=== PATIENT | female | born 1960 | race Caucasian/White ===

== ENCOUNTER 2016-09-10 07:55 | Inpatient (IN) | payer MEDICAID ==
[2016-09-10] MEDS ORDERED: ASPIRIN EC 325 MG TAB PO ONE (08:03)
[2016-09-10] MEDS ORDERED: NS 1,000 ML IV ONE (08:03)
[2016-09-10] MEDS ORDERED: FAMOTIDINE 20 MG TAB PO ONE (08:03)
[2016-09-10] MEDS ORDERED: DIAZEPAM 5 MG TAB PO ONE (08:03)
[2016-09-10] MEDS ORDERED: diphenhydrAMINE 25 MG CAP PO ONE (08:03)
--- NOTE | 2016-09-10 08:29 | CPEKG ---
Heart Rate: 86 RR Interval: 698 P-R Interval: 144 QRSD Interval: 106 QT Interval: 368 QTC Interval: 440 P Paris: 50 QRS Paris: 49 T Wave Paris: 83 EKG Severity - NORMAL ECG - EKG Impression: SINUS RHYTHM Electronically Signed By: Dexter Cortes 10-Sep-2016 18:20:03
[2016-09-10 09:43] LABS: % IMMATURE GRANULYOCYTES 0.3 % (0.0-1.1); ABSOLUTE IMMATURE GRANULOCYTES 0.02 10^3/uL (0.00-0.10); ADD DIFF? NO; ADD MORPH? YES; ADD SCAN? NO; ATYPICAL LYMPHOCYTE FLAG 10 (0-99); FRAGMENT RBC FLAG 60 (0-99); HEMATOCRIT 31.4 % (38.0-47.0); HEMOGLOBIN 9.6 g/dL (12.6-16.3); LEFT SHIFT FLG 0 (0-99); LIPEMIA HEMOLYSIS FLAG 80 (0-99); MEAN CELL HEMOGLOBIN 22.5 pg (27.9-34.1); MEAN CELL HEMOGLOBIN CONCENTR. 30.6 g/dL (32.4-36.7); MEAN CELL VOLUME 73.7 fL (81.5-99.8); PLATELET CLUMPS FLAG 20 (0-99); PLATELET COUNT 252 10^3/uL (150-400); RED BLOOD CELL COUNT 4.26 10^6/uL (4.18-5.33)
[2016-09-10 09:48] LABS: ANION GAP 10 mEq/L (8-16); CALCIUM 9.2 mg/dL (8.5-10.4); CARBON DIOXIDE 25 mEq/l (22-31); CHLORIDE 103 mEq/L (97-110); CHOLESTEROL 121 mg/dL (140-220); CHOLESTEROL/HDL RATIO 2.57 RATIO (1.00-4.44); GLOMERULAR FILTRATION RATE 57; GLUCOSE 220 mg/dL (70-100); HIGH DENSITY LIPOPROTEIN 47 mg/dL (40-85); LDL/HDL RATIO 1.02 RATIO (1.00-3.22); LOW DENSITY LIPOPROTEIN 48 mg/dL (80-100); MAGNESIUM 1.9 mg/dL (1.6-2.3); NON-HIGH DENSITY LIPOPROTEIN 74 mg/dL (90-129); POTASSIUM 4.2 mEq/L (3.5-5.2); SODIUM 138 mEq/L (134-144); TRIGLYCERIDE 134 mg/dL (35-135); VERY LOW DENSITY LIPOPROTEINS 26 mg/dL (8-25)
[2016-09-10 09:57] LABS: INR 1.08 (0.83-1.16); PROTIME(PATIENT) 13.9 SEC (12.0-15.0)
[2016-09-10 10:28] LABS: MACROCYTES 1+; MICROCYTES 1+; POLYCHROMASIA 1+
[2016-09-10 10:29] LABS: GIANT PLATELETS PRESENT; HYPOCHROMIA 1+; LARGE PLATELETS PRESENT; PLATELET ESTIMATE ADEQUATE (ADEQ)
[2016-09-10] MEDS ORDERED: LIDOCAINE 1% 30 ML SDV ONE ×2 (13:21→13:23)
[2016-09-10] MEDS ORDERED: fentaNYL 100 MCG/2 ML INJ ONE (13:21)
[2016-09-10] MEDS ORDERED: MIDAZOLAM 2 MG/2 ML VIAL ONE (13:22)
[2016-09-10] MEDS ORDERED: IOPAMIDOL (ISOVUE-370) 150 ML BTL IV ONE (13:22)
[2016-09-10] MEDS ORDERED: CEFAZOLIN 1 GM/DEXTROSE/50 ML BAG IV ONE (14:17)
[2016-09-10] MEDS ORDERED: IOPAMIDOL (ISOVUE-300) 100 ML BTL IV ONE (14:48)
[2016-09-10] MEDS ORDERED: ATROPINE SULFATE 1 MG/10 ML SYR ONE (15:15)
--- NOTE | 2016-09-10 15:19 | PDDXCAT ---
Diagnostic Cath Note - . Date: 09/10/16 Lever Miller: Re Indication: other (New onset CHF, known CAD, recent decline in EF.) - Procedure Access: right groin Procedure: left heart catheterization, coronary angiography, left ventriculogram , right heart catheterization - Materials Left Heart Cath size: 6F Left Heart Cath materials: standard multipack (JL4, JR4, pigtail) Right Heart Cath size: 7F Right Heart Cath materials: PWP catheter - Findings-Left Heart Catheterization LM: The left main is a large caliber vessel. There is appropriate bifurcation into left anterior descending and circumflex distributions. Luminal irregularities are noted distally to 20%. LAD: The LAD has previously been stented in its mid segment. There is minimal in stent restenoses. A single principal diagonal branch is identified. The remainder of the vessel and its branches contain only luminal irregularities. LCX: The circumflex has a single principal obtuse marginal branch with a 2nd very small surgically insignificant obtuse marginal. There are luminal irregularities with no obstructive lesions. RCA: The right coronary artery is large and dominant. There is a large posterolateral in addition to the PDA. Luminal irregularities with no obstructive lesions are noted. EDP: 100/17/35 mmHg. LVEF: 30-35% with global hypokinesis and 3+ mitral regurgitation. Wall motion: No focal wall motion abnormalities. There is moderate global hypokinesis. - Findings-Right Heart Catheterization RA: 17 mmHg. RV: 53/13/21 mmHg. PA: 50/22/36 mmHg. PAOP: 23 mmHg. AO: 99/64/80 mmHg. CO: 4.34 liters/minute. CI: 1.8 liters/minute per meter squared. Complications: None. Closure method: manual pressure Assessment: 1. Single-vessel CAD with previous stenting of the mid LAD. In the interim, there has been no significant in stent restenoses. Additionally, there has been no development of additional obstructive lesions. 2. Moderate, likely ischemic, cardiomyopathy with an ejection fraction visually estimated at 30-35%. 3. 3+ mitral regurgitation. 4. Elevated filling pressures. 5. 3+ mitral regurgitation. Plan: We will plan to further assess the degree of mitral regurgitation via ECHO and possibly DAVID. We will continue aggressive medical management. Consideration for ICD implantation depending on further assessment of the ejection fraction. Intervention: None. Patient Problems: Problems Problem Status Onset Acute ischemic stroke Acute
[2016-09-10] MEDS ORDERED: ONDANSETRON 4 MG/2 ML VIAL IVP PRN (15:46)
[2016-09-10] MEDS ORDERED: ONDANSETRON DISINTEGRATING 4 MG TAB PO PRN (15:46)
[2016-09-10] MEDS ORDERED: ACETAMINOPHEN 325 MG TAB PO PRN (15:46)
[2016-09-10] MEDS: INSULIN LISPRO 100 UNIT/ML SC SCH (18:37)
[2016-09-10] MEDS: WARFARIN SODIUM 5 MG TAB PO SCH (18:37)
[2016-09-10] MEDS ORDERED: ENOXAPARIN SQ SCH (21:00)
[2016-09-10] MEDS: ENOXAPARIN 120 MG/0.8 ML SYR SC SCH (21:27)
[2016-09-10] MEDS: NORTRIPTYLINE HCL 10 MG CAP PO SCH (21:28)
[2016-09-10] MEDS: ROSUVASTATIN CALCIUM 20 MG TAB PO SCH (21:28)
[2016-09-10] MEDS: PREGABALIN 100 MG CAP PO SCH (21:28)
[2016-09-10] MEDS: METOPROLOL SUCCINATE XR 25 MG TAB PO SCH (21:28)
[2016-09-10] MEDS: clonazePAM 1 MG TAB PO SCH (21:28)
[2016-09-10] MEDS: INSULIN DETEMIR 50 UNIT SQ SCH (22:37)
[2016-09-11] MEDS: VENLAFAXINE XR 75 MG CAP PO SCH (08:03)
[2016-09-11] MEDS: METOPROLOL SUCCINATE XR 25 MG TAB PO SCH ×2 (08:03→20:44)
[2016-09-11] MEDS: PREGABALIN 100 MG CAP PO SCH ×2 (08:03→20:45)
[2016-09-11] MEDS: CLOPIDOGREL BISULFATE 75 MG TAB PO SCH (08:04)
[2016-09-11] MEDS: LISINOPRIL 5 MG TAB PO SCH (08:04)
[2016-09-11] MEDS: buPROPion XL 150 MG TAB PO SCH (08:04)
[2016-09-11] MEDS: ENOXAPARIN 120 MG/0.8 ML SYR SC SCH ×2 (08:04→20:44)
[2016-09-11] MEDS: clonazePAM 1 MG TAB PO SCH ×2 (08:04→20:49)
[2016-09-11] MEDS: INSULIN LISPRO 100 UNIT/ML SC SCH ×4 (08:04→18:09)
[2016-09-11] MEDS: FUROSEMIDE 40 MG TAB PO SCH (08:05)
[2016-09-11] MEDS: INSULIN DETEMIR 50 UNIT SQ SCH ×2 (08:06→20:57)
--- NOTE | 2016-09-11 08:33 | ECHO ---
[id number] + + [id number] : : [place] [id number] : : [phone] + + Adult Echocardiographic Report + -----+ :Name: CAROLEE ALLAN JStudy Date: 09/10/2016 04:07 PM : : Hospital Admission Number: [id number] Location : [facility]: :: 1960 Gender: Female Height: 67 in : :Age: 56 yrs Race: WH Weight: 273 lb : :Reason For Study: CHF : : BSA: 2.3 meters2 : + -----+ MMode/2D Measurements \T\ Calculations LVIDd: 4.8 cm EDV(Teich): 107.6 ml MV Diam: 4.4 cm LA dimension: 4.2 cm LVOT diam: 1.9 cmLVLd ap4: 8.5 cm SV(MOD-sp4): LVOT area: EDV(MOD-sp4): 50.0 ml 3.0 cm2 120.0 ml LVLs ap4: 8.0 cm ESV(MOD-sp4): 70.0 ml EF(MOD-sp4): 41.7 % Normal Measurement Values: + + :LVIDd (3.5-5.7cm) IVSd (0.6-1.1cm) LVPWd (0.6-1.1cm) Aortic Root (2.0-3.7cm)Left Atrium (1.5-4.0cm): :LV Vol(d) (76-115ml) LV Vol(s) (29-48ml) Ejec Fraction (50-65%)PV Donn (0.6- 1.2m/s) TV Donn (0.4-1.0m/s) : :MV E Donn (0.8-1.0m/s)MV A Donn (0.3-1.0m/s)LVOT Donn (0.7-1.2m/s) Asc Ao Donn ( 0.9-1.8m/s) : + + Doppler Measurements \T\ Calculations MV E max donn: MV V2 max: Ao mean PG: LV V1 mean P.2 cm/sec 139.8 cm/sec 2.4 mmHg 2.0 mmHg MV A max donn: MV max P.8 mmHg Ao V2 mean: LV V1 mean: 102.7 cm/sec MV V2 mean: 73.1 cm/sec 55.9 cm/sec MV E/A: 1.00 80.7 cm/sec Ao V2 VTI: 20.9 cmLV V1 VTI: 16.4 cm MV mean P.1 mmHg ENMA(I,D): 2.3 cm2 MV V2 VTI: 28.4 cm MV area (1 diam): 14.9 cm2 MVA(VTI): 1.7 cm2 MV Flow area(1diam): 14.9 cm2 MR max donn: MR(RF 1 diam): 5.0 % SV(MV 1 diam): TR max donn: 490.8 cm/sec 423.1 ml 309.5 cm/sec MR max PG: SI(MV 1 diam): TR max P.4 mmHg 183.4 ml/m2 38.3 mmHg SV(LVOT): 48.7 ml RAP systole: 10.0 mmHg RVSP(TR): 48.3 mmHg RF(MV,LVOT)(1diam): 0.88 Left Ventricle The left ventricle is normal in size. Cannot exclude LV apical thrombus. There is normal left ventricular wall thickness. There is Doppler evidence for diastolic dysfunction. EF estimate is 40%. Apical and mid/distal septal akinesis. Right Ventricle The right ventricle is normal in size and function. Atria The left atrium is moderately dilated. Right atrial size is normal. Contrast injected - negative (but no cough or valsalva post cath). Mitral Valve Calcified mitral apparatus. There is no evidence of mitral valve prolapse. There is no mitral valve stenosis. There is moderate to severe mitral regurgitation. Tricuspid Valve Normal tricuspid valve. There is mild tricuspid regurgitation. Right ventricular systolic pressure is 49mmHg. There is Doppler evidence for mild pulmonary hypertension. Aortic Valve The aortic valve is trileaflet. The aortic valve opens well. There is no aortic stenosis. There is no aortic insufficiency. Pulmonic Valve The pulmonic valve is normal in structure and function. There is no pulmonic valvular regurgitation. Great Vessels The aortic root is normal size. Pericardium/Pleural There is no pericardial effusion. Conclusion A complete two-dimensional transthoracic echocardiogram was performed (2D, M-mode, Doppler and color flow Doppler). Normal LV size. EF estimate is 40%. Cannot exclude LV apical thrombus. There is Doppler evidence for diastolic dysfunction. Apical and mid/distal septal akinesis. The left atrium is moderately dilated. Calcified mitral apparatus. There is moderate to severe mitral regurgitation. Mild TR. Right ventricular systolic pressure is 49mmHg. Contrast injected - negative (but no cough or valsalva post cath). Compared to a prior study from 01/12/14 the EF has declined and there are new wall motion abnormalities. The severity of MR is unchanged. Final Reading Physician: John Bejarano signed on 09/11/2016 08:31 AM Ordering Physician: Gray Grimaldo Performed By: Mary Ramirez, RIKYCS
[2016-09-11 11:02] LABS: HEMOGLOBIN 8.4 g/dL (12.6-16.3); MEAN CELL HEMOGLOBIN 22.7 pg (27.9-34.1); MEAN CELL VOLUME 75.7 fL (81.5-99.8); RED BLOOD CELL COUNT 3.7 10^6/uL (4.18-5.33)
[2016-09-11 11:07] LABS: RED CELL DISTRIBUTION WIDTH 20.6 % (11.5-15.2)
[2016-09-11 11:10] LABS: INR 1.19 (0.83-1.16); PROTIME(PATIENT) 15.1 SEC (12.0-15.0)
[2016-09-11 11:41] LABS: ANION GAP 8 mEq/L (8-16); CALCIUM 8.7 mg/dL (8.5-10.4); CARBON DIOXIDE 26 mEq/l (22-31); CHLORIDE 101 mEq/L (97-110); CREATININE 0.9 mg/dL (0.6-1.0); GLOMERULAR FILTRATION RATE > 60; GLUCOSE 357 mg/dL (70-100); SODIUM 135 mEq/L (134-144)
[2016-09-11] MEDS ORDERED: D50W 25 GM/50 ML SYR IVP PRN (13:37)
[2016-09-11] MEDS ORDERED: FUROSEMIDE 40 MG/4 ML VIAL IVP ONE ×2 (15:06→17:30)
--- NOTE | 2016-09-11 15:38 | PDCARPN ---
Cardiology Progress Note Chief Complaint: Patient reports continued shortness of breath with exertion. Assessment/Plan: Assessment: Mrs Mahoney is a 56-year-old female who was admitted to the hospital yesterday for elective right and left cardiac catheterization. 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 Cardiac catheterization (09/10/2016) no flow limiting disease, previous stent in LAD patent, moderate, likely ischemic cardiomyopathy ejection fraction estimated at 30-35%, 3+ mitral regurgitation, elevated pulmonary pressures PA measurement 50/ 22/36 PAOP 23 mm Hg. After procedure she had echocardiogram done, showing EF 40 %, apical and mid to distal septal akinesis, diastolic dysfunction, LA moderately dilated, calcified mitral apparatus, moderate to severe MR, mild TR, RVSP 49 mm Hg. Patient noted to be anemia on admission with hemoglobin of 9.6, hematocrit 31.4, today 8.4 and 28.0. She reports continuation of shortness of breath, denies of any chest pressure or pain, no significant edema. Right groin site, catheter insertion site, without redness, swelling, drainage, or ecchymosis. Noted patient remained in sinus rhythm with no malignant arrhythmias throughout the evening. Occasional PVC. Patient went up in walking heart rate races significantly in sinus rhythm, up to 110-120 BPM. Plan: 1. Ischemic cardiomyopathy: Have up titrated her metoprolol succinate recently outpatient setting, continues to have elevated heart rates. Have discussed this with her dial screw assembler, Dr. Toney, with concerns that her anemia may be driving this tachycardia and causing worsening of her shortness of breath and potential systolic heart failure. Recommendation for transfusion. Will increase metoprolol succinate up to 37.5 mg. Continue on current dose of lisinopril. Has been started on increased dose of Lasix at 60 mg p. o. q.day within the last week. 2. CAD: Recent coronary catheterization showing no flow limiting disease, continue on anti-platelet therapy, currently not on aspirin due to being on warfarin. Continue on beta-reuben as mentioned above. 3. Paroxysmal atrial fibrillation: Patient currently in sinus rhythm, continue on beta-reuben as mentioned above. Patient with chads Vasc score 6, being bridged with Lovenox while resuming warfarin therapy (per recommendation of Hematology), INR subtherapeutic. Repeat INR in a.m.. 4. microcytic anemia: H&H decreased today, no obvious signs of bleeding, potentially delusional from cardiac catheterization. Patient noted to have significant elevated heart rate despite beta-blockers with exertion, probably worsening her shortness of breath with decreased ejection fraction and mitral regurgitation, discussed with Hematology, Dr. Fernandez, who has recommended that patient be transfused 2 units to see if this will help with her shortness of breath, he has also recommended that once patient is discharge, she be sent home with Hemoccult x3 cart and follow up with him. Will give patient 40 of Lasix IV between units. Repeat H&H in BMP in a.m.. 5. Diabetes type 2: Patient has been resumed on home insulin, continues to be hyperglycemic, will add a sliding scale to home dosage, blood sugars a.c. and HS , D50 order to if necessary. 6. Valvular heart disease: +3 MR by catheterization, moderate to severe by echo, potentially if ejection fraction can improved with medical management, this may also improve MR, medication management as above. 7. LONNY: Using oxygen therapy at night as has home 8. Hyperlipidemia: Resumed on home dosage of statin therapy. 9. Code status: Patient is a full code. 10. DVT precaution: Patient is on Lovenox therapy. Will plan for patient to stay one more night and D/C in AM 09/11/16 15:35 Subjective: Patient reports continuation of shortness of breath, denies of any chest pain, palpitations, orthopnea, PND, edema, near-syncope or syncopal events. Reviewed/Discussed With: other (Dr Grimaldo, Dr Toney) Objective: Vital Signs (8 Hrs) Temp Pulse Resp BP Pulse Ox 09/11/16 15:06 36.4 C 85 12 120/66 93 09/11/16 12:00 36.4 C 88 18 114/69 92 09/11/16 11:04 87 L 09/11/16 08:26 36.8 C 80 20 105/58 L 98 09/11/16 08:04 101/54 L 09/11/16 08:03 97 101/54 L 09/11/16 07:42 97 Intake/Output (24 Hrs) 09/10/16 09/11/16 09/12/16 05:59 05:59 05:59 Intake Total 2350 500 Output Total 200 Balance 2150 500 Intake: Oral (ml) 1750 500 IV Intake (ml) 600 Output: Urine (ml) 200 Bedpan 200 Other: Weight 123.8 kg Intake Quantity Yes Sufficient Number of Voids Bedpan 1 Result Diagrams: 09/11/16 10:50 09/11/16 10:50 - Physical Exam Constitutional: healthy appearing, no apparent distress, obese Ears, Nose, Mouth, Throat: moist mucous membranes Cardiovascular: regular rate and rhythm, systolic murmur (2 to 3/6 along left sternal border.), pulses symmetric bilat, No no rubs, No jugular vein distention , No carotid bruit Peripheral Pulses: 1+: dorsalis-pedis (R), dorsalis-pedis (L), 2+: carotid (R), carotid (L) Respiratory: other (Lungs are clear, but diminished in bases bilateral, no rhonchi, rales, or wheezing noted. No accessary muscle use, no intercostal muscle retraction noted.) Gastrointestinal: normoactive bowel sounds, no tenderness, no masses, tenderness Skin: warm, no edema, other (Groin site, catheter insertion site, with no redness swelling drainage ecchymosis or hematoma.) Neurologic: AAOx3 Psychiatric: cooperative, interactive, following commands, not anxious ICD10 Worksheet Patient Problems: Problems Problem Status Onset Acute ischemic stroke Acute
[2016-09-11] MEDS: WARFARIN SODIUM 5 MG TAB PO SCH (16:26)
[2016-09-11] MEDS: ROSUVASTATIN CALCIUM 20 MG TAB PO SCH (20:44)
[2016-09-11] MEDS: NORTRIPTYLINE HCL 10 MG CAP PO SCH (20:53)
[2016-09-12 05:31] LABS: HEMATOCRIT 34.3 % (38.0-47.0); HEMOGLOBIN 10.7 g/dL (12.6-16.3); MEAN CELL HEMOGLOBIN 23.5 pg (27.9-34.1); MEAN CELL HEMOGLOBIN CONCENTR. 31.2 g/dL (32.4-36.7); MEAN CELL VOLUME 75.2 fL (81.5-99.8); RED BLOOD CELL COUNT 4.56 10^6/uL (4.18-5.33); RED CELL DISTRIBUTION WIDTH 19.9 % (11.5-15.2)
[2016-09-12 05:42] LABS: ANION GAP 7 mEq/L (8-16); CARBON DIOXIDE 28 mEq/l (22-31); CHLORIDE 102 mEq/L (97-110); GLOMERULAR FILTRATION RATE 57; GLUCOSE 203 mg/dL (70-100); POTASSIUM 4.5 mEq/L (3.5-5.2); SODIUM 137 mEq/L (134-144)
[2016-09-12 05:48] LABS: INR 1.25 (0.83-1.16); PROTIME(PATIENT) 15.7 SEC (12.0-15.0)
[2016-09-12] MEDS: INSULIN LISPRO 100 UNIT/ML SC SCH ×4 (08:01→12:14)
[2016-09-12] MEDS: FUROSEMIDE 40 MG TAB PO SCH (08:02)
[2016-09-12] MEDS: PREGABALIN 100 MG CAP PO SCH (08:02)
[2016-09-12] MEDS: METOPROLOL SUCCINATE XR 25 MG TAB PO SCH (08:03)
[2016-09-12] MEDS: clonazePAM 1 MG TAB PO SCH (08:04)
[2016-09-12] MEDS: LISINOPRIL 5 MG TAB PO SCH (08:04)
[2016-09-12] MEDS: buPROPion XL 150 MG TAB PO SCH (08:05)
[2016-09-12] MEDS: ENOXAPARIN 120 MG/0.8 ML SYR SC SCH (08:05)
[2016-09-12] MEDS: VENLAFAXINE XR 75 MG CAP PO SCH (08:05)
[2016-09-12] MEDS: CLOPIDOGREL BISULFATE 75 MG TAB PO SCH (08:05)
[2016-09-12] MEDS: INSULIN DETEMIR 50 UNIT SQ SCH (08:06)
[2016-09-12 11:24] VITALS: BP 127/76; PULSE 84; RESP 19; TEMP 98.7; O2SAT 91
--- NOTE | 2016-09-12 15:54 | GDS ---
[f rep st] DISCHARGE SUMMARY SUPERVISING TEACHER VOCAL: Gray Grimaldo MD. DIAGNOSES ADMISSION: 1. Coronary artery disease. 2. Hyperlipidemia. 3. Type 2 diabetes. 4. Hypertension. 5. Paroxysmal atrial fibrillation. 6. History of cryptogenic right-sided CVA. 7. Obstructive sleep apnea. 8. Valvular heart disease. 9. Microcytic anemia. DISCHARGE DIAGNOSES: 1. Coronary artery disease. 2. Ischemic cardiomyopathy. 3. Paroxysmal atrial fibrillation. 4. Valvular heart disease: +3 mitral regurgitation on catheterization, and echocardiogram showing moderate to severe mitral regurgitation. 5. Obstructive sleep apnea. 6. Hyperlipidemia. 7. Microcytic anemia. 8. Status post loop recorder removal. PROCEDURES DONE DURING HOSPITALIZATION: 1. Electrocardiogram. 2. Echocardiogram. 3. Diagnostic right and left heart catheterization. 4. Loop recorder removal. 5. Transfusion, 2 units packed red blood cells. BRIEF HISTORY: Please see H and P. The patient is a 56-year-old female with significant history th at includes cryptogenic right-sided CVA; morbid obesity; coronary artery disease, with previous PCI of the LAD; hyperlipidemia; type 2 diabetes; hypertension; ; lupus anticoagulant positive; LONNY; and microcytic anemia. She has been noticing more significant shortness of breath, with no ch est pressure or pain. She was seen by Dr. Grimaldo, who evaluated her most recent echocardiogram, and felt it appropriate for the further evaluated for right and left heart catheterization, and with rec ent diagnosis of atrial fibrillation, loop recorder was removed. HOSPITAL COURSE: Patient admitted through CVC, prepped for procedure, taken to cardiovascular edna terization lab. There, loop recorder was successfully removed with no complications, then right and left heart catheterization was performed by Dr. Grimaldo. Findings were shown. No flow-limiting dise ase, previous stent to the mid LAD was patent, the patient's ejection fraction was estimated at 30% to 35%, with no focal wall motion, moderate global hypokinesis. LV gram did show 3+ mitral regurgit ation. Right-sided heart pressures measured RA of 17, RV 53/13, PA of 50/22, wedge of 23 mmHg. CO was estimated at 4.34 L/minute. CI was estimated at 1.8 L/minutes sq. No complications from proced ure. All sheaths were removed, and patient was transferred to the CVC. There, she underwent echoca rdiogram, which showed EF estimated at 40%, diastolic dysfunction, apical and mid distal septal quentin esis, atrial was moderately dilated, the calcified mitral apparatus, moderate to severe MR, mild TR, RVSP was estimated at 49 mm Hg, contrast injection was negative for any septal process septal flow. Patient ultimately transferred to the PCU for overnight observation, where she remained in sinus r hythm throughout her stay. It was noted that on admission she had was moderately anemic, with initi al H and H of 9.6 and 31.4. Postop day 1 was 8.4 and 28.0. This had been noticing that she has bee n having worsening anemia, with history of microcytic anemia, and seeing Hematology, Dr. Toney. It was also noted that when she was up and walking in the unit, she would be tachycardiac, despite inc reased beta blockage therapy, remaining in sinus tachycardia with rates up to 120 beats per minute. There was concern that her anemia was potentially worsening her heart failure symptoms. A phone ca ll was placed to Dr. Toney, her high tension tester, who recommended that the patient be transfused 2 unit s of packed red blood cells to see if this would improve symptoms, which was done without any signif icant adverse reactions. Today, the patient's hemoglobin and hematocrit have improved. They are cu rrently 10.7 and 34.3. She reports less fatigue, and mildly less shortness of breath with exertion. With the transfusion, her heart rate has been maintaining better, and her metoprolol succinate had been dilated up for better rate control. At the current time, she denies of any chest pain. She h as had mild improvement in her dyspnea on exertion. Denies of any palpitations, lightheadedness, or thopnea, near-syncope or syncopal events. She has been up walking in the unit without any difficult ies. Her vital signs remain stable. PHYSICAL EXAMINATION: GENERAL APPEARANCE: Done today, morbidly obese, female, who is rishi rt, oriented to person, place, time, and situation. Appears to be in no acute distress. CURRENT NUHA SIGNS: Blood pressure 127/76, saturating 91% on room air, temperature 37.1 degrees Celsius, res pirations 19 breaths per minute. HEENT: Head is normocephalic. Lips and tongue are pink and moist with no signs of cyanosis. Conjunctivae pink. NECK: Trachea is midline, +2 carotid pulses bilate ral, no auscultated bruits, no jugular vein distention. RESPIRATORY: Lungs clear to auscultation. No rhonchi, rales, or wheezes. No accessory muscle use. No intercostal muscle retraction noted. CARDIAC: Regular rate, regular rhythm. S1, S2. No S3, S4 noted. +2 tricuspid regurgitation noted on left sternal border. ABDOMEN: Round, soft, nontender. No palpable masses. SKIN: [place], warm, dry, no cyanosis, no clubbing, no peripheral edema. VASCULAR: +2 carotid pulses bilateral. +2 ra dial pulses bilateral. +2 dorsal pedal and posterior tibial pulses bilateral. Catheter insertion s ite, right groin site, with no redness, swelling, drainage, ecchymosis, or hematoma. No auscultated bruit over site. CHEST: Loop recorder removal site left anterior chest, just lateral to sternum, incision intact, kala removed today and Steri-Strips applied. No redness, swelling, drainage, or signs of infection. NEURO: Cranial nerves 2-12 grossly intact. LABORATORY STUDIES: Drawn today showed WBC of 7.25, hemoglobin of 10.7, hematocrit of 34.3, platele t count 206. INR was noted to be 1.25. Sodium 137, potassium 4.5, chloride 102, CO2 28, BUN 23, cr eatinine 1.0, glucose was 203, calcium 9.0. STUDIES: Diagnostic cardiac catheterization as mentioned above, loop recorder removal as mentioned above, echocardiogram as mentioned above. Initial electrocardiogram on admission showed sinus rhyth m, intraventricular conduction delay, normal axis, no significant ST or T-wave abnormalities. DISCHARGE DISPOSITION: Patient will be discharged home in fair condition. She is under activity re strictions of not lifting more than 10 pounds for the next week, and no strenuous activity for the n ext 2 weeks. She is under bathing precautions of not submerging either catheter insertion site, or loop recorder incision site in water, but she is allowed to shower. DISCHARGE MEDICATIONS: Please see discharge medication reconciliation sheet. Note that patient is being discharged home on a higher dose of metoprolol succinate at 37.5 mg p.o. b.i.d. She has also recently had her Lasix increased to 60 mg p.o. daily. She is being bridged with Lovenox therapy, du e to significant CHADS VASc score, per her high tension tester's recommendation of 120 mg subcu twice b.i.d . She has been resumed on her current dose of warfarin, will continue bridging with Lovenox until s he reaches a therapeutic limit. She is to have an INR drawn at her hematology office on Saturday of t his week. DISCHARGE INSTRUCTIONS: Post loop recorder removal instructions and post cardiac catheterization di juwan instructions went over with the patient. She verbalizes understanding. She is to monitor f or signs of infection, bleeding precautions, activity restrictions, medication compliancy. She has a followup appointment set up next Saturday for a wound check in our [place] office. She will have a n INR drawn at her hematology office Saturday. She has a followup appointment with Dr. Grimaldo on September 27 in the [place] office, and she is to, per Dr. Toney's request, call his office and make an appo intment to be seen soon. Also, with her ongoing anemia, she has been sent home with 3 [employer] car ds to evaluate for possible GI blood. At the time of discharge, patient and her sister verbalized u nderstanding all instructions, they have no questions. She has been asked also to monitor her weigh t daily, and she is to notify our office if she gains more than 2 pounds in a day or 5 pounds in a w [place]. The patient has been told that after discharge if she has any problems or concerns, she is to notify our office immediately, or return to the hospital. TOTAL TIME SPENT ON DISCHARGE: Greater than 30 minutes. /[id number]/MODL
== END 2016-09-12 14:06 | disposition home or self-care (01) | DRG 287 ==
LOC: FCATH 07:55 → F2W 15:13 → OBSVTOIN 09-11 16:00
PROVIDERS: ADMIT Internal Medicine Cardiovascular Disease; ATTEND Internal Medicine Cardiovascular Disease
DX: I34.0 Nonrheumatic mitral (valve) insufficiency (principal); D64.9 Anemia, unspecified; I25.10 Atherosclerotic heart disease of native coronary artery without angina pectoris; I48.0 Paroxysmal atrial fibrillation; E11.9 Type 2 diabetes mellitus without complications; I10 Essential (primary) hypertension; E66.01 Morbid (severe) obesity due to excess calories; Z68.41 Body mass index [BMI] 40.0-44.9, adult; G47.33 Obstructive sleep apnea (adult) (pediatric); E78.5 Hyperlipidemia, unspecified; Z87.891 Personal history of nicotine dependence; Z79.01 Long term (current) use of anticoagulants; Z86.73 Personal history of transient ischemic attack (TIA), and cerebral infarction without residual deficits; Z95.5 Presence of coronary angioplasty implant and graft
CPT/HCPCS: G0378; J0461; J0690; J1644; J1650; J1815; J2250; J3010; P9016; Q9967

== ENCOUNTER 2016-11-02 16:19 | Observation (INO) | payer MEDICAID ==
--- NOTE | 2016-11-02 16:59 | EDPHY ---
H & P Time Seen by Provider: 11/02/16 16:56 HPI/ROS: CHIEF COMPLAINT: Weak and woozy HISTORY OF PRESENT ILLNESS: Patient was started on Entresto just less than a week ago it started feeling poorly today. She was at her primary care physician 's office and felt like she was woozy and intermittently out of it. She felt like her heart rate was irregular and had nausea and vomiting at the physician office. This afternoon she feels weak and lightheaded and dizzy when she stands up with difficulty keeping her balance. Her blood pressure was noted to be low at her creel cleaner's office and she was sent here for further evaluation. Symptoms moderate to severe. Associated with a very slight headache but no shortness of breath or chest pain. REVIEW OF SYSTEMS: Eye: no change in vision ENT: no sore throat Cardiac: no chest pain or syncope Pulmonary: no cough or SOB Abdomen: Diarrhea for a few months, unchanged. No abdominal pain. Musculoskeletal: No neck pain Skin: no rash Neuro: slight headache Constitutional: no fever : no urinary symptoms A comprehensive 10 point review of systems is otherwise negative aside from elements mentioned in the history of present illness. PAST MEDICAL HISTORY: Lupus anticoagulant with history of stroke x2 and myocardial infarction. Diabetes. Anemia. Lupus. Social history: Nonsmoker, here with relative General Appearance: Alert and conversant, cooperative. Eyes: No scleral icterus. ENT, Mouth: Normal mucous membranes. Respiratory: Normal respiratory effort, breath sounds equal, lungs are clear to auscultation. Cardiovascular: Regular rate and rhythm. Gastrointestinal: Abdomen is soft and non tender. Neurological: Alert and oriented x3. Normally conversant. Face symmetric, normal movement and sensation in all extremities. Skin: Warm and dry, no rashes. Occasional bruising on arms. Musculoskeletal: No peripheral edema and no joint swelling. Psychiatric: Not agitated. Emergency Department course/MDM: Discussed with Albert who recommends admission and stopping her medication, blood pressure monitoring. Head CT performed for trauma as she fell getting yogurt out of the refrigerator 2 days ago and went backwards landing on her butt and head. 175: Subsequent blood pressure 82 systolic. 182: CT report reviewed for the head. Old strokes evolved since 2013 but no acute bleeding. 183: Discussed results with the patient, IV normal saline 1 L. 184: Discussed with uptake for admission, Cardiology will consult, Albert. Smoking Status: Former smoker Constitutional: Initial Vital Signs Temperature (C) 36.7 C 11/02/16 16:25 Heart Rate 78 11/02/16 16:25 Respiratory Rate 18 11/02/16 16:25 Blood Pressure 93/62 L 11/02/16 16:25 O2 Sat (%) 93 11/02/16 16:25 O2 Delivery Mode Room Air Allergies/Adverse Reactions: Sulfa (Sulfonamide Antibiotics) Allergy (Mild, Verified 11/02/16 16:38) Vomiting codeine Allergy (Mild, Uncoded 11/02/16 16:38) GI metformin Allergy (Mild, Uncoded 11/02/16 16:38) GI Home Medications: Medication Instructions Recorded Ascorbic Acid [Vitamin C 500 mg 500 mg PO DAILY 11/02/16 (*)] Clopidogrel Bisulfate [Plavix (*)] 75 mg PO DAILY 11/02/16 Ferrous Sulfate [Ferrous Sulf 325 325 mg PO DAILY 11/02/16 MG (*)] Furosemide [Lasix 40 MG (*)] 40 mg PO DAILY 11/02/16 Insulin Detemir [Levemir] 50 unit SQ BID 11/02/16 Insulin Lispro [Humalog] 0 unit SQ AD PRN 11/02/16 Lisinopril [Zestril 5 mg (*)] 5 mg PO DAILY 11/02/16 Metoprolol Tartrate [Lopressor 50 50 mg PO BID 11/02/16 mg (*)] Nortriptyline HCl [Pamelor 10 mg 10 mg PO Q2D@21 11/02/16 (*)] Pregabalin [LYRICA] 100 mg PO BID 11/02/16 Rosuvastatin Calcium [Crestor 20mg 20 mg PO HS 11/02/16 (*)] Sacubitril/Valsartan 24/26Mg 1 ea PO BID 11/02/16 [Entresto 24 mg/26 mg (RX)] Venlafaxine Xr [Effexor Xr 37.5MG 75 mg PO DAILY 11/02/16 (*)] Warfarin Sodium 10 mg PO 11/02/16 buPROPion XL [Wellbutrin Xl] 150 mg PO DAILY 11/02/16 clonazePAM [klonoPIN (*)] 1 mg PO BID PRN 11/02/16 metFORMIN HCL [Metformin HCl ER] 500 mg PO BID 11/02/16 Medical Decision Making - Diagnostics EKG Interpretation: 12-lead EKG interpreted by me; official reading is in trace master. My interpretation is sinus rhythm with late anterior RS transition consistent with old MT, rate 78 Imaging Results: Imaging Impressions Head CT 11/02/16 17:18 Impression: Sequela of prior moderate right and small left temporal-parietal infarcts, with no acute intracranial abnormality identified. If there is further clinical concern regarding the patient's symptoms, MR imaging is suggested, if not otherwise contraindicated. Findings were discussed with Taurus in the ED who conveyed the information to KIM BARBA MD at 18:08, on 11/02/2016. Differential Diagnosis: Differential considered including but not limited to medication side effects, subdural or epidural hematoma, hyperglycemia, sodium or other electrolyte abnormality, anemia. Consult/Admit Bed Type: [facility] - Data Points Laboratory Results: Laboratory Results 11/02/16 17:00 11/02/16 17:00 11/02/16 11/02/16 11/02/16 17:00 17:00 17:00 WBC 10.68 10^3/uL H 10^3/uL (3.80-9.50) RBC 5.67 10^6/uL H 10^6/uL (4.18-5.33) Hgb 14.6 g/dL g/dL (12.6-16.3) POC Hgb Hct 45.4 % % (38.0-47.0) POC Hct MCV 80.1 fL L fL (81.5-99.8) MCH 25.7 pg L pg (27.9-34.1) MCHC 32.2 g/dL L g/dL (32.4-36.7) RDW 20.8 % H % (11.5-15.2) Plt Count 249 10^3/uL 10^3/uL (150-400) MPV Not Reported Neut % (Auto) 80.7 % H % (39.3-74.2) Lymph % (Auto) 10.2 % L % (15.0-45.0) [place] % (Auto) 6.2 % % (4.5-13.0) Eos % (Auto) 1.9 % % (0.6-7.6) Baso % (Auto) 0.6 % % (0.3-1.7) Nucleat RBC Rel Count 0.0 % % (0.0-0.2) Absolute Neuts (auto) 8.63 10^3/uL H 10^3/uL (1.70-6.50) Absolute Lymphs (auto) 1.09 10^3/uL 10^3/uL (1.00-3.00) Absolute Monos (auto) 0.66 10^3/uL 10^3/uL (0.30-0.80) Absolute Eos (auto) 0.20 10^3/uL 10^3/uL (0.03-0.40) Absolute Basos (auto) 0.06 10^3/uL 10^3/uL (0.02-0.10) Absolute Nucleated RBC 0.00 10^3/uL 10^3/uL (0-0.01) Immature Gran % 0.4 % % (0.0-1.1) Immature Gran # 0.04 10^3/uL 10^3/uL (0.00-0.10) Platelet Estimate ADEQUATE (ADEQ) Hypochromasia 1+ H PT 32.2 SEC H SEC (12.0-15.0) INR 3.08 H (0.83-1.16) POC Sodium Sodium 131 mEq/L L mEq/L (134-144) POC Potassium Potassium 4.4 mEq/L mEq/L (3.5-5.2) POC Chloride Chloride 97 mEq/L mEq/L (97-110) Carbon Dioxide 20 mEq/l L mEq/l (22-31) Anion Gap 14 mEq/L mEq/L (8-16) POC BUN BUN 61 mg/dL H mg/dL (7-23) Creatinine 1.7 mg/dL H mg/dL (0.6-1.0) POC Creatinine Estimated GFR 31 Glucose 159 mg/dL H mg/dL (70-100) POC Glucose Calcium 9.0 mg/dL mg/dL (8.5-10.4) Troponin I 0.022 ng/mL ng/mL (0-0.034) 11/02/16 16:58 WBC RBC Hgb POC Hgb 16.0 gm/dL gm/dL (12.6-16.3) Hct POC Hct 47 % % (38-47) MCV MCH MCHC RDW Plt Count MPV Neut % (Auto) Lymph % (Auto) [place] % (Auto) Eos % (Auto) Baso % (Auto) Nucleat RBC Rel Count Absolute Neuts (auto) Absolute Lymphs (auto) Absolute Monos (auto) Absolute Eos (auto) Absolute Basos (auto) Absolute Nucleated RBC Immature Gran % Immature Gran # Platelet Estimate Hypochromasia PT INR POC Sodium 134 mEq/L mEq/L (134-144) Sodium POC Potassium 4.3 mEq/L mEq/L (3.3-5.0) Potassium POC Chloride 97 mEq/L mEq/L (97-110) Chloride Carbon Dioxide Anion Gap POC BUN 55 mg/dL H mg/dL (7-23) BUN Creatinine POC Creatinine 1.8 mg/dL H mg/dL (0.6-1.0) Estimated GFR Glucose POC Glucose 160 mg/dL H mg/dL (70-100) Calcium Troponin I Medications Given: Discontinued Medications Sodium Chloride (Ns) 1,000 mls @ 0 mls/hr IV ONCE ONE; Wide Open PRN Reason: Protocol Stop: 11/02/16 18:41 Last Admin: 11/02/16 18:46 Dose: 1,000 mls Ondansetron HCl (Zofran) 4 mg IVP EDNOW ONE Stop: 11/02/16 17:13 Last Admin: 11/02/16 18:28 Dose: Not Given Point of Care Test Results: 11/02/16 16:58 POC Sodium 134 POC Potassium 4.3 POC Chloride 97 POC BUN 55 H POC Creatinine 1.8 H POC Glucose 160 H Departure - Departure Disposition: [facility] Inpatient Acute Clinical Impression: Hypotension Qualifiers: Hypotension type: unspecified hypotension type Qualified Code(s): I95.9 - Hypotension, unspecified Medication side effect Qualifiers: Encounter type: initial encounter Qualified Code(s): T88.7XXA - Unspecified adverse effect of drug or medicament, initial encounter Condition: Good
[2016-11-02 17:17] LABS: % IMMATURE GRANULYOCYTES 0.4 % (0.0-1.1); ABSOLUTE IMMATURE GRANULOCYTES 0.04 10^3/uL (0.00-0.10); ADD DIFF? NO; ADD MORPH? YES; ADD SCAN? NO; ATYPICAL LYMPHOCYTE FLAG 0 (0-99); FRAGMENT RBC FLAG 40 (0-99); HEMATOCRIT 45.4 % (38.0-47.0); HEMOGLOBIN 14.6 g/dL (12.6-16.3); LEFT SHIFT FLG 0 (0-99); LIPEMIA HEMOLYSIS FLAG 80 (0-99); MEAN CELL HEMOGLOBIN 25.7 pg (27.9-34.1); MEAN CELL HEMOGLOBIN CONCENTR. 32.2 g/dL (32.4-36.7); MEAN CELL VOLUME 80.1 fL (81.5-99.8); PLATELET CLUMPS FLAG 30 (0-99); PLATELET COUNT 249 10^3/uL (150-400); RED BLOOD CELL COUNT 5.67 10^6/uL (4.18-5.33)
[2016-11-02] MEDS: ONDANSETRON 4 MG/2 ML VIAL IVP ONE ×2 (17:18→18:28)
[2016-11-02 17:19] LABS: RED CELL DISTRIBUTION WIDTH 20.8 % (11.5-15.2)
[2016-11-02 17:28] LABS: ANION GAP 14 mEq/L (8-16); CARBON DIOXIDE 20 mEq/l (22-31); CHLORIDE 97 mEq/L (97-110); CREATININE 1.7 mg/dL (0.6-1.0); GLOMERULAR FILTRATION RATE 31; GLUCOSE 159 mg/dL (70-100); POTASSIUM 4.4 mEq/L (3.5-5.2); SODIUM 131 mEq/L (134-144)
--- NOTE | 2016-11-02 17:34 | CPEKG ---
Heart Rate: 78 RR Interval: 769 P-R Interval: 152 QRSD Interval: 104 QT Interval: 416 QTC Interval: 474 P [place]: 51 QRS [place]: 64 T Wave [place]: 102 EKG Severity - ABNORMAL ECG - EKG Impression: SINUS RHYTHM EKG Impression: ANTERIOR INFARCT, AGE INDETERMINATE Electronically Signed By: Bay Bettencourt 02-Nov-2016 20:24:19
[2016-11-02 17:39] LABS: TROPONIN I 0.022 ng/mL (0-0.034)
[2016-11-02 17:40] LABS: INR 3.08 (0.83-1.16); PROTIME(PATIENT) 32.2 SEC (12.0-15.0)
[2016-11-02 17:54] LABS: HYPOCHROMIA 1+; PLATELET ESTIMATE ADEQUATE (ADEQ)
[2016-11-02] MEDS ORDERED: NS 1,000 ML IV ONE (18:40)
[2016-11-02] MEDS ORDERED: ONDANSETRON DISINTEGRATING 4 MG TAB PO PRN (19:54)
[2016-11-02] MEDS ORDERED: ACETAMINOPHEN 325 MG TAB PO PRN (19:54)
[2016-11-02] MEDS ORDERED: ONDANSETRON 4 MG/2 ML VIAL IVP PRN (19:54)
[2016-11-02] MEDS ORDERED: NS 1,000 ML IV SCH (20:00)
--- NOTE | 2016-11-02 20:30 | PDGENHP ---
History and Physical - Chief Complaint Acute weakness - History of Present Illness PCP: Dr. Mejia Primary metal welder: Dr. Grimaldo Primary assistant womens volleyball coach: Dr. Toney HPI: 56-year-old female presenting with acute weakness characterized as generalized with associated woozy sensation as well as palpitations, with onset of symptoms several days prior and duration persistent thereafter. Patient reports that her weakness and lightheaded sensation is exacerbated by standing and has resulted in at least 1 fall at home. They are somewhat alleviated by sitting down. There moderate to severe in severity. What really concerned the patient on the day of presentation was some transient dysarthria, noted by someone whom she was speaking with on the phone, similar in character to some dysarthria she experienced when she had a CVA in the past. She reports that approximately 1 week ago she began the medication Entresto, reduced her Lasix to 40 mg once a day, increased her metoprolol succinate to 50 mg twice a day reduced her lisinopril. She otherwise denies any infectious symptoms and she reports that her urine output has remained strong. Her oral intake of solids has been somewhat poor secondary to not feeling well but her oral intake of liquids has remained normal. History Information - Allergies/Home Medication List Allergies/Adverse Reactions: Sulfa (Sulfonamide Antibiotics) Allergy (Mild, Verified 11/02/16 16:38) Vomiting codeine Allergy (Mild, Uncoded 11/02/16 16:38) GI metformin Allergy (Mild, Uncoded 11/02/16 16:38) GI Home Medications: Ascorbic Acid [Vitamin C 500 mg (*)] 500 mg PO DAILY 11/02/16 [Last Taken ] Clopidogrel Bisulfate [Plavix (*)] 75 mg PO DAILY 11/02/16 [Last Taken 11/02/16] Ferrous Sulfate [Ferrous Sulf 325 MG (*)] 325 mg PO DAILY 11/02/16 [Last Taken 11/01/16] Furosemide [Lasix 40 MG (*)] 40 mg PO DAILY 11/02/16 [Last Taken 11/02/16] Insulin Detemir [Levemir] 50 unit SQ BID 11/02/16 [Last Taken 11/02/16 50 units] Insulin Lispro [Humalog] 0 unit SQ AD PRN 11/02/16 [Last Taken Unknown] Lisinopril [Zestril 5 mg (*)] 5 mg PO DAILY 11/02/16 [Last Taken 11/02/16] Metoprolol Tartrate [Lopressor 50 mg (*)] 50 mg PO BID 11/02/16 [Last Taken 02/10 1 Tab] Nortriptyline HCl [Pamelor 10 mg (*)] 10 mg PO Q2D@21 11/02/16 [Last Taken 11/01] Pregabalin [LYRICA] 100 mg PO BID 11/02/16 [Last Taken 11/02/16 1 tab] Rosuvastatin Calcium [Crestor 20mg (*)] 20 mg PO HS 11/02/16 [Last Taken ] Sacubitril/Valsartan 24/26Mg [Entresto 24 mg/26 mg (RX)] 1 ea PO BID 11/02/16 [ Last Taken 11/02/16] Venlafaxine Xr [Effexor Xr 37.5MG (*)] 75 mg PO DAILY 11/02/16 [Last Taken 11/02] Warfarin Sodium 10 mg PO 11/02/16 [Last Taken Unknown] buPROPion XL [Wellbutrin Xl] 150 mg PO DAILY 11/02/16 [Last Taken 11/02/16] clonazePAM [klonoPIN (*)] 1 mg PO BID PRN 11/02/16 [Last Taken Unknown] metFORMIN HCL [Metformin HCl ER] 500 mg PO BID 11/02/16 [Last Taken 11/02/16 1 tab] I have personally reviewed and updated: family history, medical history, social history, surgical history - Past Medical History coronary artery disease (With ischemic cardiomyopathy, ejection fraction 30-35% and previous myocardial infarction), CHF (Systolic), diabetes type 2 Additional medical history: Lupus with antiphospholipid antibody syndrome and CVA x2 - Surgical History Reports: no pertinent surgical hx - Family History Additional family history: Mother with diabetes mellitus and asthma. Father with myocardial infarction at age 50 - Social History Smoking Status: Former smoker Alcohol Use: None Drug Use: None Additional social history: Independent in her ADLs, works at [employer] Review of Systems ROS: 10pt was reviewed & negative except for what was stated in HPI & below Constitutional: Reports: weakness Neurological: Reports: other (Dysarthria, dizziness) Physical Exam Temp Pulse Resp BP Pulse Ox 36.8 C 79 18 116/66 94 11/02/16 19:47 11/02/16 19:47 11/02/16 19:47 11/02/16 19:47 11/02/16 19:47 Constitutional: no apparent distress, not in pain, chronically ill appearing, obese, No uncomfortable Eyes: PERRL, anicteric sclera, EOMI Ears, Nose, Mouth, Throat: moist mucous membranes, hearing normal, ears appear normal, no oral mucosal ulcers Cardiovascular: systolic murmur (1/6 at the apex), No irregularly irregular, No tachycardia, No edema Respiratory: no respiratory distress, no rales or rhonchi, clear to auscultation Gastrointestinal: normoactive bowel sounds, soft, non-tender abdomen, no palpable masses, other (Obese), No distension Genitourinary: no bladder fullness, no bladder tenderness Neurologic: AAOx3, sensation intact bilaterally, No weakness (Motor strength 5/ 5 bilateral lower extremities) Psychiatric: interacting appropriately, not anxious, not encephalopathic, thought process linear Lab Data & Imaging Review 11/02/16 17:00 11/02/16 17:00 WBC 10.68 10^3/uL (3.80-9.50) H 11/02/16 17:00 RBC 5.67 10^6/uL (4.18-5.33) H 11/02/16 17:00 Hgb 14.6 g/dL (12.6-16.3) 11/02/16 17:00 POC Hgb 16.0 gm/dL (12.6-16.3) 11/02/16 16:58 Hct 45.4 % (38.0-47.0) 11/02/16 17:00 POC Hct 47 % (38-47) 11/02/16 16:58 MCV 80.1 fL (81.5-99.8) L 11/02/16 17:00 MCH 25.7 pg (27.9-34.1) L 11/02/16 17:00 MCHC 32.2 g/dL (32.4-36.7) L 11/02/16 17:00 RDW 20.8 % (11.5-15.2) H 11/02/16 17:00 Plt Count 249 10^3/uL (150-400) 11/02/16 17:00 MPV Not Reported 11/02/16 17:00 Neut % (Auto) 80.7 % (39.3-74.2) H 11/02/16 17:00 Lymph % (Auto) 10.2 % (15.0-45.0) L 11/02/16 17:00 [place] % (Auto) 6.2 % (4.5-13.0) 11/02/16 17:00 Eos % (Auto) 1.9 % (0.6-7.6) 11/02/16 17:00 Baso % (Auto) 0.6 % (0.3-1.7) 11/02/16 17:00 Nucleat RBC Rel Count 0.0 % (0.0-0.2) 11/02/16 17:00 Absolute Neuts (auto) 8.63 10^3/uL (1.70-6.50) H 11/02/16 17:00 Absolute Lymphs (auto) 1.09 10^3/uL (1.00-3.00) 11/02/16 17:00 Absolute Monos (auto) 0.66 10^3/uL (0.30-0.80) 11/02/16 17:00 Absolute Eos (auto) 0.20 10^3/uL (0.03-0.40) 11/02/16 17:00 Absolute Basos (auto) 0.06 10^3/uL (0.02-0.10) 11/02/16 17:00 Absolute Nucleated RBC 0.00 10^3/uL (0-0.01) 11/02/16 17:00 Immature Gran % 0.4 % (0.0-1.1) 11/02/16 17:00 Immature Gran # 0.04 10^3/uL (0.00-0.10) 11/02/16 17:00 Platelet Estimate ADEQUATE (ADEQ) 11/02/16 17:00 Hypochromasia 1+ H 11/02/16 17:00 PT 32.2 SEC (12.0-15.0) H 11/02/16 17:00 INR 3.08 (0.83-1.16) H 11/02/16 17:00 POC Sodium 134 mEq/L (134-144) 11/02/16 16:58 Sodium 131 mEq/L (134-144) L 11/02/16 17:00 POC Potassium 4.3 mEq/L (3.3-5.0) 11/02/16 16:58 Potassium 4.4 mEq/L (3.5-5.2) 11/02/16 17:00 POC Chloride 97 mEq/L (97-110) 11/02/16 16:58 Chloride 97 mEq/L (97-110) 11/02/16 17:00 Carbon Dioxide 20 mEq/l (22-31) L 11/02/16 17:00 Anion Gap 14 mEq/L (8-16) 11/02/16 17:00 POC BUN 55 mg/dL (7-23) H 11/02/16 16:58 BUN 61 mg/dL (7-23) H 11/02/16 17:00 Creatinine 1.7 mg/dL (0.6-1.0) H 11/02/16 17:00 POC Creatinine 1.8 mg/dL (0.6-1.0) H 11/02/16 16:58 Estimated GFR 31 11/02/16 17:00 Glucose 159 mg/dL (70-100) H 11/02/16 17:00 POC Glucose 160 mg/dL (70-100) H 11/02/16 16:58 Calcium 9.0 mg/dL (8.5-10.4) 11/02/16 17:00 Troponin I 0.022 ng/mL (0-0.034) 11/02/16 17:00 Visualized and Interpreted EKG results: Yes EKG Interpretation: Positive for: other (Q-wave in anterior leads, normal sinus rhythm) Assessment & Plan Assessment: 56-year-old female presents with acute weakness in the setting of hypotension, acute kidney injury, hyponatremia Plan: 1. Hypotension. Acute, new problem this provider, further workup indicated. Most likely secondary to recent introduction of Entresto as well as up titration of metoprolol succinate -send serum lactic acid level and trend -discussed with Dr. Bay Bettencourt, he has reported to me that he has spoken with Dr. Price and the plan is to simply hold medications, give normal saline overnight if needed -run normal saline at 100 cc/hour -monitor blood pressure closely 2. Acute kidney injury. Secondary to renal hypoperfusion in the setting of hypotension, give normal saline and reassess, hold ALIYA-inhibitor and Entresto 3. Hyponatremia. Acute, secondary to hypovolemia, give normal saline and reassess 4. Chronic systolic congestive heart failure. No evidence of acute exacerbation , patient has a known ischemic cardiomyopathy and EF of 30-35% on review of outside records from 09/12/2016 discharge summary by Aly Ruano seen -hold patient's home medications while her volume status required rates 5. Antiphospholipid syndrome. INR supratherapeutic, hold Coumadin today, repeat INR in a.m. Diet. Cardiac Prophylaxis. High risk patient, currently systemically anticoagulated Code. Full, MPOA is Shira Odom and Steph Perez Disposition. Anticipated discharge 11/03/2016, pending stabilization of above.
[2016-11-02 20:47] LABS: COLOR YELLOW; LEUKOCYTE ESTERASE,URINE NEGATIVE (NEGATIVE); NITRITE,URINE NEGATIVE (NEGATIVE)
[2016-11-02 20:49] LABS: BACTERIA 1+ /hpf (NONE SEEN); MUCUS TRACE /lpf (NONE-1+)
[2016-11-02] MEDS ORDERED: clonazePAM 1 MG TAB PO PRN (22:37)
[2016-11-02] MEDS ORDERED: D50W 25 GM/50 ML SYR IVP PRN (22:39)
[2016-11-03 05:49] LABS: % IMMATURE GRANULYOCYTES 0.2 % (0.0-1.1); ABSOLUTE IMMATURE GRANULOCYTES 0.01 10^3/uL (0.00-0.10); ADD DIFF? NO; ADD MORPH? YES; ADD SCAN? NO; ATYPICAL LYMPHOCYTE FLAG 20 (0-99); FRAGMENT RBC FLAG 40 (0-99); HEMATOCRIT 37.7 % (38.0-47.0); HEMOGLOBIN 12.4 g/dL (12.6-16.3); LEFT SHIFT FLG 0 (0-99); LIPEMIA HEMOLYSIS FLAG 80 (0-99); MEAN CELL HEMOGLOBIN 26.4 pg (27.9-34.1); MEAN CELL HEMOGLOBIN CONCENTR. 32.9 g/dL (32.4-36.7); MEAN CELL VOLUME 80.2 fL (81.5-99.8); PLATELET CLUMPS FLAG 10 (0-99); PLATELET COUNT 184 10^3/uL (150-400)
[2016-11-03 05:52] LABS: RED CELL DISTRIBUTION WIDTH 20.3 % (11.5-15.2)
[2016-11-03 06:08] LABS: INR 3.15 (0.83-1.16); PROTIME(PATIENT) 32.8 SEC (12.0-15.0)
[2016-11-03 06:18] LABS: ANION GAP 11 mEq/L (8-16); CALCIUM 8.3 mg/dL (8.5-10.4); CARBON DIOXIDE 20 mEq/l (22-31); CHLORIDE 99 mEq/L (97-110); CREATININE 1.3 mg/dL (0.6-1.0); GLOMERULAR FILTRATION RATE 42; GLUCOSE 422 mg/dL (70-100); MAGNESIUM 2.3 mg/dL (1.6-2.3); POTASSIUM 3.9 mEq/L (3.5-5.2); SODIUM 130 mEq/L (134-144)
[2016-11-03 06:35] LABS: ELLIPTOCYTES 1+; HYPOCHROMIA 1+; MICROCYTES 1+; PLATELET ESTIMATE ADEQUATE (ADEQ)
[2016-11-03] MEDS ORDERED: D10W 250 ML PRN HYPOGLYCEMIA IV (08:30)
[2016-11-03] MEDS ORDERED: ASCORBIC ACID 500 MG TAB PO SCH (09:00)
[2016-11-03] MEDS ORDERED: INSULIN GLARGINE 100 UNITS/ML SYRINGE SC SCH (09:00)
[2016-11-03] MEDS ORDERED: NON-FORMULARY NEW DRUG (Insulin Detemir [Levemir] 50 UNIT) SQ SCH (09:00)
[2016-11-03] MEDS ORDERED: FERROUS SULFATE 325 MG TAB PO SCH (09:00)
[2016-11-03] MEDS ORDERED: VENLAFAXINE XR 75 MG CAP PO SCH (09:00)
[2016-11-03] MEDS ORDERED: buPROPion XL 150 MG TAB PO SCH (09:00)
[2016-11-03] MEDS ORDERED: CLOPIDOGREL BISULFATE 75 MG TAB PO SCH (09:00)
[2016-11-03] MEDS ORDERED: PREGABALIN 100 MG CAP PO SCH (09:00)
[2016-11-03] MEDS: INSULIN REGULAR HUMAN 100 UNIT/ML SC SCH ×2 (09:12→12:39)
[2016-11-03 12:31] VITALS: BP 125/66; PULSE 86; RESP 13; TEMP 97.6; O2SAT 95
--- NOTE | 2016-11-03 13:24 | PDDCSUM ---
Discharge Summary Discharge Summary: Dates of service 11/02-11/03/16 Discharge dx: # hypotension--with underlying hypertension # didi # hyponatremia # poorly controlled dm # chronic systolic heart failure # CAD # aplab syndrome # microcytic anemia # h/o CVA # vhd--mod to severe MR # paroxysmal a fib # phuong Consultations: cardiology Procedures performed: none Hospital course by problem # hypotension: in the setting of prior underlying htn that she has been on treatment for that was recently changed--started on entresto and since that time has had also poor po intake and diarrhea and subsequent low bp. Cardiology consulted by ER and spoke with patient over the phone, given that her bp improved with IVF, plan is to dc entresto, likely will restart lisinopril but will hold off for now given didi. Will f/u with cardiology as an op in coming days. BP normal at dc # didi: presumed pre renal in setting of low bp but also recent gi illness with diarrhea and poor po intake, improved but not yet back to baseline. Taking po well, will f/u in coming days as above. Holding lisinopril and lasix until f/u # hyponatremia: pseudohyponatremia related to elevated glucose as well as hypovolemia, corrected na at dc had improved # dm: poorly controlled in house on our sliding scale, but patient at home takes much higher doses which she will resume at dc # cad: without chest pain, continued on home meds, f/u with cards as above # chronic systolic heart failure: ef of 40, no e/o decompensation, holding entresto/lisinopril/lasix as above but will f/u in coming week with cardiology # p afib: continue warfarin, chadsvasc of 6, rate controlled on metoprolol Dc home care plan reviewed with cardiology, she will need to f/u with cardiology in the next week Discontinued entresto, will resume lisinopril and lasix likely in coming week per cardiology > 45 minutes spent in dc more than half in face to face counseling of patient regarding her current dx and f/u plans
[2016-11-03] MEDS ORDERED: WARFARIN SODIUM 5 MG TAB PO SCH (16:00)
[2016-11-03] MEDS ORDERED: NORTRIPTYLINE HCL 10 MG CAP PO SCH (21:00)
[2016-11-03] MEDS ORDERED: ROSUVASTATIN CALCIUM 20 MG TAB PO SCH (21:00)
[2016-11-05] MEDS ORDERED: WARFARIN SODIUM 5 MG TAB PO SCH (16:00)
== END 2016-11-03 15:32 | disposition home or self-care (01) ==
LOC: F2W 19:55
PROVIDERS: ADMIT Internal Medicine; ATTEND Internal Medicine
DX: I95.9 Hypotension, unspecified (principal); N17.9 Acute kidney failure, unspecified; E87.1 Hypo-osmolality and hyponatremia; E11.9 Type 2 diabetes mellitus without complications; E86.1 Hypovolemia; I11.0 Hypertensive heart disease with heart failure; I50.22 Chronic systolic (congestive) heart failure; I25.10 Atherosclerotic heart disease of native coronary artery without angina pectoris; I25.5 Ischemic cardiomyopathy; E78.5 Hyperlipidemia, unspecified; D64.9 Anemia, unspecified; D68.62 Lupus anticoagulant syndrome; M32.9 Systemic lupus erythematosus, unspecified; I38 Endocarditis, valve unspecified; I48.0 Paroxysmal atrial fibrillation; G47.33 Obstructive sleep apnea (adult) (pediatric); I25.2 Old myocardial infarction; Z87.891 Personal history of nicotine dependence; Z86.73 Personal history of transient ischemic attack (TIA), and cerebral infarction without residual deficits; Z82.49 Family history of ischemic heart disease and other diseases of the circulatory system; Z79.01 Long term (current) use of anticoagulants; Z79.4 Long term (current) use of insulin; Z88.2 Allergy status to sulfonamides; I34.0 Nonrheumatic mitral (valve) insufficiency
CPT/HCPCS: 70450; 93005; 96360; 97161; 99285; G0378; 82947-QW; J1815

== ENCOUNTER 2017-01-02 16:04 | Inpatient (IN) | payer MEDICAID ==
[2017-01-02] MEDS ORDERED: NS 1,000 ML IV ONE ×2 (16:39→17:35)
--- NOTE | 2017-01-02 16:48 | EDPHY ---
H & P Time Seen by Provider: 01/02/17 16:38 HPI/ROS: CHIEF COMPLAINT: Pain, diarrhea HISTORY OF PRESENT ILLNESS: This patient is a 56 year old female with history of Lupus and atrial fibrillation who presents with generalized pain and diarrhea following a recent admission for GI bleed. She was formerly anticoagulated (Coumadin) for history of atrial fibrillation and multiple strokes. Saturday, she went for a colonoscopy at the request of her engineering technical analyst and had multiple biopsies and one polyp removal. Saturday, she developed an upper GI bleed and was admitted to the ICU at [facility]. She had a second endoscopy which revealed bleeding from a biopsy site. This was repaired and she was discharged yesterday with a prescription for Protonix. Since discharge, she feels lightheaded, dizzy, and weak, unable to hold up her head. She has intense pains through her head and neck, in her ankles, and in her rear end. She has had diarrhea, greenish rather than the black associated with her bleed last weekend. She has not eaten since last Saturday because food tastes bad to her and she doesn't feel like she can swallow due to pain. She has been trying to stay hydrated. Today, she visited Dr. Toney, her engineering technical analyst, who noted she was pale and hypotensive and recommended she present for evaluation. No anticoagulation currently. REVIEW OF SYSTEMS: Constitutional: No fever, no chills Eyes: No visual changes ENT: No sore throat Respiratory: No cough, no shortness of breath Cardiac: No chest pain Gastrointestinal: No nausea, no vomiting, no abdominal pain Genitourinary: no dysuria Musculoskeletal: No leg pain or swelling Skin: No rash Neurological: No headache Psychiatric: No hallucinations Past Medical/Surgical History: Atrial fibrillation, GI Bleed, CVA x 2, UT (stent), CHF, pneumonia, Lupus, Diabetes Mellitus Type II, Thyroid surgery, Anemia Social History: Sister at bedside. Vp [employer] Dr. Grimaldo. 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 Lives in [place]. . Smoking Status: Former smoker Physical Exam: General Appearance: Alert, pleasant Eyes: Pupils equal and round, no conjunctival pallor ENT, Mouth: Mucous membranes moist Neck: Normal inspection Respiratory: Lungs are clear to auscultation Cardiovascular: Irregularly irregular rate and rhythm, not tachycardic Gastrointestinal: Abdomen is soft and non-tender Neurological: Alert, oriented x3, cranial nerves II through XII intact, motor 5 /5, sensory intact to light touch, gait not assessed Skin: Warm and dry, no rash Extremities: Normal inspection, no tenderness Psychiatric: Mood and affect normal Constitutional: Initial Vital Signs Temperature (C) 36.4 C 01/02/17 16:09 Heart Rate 76 01/02/17 16:09 Respiratory Rate 18 01/02/17 16:09 Blood Pressure 84/57 L 01/02/17 16:09 O2 Sat (%) 96 01/02/17 16:09 O2 Delivery Mode Room Air O2 (L/minute) 2 Allergies/Adverse Reactions: Sulfa (Sulfonamide Antibiotics) Allergy (Mild, Verified 01/02/17 16:08) Vomiting codeine Allergy (Mild, Uncoded 11/02/16 16:38) GI metformin Allergy (Mild, Uncoded 11/02/16 16:38) GI Home Medications: Medication Instructions Recorded Ascorbic Acid [Vitamin C 500 mg 500 mg PO DAILY 11/02/16 (*)] Clopidogrel Bisulfate [Plavix (*)] 75 mg PO DAILY 11/02/16 Ferrous Sulfate [Ferrous Sulf 325 325 mg PO DAILY 11/02/16 MG (*)] Insulin Detemir [Levemir] 50 unit SQ BID 11/02/16 Insulin Lispro [Humalog] 0 unit SQ AD PRN 11/02/16 Metoprolol Tartrate [Lopressor 50 50 mg PO BID 11/02/16 mg (*)] Rosuvastatin Calcium [Crestor 20mg 20 mg PO HS 11/02/16 (*)] Venlafaxine Xr [Effexor Xr 37.5MG 75 mg PO DAILY 11/02/16 (*)] buPROPion XL [Wellbutrin 150mg XL] 150 mg PO DAILY 11/02/16 clonazePAM [klonoPIN (*)] 1 mg PO BID PRN 11/02/16 metFORMIN HCL [Metformin HCl ER] 500 mg PO HS 11/02/16 Acetaminophen [Tylenol 325mg (*)] 650 mg PO Q4HRS PRN #0 tab 11/03/16 Furosemide [Lasix 20 MG (*)] 20 mg PO DAILY 01/02/17 Pantoprazole Sodium [Protonix 40mg 40 mg PO BID 01/02/17 (*)] Pregabalin [Lyrica 75mg (*)] 150 mg PO BID 01/02/17 Sacubitril/Valsartan 24/26Mg 1 ea PO BID 01/02/17 [Entresto 24 mg/26 mg (RX)] Warfarin Sodium [Coumadin] 5 - 10 mg PO AD 01/02/17 Medical Decision Making - Diagnostics EKG Interpretation: EKG interpreted by me reveals atrial fibrillation, ventricular rate 141, poor R- wave progression. ED Course/Re-evaluation: On my initial evaluation, this patient was in atrial fibrillation with a controlled rate. By the time she had an EKG, she was in atrial fibrillation with RVR. She did not feel any different when she went into a rapid heart rate. However, she was hypertensive with a systolic blood pressure between 80- 90. She denies dizziness or weakness while sitting up. IV normal saline 1 L given. After this her blood pressure improved. She remained asymptomatic. 17:[address] Elizalde for atrial fibrillation with RVR and hypotension. The patient is tolerating the hypotension and rapid ventricular rate well, without dizziness. We considered cardioversion, but given her prior history of stroke and pulmonary embolism and the fact that she is not anticoagulated, this is a very risky procedure at this point. Dr. Elizalde suggests Digoxin 0.25mg IV and Diltiazem 30mg orally now. Given recent GI bleed, we will have GI consult for timing of anticoagulation. If she is able to be anticoagulated, the plan is for DAVID cardioversion tomorrow. Start diltiazem 30 mg three times daily. Old medical records reviewed on [facility]. EGD on 12/31/16: Erosive gastropathy and duodenal ulcerations without active bleeding. Consulted Dr. You, GI, site of GI bleeding was biopsy site, ok for anticoagulation. Dr. Ezekiel Olmedo was consulted for admission. Patient continues to be asymptomatic. Heart rate 136, systolic blood pressure 80-90. Diltiazem and digoxin have been given. Awaiting for the medications to take effect. This patient utilized 35 minutes of critical care time exclusive of unbundled procedures. Differential Diagnosis: Differential diagnosis includes though it is not limited to pneumonia, pneumothorax, pulmonary embolism, aortic dissection, pericarditis, acute coronary syndrome. - Data Points Laboratory Results: Laboratory Results 01/03/17 03:51 01/03/17 03:51 Medications Given: Ascorbic Acid (Vitamin C) 500 mg PO DAILY DOROTHEA Stop: 07/02/17 08:59 Last Admin: 01/04/17 08:32 Dose: 500 mg Bupropion HCl (Wellbutrin Xl) 150 mg PO DAILY DOROTHEA Stop: 07/02/17 08:59 Last Admin: 01/04/17 08:33 Dose: 150 mg Clonazepam (Klonopin) 1 mg PO BID PRN PRN Reason: Anxiety Stop: 07/01/17 20:13 Last Admin: 01/03/17 21:38 Dose: 1 mg Clopidogrel Bisulfate (Plavix) 75 mg PO DAILY DOROTHEA Stop: 07/02/17 08:59 Last Admin: 01/04/17 08:32 Dose: 75 mg Ferrous Sulfate (Ferrous Sulfate) 325 mg PO DAILY DOROTHEA Stop: 07/02/17 08:59 Last Admin: 01/04/17 08:32 Dose: 325 mg Sodium Chloride (Ns) 1,000 mls @ 75 mls/hr IV CONT DOROTHEA Stop: 07/02/17 12:59 Last Admin: 01/03/17 13:15 Dose: 1,000 mls Insulin Human Lispro (Humalog Lispro) 0 unit SC TIDMEAL DOROTHEA PRN Reason: Protocol Stop: 07/02/17 07:59 Last Admin: 01/04/17 12:08 Dose: 6 units Metoprolol Tartrate (Lopressor) 50 mg PO BID DOROTHEA Stop: 07/01/17 20:59 Last Admin: 01/04/17 08:33 Dose: 50 mg Pantoprazole Sodium (Protonix) 40 mg PO BID DOROTHEA Stop: 07/01/17 20:59 Last Admin: 01/04/17 08:32 Dose: 40 mg Pregabalin (Lyrica) 150 mg PO BID DOROTHEA Stop: 07/01/17 20:59 Last Admin: 01/04/17 08:32 Dose: 150 mg Rosuvastatin Calcium (Crestor) 20 mg PO HS [facility] Stop: 07/01/17 20:59 Last Admin: 01/03/17 21:29 Dose: 20 mg Sacubitril/Valsartan (Entresto 24 Mg/26 Mg) 1 ea PO BID DOROTHEA Stop: 07/01/17 20:59 Last Admin: 01/03/17 09:45 Dose: Not Given Vancomycin HCl (Vancocin Oral Liquid) 125 mg PO QID DOROTHEA PRN Reason: Protocol Stop: 02/02/17 15:59 Last Admin: 01/04/17 12:08 Dose: 125 mg Venlafaxine HCl (Effexor Xr) 75 mg PO DAILY [facility] Stop: 07/02/17 08:59 Last Admin: 01/04/17 08:32 Dose: 75 mg Discontinued Medications Digoxin (Lanoxin Injections) 250 mcg IVP EDNOW ONE Stop: 01/02/17 17:56 Last Admin: 01/02/17 18:15 Dose: 250 mcg Diltiazem HCl (Cardizem 25 Mg/5 Ml Vial) 10 mg IVP EDNOW ONE Stop: 01/02/17 16:58 Last Admin: 01/02/17 17:40 Dose: Not Given Diltiazem HCl (Cardizem Immediate Release) 30 mg PO EDNOW ONE Stop: 01/02/17 17:42 Last Admin: 01/02/17 17:54 Dose: 30 mg Diltiazem HCl (Cardizem Immediate Release) 30 mg PO QID [facility] Stop: 07/01/17 20:59 Last Admin: 01/02/17 20:08 Dose: Not Given Enoxaparin Sodium (Lovenox) 120 mg SC EDNOW ONE Stop: 01/02/17 18:31 Last Admin: 01/02/17 19:53 Dose: 120 mg Sodium Chloride (Ns) 1,000 mls @ 0 mls/hr IV EDNOW ONE; Wide Open PRN Reason: Protocol Stop: 01/02/17 16:40 Last Admin: 01/02/17 16:45 Dose: 1,000 mls Sodium Chloride (Ns) 1,000 mls @ 3,000 mls/hr IV ONCE ONE Stop: 01/02/17 17:54 Last Admin: 01/02/17 17:38 Dose: 1,000 mls Sodium Chloride (Ns) 500 mls @ 999 mls/hr IV ONCE ONE Stop: 01/02/17 18:55 Last Admin: 01/02/17 19:53 Dose: 500 mls Insulin Glargine (Lantus Syringe) 50 units SC BID [facility] Stop: 07/01/17 20:59 Last Admin: 01/04/17 12:07 Dose: Not Given Insulin Glargine (Lantus Syringe) 30 units SC ONCE ONE Stop: 01/04/17 11:57 Last Admin: 01/04/17 12:14 Dose: 30 units Loperamide HCl (Imodium) 2 mg PO QID PRN PRN Reason: Diarrhea/Loose Stools Stop: 07/01/17 20:19 Last Admin: 01/04/17 08:33 Dose: 2 mg Warfarin Sodium (Coumadin) 5 mg PO ONCE@1600 ONE Stop: 01/03/17 16:01 Last Admin: 01/03/17 16:13 Dose: 5 mg Departure - Departure Disposition: [facility] [place] Inpatient Acute Clinical Impression: Atrial fibrillation with RVR Condition: Fair Report Scribed for: Marylou Joseph Report Scribed by: Mary Dumas Date of Report: 01/02/17 Time of Report: 16:48 Physician Review and Approval Statement: 01/02/17 16:48 Portions of this note were transcribed by a medical physiologist. I personally performed a history, physical exam, medical decision making, and confirmed accuracy of information the transcribed note.
[2017-01-02 16:56] LABS: % IMMATURE GRANULYOCYTES 0.5 % (0.0-1.1); ABSOLUTE IMMATURE GRANULOCYTES 0.06 10^3/uL (0.00-0.10); ADD DIFF? NO; ADD MORPH? NO; ADD SCAN? NO; ATYPICAL LYMPHOCYTE FLAG 10 (0-99); FRAGMENT RBC FLAG 20 (0-99); HEMATOCRIT 31.4 % (38.0-47.0); HEMOGLOBIN 10.4 g/dL (12.6-16.3); LEFT SHIFT FLG 10 (0-99); LIPEMIA HEMOLYSIS FLAG 80 (0-99); MEAN CELL HEMOGLOBIN 28.5 pg (27.9-34.1); MEAN CELL HEMOGLOBIN CONCENTR. 33.1 g/dL (32.4-36.7); MEAN PLATELET VOLUME 11.8 fL (8.7-11.7); PLATELET CLUMPS FLAG 0 (0-99); PLATELET COUNT 170 10^3/uL (150-400); RED BLOOD CELL COUNT 3.65 10^6/uL (4.18-5.33); RED CELL DISTRIBUTION WIDTH 17.2 % (11.5-15.2)
[2017-01-02] MEDS ORDERED: DILTIAZEM 25 MG/5 ML VIAL IVP ONE (16:57)
--- NOTE | 2017-01-02 17:09 | CPEKG ---
Heart Rate: 141 RR Interval: 426 QRSD Interval: 94 QT Interval: 316 QTC Interval: 484 QRS [place]: 46 EKG Severity - ABNORMAL ECG - EKG Impression: ATRIAL FIBRILLATION EKG Impression: CONSIDER ANTEROSEPTAL INFARCT EKG Impression: BORDERLINE T ABNORMALITIES, DIFFUSE LEADS Electronically Signed By: Marylou Joseph 02-Jan-2017 20:52:45
[2017-01-02 17:27] LABS: ALANINE AMINOTRANSFERASE 22 IU/L (9-52); ALBUMIN 3.5 g/dL (3.5-5.0); ALKALINE PHOSPHATASE 67 IU/L (38-126); ANION GAP 14 mEq/L (8-16); ASPARTATE AMINOTRANSFERASE 16 IU/L (14-46); BILIRUBIN,TOTAL 0.4 mg/dL (0.1-1.4); BILIRUBIN-CONJUGATED 0.3 mg/dL (0.0-0.5); BILIRUBIN-UNCONJUGATED 0.1 mg/dL (0.0-1.1); CALCIUM 9.3 mg/dL (8.5-10.4); CARBON DIOXIDE 23 mEq/l (22-31); CHLORIDE 105 mEq/L (97-110); CREATININE 1.7 mg/dL (0.6-1.0); GLOMERULAR FILTRATION RATE 31; GLUCOSE 80 mg/dL (70-100); POTASSIUM 3.6 mEq/L (3.5-5.2); SODIUM 142 mEq/L (134-144); TOTAL PROTEIN 6.1 g/dL (6.3-8.2)
[2017-01-02 17:36] LABS: INR 1.91 (0.83-1.16)
[2017-01-02] MEDS ORDERED: DILTIAZEM 30 MG TAB PO ONE (17:41)
[2017-01-02] MEDS ORDERED: DIGOXIN 500 MCG/2 ML AMP IVP ONE (17:55)
[2017-01-02] MEDS ORDERED: ACETAMINOPHEN 325 MG TAB PO PRN (18:25)
[2017-01-02] MEDS ORDERED: NS 500 ML IV ONE (18:25)
[2017-01-02] MEDS ORDERED: ONDANSETRON 4 MG/2 ML VIAL IVP PRN (18:25)
[2017-01-02] MEDS ORDERED: PROMETHAZINE HCL 25 MG/ML INJ IVP PRN (18:25)
[2017-01-02] MEDS ORDERED: ENOXAPARIN 120 MG/0.8 ML SYR SC ONE (18:30)
--- NOTE | 2017-01-02 18:46 | GHP ---
[f rep st] HISTORY AND PHYSICAL DATE OF ADMISSION: 01/02/2017 ADDENDUM TO THE END OF HISTORY AND PHYSICAL: I discussed anticoagulation options with the patient. Given that her INR is slightly subtherapeutic at 1.9, we will proceed with a bridged dose of Loveno x at a dose of 120 mg subcu x1. We will repeat INR in the morning and re-dose low molecular-weight heparin as indicated or continue her usual dose of warfarin. /[id number]/MODL
--- NOTE | 2017-01-02 18:57 | GHP ---
[f rep st] HISTORY AND PHYSICAL DATE OF ADMISSION: 01/02/2017 CHIEF COMPLAINT: Feeling weak and pain all over. HISTORY OF PRESENT ILLNESS: This is a 56-year-old female with a history of lupus anticoagulant antibody with CVA, CAD, and multiple clots, who was recently discharged from [facility] yesterday after she developed some GI bleeding after undergoing a colonoscopy and endoscopy last Saturday. Today, she was brought into the emergency department after she was noted that she was so weak she could not even hold up her head. She has not had anything to eat since Saturday. She hurts really all over in her back and her legs and her hips. She denies any shortness of breath. She does report some palpitations. She denies any melena, hematochezia, or hematemesis. Once again , she has no appetite. In preparation for her procedure last Saturday, she had been off Coumadin for a week. She was discharged off anticoagulation as well. On Saturday, she did have 6 biopsies from her colonoscopy and 1 polyp which was removed. PAST MEDICAL HISTORY: 1. Lupus anticoagulant antibody. 2. Coronary artery disease with ischemic cardiomyopathy with ejection fraction of 30% to 35%. 3. Diabetes mellitus. 4. CVA x2. 5. Hospitalization for pneumonia and congestive heart failure. PAST SURGICAL HISTORY: 1. Partial thyroidectomy due to goiter. 2. Uterine ablation. HOME MEDICATIONS: Reviewed. Refer to [employer] for details. ALLERGIES: Sulfa, metformin, and codeine. SOCIAL HISTORY: The patient has a history of tobacco use but tells me that she has quit. She denies any alcohol or illicit drug use. She is independent with her ADLs and lives independently. She works at [employer]. FAMILY HISTORY: Reviewed and noncontributory. REVIEW OF SYSTEMS: Comprehensive 10-point review of systems was done and is negative, except for as mentioned in the HPI. PHYSICAL EXAM: VITAL SIGNS: Blood pressure 84/57, pulse 76, respiratory rate 18, O2 saturation 96% on room air, temperature afebrile. GENERAL: Ill- appearing. HEAD: Normocephalic, atraumatic. EYES: PERRLA. Sclerae anicteric. MOUTH: Dry oral mucosa. NECK: Supple. No lymphadenopathy. CARDIOVASCULAR: Tachycardic. S1, S2. There is no JVD. There is trace lower extremity edema. PULMONARY: Lungs are clear. No wheezes, rales, or rhonchi. Normal respiratory effort. ABDOMEN: Soft, nontender, nondistended. No guarding or rebound tenderness. Normoactive bowel sounds. EXTREMITIES: No clubbing or cyanosis. NEURO: Cranial nerves 2-12 grossly intact. No focal motor or sensory deficits. SKIN: Clear with some ecchymosis and bruising over her lower legs and arms. DIAGNOSTICS: WBC 11.6, hemoglobin 10.4, hematocrit 31.4, platelets 170. INR 1.91. Sodium 142, potassium 3.6, chloride 105, CO2 of 23, BUN 14, creatinine 1.7, glucose 80. Creatinine in October of 2016 was between 1.3 and 1.7. EKG, which I visualized and personally interpreted, shows atrial fibrillation with rapid ventricular response. Rate 141 beats per minute, with apparent Q- waves in V1 through V3. ASSESSMENT: This is a 56-year-old female recently discharged from [facility] after undergoing EGD and colonoscopy last Saturday, where she had biopsies, a polypectomy, and subsequently bled, who presents with: 1. Weakness most likely multifactorial due to below. 2. Rapid atrial fibrillation. 3. Anorexia. 4. History of lupus anticoagulant antibody with nearly therapeutic INR. 5. Acute kidney injury. 6. History of coronary artery disease and myocardial infarction with persistent Q-waves on EKG that were present in October of 2016. 7. Insulin dependent DM PLAN: 1. Admit to telemetry. 2. I discussed the case with Dr. López from [facility], who thought it was reasonable to resume anticoagulation and feels that she is rather low risk for bleeding. Her H and H will be monitored carefully. 3. Dr. Rome Elizalde with [facility] has been consulted by the ER. I do feel that her tachyarrhythmia could be a result of dehydration since she has not been eating or drinking much. Will provide another fluid bolus as well as check a TSH and magnesium level. 4. Monitor H and H. 5. Avoid nephrotoxins, obtain UA, and repeat metabolic panel in the morning. 6. Cycle troponins. 7. Monitor blood sugars and continue home dose of insulin At this point, the patient will be placed on observation pending further evaluation and treatment. ADDENDUM: I discussed anticoagulation options with the patient. Given that her INR is slightly subtherapeutic at 1.9, we will proceed with a bridged dose of Lovenox at a dose of 120 mg subcu x1. We will repeat INR in the morning and re-dose low molecular-weight heparin as indicated or continue her usual dose of warfarin. /[id number]/MODL and [id number]/MODL MTDD
[2017-01-02 19:08] LABS: MAGNESIUM 1.6 mg/dL (1.6-2.3)
[2017-01-02] MEDS ORDERED: D50W 25 GM/50 ML SYR IVP PRN (20:16)
--- NOTE | 2017-01-02 20:20 | HOSPPROG ---
Hospitalist Progress Note Assessment/Plan: Pt is having severe diarrhea plan -stool pathogen panel -trial Imodium of now Objective: Vital Signs Temp Pulse Resp BP Pulse Ox 36.6 C 132 H 18 86/49 L 92 01/02/17 18:47 01/02/17 18:47 01/02/17 18:47 01/02/17 18:47 01/02/17 18:47 01/01/17 01/02/17 01/03/17 05:59 05:59 05:59 Intake Total 1800 Balance 1800 PT 22.0 SEC (12.0-15.0) H 01/02/17 16:47 INR 1.91 (0.83-1.16) H 01/02/17 16:47 ICD10 Worksheet Patient Problems: Problems Problem Status Onset Acute ischemic stroke Acute Hypotension Acute Medication side effect Acute Atrial fibrillation with RVR Acute
[2017-01-02] MEDS ORDERED: PREGABALIN 100 MG CAP PO SCH (21:00)
[2017-01-02] MEDS ORDERED: DILTIAZEM 30 MG TAB PO SCH (21:00)
[2017-01-02] MEDS: INSULIN GLARGINE 100 UNITS/ML SYRINGE SC SCH (22:17)
[2017-01-02] MEDS: LOPERAMIDE HCL 2 MG CAP PO PRN (22:17)
[2017-01-02] MEDS: ROSUVASTATIN CALCIUM 20 MG TAB PO SCH (22:18)
[2017-01-02] MEDS: PANTOPRAZOLE SODIUM 40 MG TAB PO SCH (22:18)
[2017-01-02] MEDS: PREGABALIN 150 MG CAP PO SCH (22:18)
[2017-01-02] MEDS: METOPROLOL TARTRATE 50 MG TAB PO SCH (22:18)
[2017-01-02] MEDS: SACUBITRIL/VALSARTAN 24/26MG 1 EA TAB PO SCH (22:19)
[2017-01-03 01:01] LABS: TROPONIN I 0.045 ng/mL (0-0.034)
[2017-01-03 05:09] LABS: % IMMATURE GRANULYOCYTES 0.3 % (0.0-1.1); ABSOLUTE IMMATURE GRANULOCYTES 0.03 10^3/uL (0.00-0.10); ADD DIFF? NO; ADD MORPH? NO; ADD SCAN? NO; ATYPICAL LYMPHOCYTE FLAG 0 (0-99); FRAGMENT RBC FLAG 20 (0-99); HEMATOCRIT 25.4 % (38.0-47.0); HEMOGLOBIN 8.4 g/dL (12.6-16.3); LEFT SHIFT FLG 10 (0-99); LIPEMIA HEMOLYSIS FLAG 80 (0-99); MEAN CELL HEMOGLOBIN 29.3 pg (27.9-34.1); MEAN CELL HEMOGLOBIN CONCENTR. 33.1 g/dL (32.4-36.7); MEAN CELL VOLUME 88.5 fL (81.5-99.8); MEAN PLATELET VOLUME 13.1 fL (8.7-11.7); PLATELET CLUMPS FLAG 0 (0-99); PLATELET COUNT 123 10^3/uL (150-400); RED BLOOD CELL COUNT 2.87 10^6/uL (4.18-5.33); RED CELL DISTRIBUTION WIDTH 17.6 % (11.5-15.2)
[2017-01-03 05:19] LABS: INR 2.37 (0.83-1.16); PROTIME(PATIENT) 26.1 SEC (12.0-15.0)
[2017-01-03 05:24] LABS: ANION GAP 10 mEq/L (8-16); CALCIUM 8.2 mg/dL (8.5-10.4); CARBON DIOXIDE 22 mEq/l (22-31); CHLORIDE 108 mEq/L (97-110); CREATININE 1.4 mg/dL (0.6-1.0); GLOMERULAR FILTRATION RATE 39; GLUCOSE 89 mg/dL (70-100); POTASSIUM 3.6 mEq/L (3.5-5.2); SODIUM 140 mEq/L (134-144)
[2017-01-03 05:35] LABS: TROPONIN I 0.048 ng/mL (0-0.034)
--- NOTE | 2017-01-03 08:44 | SOAPPROG ---
[facility]I Progress Note Assessment/Plan: Assessment: 1. Paroxysmal atrial fibrillation with hx. of CVA 2. Coronary artery disease s/p cath revealing occluded LAD s/p PCI with 70% intramural hematoma. 3. Hyperlipidemia 4. Hypertension 5. Moderate to severe MR. Last Echo August. 6. Cardiomyopathy with ischemic and valvular component EF on Liz Echo 40% 7. Recent GI bleed with anemia 8. Diarrhea 9. Low level flat elevation in troponin in the setting of renal insuf. (creat. 1.7) 10. Renal Insuf, 11. DM on Glucophage 01/03/17 08:38 Impression: Spontaneously converted to sinus overnight. Still with diarrhea. No evidence of CHF. In fact, likely volume down based on exam and hemodynamics. 1. Anticoagulation for risk reduction. For further GI bleeding, may need to consider closure of left atrial appendage. 2. Continue rate control with metoprolol. 3. No indication for rhythm management at this point. With reduced LV on option would be amiodarone and with thyroid issues and considering her age, would like to avoid. 4. Secondary prevention in light of CAD. On plavix, statin and beta-reuben. 5. Hypotension likely secondary to volume. . Subjective: No chest pain, SOB, palpitations, Syncope. Diarrhea. Objective: Medications Generic Name Dose Route Start Last Admin Trade Name Freq PRN Reason Stop Dose Admin Clopidogrel Bisulfate 75 mg 01/03/17 09:00 Plavix PO 07/02/17 08:59 DAILY [facility] Insulin Glargine 50 units 01/02/17 21:00 01/02/17 22:17 Lantus Syringe SC 07/01/17 20:59 25 units BID [facility] Insulin Human Lispro 0 unit 01/03/17 08:00 Humalog Lispro SC 07/02/17 07:59 TIDMEAL [facility] Protocol Metformin HCl 500 mg 01/02/17 21:00 Glucophage Xr PO 07/01/17 20:59 HS [facility] Metoprolol Tartrate 50 mg 01/02/17 21:00 01/02/17 22:18 Lopressor PO 07/01/17 20:59 50 mg BID [facility] Rosuvastatin Calcium 20 mg 01/02/17 21:00 01/02/17 22:18 Crestor PO 07/01/17 20:59 20 mg HS [facility] Sacubitril/Valsartan 1 ea 01/02/17 21:00 01/02/17 22:19 Entresto 24 Mg/26 Mg PO 07/01/17 20:59 1 ea BID [facility] Warfarin Sodium 1 each 01/02/17 18:30 Warfarin Pharmacy To Dose MISC 07/01/17 18:29 AD [facility] Protocol Vital Signs Temp Pulse Resp BP Pulse Ox 36.7 C 78 16 88/52 L 94 01/03/17 07:40 01/03/17 07:40 01/03/17 07:40 01/03/17 07:40 01/03/17 07:40 Microbiology 01/02/17 20:21 Gastrointestinal Tract Panel (PCR) - Final Stool Clostridium Difficile Detected Laboratory Results 01/03/17 03:51 01/03/17 03:51 01/02/17 01/03/17 01/04/17 05:59 05:59 05:59 Intake Total 2200 Balance 2200 PT 26.1 SEC (12.0-15.0) H 01/03/17 03:51 INR 2.37 (0.83-1.16) H 01/03/17 03:51 Laboratory Tests 01/02/17 01/03/17 01/03/17 16:42 00:15 03:51 Creatinine 1.7 H 1.4 H Troponin I 0.045 H 0.048 H ECG afib with RVR prior anterior AL. No new ST-T changes. ICD10 Worksheet Patient Problems: Problems Problem Status Onset C. difficile diarrhea Acute ~01/02/17 Acute ischemic stroke Acute Hypotension Acute Medication side effect Acute Atrial fibrillation with RVR Acute Past Medical History - Personal History Current Tetanus/Diphtheria Vaccine: Unsure - Medical/Surgical History Hx Asthma: No Hx Chronic Respiratory Disease: No Hx Cardiac Disease: Yes Hx Diabetes: Yes Hx Renal Disease: No Hx Alcoholism: No Hx Cirrhosis: No Hx HIV/AIDS: No Hx Splenectomy or Spleen Trauma: No Other PMH: Previous stroke in November 23 1996, DM2, thyroid surgery at age 16, CVA 2013, AL 2014 with 1 stent. anemia, SLE - Social History Smoking Status: Former smoker Review of Systems - Review of Systems Constitutional: malaise, weakness. denies: chills, fever EENTM: no symptoms reported Respiratory: denies: orthopnea, shortness of breath, hurts to breath Cardiac: lightheadedness, palpitations. denies: chest pain, edema, irregular heart rate, syncope Gastrointestinal/Abdominal: abdominal distention, diarrhea Genitourinary: no symptoms Musculoskelatal: no symptoms Skin: no symptoms Neurological: no symptoms Hematologic/Lymphatic: no symptoms reported Immunologic/allergic: no symptoms reported
[2017-01-03] MEDS: INSULIN LISPRO 100 UNIT/ML SC SCH ×3 (09:04→19:05)
[2017-01-03] MEDS: SACUBITRIL/VALSARTAN 24/26MG 1 EA TAB PO SCH (09:45)
[2017-01-03] MEDS: METOPROLOL TARTRATE 50 MG TAB PO SCH ×2 (09:46→21:29)
[2017-01-03] MEDS: VENLAFAXINE XR 75 MG CAP PO SCH (09:49)
[2017-01-03] MEDS: PANTOPRAZOLE SODIUM 40 MG TAB PO SCH ×2 (09:49→21:29)
[2017-01-03] MEDS: PREGABALIN 150 MG CAP PO SCH ×2 (09:49→21:28)
[2017-01-03] MEDS: buPROPion XL 150 MG TAB PO SCH (09:49)
[2017-01-03] MEDS: CLOPIDOGREL BISULFATE 75 MG TAB PO SCH (09:49)
[2017-01-03] MEDS: ASCORBIC ACID 500 MG TAB PO SCH (09:49)
[2017-01-03] MEDS: INSULIN GLARGINE 100 UNITS/ML SYRINGE SC SCH ×2 (09:49→21:41)
[2017-01-03] MEDS: FERROUS SULFATE 325 MG TAB PO SCH (09:49)
--- NOTE | 2017-01-03 10:45 | ECHO ---
[id number] + + [id number] : : [place] [address] : : [phone] + + Adult Echocardiographic Report + -----+ :Name: CAROLEE ALLAN JStudy Date: 01/03/2017 09:25 AM : : Hospital Admission Number: [id number] Location : 207: :: 1960 Gender: Female Height: 67 in : :Age: 56 yrs Race: WH Weight: 278 lb : :Reason For Study: Eval LV Fx : : BSA: 2.3 meters2 : :History: New onset of A-Fib, now in Sinus rhythm : + -----+ MMode/2D Measurements \T\ Calculations IVSd: 0.66 cm LVIDd: 6.4 cm FS: 21.0 % MV Diam: 3.1 cm LVPWd: 0.94 cm LVIDs: 5.0 cm EDV(Teich): 206.3 ml ESV(Teich): 119.9 ml EF(Teich): 41.9 % Ao root diam: LVOT diam: 2.1 cmLVLd ap4: 8.5 cm SV(MOD-sp4): 3.0 cm LVOT area: EDV(MOD-sp4): 49.0 ml ACS: 1.9 cm 3.5 cm2 111.0 ml LVLs ap4: 7.8 cm ESV(MOD-sp4): 62.0 ml EF(MOD-sp4): 44.1 % Normal Measurement Values: + + :LVIDd (3.5-5.7cm) IVSd (0.6-1.1cm) LVPWd (0.6-1.1cm) Aortic Root (2.0-3.7cm)Left Atrium (1.5-4.0cm): :LV Vol(d) (76-115ml) LV Vol(s) (29-48ml) Ejec Fraction (50-65%)PV Donn (0.6- 1.2m/s) TV Donn (0.4-1.0m/s) : :MV E Donn (0.8-1.0m/s)MV A Donn (0.3-1.0m/s)LVOT Donn (0.7-1.2m/s) Asc Ao Donn ( 0.9-1.8m/s) : + + Doppler Measurements \T\ Calculations MV E max donn: MV V2 max: MR max donn: MR(RF 1 diam): 121.0 cm/sec 121.0 cm/sec 523.0 cm/sec 12.3 % MV A max donn: MV max P.9 mmHg MR max P.3 cm/sec MV V2 mean: 109.4 mmHg MV E/A: 2.4 74.5 cm/sec MV mean P.0 mmHg MV V2 VTI: 32.8 cm MV area (1 diam): 7.5 cm2 MV Flow area(1diam): 7.5 cm2 SV(MV 1 diam): PA V2 max: TR max donn: 247.6 ml 126.0 cm/sec 291.0 cm/sec SI(MV 1 diam): PA max P.4 mmHg TR max P.4 ml/m2 33.9 mmHg RAP systole: 5.0 mmHg RVSP(TR): 38.9 mmHg Left Ventricle The left ventricle is normal in size. There is normal left ventricular wall thickness. Left ventricular systolic function is moderately reduced. There is Doppler evidence for diastolic dysfunction. Ejection Fraction = 40-45%. There is known mid to distal apical hypokinesis. Right Ventricle The right ventricle is normal in size and function. Atria The left atrium is mildly dilated. The right atrium is mildly dilated. Mitral Valve There is no evidence of mitral valve prolapse. There is no mitral valve stenosis. There is moderate mitral regurgitation. Tricuspid Valve There is mild tricuspid regurgitation. Right ventricular systolic pressure is 40mmHg. There is Doppler evidence for mild pulmonary hypertension. Aortic Valve The aortic valve is trileaflet. There is no aortic stenosis. There is no aortic insufficiency. Pulmonic Valve The pulmonic valve is normal in structure and function. There is no pulmonic valvular regurgitation. Great Vessels The aortic root is normal size. Pericardium/Pleural There is no pericardial effusion. Conclusion A complete two-dimensional transthoracic echocardiogram was performed (2D, M-mode, Doppler and color flow Doppler). (1) Left ventricular systlic ejection fraction was 40% - mid cavity left ventriuclar systolic ejection fraction was 40-45%, but the apex was akinetic (2) No left ventricular hypertrophy (3) Diastolic dysfunction was present (4) Normal right ventricular size and function (5) Mild biatrial dilation (6) Moderate mitral regurgitation (7) Trileaflet aortic valve without sclerosis or insufficiency (8) Mild tricuspid regurgitation - RVSP was estimated to be 40 mm Hg (9) Poor visualization of the pulmonic valve (10) In comparison to prior echocardiogram from 09-10-16, no clear changes have been noted. Final Reading Physician: John Davis signed on 01/03/2017 10:44 AM Ordering Physician: Ezekiel Olmedo Performed By: Luigi Ramos, RIKYCS
--- NOTE | 2017-01-03 10:46 | HOSPPROG ---
Hospitalist Progress Note Assessment/Plan: DIAGNOSES: -HYPOTENSION, MULTIFACTORIAL WITH VOLUME LOSS AND MEDICINES -? C DIFF COLITIS VS COLONIZATION -A FIB WITH RAPID RATE -RECENT BLEEDING AFTER COLONOSCOPY -CHRONIC DIARRHEA AFTER 8 MONTHS I reviewed the patient's recent course in detail with Dr. Klever Trevizo, and he did care for her at the [facility] several days ago when she was in for her bleeding episode. The patient indeed has had chronic diarrhea for 8 months with a variety of other aches and pains and nausea as well. She did have EGD and colonoscopy done around 8 days ago by 1 of his partners, and this was really quite unrevealing although apparently the mucosa was somewhat friable and she bled to a very minor degree from the biopsy sites at the time of the endoscopy. She then was admitted to the [facility] with some GI bleeding. A repeat upper endoscopy at that time did not show concerning bleeding lesion. It is unclear to me at the moment what her blood counts were during her stay at the [facility] but Dr. López is going to trying get those numbers for me today. At this time the patient comes in with weakness rapid AFib hypotension. The hypotension is by largely multifactorial with volume loss from diarrhea, possibly infection from C difficile colitis, medications including beta-reuben ALIYA-inhibitor and diuretic, and her anemia. I do not think she is having significant ongoing bleeding but a new need to get her recent blood counts and recheck her hemoglobin now as it did drop overnight. This is likely be largely due to the hydration affect. She does have a history of chronic anemia and she has had microcytosis in the past but is normocytic at this point. I do not see any recent iron studies but she has been getting iron replacement therapy. It is unclear whether her C diff represents actual infection or not given her normal recent endoscopy. I think clearly is not the cause of her chronic diarrhea but she could potentially have gotten C difficile infection during her recent hospitalization PLANS: -further IV hydration at this time -follow blood counts closely; she is not a arranged to indicate transfusion at this point but not far from at, will need to get outside records and Dr. 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: Rate controlled AFib Exam: alert oriented skin warm dry color ok resps not labored lungs clear BSs heart regular abd soft nondistended with some mild tenderness, no guarding or rebound, bowel sounds present limbs warm, no edema iv site ok Laboratory data: Stools were positive for C difficile Objective: Vital Signs Temp Pulse Resp BP Pulse Ox 36.7 C 78 16 88/52 L 94 01/03/17 07:40 01/03/17 07:40 01/03/17 07:40 01/03/17 07:40 01/03/17 07:40 Microbiology 01/02/17 20:21 Gastrointestinal Tract Panel (PCR) - Final Stool Clostridium Difficile Detected Laboratory Results 01/03/17 03:51 01/03/17 03:51 01/02/17 01/03/17 01/04/17 06:59 06:59 06:59 Intake Total 2200 Balance 2200 PT 26.1 SEC (12.0-15.0) H 01/03/17 03:51 INR 2.37 (0.83-1.16) H 01/03/17 03:51 ICD10 Worksheet Patient Problems: Problems Problem Status Onset Atrial fibrillation with RVR Acute C. difficile diarrhea Acute ~01/02/17 Acute ischemic stroke Acute Hypotension Acute Medication side effect Acute
[2017-01-03] MEDS: LOPERAMIDE HCL 2 MG CAP PO PRN ×2 (11:19→16:13)
[2017-01-03] MEDS ORDERED: NS 1,000 ML IV SCH (13:00)
[2017-01-03 15:32] LABS: COLOR YELLOW; LEUKOCYTE ESTERASE,URINE TRACE (NEGATIVE); NITRITE,URINE NEGATIVE (NEGATIVE)
[2017-01-03 15:39] LABS: BACTERIA 3+ /hpf (NONE SEEN); MUCUS TRACE /lpf (NONE-1+)
[2017-01-03] MEDS ORDERED: WARFARIN SODIUM 5 MG TAB PO ONE (16:00)
[2017-01-03] MEDS: VANCOMYCIN 125 MG/2.5 ML UDL PO SCH ×2 (16:13→21:30)
[2017-01-03] MEDS: ROSUVASTATIN CALCIUM 20 MG TAB PO SCH (21:29)
[2017-01-03] MEDS: clonazePAM 1 MG TAB PO PRN (21:38)
[2017-01-04] MEDS: VANCOMYCIN 125 MG/2.5 ML UDL PO SCH ×4 (05:42→20:48)
[2017-01-04 05:47] LABS: INR 1.78 (0.83-1.16); PROTIME(PATIENT) 20.8 SEC (12.0-15.0)
[2017-01-04] MEDS: INSULIN LISPRO 100 UNIT/ML SC SCH ×3 (07:33→17:38)
[2017-01-04] MEDS: PREGABALIN 150 MG CAP PO SCH ×2 (08:32→20:50)
[2017-01-04] MEDS: ASCORBIC ACID 500 MG TAB PO SCH (08:32)
[2017-01-04] MEDS: FERROUS SULFATE 325 MG TAB PO SCH (08:32)
[2017-01-04] MEDS: CLOPIDOGREL BISULFATE 75 MG TAB PO SCH (08:32)
[2017-01-04] MEDS: PANTOPRAZOLE SODIUM 40 MG TAB PO SCH ×2 (08:32→20:49)
[2017-01-04] MEDS: VENLAFAXINE XR 75 MG CAP PO SCH (08:32)
[2017-01-04] MEDS: LOPERAMIDE HCL 2 MG CAP PO PRN (08:33)
[2017-01-04] MEDS: METOPROLOL TARTRATE 50 MG TAB PO SCH ×2 (08:33→20:49)
[2017-01-04] MEDS: buPROPion XL 150 MG TAB PO SCH (08:33)
[2017-01-04] MEDS ORDERED: INSULIN GLARGINE 100 UNITS/ML SYRINGE SC ONE (11:56)
[2017-01-04] MEDS: INSULIN GLARGINE 100 UNITS/ML SYRINGE SC SCH ×2 (12:07→22:04)
[2017-01-04] MEDS ORDERED: ENOXAPARIN 120 MG/0.8 ML SYR SC ONE (15:33)
[2017-01-04] MEDS ORDERED: WARFARIN SODIUM 5 MG TAB PO ONE (16:00)
--- NOTE | 2017-01-04 16:04 | HOSPPROG ---
Hospitalist Progress Note Assessment/Plan: DIAGNOSES: -HYPOTENSION, MULTIFACTORIAL WITH VOLUME LOSS AND MEDICINES -? C DIFF COLITIS VS COLONIZATION (present on admission after recent hospitalization elsewhere several days ago) -at this time with worsening diarrhea and low bp's, renal failure, will treat for C diff; only other approach would be repeat colonoscopy which is not desired at present -A FIB WITH RAPID RATE -RECENT BLEEDING AFTER COLONOSCOPY -CHRONIC DIARRHEA AFTER 8 MONTHS -DIABETES MELLITUS: -on insulin, metformen currently held due to renal insuff and some lower sugars -CHRONIC ANEMIA, W HISTORY OF IRON DEFICIENCY AND LIKELY OTHER ETIOLOGY WELL I reviewed the patient's recent course in detail with Dr. Klever Trevizo, and he did care for her at the [facility] several days ago when she was in for her bleeding episode. The patient indeed has had chronic diarrhea for 8 months with a variety of other aches and pains and nausea as well. She did have EGD and colonoscopy done around 8 days ago by 1 of his partners, and this was really quite unrevealing although apparently the mucosa was somewhat friable and she bled to a very minor degree from the biopsy sites at the time of the endoscopy. She then was admitted to the [facility] with some GI bleeding. A repeat upper endoscopy at that time did not show concerning bleeding lesion. Her Hg was 8 throughout her stay there of several days so her current Hg is stable. not clear to me yet what her residential baseline is. At this time the patient comes in with weakness rapid AFib hypotension. The hypotension is by largely multifactorial with volume loss from diarrhea, possibly infection from C difficile colitis, medications including beta-reuben ALIYA-inhibitor and diuretic, and her anemia. I do not think she is having significant ongoing bleeding but a new need to get her recent blood counts and recheck her hemoglobin now as it did drop overnight. This is likely be largely due to the hydration affect. She does have a history of chronic anemia and she has had microcytosis in the past but is normocytic at this point. I do not see any recent iron studies but she has been getting iron replacement therapy. It is unclear whether her C diff represents actual infection or not given her normal recent endoscopy. I think clearly is not the cause of her chronic diarrhea but she could potentially have gotten C difficile infection during her recent hospitalization PLANS: -will stop IV fluids at this time -follow blood counts closely, not currently in need of transfusion -continue rate control but will hold on her ALIYA-inhibitor and diuretic at this time -continue C difficile with oral vancomycin at this time -continue to hold metformen for time being, follow renal fxn and sugars SUBJECTIVE: The patient still feels quite weak but she is able to eat a little bit of food No shortness of breath, chest pain or abdominal pain OBJECTIVE Vitals reviewed: Remains in AFib and flutter with better rate control 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, 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: Rate controlled AFib Exam: alert oriented skin warm dry color ok resps not labored lungs clear BSs heart regular abd soft nondistended with some mild tenderness, no guarding or rebound, bowel sounds present limbs warm, no edema iv site ok Laboratory data: Stools were positive for C difficile Objective: Vital Signs Temp Pulse Resp BP Pulse Ox 36.4 C 74 20 117/61 95 01/04/17 10:56 01/04/17 14:10 01/04/17 10:56 01/04/17 14:10 01/04/17 10:56 01/03/17 01/04/17 01/05/17 06:59 06:59 06:59 Intake Total 1341 100 Balance 1341 100 PT 20.8 SEC (12.0-15.0) H 01/04/17 03:06 INR 1.78 (0.83-1.16) H 01/04/17 03:06 ICD10 Worksheet Patient Problems: Problems Problem Status Onset Atrial fibrillation with RVR Acute C. difficile diarrhea Acute ~01/02/17 Acute ischemic stroke Acute Hypotension Acute Medication side effect Acute
[2017-01-04] MEDS: ROSUVASTATIN CALCIUM 20 MG TAB PO SCH (20:48)
[2017-01-04] MEDS: clonazePAM 1 MG TAB PO PRN (20:50)
[2017-01-04] MEDS ORDERED: INSULIN GLARGINE 100 UNITS/ML SYRINGE SC SCH (21:00)
[2017-01-05 04:57] LABS: INR 1.88 (0.83-1.16); PROTIME(PATIENT) 21.7 SEC (12.0-15.0)
[2017-01-05] MEDS: VANCOMYCIN 125 MG/2.5 ML UDL PO SCH ×4 (06:17→21:41)
[2017-01-05] MEDS: PANTOPRAZOLE SODIUM 40 MG TAB PO SCH ×2 (09:11→21:42)
[2017-01-05] MEDS: FERROUS SULFATE 325 MG TAB PO SCH (09:11)
[2017-01-05] MEDS: buPROPion XL 150 MG TAB PO SCH (09:12)
[2017-01-05] MEDS: CLOPIDOGREL BISULFATE 75 MG TAB PO SCH (09:12)
[2017-01-05] MEDS: PREGABALIN 150 MG CAP PO SCH ×2 (09:12→21:42)
[2017-01-05] MEDS: VENLAFAXINE XR 75 MG CAP PO SCH (09:12)
[2017-01-05] MEDS: ACETAMINOPHEN 325 MG TAB PO PRN ×3 (09:13→21:43)
[2017-01-05] MEDS: METOPROLOL TARTRATE 50 MG TAB PO SCH ×2 (09:13→21:41)
[2017-01-05] MEDS: ASCORBIC ACID 500 MG TAB PO SCH (09:13)
[2017-01-05] MEDS: INSULIN LISPRO 100 UNIT/ML SC SCH ×3 (09:36→18:15)
[2017-01-05] MEDS ORDERED: WARFARIN SODIUM 5 MG TAB PO ONE (16:00)
--- NOTE | 2017-01-05 16:48 | HOSPPROG ---
Hospitalist Progress Note Assessment/Plan: DIAGNOSES: -HYPOTENSION, MULTIFACTORIAL WITH VOLUME LOSS AND MEDICINES - She has ongoing symptoms of marked orthostasis and severe deconditioning difficulty with walking -? C DIFF COLITIS VS COLONIZATION (present on admission after recent hospitalization elsewhere several days ago) -at this time with worsening diarrhea and low bp's, renal failure, will treat for C diff; only other approach would be repeat colonoscopy which is not desired at present -A FIB WITH RAPID RATE, PAROXYSMAL - had further rapid AFib last night and this morning so demonstrating that her metoprolol will not control her rate; though she tolerated it reasonably well sleeping in bed it is hard to tell if that would exacerbate her current orthostatics symptoms and deconditioning -ACUTE RENAL FAILURE IMPROVED, WITH HEMODYNAMIC MECHANISM -RECENT BLEEDING AFTER COLONOSCOPY had has resolved -CHRONIC DIARRHEA FOR PAST 8 MONTHS, CAUSE UNKNOWN WITH OUTPATIENT BIOPSIES PENDING -DIABETES MELLITUS: -on insulin, metformen currently held due to renal insuff and some lower sugars -CHRONIC ANEMIA, W HISTORY OF IRON DEFICIENCY AND LIKELY OTHER ETIOLOGY WELL I have discussed her case today with Dr. Sukhjinder Hawkins. I would like to increase her rate control medication. His initial recommendation was to consider verapamil since she has diarrhea however she does have reduced ejection fraction and this may be a bad idea for that reason. I will consider adding some diltiazem but will need to watch her blood pressures closely and her orthostasis. In terms of her ongoing diarrhea and C diff I will increase her vancomycin dose to 250 mg at this point and follow closely. If she does not resolve with the vancomycin I think this is probably a conversation and not a real infection. If she has ongoing diarrhea I would consider possibly adding Questran but will review with Gastroenterology and see if her biopsies from last week are back yet. Her diabetes remains somewhat labile here. Will continue to hold metformin until we see the creatinine improved but will want to resume that, but following closely to avoid any further low sugars in light of the echocardiogram showing apical hypokinesis, I will review with Cardiology whether this could potentially represent a stress-induced cardiomyopathy syndrome which might explain why she is having so much difficulty with deconditioning and orthostatic symptoms. PLANS: -will stop IV fluids at this time -follow blood counts closely, not currently in need of transfusion -continue rate control but will hold on her ALIYA-inhibitor and diuretic at this time -continue C difficile with oral vancomycin at this time -continue to hold metformen for time being, follow renal fxn and sugars SUBJECTIVE: she continues to still feel fairly weak and lightheaded when she gets somehow on her feet but feels better sitting in a chair or lying in bed Is eating well Still having frequent watery stools without cramping or bleeding No fever symptoms OBJECTIVE Vitals reviewed: blood pressures are much better, otherwise stable without fever 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, 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: had been in sinus rhythm through the night of January 03 and the day of January 04, but later that night and through part of the morning of today she had some rapid AFib again, now back in sinus rhythm Exam: alert oriented skin warm dry color ok resps not labored lungs clear BSs heart regular abd soft nondistended with some mild tenderness, no guarding or rebound, bowel sounds present limbs warm, no edema iv site ok Laboratory data: Stools were positive for C difficile echocardiogram shows decreased ejection fraction of 40-45% with an akinetic apex Objective: Vital Signs Temp Pulse Resp BP Pulse Ox 36.6 C 68 20 120/67 97 01/05/17 16:08 01/05/17 16:08 01/05/17 16:08 01/05/17 16:08 01/05/17 16:08 01/04/17 01/05/17 01/06/17 06:59 06:59 06:59 Intake Total 1341 1415 Output Total 500 Balance 1341 915 PT 21.7 SEC (12.0-15.0) H 01/05/17 03:47 INR 1.88 (0.83-1.16) H 01/05/17 03:47 ICD10 Worksheet Patient Problems: Problems Problem Status Onset Atrial fibrillation with RVR Acute C. difficile diarrhea Acute ~01/02/17 Acute ischemic stroke Acute Hypotension Acute Medication side effect Acute
[2017-01-05] MEDS: INSULIN GLARGINE 100 UNITS/ML SYRINGE SC SCH (21:40)
[2017-01-05] MEDS: ROSUVASTATIN CALCIUM 20 MG TAB PO SCH (21:42)
[2017-01-05] MEDS: clonazePAM 1 MG TAB PO PRN (21:42)
[2017-01-06 04:24] LABS: % IMMATURE GRANULYOCYTES 0.4 % (0.0-1.1); ABSOLUTE IMMATURE GRANULOCYTES 0.02 10^3/uL (0.00-0.10); ADD DIFF? NO; ADD MORPH? NO; ADD SCAN? NO; ATYPICAL LYMPHOCYTE FLAG 20 (0-99); FRAGMENT RBC FLAG 20 (0-99); HEMATOCRIT 25.4 % (38.0-47.0); HEMOGLOBIN 8.2 g/dL (12.6-16.3); LEFT SHIFT FLG 20 (0-99); LIPEMIA HEMOLYSIS FLAG 80 (0-99); MEAN CELL HEMOGLOBIN 28.3 pg (27.9-34.1); MEAN CELL HEMOGLOBIN CONCENTR. 32.3 g/dL (32.4-36.7); MEAN CELL VOLUME 87.6 fL (81.5-99.8); MEAN PLATELET VOLUME 13.2 fL (8.7-11.7); PLATELET CLUMPS FLAG 0 (0-99); PLATELET COUNT 160 10^3/uL (150-400); RED CELL DISTRIBUTION WIDTH 16.9 % (11.5-15.2)
[2017-01-06 04:33] LABS: INR 2.38 (0.83-1.16); PROTIME(PATIENT) 26.2 SEC (12.0-15.0)
[2017-01-06 04:34] LABS: ANION GAP 10 mEq/L (8-16); CALCIUM 8.2 mg/dL (8.5-10.4); CARBON DIOXIDE 23 mEq/l (22-31); CHLORIDE 108 mEq/L (97-110); CREATININE 1.1 mg/dL (0.6-1.0); GLOMERULAR FILTRATION RATE 51; GLUCOSE 99 mg/dL (70-100); SODIUM 141 mEq/L (134-144)
[2017-01-06] MEDS: ACETAMINOPHEN 325 MG TAB PO PRN ×3 (06:16→17:06)
[2017-01-06] MEDS: VANCOMYCIN 125 MG/2.5 ML UDL PO SCH ×4 (06:16→20:36)
[2017-01-06] MEDS: buPROPion XL 150 MG TAB PO SCH (08:19)
[2017-01-06] MEDS: FERROUS SULFATE 325 MG TAB PO SCH (08:19)
[2017-01-06] MEDS: CLOPIDOGREL BISULFATE 75 MG TAB PO SCH (08:19)
[2017-01-06] MEDS: METOPROLOL TARTRATE 50 MG TAB PO SCH (08:19)
[2017-01-06] MEDS: PANTOPRAZOLE SODIUM 40 MG TAB PO SCH ×2 (08:19→20:36)
[2017-01-06] MEDS: VENLAFAXINE XR 75 MG CAP PO SCH (08:19)
[2017-01-06] MEDS: INSULIN LISPRO 100 UNIT/ML SC SCH ×3 (08:21→18:18)
[2017-01-06] MEDS: PREGABALIN 150 MG CAP PO SCH ×2 (08:21→20:36)
[2017-01-06] MEDS: ASCORBIC ACID 500 MG TAB PO SCH (08:21)
[2017-01-06] MEDS: clonazePAM 1 MG TAB PO PRN ×2 (11:27→20:43)
--- NOTE | 2017-01-06 15:02 | HOSPPROG ---
Hospitalist Progress Note Assessment/Plan: DIAGNOSES: -ACUTE HYPOTENSION WITH SEVERE ORTHOSTATIC SYMPTOMS, MULTIFACTORIAL WITH VOLUME LOSS AND MEDICINES -Her symptoms of marked orthostasis and severe deconditioning are improving but still some difficulty with walking -treatment here has included IV fluids, and her Entresto has been held as well as treating likely infection as below -?C DIFF COLITIS VS COLONIZATION (present on admission after recent hospitalization elsewhere several days ago) / CHRONIC DIARRHEA FOR PAST 8 MONTHS, CAUSE UNKNOWN -pt comes in with worsening abdominal cramping and diarrhea, acute fever and C diff positive, recent hospitalization ([facility]) -this in setting of 8 months of chronic diarrhea of unknown cause with no findings on w/u including colonscopy w negative biopsies (last week) -treating for presumptive C diff, though expect she will be left with her chronic diarrhea after treatment -some questran may be helpful for diarrhea control as outpt, but would have her start that AFTER she is done 10 days of po vanco -A FIB PAROXYSMAL, WITH RAPID RATE, ACUTE ON CHRONIC (HX OF TWO STROKES, HER CHRONIC INR GOAL RANGE 2.5-3.5) KNOWN EF OF 40% CHRONIC STABLE SYST CHF -two episodes of AFib here including ER episode, may have contributed to presenting sxs -will increase metopolol for rate control for now -will keep off entresto, and plan to DC on small dose of lisinopril without diuretic due to her diarrhea/orthostasis/renal issues -INR nearing her goal range -ACUTE RENAL FAILURE IMPROVED, WITH HEMODYNAMIC MECHANISM -resolved back to baseline at this time -RECENT UGI BLEEDING AFTER COLONOSCOPY/EGD (treated for bleed at [facility] / CHRONIC ANEMIA WITH IRON DEFICIENCY AND LIKELY OTHER CAUSES WELL -likely due to oozing from egd biopsy sites which was seen at the time and appeared due to some gastritis and fiability from that -reoslved and stable; ok for anticoag per GI Dr López -on po iron -DIABETES MELLITUS: -on insulin -metformen will resume now that renal fx stablized I have reviewed her case in detail with Dr López and Dr Sukhjinder Hawkins. 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 At this time she comes in hypotensive and orthostatic unable to sit at side of bed. Is now better and beginning to walk, but given her ongoing chronic diarrhea (up to 10 stools per day) I do not think she will be ablt to tolerate Entresto at present (recently started on that and with plans to gradually increase the dose. At this time she will need increase in rate control med for AFib which would make tolerating Entresto even harder. PLANS: -home 01/07 if doing better and tolerating meds as below -will stop IV fluids at this time -continue rate control, will increase metoprolol to 75 mg bid -keep off Entresto and recommend not using that at home; Dr Grimaldo could restart it in future if orthostasis/diarrhea/renal failure/anemia controlled; for now will start Low dose ACEI due to her low EF but she will need to follow sxs, BP, and renal fxn closlely -continue C difficile tx with oral vancomycin at this time, total 10 days -plan to start questran BID to see if it controls diarrhea once she has finished her po vanco -resume metformen now with renal fxn and sugars in good control -continue iron supplement -continue to follow INR closely, is nearing her goal range -outpatient follow up in near future needs to include Dr Grimaldo (card) Dr Fernandez (heme, has appt this week), GI, and primary care SUBJECTIVE: still fairly weak and orthostatic but is beginning to walk no fever sxs still w diarrhea but less frequent and with less cramping OBJECTIVE Vitals reviewed: blood pressures are much better, otherwise 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 without fever 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, 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: no recurrent a fib past 24 hours Exam: alert oriented skin warm dry color ok resps not labored lungs clear BSs heart regular abd soft nondistended with some mild tenderness, no guarding or rebound, bowel sounds present limbs warm, no edema iv site ok Laboratory data: creat better 1.1 wbc notably better sugars fairly variable Stools were positive for C difficile echocardiogram shows decreased ejection fraction of 40-45% with an akinetic apex Objective: Vital Signs Temp Pulse Resp BP Pulse Ox 36.6 C 69 19 115/65 94 01/06/17 11:57 01/06/17 11:57 01/06/17 11:57 01/06/17 11:57 01/06/17 11:57 Laboratory Results 01/06/17 03:14 01/06/17 03:14 08/05/1201/06/17 01/07/17 06:59 06:59 06:59 Intake Total 1415 400 Output Total 500 Balance 915 400 PT 26.2 SEC (12.0-15.0) H 01/06/17 03:14 INR 2.38 (0.83-1.16) H 01/06/17 03:14 - Time Spent With Patient Time Spent with Patient: greater than 35 minutes Time Spent with Patient: Greater than 35 minutes spent on this patients care, greater than 50% of time spent counseling, educating, and coordinating care regarding the above mentioned plan. ICD10 Worksheet Patient Problems: Problems Problem Status Onset Atrial fibrillation with RVR Acute C. difficile diarrhea Acute ~01/02/17 Acute ischemic stroke Acute Hypotension Acute Medication side effect Acute
[2017-01-06] MEDS ORDERED: WARFARIN SODIUM 5 MG TAB PO ONE (16:00)
[2017-01-06] MEDS: LISINOPRIL 5 MG TAB PO SCH (17:06)
[2017-01-06] MEDS: ROSUVASTATIN CALCIUM 20 MG TAB PO SCH (20:37)
[2017-01-06] MEDS: METOPROLOL TARTRATE 25 MG TAB PO SCH (20:37)
[2017-01-06] MEDS: metFORMIN SR 500 MG TAB PO SCH (20:44)
[2017-01-06] MEDS: INSULIN GLARGINE 100 UNITS/ML SYRINGE SC SCH (21:33)
[2017-01-07 04:41] LABS: INR 2.77 (0.83-1.16); PROTIME(PATIENT) 29.6 SEC (12.0-15.0)
[2017-01-07] MEDS: VANCOMYCIN 125 MG/2.5 ML UDL PO SCH ×4 (05:27→21:04)
[2017-01-07] MEDS: INSULIN LISPRO 100 UNIT/ML SC SCH ×3 (08:26→18:02)
[2017-01-07] MEDS: ASCORBIC ACID 500 MG TAB PO SCH (08:42)
[2017-01-07] MEDS: buPROPion XL 150 MG TAB PO SCH (08:42)
[2017-01-07] MEDS: PREGABALIN 150 MG CAP PO SCH ×2 (08:42→21:04)
[2017-01-07] MEDS: PANTOPRAZOLE SODIUM 40 MG TAB PO SCH ×2 (08:42→21:04)
[2017-01-07] MEDS: FERROUS SULFATE 325 MG TAB PO SCH (08:42)
[2017-01-07] MEDS: LISINOPRIL 5 MG TAB PO SCH (08:42)
[2017-01-07] MEDS: VENLAFAXINE XR 75 MG CAP PO SCH (08:42)
[2017-01-07] MEDS: CLOPIDOGREL BISULFATE 75 MG TAB PO SCH (08:42)
[2017-01-07] MEDS: METOPROLOL TARTRATE 25 MG TAB PO SCH (11:30)
[2017-01-07] MEDS ORDERED: METOPROLOL TARTRATE 25 MG TAB PO SCH (12:19)
--- NOTE | 2017-01-07 13:53 | HOSPPROG ---
Hospitalist Progress Note Assessment/Plan: * generalized weakness with orthostasis and hypotension after bleeding from recent colonoscopy * Multifactorial - medications, anemia, diarrhea, dehydration * Seems to be getting better * C diff colitis versus colonization on top of chronic diarrhea * Continue vancomycin - possibly contributing * Colonoscopy was negative * Would start probiotics outpatient * paroxysmal atrial fibrillation * No AFib the last 24 hours * Blood pressure may not be able tolerate higher dose of metoprolol * Will restarted 50 mg twice daily * Cardiology will see as well * Holding entresto, restarting lisinopril * history of antiphospholipid with two CVAs * INR therapeutic * recent GI bleed after colonoscopy an EGD * Continuing to watch hemoglobin * type 2 diabetes * Blood sugar is a little bit high but she is on much lower doses of insulin at home * Her a.m. blood sugar is on the low side so would not go up on her Lantus Subjective: Feeling better overall but still feeling unsteady and afraid to go home Objective: Vital Signs Temp Pulse Resp BP Pulse Ox 36.7 C 75 18 122/73 H 96 01/07/17 07:41 01/07/17 12:31 01/07/17 11:47 01/07/17 12:31 01/07/17 11:47 Laboratory Results 01/06/17 03:14 01/06/17 03:14 01/06/17 01/07/17 01/08/17 05:59 05:59 05:59 Intake Total 400 410 Balance 400 410 PT 29.6 SEC (12.0-15.0) H 01/07/17 03:33 INR 2.77 (0.83-1.16) H 01/07/17 03:33 Discussed with Cardiology Tele personally viewed interpreted normal sinus rhythm - Physical Exam Constitutional: no apparent distress, appears nourished, not in pain Eyes: anicteric sclera, EOMI Ears, Nose, Mouth, Throat: moist mucous membranes, hearing normal, ears appear normal Cardiovascular: regular rate and rhythym, no murmur, rub, or gallop Respiratory: no respiratory distress, no rales or rhonchi, clear to auscultation Gastrointestinal: normoactive bowel sounds, soft, non-tender abdomen, no palpable masses Skin: warm Neurologic: AAOx3 Psychiatric: interacting appropriately, not anxious, not encephalopathic, thought process linear ICD10 Worksheet Patient Problems: Problems Problem Status Onset Atrial fibrillation with RVR Acute C. difficile diarrhea Acute ~01/02/17 Acute ischemic stroke Acute Hypotension Acute Medication side effect Acute
--- NOTE | 2017-01-07 13:57 | PDCARPN ---
Cardiology Progress Note Assessment/Plan: Assessment/plan: 56-year-old female with a history of coronary disease status post TX and LAD stenting in 2015, ischemic cardiomyopathy ejection fraction 40- 45%, moderate to severe mitral regurgitation, pulmonary hypertension, paroxysmal atrial fibrillation, history of stroke, positive lupus anticoagulant antibody. Was admitted on January [address] Sifuentes office with hypotension and weakness. She sees him for chronic anemia. A few days prior to this she had had an admission to [facility] for post endoscopy/colonoscopy bleeding. In the [facility] Emergency Department she was found to be in atrial fibrillation with rapid ventricular response and hypotension to the 80s systolic as well as acute kidney injury with a creatinine of 1.7. She was significantly volume depleted. Troponin was 0.048. She did spontaneously convert to sinus rhythm. Warfarin was restarted. She remains significantly anemic. 1. Paroxysmal atrial fibrillation: Currently in sinus rhythm. I will switch her from metoprolol tartrate to metoprolol succinate, given the known benefit of metoprolol succinate in patients with cardiomyopathy. She is on warfarin both for her history of paroxysmal atrial fibrillation and CVA in the setting of lupus anticoagulant antibody. TSH normal. 2. Ischemic cardiomyopathy: She appears euvolemic. She was volume depleted upon admission due to poor p.o. intake and recent GI bleeding. She was previously taking 20 mg of lisinopril daily. We may want to restart this upon discharge given her propensity to volume retention. In the setting of her acute kidney injury and hypotension her Entresto has been stopped. Lisinopril has been restarted. She seems to be tolerating this. I explained that she can work with Dr. Grimaldo in the outpatient setting to consider rechallenge of Entresto. At this point I would not start spironolactone, but this could be considered as an outpatient. 3. Anemia: This is an acute on chronic issue related to underlying anemia for which she sees Dr. Toney as well as recent GI bleeding. Her hemoglobin is decreased from admission, likely due to volume resuscitation. Will consider transfusion, especially in light of her symptoms of fatigue, lightheadedness and her history of coronary disease. 4. Coronary artery disease: Her most recent catheterization in August of this year shows patency of her previously placed LAD stent. She is not having angina. Troponin minimally elevated. Continue medical management with Plavix and statin and beta-reuben. 5. Valvular heart disease: She does have moderate to moderately severe mitral regurgitation as well as pulmonary hypertension. Her LV is mildly dilated. She may require intervention on her mitral valve in the near future. At this point, I do not think her mitral regurgitation is significantly contributing to her clinical picture. 6. History of lupus anticoagulant antibody and stroke: She is on warfarin. Greater than 40 minutes were spent in chart review and direct patient care 01/07/17 14:06 01/07/17 14:13 Subjective: Gayla has some positional lightheadedness and also describes more vertigo type symptoms when she tilts her head back. She has not had chest pain. She does not feel significantly short of breath, but she tells me that the physical therapist commented that she appeared dyspneic when she was working with physical therapy today. She is very concerned about her cardiac medications and the fact that she has been taken off Entresto Reviewed/Discussed With: other (Dr. Holder) Time Spent With Patient: 25 minutes Objective: Vital Signs (8 Hrs) Temp Pulse Resp BP Pulse Ox 01/07/17 12:31 75 122/73 H 01/07/17 11:47 71 18 126/66 H 96 01/07/17 11:30 62 106/74 01/07/17 08:42 106/74 01/07/17 07:41 36.7 C 62 106/74 99 01/07/17 05:35 36.6 C 68 16 91/65 L 94 Intake/Output (24 Hrs) 01/06/17 01/07/17 01/08/17 05:59 05:59 05:59 Intake Total 400 410 Balance 400 410 Intake: Oral (ml) 400 400 IV Intake (ml) 10 Other: Intake Quantity Yes Sufficient Output Comment Toilet per patient pt states several bowel movements. Number of Voids Toilet 2 4 Number of Stools Toilet 5 2 No acute distress. Pale. Sitting up in chair JVP less than 10. Regular rate and rhythm with soft early systolic murmur at the apex. Lungs clear to auscultation bilaterally without wheezes rhonchi or rales Extremities are warm and well perfused without cyanosis clubbing or edema Alert and oriented x3 without gross focal neurologic deficits. Result Diagrams: 01/06/17 03:14 01/06/17 03:14 EKG: Reviewed EKG dated January 02: Atrial fibrillation with rapid ventricular response. Old anterior myocardial infarction. Telemetry: NSR Echocardiogram: Study dated January 03: LV is [id number] dilated. Ejection fraction 40 45%. Known anteroseptal and apical hypokinesis. Moderate mitral regurgitation. Mild tricuspid regurgitation with estimated pulmonary pressure 40 mm of mercury. ICD10 Worksheet Patient Problems: Problems Problem Status Onset Atrial fibrillation with RVR Acute C. difficile diarrhea Acute ~01/02/17 Acute ischemic stroke Acute Hypotension Acute Medication side effect Acute
[2017-01-07] MEDS ORDERED: WARFARIN SODIUM 5 MG TAB PO ONE (16:00)
[2017-01-07] MEDS: METOPROLOL SUCCINATE XR 50 MG TAB PO SCH (21:04)
[2017-01-07] MEDS: ROSUVASTATIN CALCIUM 20 MG TAB PO SCH (21:04)
[2017-01-07] MEDS: metFORMIN SR 500 MG TAB PO SCH (21:04)
[2017-01-07] MEDS: clonazePAM 1 MG TAB PO PRN (21:08)
[2017-01-08 03:41] VITALS: O2SAT 92
[2017-01-08 04:05] LABS: % IMMATURE GRANULYOCYTES 0.8 % (0.0-1.1); ABSOLUTE IMMATURE GRANULOCYTES 0.05 10^3/uL (0.00-0.10); ADD DIFF? NO; ADD MORPH? NO; ADD SCAN? NO; ATYPICAL LYMPHOCYTE FLAG 20 (0-99); FRAGMENT RBC FLAG 20 (0-99); HEMATOCRIT 28.5 % (38.0-47.0); HEMOGLOBIN 9.2 g/dL (12.6-16.3); LEFT SHIFT FLG 10 (0-99); LIPEMIA HEMOLYSIS FLAG 80 (0-99); MEAN CELL HEMOGLOBIN 27.9 pg (27.9-34.1); MEAN CELL HEMOGLOBIN CONCENTR. 32.3 g/dL (32.4-36.7); MEAN CELL VOLUME 86.4 fL (81.5-99.8); MEAN PLATELET VOLUME 12.4 fL (8.7-11.7); PLATELET CLUMPS FLAG 0 (0-99); PLATELET COUNT 172 10^3/uL (150-400); RED CELL DISTRIBUTION WIDTH 17.2 % (11.5-15.2)
[2017-01-08 04:15] LABS: INR 2.78 (0.83-1.16); PROTIME(PATIENT) 29.7 SEC (12.0-15.0)
[2017-01-08 04:19] LABS: ANION GAP 9 mEq/L (8-16); CALCIUM 8.4 mg/dL (8.5-10.4); CARBON DIOXIDE 26 mEq/l (22-31); CHLORIDE 105 mEq/L (97-110); GLOMERULAR FILTRATION RATE 57; GLUCOSE 173 mg/dL (70-100); POTASSIUM 4.1 mEq/L (3.5-5.2); SODIUM 140 mEq/L (134-144)
[2017-01-08] MEDS: VANCOMYCIN 125 MG/2.5 ML UDL PO SCH (06:11)
[2017-01-08 08:31] VITALS: BP 139/63; PULSE 67; RESP 14; TEMP 98.3
[2017-01-08] MEDS ORDERED: INSULIN GLARGINE 100 UNITS/ML SYRINGE SC SCH (09:00)
[2017-01-08] MEDS: VENLAFAXINE XR 75 MG CAP PO SCH (09:38)
[2017-01-08] MEDS: INSULIN LISPRO 100 UNIT/ML SC SCH (09:40)
[2017-01-08] MEDS: LISINOPRIL 5 MG TAB PO SCH (09:41)
[2017-01-08] MEDS: CLOPIDOGREL BISULFATE 75 MG TAB PO SCH (09:41)
[2017-01-08] MEDS: ASCORBIC ACID 500 MG TAB PO SCH (09:41)
[2017-01-08] MEDS: PANTOPRAZOLE SODIUM 40 MG TAB PO SCH (09:42)
[2017-01-08] MEDS: METOPROLOL SUCCINATE XR 50 MG TAB PO SCH (09:42)
[2017-01-08] MEDS: FERROUS SULFATE 325 MG TAB PO SCH (09:42)
[2017-01-08] MEDS: PREGABALIN 150 MG CAP PO SCH (09:42)
[2017-01-08] MEDS: buPROPion XL 150 MG TAB PO SCH (09:42)
--- NOTE | 2017-01-08 10:42 | PDIAF ---
- Diagnosis Diagnosis: hypotension Code Status: Full Code - Medication Management Discharge Medications: Medications to Continue on Transfer Ascorbic Acid [Vitamin C 500 mg (*)] 500 mg PO DAILY 11/02/16 [Last Taken ] Clopidogrel Bisulfate [Plavix (*)] 75 mg PO DAILY 11/02/16 [Last Taken 11/02/16] Ferrous Sulfate [Ferrous Sulf 325 MG (*)] 325 mg PO DAILY 11/02/16 [Last Taken 11/01/16] Insulin Detemir [Levemir] 50 unit SQ BID 11/02/16 [Last Taken 01/02/17] Insulin Lispro [Humalog] 0 unit SQ AD PRN 11/02/16 [Last Taken Unknown] Metoprolol Tartrate [Lopressor 50 mg (*)] 50 mg PO BID 11/02/16 [Last Taken 02/10] Rosuvastatin Calcium [Crestor 20mg (*)] 20 mg PO HS 11/02/16 [Last Taken ] Venlafaxine Xr [Effexor Xr 37.5MG (*)] 75 mg PO DAILY 11/02/16 [Last Taken 01/02] buPROPion XL [Wellbutrin 150mg XL] 150 mg PO DAILY 11/02/16 [Last Taken 01/02/17 ] clonazePAM [klonoPIN (*)] 1 mg PO BID PRN 11/02/16 [Last Taken 01/02/17] metFORMIN HCL [Metformin HCl ER] 500 mg PO HS 11/02/16 [Last Taken 1 Week Ago] Acetaminophen [Tylenol 325mg (*)] 650 mg PO Q4HRS PRN #0 tab 11/03/16 [Last Taken Unknown] Furosemide [Lasix 20 MG (*)] 20 mg PO DAILY 01/02/17 [Last Taken 01/02/17] Pantoprazole Sodium [Protonix 40mg (*)] 40 mg PO BID 01/02/17 [Last Taken ] Pregabalin [Lyrica 75mg (*)] 150 mg PO BID 01/02/17 [Last Taken 01/02/17] Warfarin Sodium [Coumadin] 5 - 10 mg PO AD 01/02/17 [Last Taken 01/02/17] Lact Cmb2/S.thermophl/Bif Cmb1 [Vsl#3 Cap (*)] 1 each PO DAILY #30 cap 01/08/17 [Last Taken Unknown] Lisinopril [Zestril 5 mg (*)] 5 mg PO DAILY #1 tab 01/08/17 [Last Taken Unknown] Vancomycin [Vancomycin (*)] 125 mg PO QID #32 cap 01/08/17 [Last Taken Unknown] Discharge Medications: Refer to the Discharge Home Medication list for PRN reason. - Orders Services needed: Home Care, Registered Nurse, Master Malt House Kiln Operator, Physical Therapy, Occupational Therapy Home Care Face to Face: I certify that this patient was under my care and that I had the required [id number] encounter meeting the encounter requirements on the discharge day. My findings support the fact that the patient is homebound as defined in CMS Chapter 7 Medicare Benefits Manual 30.1.1, The condition of the patient is such that there exists a normal inability to leave home and consequently, leaving home would require a considerable and taxing effort. - Follow Up Care Current Providers and Referrals: Karol Mejia DO [Primary Care Provider] - As per Instructions
--- NOTE | 2017-01-08 10:45 | PDIAF ---
- Diagnosis Diagnosis: hypotension Code Status: Full Code - Medication Management Discharge Medications: Medications to Continue on Transfer Ascorbic Acid [Vitamin C 500 mg (*)] 500 mg PO DAILY 11/02/16 [Last Taken ] Clopidogrel Bisulfate [Plavix (*)] 75 mg PO DAILY 11/02/16 [Last Taken 11/02/16] Ferrous Sulfate [Ferrous Sulf 325 MG (*)] 325 mg PO DAILY 11/02/16 [Last Taken 11/01/16] Insulin Detemir [Levemir] 50 unit SQ BID 11/02/16 [Last Taken 01/02/17] Insulin Lispro [Humalog] 0 unit SQ AD PRN 11/02/16 [Last Taken Unknown] Metoprolol Tartrate [Lopressor 50 mg (*)] 50 mg PO BID 11/02/16 [Last Taken 02/10] Rosuvastatin Calcium [Crestor 20mg (*)] 20 mg PO HS 11/02/16 [Last Taken ] Venlafaxine Xr [Effexor Xr 37.5MG (*)] 75 mg PO DAILY 11/02/16 [Last Taken 01/02] buPROPion XL [Wellbutrin 150mg XL] 150 mg PO DAILY 11/02/16 [Last Taken 01/02/17 ] clonazePAM [klonoPIN (*)] 1 mg PO BID PRN 11/02/16 [Last Taken 01/02/17] metFORMIN HCL [Metformin HCl ER] 500 mg PO HS 11/02/16 [Last Taken 1 Week Ago] Acetaminophen [Tylenol 325mg (*)] 650 mg PO Q4HRS PRN #0 tab 11/03/16 [Last Taken Unknown] Pantoprazole Sodium [Protonix 40mg (*)] 40 mg PO BID 01/02/17 [Last Taken ] Pregabalin [Lyrica 75mg (*)] 150 mg PO BID 01/02/17 [Last Taken 01/02/17] Warfarin Sodium [Coumadin] 5 - 10 mg PO AD 01/02/17 [Last Taken 01/02/17] Lact Cmb2/S.thermophl/Bif Cmb1 [Vsl#3 Cap (*)] 1 each PO DAILY #30 cap 01/08/17 [Last Taken Unknown] Lisinopril [Zestril 5 mg (*)] 5 mg PO DAILY #1 tab 01/08/17 [Last Taken Unknown] Vancomycin [Vancomycin (*)] 125 mg PO QID #32 cap 01/08/17 [Last Taken Unknown] Discharge Medications: Refer to the Discharge Home Medication list for PRN reason. - Orders Services needed: Home Care, Registered Nurse, Master Traffic Clerk, Physical Therapy, Occupational Therapy Home Care Face to Face: I certify that this patient was under my care and that I had the required [id number] encounter meeting the encounter requirements on the discharge day. My findings support the fact that the patient is homebound as defined in CMS Chapter 7 Medicare Benefits Manual 30.1.1, The condition of the patient is such that there exists a normal inability to leave home and consequently, leaving home would require a considerable and taxing effort. - Follow Up Care Current Providers and Referrals: Karol Mejia DO [Primary Care Provider] - As per Instructions Gray Grimaldo MD [Medical Doctor] -
--- NOTE | 2017-01-08 11:25 | PDCARPN ---
Cardiology Progress Note Assessment/Plan: Assessment/plan: 56-year-old female with a history of coronary disease status post DC and LAD stenting in 2015, ischemic cardiomyopathy ejection fraction 40- 45%, moderate to severe mitral regurgitation, pulmonary hypertension, paroxysmal atrial fibrillation, history of stroke, positive lupus anticoagulant antibody. Was admitted on January [address] Sifuentes office with hypotension and weakness. She sees him for chronic anemia. A few days prior to this she had had an admission to [facility] for post endoscopy/colonoscopy bleeding. In the [facility] Emergency Department she was found to be in atrial fibrillation with rapid ventricular response and hypotension to the 80s systolic as well as acute kidney injury with a creatinine of 1.7. She was significantly volume depleted. Troponin was 0.048. She did spontaneously convert to sinus rhythm. Warfarin was restarted. 1. Paroxysmal atrial fibrillation: Currently in sinus rhythm. Continue Toprol. She is on warfarin both for her history of paroxysmal atrial fibrillation and CVA in the setting of lupus anticoagulant antibody. TSH normal. 2. Ischemic cardiomyopathy: She appears euvolemic. She was volume depleted upon admission due to poor p.o. intake and recent GI bleeding. She was previously taking 20 mg of lasix daily. She will be discharged off lasix and see Dr. Grimaldo in one week. In the setting of her acute kidney injury and hypotension her Entresto has been stopped. Lisinopril has been restarted. She seems to be tolerating this. I explained that she can work with Dr. Grimaldo in the outpatient setting to consider rechallenge of Entresto. At this point I would not start spironolactone, but this could be considered as an outpatient. 3. Anemia: This is an acute on chronic issue related to underlying anemia for which she sees Dr. Toney as well as recent GI bleeding. Her hemoglobin is decreased from admission, likely due to volume resuscitation. clinically improved with appropriate Hgb increase s/p one unit of PRBCs on 01/07. 4. Coronary artery disease: Her most recent catheterization in August of this year shows patency of her previously placed LAD stent. She is not having angina. Troponin minimally elevated. Continue medical management with Plavix and statin and beta-reuben. 5. Valvular heart disease: She does have moderate to moderately severe mitral regurgitation as well as pulmonary hypertension. Her LV is mildly dilated. She may require intervention on her mitral valve in the near future. 6. History of lupus anticoagulant antibody and stroke: She is on warfarin. Stable for discharge and close outpatient follow up. Discussed with Dr. Holder 01/08/17 11:27 Subjective: Gayla feels much better after one unit of PRBCs. No SOB, CP. Not as lightheaded with position change Reviewed/Discussed With: family, hospitalist Objective: Vital Signs (8 Hrs) Temp Pulse Resp BP Pulse Ox 01/08/17 08:30 36.8 C 67 14 139/63 H 92 01/08/17 03:37 37.0 C 74 17 106/55 L 92 Intake/Output (24 Hrs) 01/07/17 01/08/17 01/09/17 05:59 05:59 05:59 Intake Total 410 2940 Output Total 2100 600 Balance 410 840 -600 Intake: Oral (ml) 400 2590 IV Intake (ml) 10 Packed Red Blood Cells ( 350 ml) Output: Urine (ml) 2100 600 Toilet 2100 600 Other: Intake Quantity Yes Sufficient Output Comment Toilet pt states several bowel movements. Number of Voids Toilet 4 Number of Stools Toilet 2 NAD JVp <10 RRR no appreciable murmur Lungs CTA no edema Result Diagrams: 01/08/17 03:36 01/08/17 03:36 ICD10 Worksheet Patient Problems: Problems Problem Status Onset C. difficile diarrhea Acute ~01/02/17 Acute ischemic stroke Acute Hypotension Acute Medication side effect Acute Atrial fibrillation with RVR Acute
--- NOTE | 2017-01-08 15:58 | GDS ---
[f rep st] DISCHARGE SUMMARY DISCHARGE DIAGNOSES: 1. Status post recent colonoscopy with gastrointestinal bleeding. 2. Clostridium difficile colitis. 3. Chronic diarrhea. 4. Dehydration. 5. Paroxysmal atrial fibrillation. 6. Ischemic cardiomyopathy. 7. Anemia secondary to acute blood loss. 8. Qgwqvnoc-qq-prgddbbpzp severe mitral regurgitation. 9. Pulmonary hypertension. 10. History of cerebrovascular accident with positive lupus anticoagulant. HISTORY: This is a 56-year-old female who had colonoscopy about a week ago at [facility] for ch ronic diarrhea. She then was re-admitted to [facility] with bleeding. 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 HOSPITAL COURSE: Patient was taken off her Lasix and hydrated because of her hypotension and weakne ss. Her antihypertensives were also held. Creatinine did normalize. Discussions were had with Car diology in regard to her medication. She had been recently started on Entresto, which is discontinu ed. She has been placed back on her small dose of ALIYA inhibitor. She was diagnosed with C difficil e colitis which may be contributing to her chronic diarrhea. She is being treated with vancomycin t o complete 2-week course. She also had anemia and was transfused 1 unit of packed red blood cells, which did improve a lot of her symptomatology. She will be discharged home with close followup with Cardiology as well as Hematology. We have disc ontinued her Entresto and her Lasix, and she will see Cardiology in 1 week. She will be discharged with 8 more days of vancomycin as well as a probiotic. She will follow up with Hematology tomorrow in regard to her INR as was somewhat subtherapeutic on admission. TIME SPENT: Greater than 30 minutes was spent on discharge. /[id number]/MODL
[2017-01-08] MEDS ORDERED: WARFARIN SODIUM 5 MG TAB PO ONE (16:00)
== END 2017-01-08 12:22 | disposition home health service (06) | DRG 315 ==
LOC: F2W 18:42 → OBSVTOIN 01-03 17:11
PROVIDERS: ADMIT Family Medicine; ATTEND Family Medicine
PROC: 30233N1 Transfusion of Nonautologous Red Blood Cells into Peripheral Vein, Percutaneous Approach (ICD-10-PCS; principal; 2017-01-07)
DX: I95.9 Hypotension, unspecified (principal); A04.7 Enterocolitis due to Clostridium difficile; D62 Acute posthemorrhagic anemia; I48.0 Paroxysmal atrial fibrillation; E86.0 Dehydration; D50.9 Iron deficiency anemia, unspecified; I25.5 Ischemic cardiomyopathy; T50.2X5A Adverse effect of carbonic-anhydrase inhibitors, benzothiadiazides and other diuretics, initial encounter; T50.1X5A Adverse effect of loop [high-ceiling] diuretics, initial encounter; E11.9 Type 2 diabetes mellitus without complications; I27.2 Other secondary pulmonary hypertension; I34.0 Nonrheumatic mitral (valve) insufficiency; M32.9 Systemic lupus erythematosus, unspecified; I25.2 Old myocardial infarction; Z86.73 Personal history of transient ischemic attack (TIA), and cerebral infarction without residual deficits; Z79.01 Long term (current) use of anticoagulants; Z79.4 Long term (current) use of insulin; Z87.891 Personal history of nicotine dependence
CPT/HCPCS: 82947-QW; 96374; 97116-GP; 97162-GP; 97165-GO; 97530-GP; 97535-GO; G0378; J1160; J1650; J1815; P9016

== ENCOUNTER → 2017-01-29 | Outpatient (CLI) | payer MEDICAID | LOC: FCPNEURO 21:00 | PROVIDERS: ATTEND Psychiatry & Neurology Sleep Medicine | DX: G47.33 Obstructive sleep apnea (adult) (pediatric) (principal); G47.61 Periodic limb movement disorder ==

== ENCOUNTER → 2017-04-01 | Outpatient (CLI) | payer MEDICAID | LOC: FCPNEURO 22:22 | PROVIDERS: ATTEND Psychiatry & Neurology Sleep Medicine | DX: G47.33 Obstructive sleep apnea (adult) (pediatric) (principal); G47.61 Periodic limb movement disorder ==

== ENCOUNTER → 2018-02-12 | Outpatient (CLI) | payer OTHER | LOC: FLAB 12:58 | PROVIDERS: ATTEND Nurse Practitioner Family | DX: J44.9 Chronic obstructive pulmonary disease, unspecified (principal) ==

== ENCOUNTER 2018-05-16 17:24 | Inpatient (IN) | payer MEDICAID, OTHER ==
[2018-05-16] MEDS ORDERED: OXYCODONE/APAP 5/325 TAB PO PRN (17:29)
[2018-05-16] MEDS ORDERED: ONDANSETRON DISINTEGRATING 4 MG TAB PO PRN (17:29)
[2018-05-16] MEDS ORDERED: LORazepam 0.5 MG TAB PO PRN (17:29)
[2018-05-16] MEDS ORDERED: FUROSEMIDE 40 MG/4 ML VIAL IVP ONE (17:40)
[2018-05-16] MEDS: CARVEDILOL 25 MG TAB PO SCH (18:27)
[2018-05-16] MEDS: INSULIN LISPRO 100 UNIT/ML SC SCH (18:33)
[2018-05-16] MEDS ORDERED: ALTEPLASE 2 MG VIAL IVP PRN (19:20)
[2018-05-16] MEDS: clonazePAM 0.5 MG TAB PO SCH (21:12)
[2018-05-16] MEDS: PREGABALIN 150 MG CAP PO SCH (21:12)
[2018-05-16] MEDS: ACETAMINOPHEN 325 MG TAB PO PRN (21:19)
[2018-05-16] MEDS: INSULIN GLARGINE 100 UNITS/ML UNIT SC SCH (21:20)
[2018-05-16 22:41] LABS: INR 2.69 (0.83-1.16); PROTIME(PATIENT) 28.5 SEC (12.0-15.0)
[2018-05-17] MEDS ORDERED: amLODIPine BESYLATE 5 MG TAB PO SCH (09:00)
[2018-05-17] MEDS: ROSUVASTATIN CALCIUM 20 MG TAB PO SCH ×3 (10:08→20:41)
[2018-05-17] MEDS: VENLAFAXINE XR 150 MG CAP PO SCH (10:09)
[2018-05-17] MEDS: CARVEDILOL 25 MG TAB PO SCH ×2 (10:09→18:21)
[2018-05-17] MEDS: INSULIN GLARGINE 100 UNITS/ML UNIT SC SCH ×2 (10:09→20:41)
[2018-05-17] MEDS: clonazePAM 0.5 MG TAB PO SCH ×2 (10:09→20:41)
[2018-05-17] MEDS: ASPIRIN EC 81 MG TAB PO SCH (10:09)
[2018-05-17] MEDS: AMIODARONE HCL 200 MG TAB PO SCH (10:09)
[2018-05-17] MEDS: PREGABALIN 150 MG CAP PO SCH ×2 (10:09→20:41)
[2018-05-17] MEDS: SPIRONOLACTONE 25 MG TAB PO SCH (10:09)
[2018-05-17] MEDS: BUMETANIDE 1 MG/4 ML VIAL IVP SCH ×2 (10:16→15:30)
--- NOTE | 2018-05-17 10:27 | SOAPPROG ---
SOAP Progress Note Assessment/Plan: Assessment: 1. Acute on chronic hypoxic respiratory failure. This is likely on the basis of decompensated congestive heart failure. She has been systemically anticoagulated in therapeutic therefore think it is unlikely that this represents pulmonary thromboembolic disease. She has had a slight cough with low-grade temperatures that she has described therefore I think it is worthwhile performing a chest x-ray to evaluate for pneumonia. Certainly her clinical presentation is contributed to by her morbid obesity and hypoventilation syndrome. 2. Coronary artery disease. She is status post anterior wall infarct in February of 2015. At that time she was treated with PCI and stenting. She was left with a modest ischemic cardiomyopathy. Repeat cardiac catheterization 09/10 demonstrated patency of her previously placed stent with an ejection fraction of 30-35% and 3+ MR in the setting of elevated filling pressures. Since August of 2016 she has not had an ischemia assessment. It is possible that ischemia is contributing to her clinical presentation. 3. Congestive heart failure. She has had various estimations of her ejection fraction over the last year to year and a half. By cardiac catheterization her EF was 30-35% however her most recent echocardiogram from March indicated that her ejection fraction was 45%. Additionally, there has been variable estimations of the severity of her mitral regurgitation. Most recently her mitral regurgitation was thought to be mild. Previously it had been up to moderate to severe. At the present time, she is in obvious congestive heart failure with right-sided features more severe than left-sided features. 4. Paroxysmal atrial fibrillation. She is on systemic anticoagulation in the form of Coumadin with a therapeutic INR and is being treated with amiodarone and is in sinus rhythm today. She does give a history of palpitations indicating that she may very well have episodes of breakthrough atrial arrhythmias however at the present time is in sinus rhythm. The institution of amiodarone post dates the development of her respiratory failure therefore I think amiodarone pulmonary toxicity is not likely on the differential diagnosis. If she fails to respond to therapy we may need to reconsider this. 5. History of right-sided CVA. Likely cardioembolic in the setting of PAF and hypercoagulability. Currently on systemic anticoagulation. 6. Valvular heart disease. As stated above there have been variable estimations of the severity of her mitral regurgitation anywhere from mild most recently up to moderate to severe in the past. 7. Hypertension. Well controlled currently. 8. Acute on chronic renal insufficiency. Her renal insufficiency is likely multifactorial related to her diabetes and certainly contributed to by cardial renal syndrome in the setting of pulmonary hypertension. 9. Hyperlipidemia. Plan: 1. She has been admitted to the hospital and will be monitored on telemetry. 2. I have ordered a PA and lateral chest x-ray for today. 3. I have started her on twice daily bumetanide 2 mg. 4. We will need to carefully follow her electrolytes and renal function. 5. During this hospitalization I would like to completely reassess her cardiovascular status to include a right heart catheterization, probable left heart catheterization and transesophageal echocardiogram (to carefully assess her mitral valve disease). 6. I will reduce her amlodipine dose. I think she would do better with a little bit higher blood pressure to help perfuse her kidneys especially in light of her pulmonary hypertension. 7. I have ordered a room air arterial blood gas. 8. We may need to get pulmonology involved to help us optimize her respiratory status. 9. Unfortunately, I think her overall prognosis is poor. 05/17/18 10:39 Subjective: She was seen in the office yesterday by Aly Ruano. She was hospitalized at this institution with decompensated congestive heart failure up until late March. Unfortunately, she has not done well. As an outpatient she has had progressively worsening symptoms of exertional dyspnea, weight gain and lower extremity edema. She is now to the point where she can only ambulate about 10 ft before she becomes short of breath. She has not had any anginal quality chest discomfort. She notes no resting symptoms. She denies orthopnea and PND. She does have a history of atrial fibrillation currently on amiodarone. She has had a slight cough without productive sputum. She has occasional symptoms of palpitations. Because of these symptoms she was admitted to the hospital yesterday. She got a dose of IV Lasix last night with a reasonable net negative diuresis. In the past, we had problems with progressively worsening renal function in the setting of diuresis. Objective: Vital Signs Temp Pulse Resp BP Pulse Ox 36.7 C 74 17 108/52 L 91 L 05/17/18 06:58 05/17/18 06:58 05/17/18 06:58 05/17/18 06:58 05/17/18 06:58 Laboratory Results 05/17/18 06:00 05/16/18 05/17/18 05/18/18 05:59 05:59 05:59 Intake Total 350 Output Total 1300 Balance -950 PT 28.5 SEC (12.0-15.0) H 05/16/18 21:15 INR 2.69 (0.83-1.16) H 05/16/18 21:15 Physical Exam - Physical Exam General Appearance: mild distress, obese EENT: PERRL/EOMI, normal ENT inspection, pharynx normal, TMs normal Neck: non-tender, full range of motion, supple, normal inspection, other ( Wearing nasal cannula oxygen) Respiratory: chest non-tender, lungs clear, normal breath sounds Cardiac/Chest: normal peripheral pulses, regular rate, rhythm, edema (Pitting bilateral lower extremity edema to the proximal vo), systolic murmur (2/6 holosystolic murmur left sternal border) Peripheral Pulses: 2+: carotid (R), carotid (L), femoral (R), femoral (L), dorsalis-pedis (R), dorsalis-pedis (L) Abdomen: normal bowel sounds, non-tender, soft Pelvic Exam: deferred Rectal: deferred Back: Normal inspection Skin: normal color, warm/dry Lymphatic: no adenopathy Extremities: normal range of motion, non-tender, normal inspection, normal capillary refill Neuro/Psych: no motor/sensory deficits, alert, normal mood/affect, oriented x 3 ICD10 Worksheet Patient Problems: Problems Problem Status Onset Acute ischemic stroke Acute Atrial fibrillation with RVR Acute C. difficile diarrhea Acute ~01/02/17 Hypotension Acute Medication side effect Acute
[2018-05-17] MEDS: INSULIN LISPRO 100 UNIT/ML SC SCH ×3 (10:39→18:27)
--- NOTE | 2018-05-17 11:15 | PDMN ---
Medical Necessity Medical necessity: Pt meets inpt criteria per MD order and MCG M-190, Heart Failure. 58 y/o w/ hx heart failure, PAF, CAD, valvular heart disease, diabetes , morbid obesity, CRI, and R side CVA, and recent hospitalization in Mar 2018, admitted w/acute on chronic heart failure/pulm HTN requiring IV diuretics, suppl O2 @ 3L, and further cardiac workup pending including R and L heart cath and DAVID. Est LOS>2MN for ongoing eval/tx of medically complex pt w/CHF exacerbation.
--- NOTE | 2018-05-17 14:50 | ASMTCMCOM ---
CM Note CM Note Notes: 05/17/2018 Case Management Note Pt is known to case management with admissions on 04/03 and an ED visiti on 04/10. Pt is part of the [facility] program. Pt admitted this time for CHF. Discharge needs are determined by [facility]. Alerted [facility] of admission. Awaiting PT eval recommendation. [facility] has contracted with limited SNFs: [facility]. Case Management d/c poc: determined by [facility] Case Management will follow. Date Signed: 05/17/2018 02:49 PM Electronically Signed By:Linda Mclaughlin RN
--- NOTE | 2018-05-17 15:04 | ASMTCMCOM ---
CM Note CM Note Notes: 05/17/2018 Case Management Note Per documentation lead MD at [facility]: upon d/c med scripts to be called by discharging [facility] MD to [facility] . Meds can be filled at [facility]'s, preferably the one downstairs in [facility] lobby. Please direct questions to [facility] at [phone] Date Signed: 05/17/2018 03:04 PM Electronically Signed By:Linda Mclaughlin RN
[2018-05-17] MEDS: WARFARIN SODIUM 5 MG TAB PO SCH ×2 (15:30→17:27)
[2018-05-17] MEDS: D50W 25 GM/50 ML SYR IVP PRN (18:15)
[2018-05-17] MEDS ORDERED: CHLOROTHIAZIDE SODIUM 250 MG in STERILE WATER INJ 9 ML IVP ONE (20:30)
[2018-05-17] MEDS ORDERED: BUMETANIDE 1 MG/4 ML VIAL IVP ONE (20:30)
[2018-05-17] MEDS: ACETAMINOPHEN 325 MG TAB PO PRN (20:53)
--- NOTE | 2018-05-17 22:20 | PDHOSCONS ---
History and Physical - Chief Complaint difficulty breathing - History of Present Illness The patient is a 58-year-old female with PMH CHF, CAD, PAF, CVA, valvular heart disease who was admitted by her psychiatric assistant for worsening dyspnea which is suspected to be secondary to CHF exacerbation. Patient has reported fatigue, lethargy, wheezing, and difficulty breathing. She denies fevers or chills. She has had frequent hospitalizations recently, including a long hospitalization for decompensated CHF in late March. In the outpatient setting, she has struggled with dyspnea on exertion, weight gain, and bilateral lower extremity edema. Her psychiatric assistant has put patient on aggressive diuresis and plans to perform cardiac catheterization and DAVID to assess mitral valve disease. Patient currently denies chest pain. She is on CPAP. History Information - Allergies/Home Medication List Allergies/Adverse Reactions: codeine Allergy (Mild, Verified 04/20/18 13:31) GI metformin Allergy (Mild, Verified 04/20/18 13:31) GI Sulfa (Sulfonamide Antibiotics) Allergy (Mild, Verified 04/20/18 13:31) Vomiting Home Medications: Rosuvastatin Calcium [Crestor 20mg (*)] 20 mg PO HS 11/02/16 [Last Taken 21:00] clonazePAM [klonoPIN (*)] 0.5 mg PO BID PRN 11/02/16 [Last Taken 05/16/18 08:00] Warfarin Sodium [Coumadin] 10 mg PO MOWEFR@16 01/02/17 [Last Taken 05/16/18 16: 00] Aspirin EC [Aspirin EC 81 mg (*)] 81 mg PO DAILY 04/03/18 [Last Taken 05/16/18 08:00] Herbals/Supplements -Info Only 1 ea PO DAILY 04/03/18 [Last Taken 04/03/18] Bumetanide [Bumex (*)] 3 mg PO DAILY 05/16/18 [Last Taken 05/16/18 08:00] Carvedilol [Coreg] 12.5 mg PO BID 05/16/18 [Last Taken 05/16/18 20:00] Insulin Glargine [Lantus Syringe] 70 units SC BID 05/16/18 [Last Taken 05/16/18 08:00] Insulin Lispro [HumaLOG LISPRO] 15 - 20 unit SC TIDMEAL 05/16/18 [Last Taken 21:00] Pregabalin [Lyrica 150mg (*)] 150 mg PO BID 05/16/18 [Last Taken 05/16/18 08:00] Venlafaxine Xr [Effexor Xr] 150 mg PO DAILY 05/16/18 [Last Taken 05/16/18 08:00] Warfarin Sodium 5 mg PO YADISA@16 05/16/18 [Last Taken 05/15/18] I have personally reviewed and updated: family history, medical history, social history, surgical history Past Medical History: CAD w/ Hx ME and stent, PAF, systolic CHF, mod-severe MV regurg, HLD, HTN, DM, obesity, CVA - Past Medical History coronary artery disease (With ischemic cardiomyopathy, ejection fraction 30-35% and previous myocardial infarction), CHF (Systolic), diabetes type 2 Additional medical history: Lupus with antiphospholipid antibody syndrome and CVA x2 - Surgical History Reports: thyroid surgery - Family History Additional family history: Mother with diabetes mellitus and asthma. Father with myocardial infarction at age 50. CAD, ME, CVA, HLD, musc dystrophy, cancer , asthma. - Social History Smoking Status: Former smoker Alcohol Use: None Drug Use: None Additional social history: Disabled, no longer works. Review of Systems Review of Systems: ROS: 10pt was reviewed & negative except for what was stated in HPI & below Physical Exam Physical Exam: Temp Pulse Resp BP Pulse Ox 37.3 C 78 20 124/68 H 90 L 05/17/18 19:54 05/17/18 19:54 05/17/18 19:54 05/17/18 19:54 05/17/18 19:54 O2 (L/minute) 4.5 Constitutional: obese, other (mild AD) Eyes: EOMI, pale conjunctiva Ears, Nose, Mouth, Throat: hearing normal, dry mucous membranes Cardiovascular: regular rate and rhythym, systolic murmur, pulses symmetric bilaterally, edema (+2 b/l LE) Respiratory: other (mildly labored, on CPAP, b/l rales) Gastrointestinal: normoactive bowel sounds, soft, non-tender abdomen Skin: warm, other (pale) Musculoskeletal: muscular tenderness, generalized weakness Neurologic: weakness, CN II-XII Intact Psychiatric: interacting appropriately, depressed Lab Data & Imaging Review 05/17/18 06:00 PT 28.5 SEC (12.0-15.0) H 05/16/18 21:15 INR 2.69 (0.83-1.16) H 05/16/18 21:15 Puncture Site LEFT RADIAL 05/17/18 10:35 Patient Temperature 37.0 DEGREES 05/17/18 10:35 pCO2 41 mmHg (34-38) H 05/17/18 10:35 pO2 69 mmHg (65-75) 05/17/18 10:35 Total CO2 22 mEq/L (23-27) L 05/17/18 10:35 ABG pH 7.33 (7.35-7.45) L 05/17/18 10:35 ABG HCO3 21 mEq/L (22-26) L 05/17/18 10:35 ABG O2 Saturation 93 % (92-95) 05/17/18 10:35 ABG Base Excess -4.0 mEq/L (-2.5-2.5) L 05/17/18 10:35 Total O2 Concentration 3.0 LITERS 05/17/18 10:35 Sodium 137 mEq/L (135-145) 05/17/18 06:00 Potassium 3.7 mEq/L (3.5-5.2) 05/17/18 06:00 Chloride 109 mEq/L (97-110) 05/17/18 06:00 Carbon Dioxide 22 mEq/l (22-31) 05/17/18 06:00 Anion Gap 6 mEq/L (6-14) 05/17/18 06:00 BUN 40 mg/dL (7-23) H 05/17/18 06:00 Creatinine 1.9 mg/dL (0.6-1.0) H 05/17/18 06:00 Estimated GFR 27 05/17/18 06:00 Glucose 144 mg/dL (70-100) H 05/17/18 06:00 POC Glucose 193 mg/dL (70-100) H 05/17/18 21:07 Calcium 8.0 mg/dL (8.5-10.4) L 05/17/18 06:00 Phosphorus 5.1 mg/dL (2.5-4.5) H 05/16/18 21:15 Magnesium 2.1 mg/dL (1.6-2.3) 05/17/18 06:00 Troponin I < 0.012 ng/mL (0.000-0.034) 05/16/18 21:15 Imaging Review: Imaging Impressions Chest X-Ray 05/17/18 09:40 Impression: Increased pulmonary venous hypertension with interstitial pulmonary edema. Visualized and Interpreted Chest x-ray results: Yes Chest X-Ray results: infiltrate Visualized and Interpreted EKG results: Yes EKG Interpretation: Positive for: normal sinsus rhythm (rt 65) Assessment & Plan Assessment: Acute resp failure, on CPAP/O2 Acute systolic CHF exacerbation Mod-severe MR Ischemic CMP CAD s/p stent Pulm edema, 2/2 above PAF, on warfarin MICHELA on CKD St 3, baseline Cr 1.2 Non anion gap metabolic acidosis -2/2 renal disease and mild resp acidosis. H/o CVA H/o positive lupus anticoagulant DM type 2, on insulin Hypoglycemia, 2/2 poor po intake HTN HLD -w/ mild temp elevation and recent frequent hospitalization, consider viral infection contributing to CHF. Check resp panel. -since pt has poor po intake, DC Lantus. Continue standard SSI. Adjust SSI according to BG. -CPAP, O2. -Diuresis. Monitor renal function/mag BID and replace electrolytes accordingly. -Strict I/O. Restrict fluid intake. Low sodium/glycemic diet. -Consider CT chest and Pulm consult to eval further if no improvement w/ diuresis. -Palliative consult to discuss progressively worsening CHF/poor prognosis. -Continue home meds including warfarin. -Cardiology recs appreciated - planning for potential cardiac cath/DAVID during this admission. I have discussed w/ Dr. Grimaldo. -VTE ppx - warfarin. Check INR in AM. -Code status - full code. Thank you, Dr. Grimaldo, for the consultation.
[2018-05-17] MEDS: IPRATROPIUM/ALBUTEROL 3 ML DEYVIAL IH SCH (23:43)
[2018-05-18 05:11] LABS: INR 2.9 (0.83-1.16); PROTIME(PATIENT) 30.2 SEC (12.0-15.0)
[2018-05-18] MEDS: IPRATROPIUM/ALBUTEROL 3 ML DEYVIAL IH SCH ×4 (06:06→23:11)
[2018-05-18] MEDS: D50W 25 GM/50 ML SYR IVP PRN (07:10)
[2018-05-18] MEDS: CARVEDILOL 25 MG TAB PO SCH ×2 (09:38→18:35)
[2018-05-18] MEDS: clonazePAM 0.5 MG TAB PO SCH ×2 (09:40→20:25)
[2018-05-18] MEDS: VENLAFAXINE XR 150 MG CAP PO SCH (09:40)
[2018-05-18] MEDS: SPIRONOLACTONE 25 MG TAB PO SCH (09:41)
[2018-05-18] MEDS: AMIODARONE HCL 200 MG TAB PO SCH (09:41)
[2018-05-18] MEDS: ASPIRIN EC 81 MG TAB PO SCH (09:41)
[2018-05-18] MEDS: PREGABALIN 150 MG CAP PO SCH ×2 (09:42→20:25)
[2018-05-18] MEDS: methylPREDNISolone SOD SUCC 125 MG/2 ML VIAL IVP SCH ×3 (10:49→18:35)
--- NOTE | 2018-05-18 10:52 | SOAPPROG ---
SOAP Progress Note Assessment/Plan: Assessment: 1. Acute on chronic hypoxic respiratory failure. This is likely on the basis of decompensated congestive heart failure. She has been systemically anticoagulated in therapeutic therefore think it is unlikely that this represents pulmonary thromboembolic disease. She has had a slight cough with low-grade temperatures that she has described therefore I think it is worthwhile performing a chest x-ray to evaluate for pneumonia. Certainly her clinical presentation is contributed to by her morbid obesity and hypoventilation syndrome. 2. Coronary artery disease. She is status post anterior wall infarct in February of 2015. At that time she was treated with PCI and stenting. She was left with a modest ischemic cardiomyopathy. Repeat cardiac catheterization 09/10 demonstrated patency of her previously placed stent with an ejection fraction of 30-35% and 3+ MR in the setting of elevated filling pressures. Since August of 2016 she has not had an ischemia assessment. It is possible that ischemia is contributing to her clinical presentation. 3. Congestive heart failure. She has had various estimations of her ejection fraction over the last year to year and a half. By cardiac catheterization her EF was 30-35% however her most recent echocardiogram from March indicated that her ejection fraction was 45%. Additionally, there has been variable estimations of the severity of her mitral regurgitation. Most recently her mitral regurgitation was thought to be mild. Previously it had been up to moderate to severe. At the present time, she is in obvious congestive heart failure with right-sided features more severe than left-sided features. 4. Paroxysmal atrial fibrillation. She is on systemic anticoagulation in the form of Coumadin with a therapeutic INR and is being treated with amiodarone and is in sinus rhythm today. She does give a history of palpitations indicating that she may very well have episodes of breakthrough atrial arrhythmias however at the present time is in sinus rhythm. The institution of amiodarone post dates the development of her respiratory failure therefore I think amiodarone pulmonary toxicity is not likely on the differential diagnosis. If she fails to respond to therapy we may need to reconsider this. 5. History of right-sided CVA. Likely cardioembolic in the setting of PAF and hypercoagulability. Currently on systemic anticoagulation. 6. Valvular heart disease. As stated above there have been variable estimations of the severity of her mitral regurgitation anywhere from mild most recently up to moderate to severe in the past. 7. Hypertension. Well controlled currently. 8. Acute on chronic renal insufficiency. Her renal insufficiency is likely multifactorial related to her diabetes and certainly contributed to by cardial renal syndrome in the setting of pulmonary hypertension. 9. Hyperlipidemia. 05/18/2018: Unfortunately despite effective diuresis she continues to do poorly. She continues to have severe symptoms of dyspnea associated with hypoxemia with sats into the 70s and diffuse wheezes on physical examination. Additionally, her creatinine has increased up to 2.2. I appreciate the input from Hospital Medicine who consulted on the patient last night and this morning. Plan: 1. I will hold her diuretics today and discontinue amlodipine. 2. I would like to consult pulmonology in light of her significant hypoxemia disproportionate to her physical examination and the development of diffuse wheezes. 3. We will carefully follow her renal function and electrolytes. 4. I will defer to Hospital Medicine regarding management of her diabetes. 05/18/18 10:50 Subjective: Unfortunately, she continues to do poorly. Despite fairly effective diuresis she continues to have profound symptoms of dyspnea and significant hypoxemia. Room air saturations this morning were in the high 70% range. She notes no anginal quality chest discomfort. Her creatinine is up to 2.2 mg/dL. Objective: Vital Signs Temp Pulse Resp BP Pulse Ox 36.9 C 76 30 H 153/85 H 96 05/18/18 03:52 05/18/18 10:23 05/18/18 10:23 05/18/18 09:38 05/18/18 10:23 Laboratory Results 05/18/18 04:40 05/17/18 05/18/18 05/19/18 05:59 05:59 05:59 Intake Total 350 1300 Output Total 1300 3000 Balance -950 -1700 PT 30.2 SEC (12.0-15.0) H 05/18/18 04:40 INR 2.90 (0.83-1.16) H 05/18/18 04:40 Physical Exam - Physical Exam General Appearance: alert, no apparent distress, obese (She is chronically ill in appearance) EENT: PERRL/EOMI, normal ENT inspection, pharynx normal, TMs normal Neck: non-tender, full range of motion, supple, normal inspection Respiratory: chest non-tender, wheezing (Diffuse), No respiratory distress, No accessory muscle use, No decreased breath sounds, No crackles, No rales, No rhonchi Cardiac/Chest: normal peripheral pulses, regular rate, rhythm, edema (1 quarter- inch pitting edema bilaterally to the mid vo), No gallop, No JVD Peripheral Pulses: 2+: carotid (R), carotid (L), femoral (R), femoral (L), dorsalis-pedis (R), dorsalis-pedis (L) Abdomen: normal bowel sounds, non-tender, soft Pelvic Exam: deferred Rectal: deferred Back: Normal inspection Skin: normal color, warm/dry Lymphatic: no adenopathy Extremities: normal range of motion, non-tender, normal inspection, normal capillary refill Neuro/Psych: no motor/sensory deficits, alert, normal mood/affect, oriented x 3 ICD10 Worksheet Patient Problems: Problems Problem Status Onset Acute ischemic stroke Acute Atrial fibrillation with RVR Acute C. difficile diarrhea Acute ~01/02/17 Hypotension Acute Medication side effect Acute
[2018-05-18] MEDS: INSULIN LISPRO 100 UNIT/ML SC SCH ×3 (10:58→18:35)
[2018-05-18] MEDS: ACETAMINOPHEN 325 MG TAB PO PRN ×2 (11:10→20:34)
--- NOTE | 2018-05-18 11:15 | ASMTCMCOM ---
CM Note CM Note Notes: 05/18/2018 Case Management Note Discussed with MD this morning. Pt transferring to SDU. Faxed referrals to [facility]: [facility]. Discharge date unclear. Case Management d/c poc: anticipating SNF rehab Case Management to follow. Date Signed: 05/18/2018 11:14 AM Electronically Signed By:Linda Mclaughlin RN
--- NOTE | 2018-05-18 13:01 | HOSPPROG ---
Hospitalist Progress Note Assessment/Plan: Acute resp failure, on CPAP/O2 Acute systolic CHF exacerbation Mod-severe MR Ischemic CMP CAD s/p stent Pulm edema, 2/2 above PAF, on warfarin MICHELA on CKD St 3, baseline Cr 1.2 Non anion gap metabolic acidosis -2/2 renal disease and mild resp acidosis. H/o CVA H/o positive lupus anticoagulant DM type 2, on insulin Hypoglycemia HTN HLD -w/ mild temp elevation and recent frequent hospitalization, consider viral infection contributing to CHF. Resp panel pending . -since pt has poor po intake with hypoglycemia this AM (40's), long acting insulin has been discontinued - Will continue SSI. Hold on Prandial insulin given hypoglycemia - If hypoglycemia persists in setting of long acting insulin and MICHELA, start on dextrose infusion - CPAP, O2. - Diuresis per cardiology, they are currently holding - Monitor renal function/mag and replace electrolytes accordingly. - Strict I/O. Restrict fluid intake. Low sodium/glycemic diet. - Pulm consulted to eval further hypoxic resp failure, started IV Methylpred 60 mg q6 this AM - CT chest ordered, f/u results - Palliative consult to discuss progressively worsening CHF/poor prognosis. - Continue home meds including warfarin. - Cardiology recs appreciated - planning for potential cardiac cath/DAVID during this admission. I have discussed w/ Dr. Grimaldo. - VTE ppx - warfarin. Check INR in AM. - Code status - full code. Subjective: Patient significantly SOB this morning Objective: Vital Signs Temp Pulse Resp BP Pulse Ox 36.9 C 70 23 H 110/55 L 93 05/18/18 03:52 05/18/18 12:00 05/18/18 12:00 05/18/18 12:00 05/18/18 12:00 Laboratory Results 05/18/18 04:40 05/17/18 05/18/18 05/19/18 05:59 05:59 05:59 Intake Total 350 1300 Output Total 1300 3000 Balance -950 -1700 PT 30.2 SEC (12.0-15.0) H 05/18/18 04:40 INR 2.90 (0.83-1.16) H 05/18/18 04:40 - Physical Exam Constitutional: chronically ill appearing, uncomfortable Eyes: PERRL Ears, Nose, Mouth, Throat: moist mucous membranes Cardiovascular: irregularly irregular, edema Respiratory: reduced air movement, expiratory wheeze, No no respiratory distress Gastrointestinal: soft, non-tender abdomen Skin: warm Neurologic: AAOx3 Psychiatric: interacting appropriately ICD10 Worksheet Patient Problems: Problems Problem Status Onset Acute ischemic stroke Acute Atrial fibrillation with RVR Acute C. difficile diarrhea Acute ~01/02/17 Hypotension Acute Medication side effect Acute
[2018-05-18] MEDS: WARFARIN SODIUM 5 MG TAB PO SCH (15:01)
--- NOTE | 2018-05-18 16:22 | GCON ---
CHEST CONSULTATION REASON FOR CONSULTATION: Dyspnea and wheeze. HISTORY OF PRESENT ILLNESS: The patient is a 58-year-old white female with a very extensive past med ical history, including morbid obesity, stroke, diabetes, hypertension, mitral regurgitation, congest addy heart failure, atrial fibrillation, coronary artery disease with [place] and stent, as well as obstruc tive sleep apnea. She was admitted on 05/16 with complaints of worsening breathlessness. She has be en followed by Cardiology for congestive heart failure. She was admitted and she feels no better. S he still has market breathless with any form of exertion. She is on CPAP. She falls asleep frequent ly. She denies any chest pain, pleuritic-type chest pain, or angina equivalent. There is no fever o r night sweats. She admits to a cough that is nonproductive. REVIEW OF SYSTEMS: 10-point review of systems is performed and negative, except for what is listed i n HPI. ALLERGIES: Sulfa, metformin, and codeine. PAST MEDICAL HISTORY: Again significant for coronary artery disease, diabetes, congestive heart fail ure with an ejection fraction of 30% to 35%, atrial fibrillation, mitral regurgitation, diabetes, hyp ertension, morbid obesity, and history of stroke. Also, she has history of lupus. FAMILY HISTORY: Significant for coronary artery disease and stroke. SOCIAL HISTORY: Previous smoker, none for many years. No significant alcohol use. She is disabled. MEDICATIONS: At home, include Coumadin, Effexor, Lyrica, Humalog, Lantus, Coreg, Bumex, aspirin, Klo nopin, and Crestor. PHYSICAL EXAM: VITAL SIGNS: Blood pressure is 153/85, pulse 76, respirations 30, temperature is 36. 9, oxygen saturation is 96% on high-flow oxygen. GENERAL: She is a morbidly obese 58-year-old white female who is in mild respiratory distress. HEENT: Eyes are PERRLA, EOMI. Throat shows no erythem a or tonsillar hypertrophy. NECK: Supple. There is no cervical adenopathy. HEART: Regular rate a nd rhythm, but heart sounds are distant. LUNGS: Diminished breath sounds with slight bibasilar whee ze. ABDOMEN: Soft, nontender. Bowel sounds are present in all 4 quadrants. EXTREMITIES: Show 2+ lower extremity edema. LABORATORY/IMAGING: INR is 2.9. Sodium 140, potassium 3.6, chloride 106, CO2 26, BUN 44, creatinine 2.2, glucose is 154. Arterial blood gas on 3 L, pH 7.33, pCO2 41, pO2 of 69, bicarb 21, oxygen satu ration 93%. Chest x-ray reveals evidence of pulmonary hypertension. There are increased interstitial markings co nsistent with either pulmonary edema versus diffuse pneumonia. IMPRESSION: 1. Congestive heart failure. 2. Possible diffuse pneumonia, likely viral. 3. Acute respiratory failure. 4. Obstructive sleep apnea, on CPAP. 5. Mitral regurgitation. 6. Coronary artery disease. 7. Acute renal failure. 8. Atrial fibrillation. RECOMMENDATIONS: 1. Will place patient on high-flow oxygen. 2. Will obtain [place] CT scan of the chest at soonest. 3. Will obtain bedside spirometry. 4. Continue aggressive nebulized treatments. 5. Continue CPAP at night. As she is not hypercarbic, do not feel the BiPAP during the daytime woul d be particularly helpful. 6. Aggressive pulmonary toilet. Thank you very much for allowing me to participate in the care of this patient. Will follow along wi th you. /[id number]/MODL
[2018-05-18] MEDS: ROSUVASTATIN CALCIUM 20 MG TAB PO SCH (20:25)
[2018-05-18] MEDS ORDERED: INSULIN LISPRO 100 UNIT/ML SC ONE (22:30)
[2018-05-19] MEDS: methylPREDNISolone SOD SUCC 125 MG/2 ML VIAL IVP SCH ×2 (00:10→05:40)
[2018-05-19] MEDS: IPRATROPIUM/ALBUTEROL 3 ML DEYVIAL IH SCH ×4 (03:12→22:44)
[2018-05-19 06:11] LABS: INR 2.77 (0.83-1.16); PROTIME(PATIENT) 29.2 SEC (12.0-15.0)
[2018-05-19] MEDS: INSULIN LISPRO 100 UNIT/ML SC SCH ×5 (08:12→20:12)
[2018-05-19] MEDS: CARVEDILOL 25 MG TAB PO SCH ×2 (08:13→18:12)
[2018-05-19] MEDS: ASPIRIN EC 81 MG TAB PO SCH (08:14)
[2018-05-19] MEDS: AMIODARONE HCL 200 MG TAB PO SCH (08:14)
[2018-05-19] MEDS: PREGABALIN 150 MG CAP PO SCH ×2 (08:15→21:59)
[2018-05-19] MEDS: SPIRONOLACTONE 25 MG TAB PO SCH (08:15)
[2018-05-19] MEDS: VENLAFAXINE XR 150 MG CAP PO SCH (08:16)
[2018-05-19] MEDS: clonazePAM 0.5 MG TAB PO SCH ×2 (08:16→21:57)
--- NOTE | 2018-05-19 09:23 | PDINTPN ---
Fashion Design Professor Progress Note Assessment/Plan: ASSESSMENT 58 yo morbidly obese female admitted with acute on chronic hypoxemic respiratory failure in the setting of decompensated heart failure possible viral pneumonitis. # acute on chronic hypoxemic respiratory failure-decompensated heart failure with chest x-ray with increased interstitial markings, fluid in minor fissure and peribronchial cuffing with cephalization of vessel. improving after diuresis. Briefly required BiPAP # obesity hypoventilation syndrome and severe obstructive sleep apnea home BiPAP settings 07/02 followed by [facility] # recurrent arterial thrombi-positive lupus anticoagulant. Chronically anticoagulated with warfarin # recurrent CVA # CAD # paroxysmal afib # mitral regurgitation # morbid obesity # Kaz and CKD 3 # anxiety # acute decompensated systolic heart failure PLAN # continued schedule diuresis, trend electrolytes # expect serum creatinine to fluctuate with diuresis # IPAP increased from 14 to 16 on 05/19/2018 due to low tidal volumes is on bedside data download # dextromethorphan for cough # agree with CT chest # continue warfarin goal INR 2.5-3.5 # agree with continuing amiodarone, no e/o pulm toxicity # needs PFTs or at least spirometry # effexor for anxiety # ambulate as tolerated # methylprednisolone decreased from 60 q.6h to 40 Q 12 05/19/2018 # Feeding - NPO # Analgesia APAP, # Sedation at bedtime trazodone p.r.n. # Thromboprophylaxis - therapeutic warfarin # Head of bed elevated # Ulcer prophylaxis -not indicated # Glucose SSI # Skin no skin breakdown # Delirium - delirium precautions # dispo - to PCU with cardiac monitoring ABX none EVENTS CX Data 05/18/18 resp viral PCR negative IMAGING I personally reviewed interpreted patient's radiographic images well as formal radiology reads Chest x-ray 05/18/2018 with general hazy opacification likely secondary to body habitus. Also with perihilar peribronchial cuffing, fluid in minor fissure. Subjective: Slept with bipap overnight. still feeling very short of breath with desaturations when ambulating to bathroom. Complaining of mild cough with exertion. No fevers, chills, nausea, vomiting, sob Objective: Vital Signs Temp Pulse Resp BP Pulse Ox 35.9 C L 83 24 H 129/70 H 94 05/19/18 07:59 05/19/18 07:59 05/19/18 07:59 05/19/18 07:59 05/19/18 07:59 Microbiology 05/18/18 15:20 Respiratory Panel (PCR) - Final Nasal, Sinus - Anaerobic Tube/Swab No Organism Detected By Pcr Laboratory Results 05/19/18 05:45 05/18/18 05/19/18 05/20/18 05:59 05:59 05:59 Intake Total 1300 660 Output Total 3000 500 Balance -1700 160 PT 29.2 SEC (12.0-15.0) H 05/19/18 05:45 INR 2.77 (0.83-1.16) H 05/19/18 05:45 see above for imaging Physical Exam - Physical Exam General Appearance: alert, obese EENT: PERRL/EOMI Neck: non-tender, full range of motion Respiratory: chest non-tender, lungs clear Cardiac/Chest: normal peripheral pulses, regular rate, rhythm, edema (2+) Abdomen: non-tender, soft, No guarding Skin: normal color, warm/dry Extremities: normal inspection, normal capillary refill Neuro/Psych: no motor/sensory deficits, alert, oriented x 3, other (Anxious affect) ICD10 Worksheet Patient Problems: Problems Problem Status Onset Acute ischemic stroke Acute Atrial fibrillation with RVR Acute C. difficile diarrhea Acute ~01/02/17 Hypotension Acute Medication side effect Acute
[2018-05-19] MEDS ORDERED: FUROSEMIDE 40 MG/4 ML VIAL IVP SCH (09:30)
[2018-05-19] MEDS: methylPREDNISolone SOD SUCC 40 MG/ML VIAL IVP SCH ×2 (09:34→21:58)
[2018-05-19] MEDS ORDERED: D50W 25 GM/50 ML SYR IVP PRN (10:33)
--- NOTE | 2018-05-19 10:39 | HOSPPROG ---
Hospitalist Progress Note Assessment/Plan: Acute on chronic hypoxemic respiratory failure, on CPAP / nocturnal O2 at home - multifactorial: acute sHF, OHS, ?viral component. 3 LPM here, presenting CXR reviewed, c/w pulmonary edema -cont IV Lasix BID -CT chest today -Bipap settings adjusted per pulm for better ventilation -wean steroids (plan to d/c tomorrow) -bedside spirometry -cont duonebs Acute systolic CHF exacerbation - IV Lasix as above, follow I&O's, daily wts Mod-severe MR - cards following, probable DAVID later this week ICM - h/o [place] 2014 s/p stent (patent on cath 08/2016). Recent EF 30-35%. -will likely undergo angiogram later this week per cards Paroxysmal A fib - cont amio, warfarin for CVA prevention -INR therapeutic MICHELA on CKD - baseline Cr 1.2 Non anion gap metabolic acidosis -2/2 renal disease and mild resp acidosis H/o CVA - cont ASA, statin, AC H/o positive lupus anticoagulant DM type 2, on insulin - bg's on the rise, >300 today -resume Glargine at 30 u bid, increased to 60 bid this afternoon due to rising bg into 400's -schedule TID lispro plus SSI HTN HLD Full code Dispo - transfer to PCU Subjective: PT continue to feel SOB, unable to ambulate further than bed to bathroom. No CP. Some swelling noted. She doesn't really follow her weight at home. Denies higher salt load. No fevers/chills. She is a bit wheezy. Objective: Vital Signs Temp Pulse Resp BP Pulse Ox 35.9 C L 83 24 H 129/70 H 94 05/19/18 07:59 05/19/18 07:59 05/19/18 07:59 05/19/18 07:59 05/19/18 07:59 Microbiology 05/18/18 15:20 Respiratory Panel (PCR) - Final Nasal, Sinus - Anaerobic Tube/Swab No Organism Detected By Pcr Laboratory Results 05/19/18 05:45 05/18/18 05/19/18 05/20/18 05:59 05:59 05:59 Intake Total 1300 660 240 Output Total 3000 500 650 Balance -1700 160 -410 PT 29.2 SEC (12.0-15.0) H 05/19/18 05:45 INR 2.77 (0.83-1.16) H 05/19/18 05:45 - Physical Exam Constitutional: no apparent distress Eyes: PERRL Ears, Nose, Mouth, Throat: moist mucous membranes Cardiovascular: regular rate and rhythym Respiratory: no respiratory distress, reduced air movement, expiratory wheeze, inspiratory crackles Skin: warm Musculoskeletal: full muscle strength, other (1+ b/l LE edema) Neurologic: AAOx3 Psychiatric: interacting appropriately ICD10 Worksheet Patient Problems: Problems Problem Status Onset Acute ischemic stroke Acute Atrial fibrillation with RVR Acute C. difficile diarrhea Acute ~01/02/17 Hypotension Acute Medication side effect Acute
[2018-05-19] MEDS ORDERED: INSULIN GLARGINE 100 UNITS/ML UNIT SC SCH (10:45)
[2018-05-19] MEDS: FUROSEMIDE 40 MG/4 ML VIAL IVP SCH ×2 (10:51→15:19)
[2018-05-19] MEDS: GUAIFENESIN/DM 10 ML UDCUP PO PRN (10:56)
--- NOTE | 2018-05-19 11:14 | PDCARPN ---
Cardiology Progress Note Assessment/Plan: Congestive Heart Failure: She has acute on chronic CHF with contributors of systolic dysfunction secondary to ischemic cardiomyopathy, probable diastolic dysfunction, valvular heart disease, and right-sided CHF related to her underlying chronic hypoxic respiratory failure. She says that she has not noticed any clinical improvement since her admission to the hospital. Intake and output values reflect a gradual diuresis. Daily weights have not been performed. Aggressiveness of diuretic regimen is limited by renal function. Creatinine currently 1.9 (baseline over the past year has been 1.2 to 1.3). - Continue IV furosemide 40 mg BID. - Consider an IV furosemide drip if progress is unsatisfactory. - Daily weights. Chronic Hypoxic Respiratory Failure: She is being seen by the pulmonary service and is being treated for a possible viral pneumonia. She has normal O2 saturations on nasal cannula oxygen and uses BiPAP at night. Cardiomyopathy: She has an ischemic cardiomyopathy secondary to an anterior STEMI in February of 2015. Various studies have reported her ejection fraction between 35% and 45%. - CHF management as above. Coronary Artery Disease: She is status post PCI of the LAD for anterior STEMI in 2014. A repeat cardiac catheterization was performed in August of last year. Those images were reviewed. Her stent was widely patent. The remainder of the LAD and the circumflex demonstrated rather diffuse but noncritical atherosclerosis typical of a diabetic patient. She is not experiencing any symptoms suggestive of angina. - Continue secondary prevention. - Will consider cardiac catheterization later this week to rule out an ischemic contribution to her CHF. Valvular Heart Disease: An echocardiogram in March reported that her MR was only mild. It was graded as moderate to severe on an echocardiographic study in August 2016. - Will also plan for a DAVID later this week to assess her MR. Paroxysmal Atrial Fibrillation: Maintaining normal sinus rhythm on amiodarone. Per Dr. Grimaldo's note of yesterday, it is not felt that she has amiodarone pulmonary toxicity. - Continue systemic anticoagulation for stroke prophylaxis. 05/19/18 11:10 Subjective: No improvement in her dyspnea. Reviewed/Discussed With: family Objective: Vital Signs (8 Hrs) Temp Pulse Resp BP Pulse Ox 05/19/18 11:02 71 17 96 05/19/18 07:59 35.9 C L 83 24 H 129/70 H 94 05/19/18 05:55 94 05/19/18 04:00 36.9 C 77 20 108/57 L 95 05/19/18 03:13 76 25 H 97 Intake/Output (24 Hrs) 05/18/18 05/19/18 05/20/18 05:59 05:59 05:59 Intake Total 1300 660 240 Output Total 3000 500 650 Balance -1700 160 -410 Intake: Oral (ml) 1300 600 240 IV Intake (ml) 60 Output: Urine (ml) 3000 500 650 Bedside Commode 2200 Catheter 500 350 Incontinence 800 Toilet 300 Other: Intake Quantity Yes Sufficient Output Comment Catheter external female catheter Number of Voids Incontinence 1 3 1 Number of Stools Bedside Commode 1 Incontinence 1 1 Result Diagrams: 05/19/18 05:45 Cardiac Labs: Cardiac Lab Results (72 Hrs) 05/16/18 21:15 Troponin I < 0.012 - Physical Exam Constitutional: no apparent distress, obese Eyes: anicteric sclera Ears, Nose, Mouth, Throat: moist mucous membranes Cardiovascular: regular rate and rhythm, no murmurs, no rubs, no gallops Respiratory: clear to auscultate bilat Gastrointestinal: normoactive bowel sounds, no tenderness, no masses Skin: other (2+ LE edema) Neurologic: AAOx3 Psychiatric: not anxious ICD10 Worksheet Patient Problems: Problems Problem Status Onset C. difficile diarrhea Acute ~01/02/17 Acute ischemic stroke Acute Hypotension Acute Medication side effect Acute Atrial fibrillation with RVR Acute
[2018-05-19] MEDS ORDERED: INSULIN REGULAR HUMAN 100 UNIT/ML UNIT IVP ONE (13:06)
--- NOTE | 2018-05-19 15:55 | ASMTCMCOM ---
CM Note CM Note Notes: Pt had a palliative last week via PCP with [facility]. Pt will d/c to SN[facility] continuing to follow. Date Signed: 05/19/2018 03:54 PM Electronically Signed By:GAURI Alfaro
[2018-05-19] MEDS ORDERED: WARFARIN SODIUM 5 MG TAB PO ONE (16:00)
[2018-05-19] MEDS: ACETAMINOPHEN 325 MG TAB PO PRN (18:11)
[2018-05-19] MEDS ORDERED: INSULIN LISPRO 100 UNIT/ML SC ONE ×2 (20:26→23:12)
[2018-05-19] MEDS: INSULIN GLARGINE 100 UNITS/ML UNIT SC SCH (21:57)
[2018-05-19] MEDS: ROSUVASTATIN CALCIUM 20 MG TAB PO SCH (21:59)
[2018-05-20] MEDS ORDERED: INSULIN LISPRO 100 UNIT/ML SC ONE ×2 (02:36→23:12)
[2018-05-20 05:24] LABS: INR 3.14 (0.83-1.16); PROTIME(PATIENT) 32.1 SEC (12.0-15.0)
[2018-05-20] MEDS: IPRATROPIUM/ALBUTEROL 3 ML DEYVIAL IH SCH ×5 (06:33→20:47)
--- NOTE | 2018-05-20 07:19 | SOAPPROG ---
SOAP Progress Note Assessment/Plan: Assessment: Plan: 05/20/18 07:18 Patient Name: CAROLEE ALLAN Date of : 1960 Patient Status: Inpatient Attending Provider: Gray Grimaldo Date: 05/19/18 11:10 Initialization Date: 05/19/18 11:10 Cardiology Progress Note Assessment/Plan: Congestive Heart Failure: She has acute on chronic CHF with contributors of systolic dysfunction secondary to ischemic cardiomyopathy, probable diastolic dysfunction, valvular heart disease, and right-sided CHF related to her underlying chronic hypoxic respiratory failure. She says that she has not noticed any clinical improvement since her admission to the hospital. Intake and output values reflect a gradual diuresis. Daily weights have not been performed. Aggressiveness of diuretic regimen is limited by renal function. Creatinine currently 1.9 (baseline over the past year has been 1.2 to 1.3). - Continue IV furosemide 40 mg BID.... Patient diuresed very well last night with no change in creatinine would continue IV Lasix today with close creatinine follow-up. May be changed to p.o. Lasix tomorrow. - - Daily weights. Chronic Hypoxic Respiratory Failure: She is being seen by the pulmonary service and is being treated for a possible viral pneumonia. She has normal O2 saturations on nasal cannula oxygen and uses BiPAP at night. Cardiomyopathy: She has an ischemic cardiomyopathy secondary to an anterior STEMI in February of 2015. Various studies have reported her ejection fraction between 35% and 45%. - CHF management as above. Coronary Artery Disease: She is status post PCI of the LAD for anterior STEMI in 2014. A repeat cardiac catheterization was performed in August of last year. Those images were reviewed. Her stent was widely patent. The remainder of the LAD and the circumflex demonstrated rather diffuse but noncritical atherosclerosis typical of a diabetic patient. She is not experiencing any symptoms suggestive of angina. - Continue secondary prevention. - Will consider cardiac catheterization later this week to rule out an ischemic contribution to her CHF. Valvular Heart Disease: An echocardiogram in March reported that her MR was only mild. It was graded as moderate to severe on an echocardiographic study in August 2016. - Will also plan for a DAVID later this week to assess her MR. Patient would agreed to DAVID if needed. Paroxysmal Atrial Fibrillation: Maintaining normal sinus rhythm on amiodarone. Per Dr. Grimaldo's note of yesterday, it is not felt that she has amiodarone pulmonary toxicity. Patient remained in normal sinus rhythm overnight. - Continue systemic anticoagulation for stroke prophylaxis. Subjective: Patient is still somewhat short of breath but diuresed very well last night. Her creatinine is stable at 2.0. This is above her baseline. CT scan yesterday showed no clear-cut infiltrate. Blood sugars remain high she is on steroids and hopefully these will be tapered she does not like the side effects. Review reviewed Dr. Mckay notes. Possibly cardiac catheterization or DAVID later this week. Patient appeared to be in normal sinus rhythm throughout the night. Objective: Vital Signs Temp Pulse Resp BP Pulse Ox 36.6 C 78 16 131/70 H 98 05/20/18 07:14 05/20/18 07:14 05/20/18 07:14 05/20/18 07:14 05/20/18 07:14 Laboratory Results 05/20/18 05:00 05/19/18 05/20/18 05/21/18 05:59 05:59 05:59 Intake Total 660 1190 Output Total 500 3550 Balance 160 -2360 PT 32.1 SEC (12.0-15.0) H 05/20/18 05:00 INR 3.14 (0.83-1.16) H 05/20/18 05:00 Physical Exam - Physical Exam Respiratory: lungs clear (Minimal air trapping no clear wheezing.) Cardiac/Chest: regular rate, rhythm, systolic murmur, No edema, No gallop ICD10 Worksheet Patient Problems: Problems Problem Status Onset Acute ischemic stroke Acute Atrial fibrillation with RVR Acute C. difficile diarrhea Acute ~01/02/17 Hypotension Acute Medication side effect Acute
[2018-05-20] MEDS: VENLAFAXINE XR 150 MG CAP PO SCH (07:54)
[2018-05-20] MEDS: AMIODARONE HCL 200 MG TAB PO SCH (07:54)
[2018-05-20] MEDS: CARVEDILOL 25 MG TAB PO SCH ×2 (07:54→17:25)
[2018-05-20] MEDS: SPIRONOLACTONE 25 MG TAB PO SCH (07:54)
[2018-05-20] MEDS: clonazePAM 0.5 MG TAB PO SCH ×2 (07:55→19:46)
[2018-05-20] MEDS: ASPIRIN EC 81 MG TAB PO SCH (07:55)
[2018-05-20] MEDS: FUROSEMIDE 40 MG/4 ML VIAL IVP SCH ×2 (07:55→15:54)
[2018-05-20] MEDS: INSULIN GLARGINE 100 UNITS/ML UNIT SC SCH ×2 (07:55→19:44)
[2018-05-20] MEDS: INSULIN LISPRO 100 UNIT/ML SC SCH ×6 (07:56→19:45)
[2018-05-20] MEDS: methylPREDNISolone SOD SUCC 40 MG/ML VIAL IVP SCH (08:14)
[2018-05-20] MEDS: PREGABALIN 150 MG CAP PO SCH ×2 (08:47→19:46)
--- NOTE | 2018-05-20 09:51 | HOSPPROG ---
Hospitalist Progress Note Assessment/Plan: Acute on chronic hypoxemic respiratory failure, on CPAP / nocturnal O2 at home - multifactorial: acute sHF, OHS, ?viral component. 3 LPM here, presenting CXR reviewed, c/w pulmonary edema -cont IV Lasix BID -Bipap settings adjusted per pulm for better ventilation -d/c steroids -bedside spirometry -cont duonebs Acute systolic CHF exacerbation - diuresing effectively -cont IV Lasix as above, follow I&O's, daily wts Mod-severe MR - cards following, probable DAVID later this week ICM - h/o [place] 2014 s/p stent (patent on cath 08/2016). Recent EF 30-35%. -will likely undergo angiogram later this week per cards Paroxysmal A fib - cont amio, warfarin for CVA prevention -INR therapeutic MICHELA on CKD - baseline Cr 1.2 Non anion gap metabolic acidosis -2/2 renal disease and mild resp acidosis H/o CVA - cont ASA, statin, AC H/o positive lupus anticoagulant DM type 2, on insulin - bg's markedly elevated last night likely 2/2 steroids -increase glargine back to home dose of 70 u bid -scheduled TID lispro plus SSI HTN HLD Full code Dispo - cont inpt Subjective: Pt continues to cough and feel SOB. No fevers. Her bg's spiked overnight to >600 and she refused steroids this am, which seems appropriate. No CP. Objective: Vital Signs Temp Pulse Resp BP Pulse Ox 36.6 C 78 16 131/70 H 98 05/20/18 07:14 05/20/18 07:14 05/20/18 07:14 05/20/18 07:14 05/20/18 07:14 Laboratory Results 05/20/18 05:00 05/19/18 05/20/18 05/21/18 05:59 05:59 05:59 Intake Total 660 1190 200 Output Total 500 3550 500 Balance 160 -2360 -300 PT 32.1 SEC (12.0-15.0) H 05/20/18 05:00 INR 3.14 (0.83-1.16) H 05/20/18 05:00 - Physical Exam Constitutional: no apparent distress Eyes: PERRL Ears, Nose, Mouth, Throat: moist mucous membranes Cardiovascular: regular rate and rhythym Respiratory: no respiratory distress, inspiratory crackles Gastrointestinal: normoactive bowel sounds, soft, non-tender abdomen Skin: warm Musculoskeletal: full muscle strength, other (2+ b/l LE edema) Neurologic: AAOx3 Psychiatric: interacting appropriately ICD10 Worksheet Patient Problems: Problems Problem Status Onset Acute ischemic stroke Acute Atrial fibrillation with RVR Acute C. difficile diarrhea Acute ~01/02/17 Hypotension Acute Medication side effect Acute
[2018-05-20] MEDS: ACETAMINOPHEN 325 MG TAB PO PRN (10:55)
[2018-05-20] MEDS: GUAIFENESIN/DM 10 ML UDCUP PO PRN (15:55)
[2018-05-20] MEDS ORDERED: WARFARIN SODIUM 2.5 MG TAB PO ONE (16:00)
[2018-05-20] MEDS ORDERED: LORazepam 0.5 MG TAB PO ONE (17:15)
[2018-05-20] MEDS: ROSUVASTATIN CALCIUM 20 MG TAB PO SCH (19:46)
[2018-05-21 03:54] LABS: INR 3.32 (0.83-1.16); PROTIME(PATIENT) 33.5 SEC (12.0-15.0)
[2018-05-21] MEDS: IPRATROPIUM/ALBUTEROL 3 ML DEYVIAL IH SCH ×3 (05:49→16:34)
[2018-05-21] MEDS: INSULIN LISPRO 100 UNIT/ML SC SCH ×7 (08:12→22:01)
[2018-05-21] MEDS: PREGABALIN 150 MG CAP PO SCH ×2 (08:29→20:39)
[2018-05-21] MEDS: CARVEDILOL 25 MG TAB PO SCH ×2 (08:29→18:37)
[2018-05-21] MEDS: ASPIRIN EC 81 MG TAB PO SCH (08:29)
[2018-05-21] MEDS: VENLAFAXINE XR 150 MG CAP PO SCH (08:29)
[2018-05-21] MEDS: clonazePAM 0.5 MG TAB PO SCH ×2 (08:29→20:39)
[2018-05-21] MEDS: SPIRONOLACTONE 25 MG TAB PO SCH (08:29)
[2018-05-21] MEDS: AMIODARONE HCL 200 MG TAB PO SCH (08:29)
[2018-05-21] MEDS: INSULIN GLARGINE 100 UNITS/ML UNIT SC SCH ×2 (08:30→22:01)
[2018-05-21] MEDS: FUROSEMIDE 40 MG/4 ML VIAL IVP SCH ×2 (08:30→14:01)
--- NOTE | 2018-05-21 11:16 | PDCARPN ---
Cardiology Progress Note Assessment/Plan: Congestive Heart Failure: She has acute on chronic CHF with contributors of systolic dysfunction secondary to ischemic cardiomyopathy, probable diastolic dysfunction, valvular heart disease, and right-sided CHF related to her underlying chronic hypoxic respiratory failure. Still no clinical improvement since her admission to the hospital (in fact, she feels worse). Intake and output net negative by 1670 cc and 2360 cc past 2 days. Weight down 2.4 kg . Aggressiveness of diuretic regimen is limited by renal function. Creatinine currently 1.9 (baseline over the past year has been 1.2 to 1.3). - Continue IV furosemide 40 mg BID. Chronic Hypoxic Respiratory Failure: She is being seen by the pulmonary service and is being treated for a possible viral pneumonia. She has normal O2 saturations on nasal cannula oxygen and uses BiPAP at night. Appears dyspneic at rest and is audibly wheezing. Cardiomyopathy: She has an ischemic cardiomyopathy secondary to an anterior STEMI in February of 2015. Various studies have reported her ejection fraction between 35% and 45%. - CHF management as above. Coronary Artery Disease: She is status post PCI of the LAD for anterior STEMI in 2014. A repeat cardiac catheterization was performed in August of last year. Those images were reviewed. Her stent was widely patent. The remainder of the LAD and the circumflex demonstrated rather diffuse but noncritical atherosclerosis typical of a diabetic patient. She is not experiencing any symptoms suggestive of angina. - Continue secondary prevention. - Will defer consideration of repeat cardiac cath for now. Valvular Heart Disease: An echocardiogram in March reported that her MR was only mild. It was graded as moderate to severe on an echocardiographic study in August 2016. - Will tentatively plan for a DAVID to assess her MR on Saturday if respiratory status allows. Paroxysmal Atrial Fibrillation: Maintaining normal sinus rhythm on amiodarone. Per Dr. Grimaldo's note of 05/18, it is not felt that she has amiodarone pulmonary toxicity. - Continue systemic anticoagulation for stroke prophylaxis. 05/21/18 11:11 Subjective: Still very dyspneic. Reviewed/Discussed With: family Objective: Vital Signs (8 Hrs) Temp Pulse Resp BP Pulse Ox 05/21/18 10:40 72 18 99 05/21/18 07:05 36.4 C 72 12 132/75 H 99 05/21/18 05:51 67 24 H 93 05/21/18 04:00 36.6 C 76 17 116/77 93 Intake/Output (24 Hrs) 05/20/18 05/21/18 05/22/18 05:59 05:59 05:59 Intake Total 1190 980 600 Output Total 3550 2650 Balance -2360 -1670 600 Intake: Oral (ml) 1190 980 600 Output: Urine (ml) 3550 2650 Bedside Commode 2100 2650 Catheter 1150 Toilet 300 Other: Weight 154.4 kg 154.6 kg Number of Voids Bedside Commode 6 1 Incontinence 3 1 Number of Stools Bedside Commode 3 1 Incontinence 3 1 Result Diagrams: 05/21/18 03:35 - Physical Exam Constitutional: obese, other (Appears dyspneic.) Eyes: anicteric sclera Ears, Nose, Mouth, Throat: moist mucous membranes Cardiovascular: regular rate and rhythm, no murmurs, no rubs, no gallops Respiratory: other (Diffuse wheezes bilaterally.) Gastrointestinal: normoactive bowel sounds, no tenderness, no masses Skin: other (1-2+ edema.) Neurologic: AAOx3 Psychiatric: not anxious ICD10 Worksheet Patient Problems: Problems Problem Status Onset Acute ischemic stroke Acute Atrial fibrillation with RVR Acute C. difficile diarrhea Acute ~01/02/17 Hypotension Acute Medication side effect Acute
--- NOTE | 2018-05-21 11:44 | HOSPPROG ---
Hospitalist Progress Note Assessment/Plan: Acute on chronic hypoxemic respiratory failure, on CPAP / nocturnal O2 at home - multifactorial: acute sHF, OHS, ?viral component. 5 LPM here, presenting CXR c/w pulmonary edema. Reviewed PFT's done recently in clinic, mod restriction, mild obstruction, changes may be 2/2 body habitus -cont IV Lasix BID -recheck abg (pH 7.31 from 7.33 with increased pCO2 to 59 from 41)- will increase IPAP to 18 as tolerated, repeat ABG in am -d/c'd steroids due to marked hyperglycemia, not sure these were providing much benefit -cont duonebs, bipap, RT support Mild metabolic encephalopathy - suspect she is a bit symptomatic from increasing CO2 retention -bipap adjustments as above, discussed with RT Acute systolic CHF exacerbation - diuresing effectively -cont IV Lasix as above, follow I&O's, daily wts Mod-severe MR - cards following -DAVID tentatively planned for Sat if respiratory status stable ICM - h/o [place] 2014 s/p stent (patent on cath 08/2016). Recent EF 30-35%. -may warrant angiogram prior to dc, per cards Paroxysmal A fib - cont amio, warfarin for CVA prevention -INR therapeutic MICHELA on CKD - baseline Cr 1.2, now up to 1.9, likely cardiorenal component Non anion gap metabolic acidosis -2/2 renal disease and mild resp acidosis H/o CVA - cont ASA, statin, AC H/o positive lupus anticoagulant DM type 2, on insulin - bg's markedly elevated last night likely 2/2 steroids -increased glargine back to home dose of 70 u bid -increase scheduled TID lispro to 18 plus SSI and add AC coverage for SSI HTN HLD Full code Dispo - cont inpt. Discussed case with Dr. Abbie Bettencourt, PCP, who notes pt recently enrolled in palliative care and is willing to accept hospice if her condition cannot be improved. Subjective: Pt is more somnolent today, on bipap. No fevers/chills. Denies CP , continues to feel SOB with any activity. Taking po fairly well. Objective: Vital Signs Temp Pulse Resp BP Pulse Ox 36.4 C 73 16 144/79 H 99 05/21/18 11:27 05/21/18 11:27 05/21/18 11:27 05/21/18 11:27 05/21/18 11:27 Laboratory Results 05/21/18 03:35 05/20/18 05/21/18 05/22/18 05:59 05:59 05:59 Intake Total 1190 980 600 Output Total 3550 2650 Balance -2360 -1670 600 PT 33.5 SEC (12.0-15.0) H 05/21/18 03:35 INR 3.32 (0.83-1.16) H 05/21/18 03:35 - Physical Exam Constitutional: no apparent distress Eyes: PERRL Ears, Nose, Mouth, Throat: moist mucous membranes Cardiovascular: regular rate and rhythym Respiratory: no respiratory distress, reduced air movement, inspiratory crackles Gastrointestinal: normoactive bowel sounds, soft, non-tender abdomen Skin: warm Musculoskeletal: full muscle strength Psychiatric: encephalopathic ICD10 Worksheet Patient Problems: Problems Problem Status Onset Acute ischemic stroke Acute Atrial fibrillation with RVR Acute C. difficile diarrhea Acute ~01/02/17 Hypotension Acute Medication side effect Acute
[2018-05-21] MEDS: GUAIFENESIN/DM 10 ML UDCUP PO PRN (14:05)
--- NOTE | 2018-05-21 16:00 | ASMTCMCOM ---
CM Note CM Note Notes: 05/21/2018 Case Management Note Phone call from Trisha FATIMA for [facility]. Faxed updates to [facility]. Discharge date is unclear at this time. Case Management d/c poc: [facility] rehab Case Management to follow. Date Signed: 05/21/2018 04:00 PM Electronically Signed By:Linda Mclaughlin RN
[2018-05-21] MEDS: ACETAMINOPHEN 325 MG TAB PO PRN (18:37)
[2018-05-21] MEDS: ROSUVASTATIN CALCIUM 20 MG TAB PO SCH (20:39)
[2018-05-22] MEDS: IPRATROPIUM/ALBUTEROL 3 ML DEYVIAL IH SCH ×5 (00:44→22:58)
[2018-05-22] MEDS: ACETAMINOPHEN 325 MG TAB PO PRN ×3 (02:13→22:13)
[2018-05-22 06:15] LABS: INR 2.39 (0.83-1.16); PROTIME(PATIENT) 26.1 SEC (12.0-15.0)
[2018-05-22] MEDS ORDERED: INSULIN GLARGINE 100 UNITS/ML UNIT SC SCH (06:55)
[2018-05-22] MEDS ORDERED: FUROSEMIDE 100 MG in D5W 100 ML IV SCH (09:00)
[2018-05-22] MEDS: SPIRONOLACTONE 25 MG TAB PO SCH (10:32)
[2018-05-22] MEDS: AMIODARONE HCL 200 MG TAB PO SCH (10:33)
[2018-05-22] MEDS: PREGABALIN 150 MG CAP PO SCH ×2 (10:33→22:15)
[2018-05-22] MEDS: clonazePAM 0.5 MG TAB PO SCH ×2 (10:33→22:13)
[2018-05-22] MEDS: VENLAFAXINE XR 150 MG CAP PO SCH (10:33)
[2018-05-22] MEDS: ASPIRIN EC 81 MG TAB PO SCH (10:33)
[2018-05-22] MEDS: INSULIN LISPRO 100 UNIT/ML SC SCH ×6 (10:35→22:14)
[2018-05-22] MEDS: CARVEDILOL 25 MG TAB PO SCH ×2 (10:38→18:35)
[2018-05-22] MEDS: FUROSEMIDE 100 MG in NS 100 ML IV SCH ×2 (11:42→22:16)
--- NOTE | 2018-05-22 13:43 | PDCARPN ---
Cardiology Progress Note Assessment/Plan: Congestive Heart Failure: She has acute on chronic CHF with contributors of systolic dysfunction secondary to ischemic cardiomyopathy, probable diastolic dysfunction, valvular heart disease, and right-sided CHF related to her underlying chronic hypoxic respiratory failure. Still no clinical improvement since her admission to the hospital (in fact, she feels worse). Intake and output net negative by 1670 cc and 2360 cc earlier this week. No net negative output in the past 24 hr. Aggressiveness of diuretic regimen is limited by renal function. Creatinine currently 1.6 (baseline over the past year has been 1.2 to 1.3). - BNP 776 today compared to 1710 at time of admission last month and 564 at time of discharge. - Switch to IV furosemide drip 10 mg/hr. Chronic Hypoxic Respiratory Failure: She is being seen by the pulmonary service and is being treated for a possible viral pneumonia. She has normal O2 saturations on nasal cannula oxygen and uses BiPAP at night. Appears dyspneic at rest and is audibly wheezing. Cardiomyopathy: She has an ischemic cardiomyopathy secondary to an anterior STEMI in February of 2015. Various studies have reported her ejection fraction between 35% and 45%. - CHF management as above. Coronary Artery Disease: She is status post PCI of the LAD for anterior STEMI in 2014. A repeat cardiac catheterization was performed in August of last year. Those images were reviewed. Her stent was widely patent. The remainder of the LAD and the circumflex demonstrated rather diffuse but noncritical atherosclerosis typical of a diabetic patient. She is not experiencing any symptoms suggestive of angina. - Continue secondary prevention. - Will defer consideration of repeat cardiac cath for now. Valvular Heart Disease: An echocardiogram in March reported that her MR was only mild. It was graded as moderate to severe on an echocardiographic study in August 2016. - DAVID tomorrow to assess her MR. Paroxysmal Atrial Fibrillation: Maintaining normal sinus rhythm on amiodarone. Per Dr. Grimaldo's note of 05/18, it is not felt that she has amiodarone pulmonary toxicity. - Continue systemic anticoagulation for stroke prophylaxis. 05/22/18 13:46 Subjective: No improvement in dyspnea. Objective: Vital Signs (8 Hrs) Temp Pulse Resp BP Pulse Ox 05/22/18 12:17 66 26 H 98 05/22/18 11:07 36.5 C 70 24 H 114/73 94 05/22/18 08:00 36.6 C 76 20 130/68 H 95 Intake/Output (24 Hrs) 05/21/18 05/22/18 05/23/18 05:59 05:59 05:59 Intake Total 980 2100 Output Total 2650 2100 Balance -1670 0 Intake: Oral (ml) 980 2100 Output: Urine (ml) 2650 2100 Bedside Commode 2650 1300 Incontinence 400 Toilet 400 Other: Weight 154.6 kg 154.8 kg Number of Voids Bedside Commode 1 1 Incontinence 1 1 Number of Stools Bedside Commode 1 Incontinence 1 Result Diagrams: 05/22/18 05:50 05/22/18 05:50 - Physical Exam Constitutional: obese Eyes: anicteric sclera Ears, Nose, Mouth, Throat: moist mucous membranes Cardiovascular: regular rate and rhythm, no murmurs, no rubs, no gallops Respiratory: no crackles, expiratory wheeze (diffuse) Gastrointestinal: normoactive bowel sounds, no tenderness, no masses Skin: other (1-2+ edema) Neurologic: AAOx3 Psychiatric: not anxious ICD10 Worksheet Patient Problems: Problems Problem Status Onset Acute ischemic stroke Acute Atrial fibrillation with RVR Acute C. difficile diarrhea Acute ~01/02/17 Hypotension Acute Medication side effect Acute
--- NOTE | 2018-05-22 14:58 | HOSPPROG ---
Hospitalist Progress Note Assessment/Plan: Acute on chronic hypoxemic respiratory failure, on CPAP / nocturnal O2 at home - multifactorial: acute sHF, OHS, ?viral component (neg RVP). 5 LPM here, presenting CXR c/w pulmonary edema. Reviewed PFT's done recently in clinic, mod restriction, mild obstruction, changes may be 2/2 body habitus -not much improvement with IV BID Lasix, start Lasix drip per cards -increased IPAP on bipap yest due to increased pCO2 and lower pH -d/c'd steroids due to marked hyperglycemia, not sure these were providing much benefit -cont QID duonebs, bipap, RT support Acute systolic CHF exacerbation - diuresis limited by renal function -Lasix drip as above -follow I&O's, daily wts Mod-severe MR - cards following -DAVID in am for further eval, NPO at midnight ICM - h/o MT 2014 s/p stent (patent on cath 08/2016). Recent EF 30-35%. -may warrant angiogram prior to dc, per cards Paroxysmal A fib - cont amio, warfarin for CVA prevention -INR therapeutic MICHELA on CKD - baseline Cr 1.2, now 1.6, likely cardiorenal component Non anion gap metabolic acidosis -2/2 renal disease and mild resp acidosis H/o CVA - cont ASA, statin, AC H/o positive lupus anticoagulant DM type 2, on insulin - bg's markedly elevated on steroids (>600), now low bg's -decrease lantus to 50 u bid (from 70 u bid) -cont SSI at 15 u plus SSI Right arm pain - she was in a sling for a month, has normal shoulder ROM, sounds possibly neuropathic -will start with plain film of the c-spine for evaluation HTN HLD Full code Dispo - cont inpt. Discussed case with Dr. Abbie Bettencourt ([phone]), PCP, who notes pt recently enrolled in palliative care and is willing to accept hospice if her condition cannot be improved. Subjective: Pt continues to be frustrated with her difficulty breathing and anxiety. She has a wet cough. No fevers or chills. No CP. She is very SOB with any activity. Not ambulating really, gets up to bedside commode. Also c/ o right arm pain, gnawing ache into right forearm and hand. Objective: Vital Signs Temp Pulse Resp BP Pulse Ox 36.5 C 66 26 H 114/73 98 05/22/18 11:07 05/22/18 12:17 05/22/18 12:17 05/22/18 11:07 05/22/18 12:17 Laboratory Results 05/22/18 05:50 05/22/18 05:50 05/21/18 05/22/18 05/23/18 05:59 05:59 05:59 Intake Total 980 2100 Output Total 2650 2100 Balance -1670 0 PT 26.1 SEC (12.0-15.0) H 05/22/18 05:50 INR 2.39 (0.83-1.16) H 05/22/18 05:50 - Physical Exam Constitutional: no apparent distress, obese Eyes: PERRL Ears, Nose, Mouth, Throat: moist mucous membranes Cardiovascular: regular rate and rhythym Respiratory: no respiratory distress, reduced air movement, expiratory wheeze, inspiratory crackles Gastrointestinal: normoactive bowel sounds, soft, non-tender abdomen Skin: warm Musculoskeletal: full muscle strength Neurologic: AAOx3 Psychiatric: interacting appropriately ICD10 Worksheet Patient Problems: Problems Problem Status Onset Acute ischemic stroke Acute Atrial fibrillation with RVR Acute C. difficile diarrhea Acute ~01/02/17 Hypotension Acute Medication side effect Acute
[2018-05-22] MEDS ORDERED: LORazepam 0.5 MG TAB PO PRN (15:07)
[2018-05-22] MEDS ORDERED: WARFARIN SODIUM 2.5 MG TAB PO ONE (16:00)
[2018-05-22] MEDS: INSULIN GLARGINE 100 UNITS/ML UNIT SC SCH (22:15)
[2018-05-22] MEDS: ROSUVASTATIN CALCIUM 20 MG TAB PO SCH (22:15)
[2018-05-22] MEDS: traZODone 50 MG TAB PO PRN (22:27)
[2018-05-23 04:30] LABS: INR 1.71 (0.83-1.16); PROTIME(PATIENT) 20.2 SEC (12.0-15.0)
[2018-05-23] MEDS: D50W 25 GM/50 ML SYR IVP PRN ×3 (05:10→09:11)
[2018-05-23] MEDS ORDERED: NS 1,000 ML IV ONE (06:00)
[2018-05-23] MEDS: IPRATROPIUM/ALBUTEROL 3 ML DEYVIAL IH SCH ×4 (06:00→21:40)
[2018-05-23] MEDS: FUROSEMIDE 100 MG in NS 100 ML IV SCH ×2 (09:16→21:02)
[2018-05-23] MEDS: CARVEDILOL 25 MG TAB PO SCH ×2 (09:17→17:29)
[2018-05-23] MEDS: VENLAFAXINE XR 150 MG CAP PO SCH (09:17)
[2018-05-23] MEDS: SPIRONOLACTONE 25 MG TAB PO SCH (09:18)
[2018-05-23] MEDS: PREGABALIN 150 MG CAP PO SCH ×2 (09:18→21:55)
[2018-05-23] MEDS: INSULIN LISPRO 100 UNIT/ML SC SCH ×4 (09:18→17:56)
[2018-05-23] MEDS: clonazePAM 0.5 MG TAB PO SCH ×2 (09:18→21:55)
[2018-05-23] MEDS: ASPIRIN EC 81 MG TAB PO SCH (09:18)
[2018-05-23] MEDS: AMIODARONE HCL 200 MG TAB PO SCH (09:19)
--- NOTE | 2018-05-23 10:51 | PDANEPAE ---
ANE History of Present Illness here for DAVID ANE Past Medical History - Cardiovascular History Hx Hypertension: Yes Hx Arrhythmias: Yes Hx Chest Pain: No Hx Coronary Artery / Peripheral Vascular Disease: Yes Hx CHF / Valvular Disease: Yes Hx Palpitations: No - Pulmonary History Hx COPD: Yes Hx Asthma/Reactive Airway Disease: Yes Hx Recent Upper Respiratory Infection: Yes Hx Oxygen in Use at Home: Yes O2 in Use at Home (L/minute): 2 Hx Sleep Apnea: Yes - Endocrine History Hx Diabetes: Yes - Renal History Hx Renal Disorders: Yes - Liver History Hx Hepatic Disorders: No - Cancer History Hx Cancer: No - Chronic Pain History Chronic Pain: Yes (joints) ANE Review of Systems Review of systems is: negative Review of Systems: - Exercise capacity Exercise capacity: <4 METS ANE Patient History - Allergies Allergies/Adverse Reactions: codeine Allergy (Mild, Verified 04/20/18 13:31) GI metformin Allergy (Mild, Verified 04/20/18 13:31) GI Sulfa (Sulfonamide Antibiotics) Allergy (Mild, Verified 04/20/18 13:31) Vomiting - Home Medications Home medications: home medication list seen and reviewed Home Medications: Rosuvastatin Calcium [Crestor 20mg (*)] 20 mg PO HS 11/02/16 [Last Taken 21:00] clonazePAM [klonoPIN (*)] 0.5 mg PO BID PRN 11/02/16 [Last Taken 05/16/18 08:00] Warfarin Sodium [Coumadin] 10 mg PO MOWEFR@16 01/02/17 [Last Taken 05/16/18 16: 00] Aspirin EC [Aspirin EC 81 mg (*)] 81 mg PO DAILY 04/03/18 [Last Taken 05/16/18 08:00] Herbals/Supplements -Info Only 1 ea PO DAILY 04/03/18 [Last Taken 04/03/18] Bumetanide [Bumex (*)] 3 mg PO DAILY 05/16/18 [Last Taken 05/16/18 08:00] Carvedilol [Coreg] 12.5 mg PO BID 05/16/18 [Last Taken 05/16/18 20:00] Insulin Glargine [Lantus Syringe] 70 units SC BID 05/16/18 [Last Taken 05/16/18 08:00] Insulin Lispro [HumaLOG LISPRO] 15 - 20 unit SC TIDMEAL 12/21/18 [Last Taken 21:00] Pregabalin [Lyrica 150mg (*)] 150 mg PO BID 05/16/18 [Last Taken 05/16/18 08:00] Venlafaxine Xr [Effexor Xr] 150 mg PO DAILY 05/16/18 [Last Taken 05/16/18 08:00] Warfarin Sodium 5 mg PO SUTUTHSA@16 05/16/18 [Last Taken 05/15/18] - NPO status NPO Status: no food or drink >8 hours - Smoking Hx Smoking Status: Former smoker - Alcohol Use Alcohol Use: None ANE Labs/Vital Signs - Labs Result Diagrams: 05/22/18 05:50 05/23/18 04:00 - Vital Signs Vital Signs: reviewed preoperatively; see RN documention for details Blood Pressure: 128/75 Heart Rate: 68 Respiratory Rate: 17 O2 Sat (%): 93 Height: 170.18 cm Weight: 153.8 kg ANE Physical Exam - Airway Neck exam: FROM, increased neck circumference Mallampati Score: Class 2 Mouth exam: normal dental/mouth exam - Pulmonary Pulmonary: reduced air movement, expiratory wheeze - Cardiovascular Cardiovascular: regular rate and rhythym - ASA Status ASA Status: IV ANE Anesthesia Plan Anesthesia Plan: GA with mask
[2018-05-23] MEDS ORDERED: SUCCINYLCHOLINE CHLORIDE 200 MG/10 ML SYR IVP ONE (11:03)
[2018-05-23] MEDS ORDERED: PROPOFOL/EMULSION 500 MG/50 ML BOTTLE IV ONE (11:03)
--- NOTE | 2018-05-23 11:43 | POSTANESTH ---
Post Anesthetic Evaluation Cardiovascular Status: Normal, Stable Respiratory Status: Normal, Stable Level of Consciousness/Mental Status: Can Participate in Eval Pain Control: Adequate, Prn Tx Ordered Nausea/Vomiting Control: Adequate, Prn Tx Ordered Complications Possibly Related to Anesthesia: None Noted
[2018-05-23] MEDS ORDERED: PROTOCOL MAGNESIUM 1 DOSE IV PRN (13:01)
--- NOTE | 2018-05-23 13:14 | PDCARPN ---
Cardiology Progress Note Assessment/Plan: Congestive Heart Failure: She has acute on chronic CHF with contributors of systolic dysfunction secondary to ischemic cardiomyopathy, probable diastolic dysfunction, valvular heart disease, and right-sided CHF related to her underlying chronic hypoxic respiratory failure. Still significantly short of breath. - Switched to IV furosemide drip 10 mg/hr yesterday afternoon. Good response with I/O balance overnight negative by > 3600 ml and with stable to improved renal indices. - Continue furosemide drip for at least 24 hr more. Chronic Hypoxic Respiratory Failure: She has normal O2 saturations on nasal cannula oxygen and uses BiPAP at night. Appears dyspneic at rest and has wheezes. Was on prednisone earlier in hospital course for possible virla pneumonitis. Cardiomyopathy: She has an ischemic cardiomyopathy secondary to an anterior STEMI in February of 2015. Various studies have reported her ejection fraction between 35% and 45%. - DAVID today suggests an LVEF of 35-40%. - CHF management as above. Coronary Artery Disease: She is status post PCI of the LAD for anterior STEMI in 2014. A repeat cardiac catheterization was performed in August of last year. Those images were reviewed. Her stent was widely patent. The remainder of the LAD and the circumflex demonstrated rather diffuse but noncritical atherosclerosis typical of a diabetic patient. She is not experiencing any symptoms suggestive of angina. - Continue secondary prevention. - Will defer consideration of repeat cardiac cath for now. Valvular Heart Disease: An echocardiogram in March reported that her MR was only mild. It was graded as moderate to severe on an echocardiographic study in August 2016. - DAVID today demonstrated moderate MR. Paroxysmal Atrial Fibrillation: Maintaining normal sinus rhythm on amiodarone. Per Dr. Grimaldo's note of 05/18, it is not felt that she has amiodarone pulmonary toxicity. - Continue systemic anticoagulation for stroke prophylaxis. 05/23/18 13:24 Subjective: No noticeable improvement in breathing. Objective: Vital Signs (8 Hrs) Temp Pulse Resp BP Pulse Ox 05/23/18 12:00 36.2 C 67 22 H 118/66 98 05/23/18 11:43 68 17 128/75 H 93 05/23/18 08:00 36.6 C 68 17 128/75 H 93 05/23/18 06:00 71 18 94 Intake/Output (24 Hrs) 05/22/18 05/23/18 05/24/18 05:59 05:59 05:59 Intake Total 2100 425 Output Total 2100 4100 1000 Balance 0 -8645 -1000 Intake: Oral (ml) 2099 425 Output: Urine (ml) 2100 4100 1000 Bedside Commode 1300 4100 1000 Incontinence 400 Toilet 400 Other: Weight 154.8 kg 153.8 kg 153.8 kg Number of Voids Bedside Commode 1 2 Incontinence 1 Number of Stools Bedside Commode 1 Result Diagrams: 05/22/18 05:50 05/23/18 04:00 - Physical Exam Constitutional: WDWN, obese Eyes: anicteric sclera Ears, Nose, Mouth, Throat: moist mucous membranes Cardiovascular: regular rate and rhythm, no murmurs, no rubs, no gallops Respiratory: expiratory wheeze, other (No rales.) Gastrointestinal: normoactive bowel sounds, no tenderness, no masses Skin: other (mild edema) Neurologic: AAOx3 Psychiatric: not anxious ICD10 Worksheet Patient Problems: Problems Problem Status Onset Acute ischemic stroke Acute Atrial fibrillation with RVR Acute C. difficile diarrhea Acute ~01/02/17 Hypotension Acute Medication side effect Acute
--- NOTE | 2018-05-23 13:35 | ECHO ---
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 Normal size right ventricle. Normal RV function. The left atrium is mildly dilated. No thrombus in left appendage. The right atrium is mildly dilated. The mitral valve is normal in appearance. Moderate mitral valve regurgitation is present. The aortic valve is tri-leaflet and functions normally. The tricuspid valve appears normal. Mild tricuspid regurgitation is present. No pericardial effusion. Measurements: Chambers Valvular Assessment AV/MV Valvular Assessment TV/PV Normal Normal Normal Name Value Range Name Value Range Name Value Range Additional Measurements: Findings: Left Ventricle: The EF is estimated at 40% with apical hypokinesis.. Patient: CAROLEE ALLAN Study Date: 05/23/2018 Page 1 of 2 11:04 AM Right Ventricle: Normal size right ventricle. Normal RV function. Left Atrium: The left atrium is mildly dilated. Left Atrial Appendage: No thrombus in left appendage. Right Atrium: The right atrium is mildly dilated. Mitral Valve: The mitral valve is normal in appearance. Moderate mitral valve regurgitation is present. Aortic Valve: The aortic valve is tri-leaflet and functions normally. Tricuspid Valve: The tricuspid valve appears normal. Mild tricuspid regurgitation is present. Pulmonic Valve: The pulmonic valve is normal in appearance and function. Aorta: The aorta is normal. Pericardium: No pericardial effusion. l1n (No Signature Object) Patient: CAROLEE ALLAN Study Date: 05/23/2018 Page 2 of 2 11:04 AM [id number]
[2018-05-23] MEDS ORDERED: WARFARIN SODIUM 5 MG TAB PO ONE (16:00)
--- NOTE | 2018-05-23 17:22 | HOSPPROG ---
Hospitalist Progress Note Assessment/Plan: #Acute on chronic hypoxemic respiratory failure: multifactorial with acute systolic HF, OHS, RHF and diastolic dysfunction. -cont aggressive diuresis with Lasix gtt -cont QID duonebs, bipap, RT support #Acutely decompensated systolic heart failure: Lasix gtt. Monitor lytes #Hypoglycemia: overnight due to NPO status #Mod-severe MR: confirmed on DAVID today. #ICM -due to STEMI 2014 ; s/p stent (patent on cath 08/2016) -cont medical management at this time #Paroxysmal A fib - cont amio, warfarin for CVA prevention -INR therapeutic #MICHELA on CKD - baseline Cr 1.2, now 1.6, likely cardiorenal component #Non anion gap metabolic acidosis -2/2 renal disease and mild resp acidosis #H/o CVA - cont ASA, statin, AC #H/o positive lupus anticoagulant #DM type 2, on insulin - bg's markedly elevated on steroids (>600), now low bg's -decrease lantus to 50 u bid (from 70 u bid) -cont SSI at 15 u plus SSI #Right arm pain - she was in a sling for a month, has normal shoulder ROM, sounds possibly neuropathic. xray shows mild degenerative disease #DVT ppx: coumadin Inpatient admission for monitored diuresis Subjective: legs less swollen. Objective: Vital Signs Temp Pulse Resp BP Pulse Ox 36.5 C 70 22 H 132/55 H 98 05/23/18 15:45 05/23/18 15:45 05/23/18 15:45 05/23/18 15:45 05/23/18 15:45 Laboratory Results 05/22/18 05:50 05/23/18 04:00 05/22/18 05/23/18 05/24/18 05:59 05:59 05:59 Intake Total 2100 425 500 Output Total 2100 4100 2500 Balance 0 -3675 -2000 PT 20.2 SEC (12.0-15.0) H 05/23/18 04:00 INR 1.71 (0.83-1.16) H 05/23/18 04:00 - Time Spent With Patient Time Spent with Patient: greater than 35 minutes Time Spent with Patient: Greater than 35 minutes spent on this patients care, greater than 50% of time spent counseling, educating, and coordinating care regarding the above mentioned plan. - Physical Exam Constitutional: obese Eyes: PERRL Ears, Nose, Mouth, Throat: moist mucous membranes Cardiovascular: regular rate and rhythym, edema (+ 1 LE edema, BL) Respiratory: inspiratory crackles Gastrointestinal: normoactive bowel sounds, soft, non-tender abdomen Genitourinary: no bladder fullness Skin: warm Musculoskeletal: full muscle strength Neurologic: AAOx3, CN II-XII Intact Psychiatric: interacting appropriately ICD10 Worksheet Patient Problems: Problems Problem Status Onset C. difficile diarrhea Acute ~01/02/17 Acute ischemic stroke Acute Hypotension Acute Medication side effect Acute Atrial fibrillation with RVR Acute
[2018-05-23] MEDS ORDERED: DIAZEPAM 5 MG TAB PO ONE (21:07)
[2018-05-23] MEDS: INSULIN GLARGINE 100 UNITS/ML UNIT SC SCH (21:55)
[2018-05-23] MEDS: ROSUVASTATIN CALCIUM 20 MG TAB PO SCH (21:55)
[2018-05-24] MEDS: INSULIN LISPRO 100 UNIT/ML SC SCH ×7 (00:55→22:20)
[2018-05-24 04:06] LABS: INR 1.42 (0.83-1.16); PROTIME(PATIENT) 17.5 SEC (12.0-15.0)
[2018-05-24] MEDS: IPRATROPIUM/ALBUTEROL 3 ML DEYVIAL IH SCH ×4 (05:12→22:16)
[2018-05-24] MEDS: FUROSEMIDE 100 MG in NS 100 ML IV SCH ×2 (07:36→20:22)
[2018-05-24] MEDS: CARVEDILOL 25 MG TAB PO SCH ×2 (07:38→18:08)
[2018-05-24] MEDS: VENLAFAXINE XR 150 MG CAP PO SCH (07:38)
[2018-05-24] MEDS: ASPIRIN EC 81 MG TAB PO SCH (07:39)
[2018-05-24] MEDS: clonazePAM 0.5 MG TAB PO SCH ×2 (07:39→20:18)
[2018-05-24] MEDS: AMIODARONE HCL 200 MG TAB PO SCH (07:39)
[2018-05-24] MEDS: PREGABALIN 150 MG CAP PO SCH ×2 (07:39→20:18)
[2018-05-24] MEDS: SPIRONOLACTONE 25 MG TAB PO SCH (07:39)
[2018-05-24] MEDS: INSULIN GLARGINE 100 UNITS/ML UNIT SC SCH ×2 (09:09→20:20)
[2018-05-24] MEDS: WARFARIN SODIUM 5 MG TAB PO SCH ×2 (09:30→09:31)
[2018-05-24] MEDS ORDERED: HEPARIN 10,000 UNIT/10 ML MDV (1,000 UNIT/ML) IVP PRN (09:33)
--- NOTE | 2018-05-24 10:05 | SOAPPROG ---
SOAP Progress Note Assessment/Plan: Assessment: 1. Acute on chronic hypoxic respiratory failure. Multifactorial in the setting of acute on chronic systolic congestive heart failure and mitral regurgitation. Also, contributed to by obesity hypoventilation and probable viral pneumonia. She has shown significant improvement since her hospital admission. 2. Coronary artery disease. She is status post anterior wall infarct in February of 2015. At that time she was treated with PCI and stenting. She was left with a modest ischemic cardiomyopathy. Repeat cardiac catheterization 09/10 demonstrated patency of her previously placed stent with an ejection fraction of 30-35% and 3+ MR in the setting of elevated filling pressures. Since August of 2016 she has not had an ischemia assessment. She is not indicating any symptoms that suggest ischemia. 3. Congestive heart failure. She has had various estimations of her ejection fraction over the last year to year and a half. By cardiac catheterization her EF was 30-35% however her most recent echocardiogram from March indicated that her ejection fraction was 45%. Additionally, there has been variable estimations of the severity of her mitral regurgitation. I reviewed her transesophageal echocardiogram from yesterday. It appears that her ejection fraction is about 35-40% with moderate mitral regurgitation. She has disproportionate right greater than left-sided symptoms. As noted above there are multiple drivers of her congestive heart failure in addition to her cardiomyopathy and valvular heart disease. These include obesity hypoventilation and LONNY. 4. Paroxysmal atrial fibrillation. She is on systemic anticoagulation in the form of Coumadin with a therapeutic INR and is being treated with amiodarone and is in sinus rhythm today. She does give a history of palpitations indicating that she may very well have episodes of breakthrough atrial arrhythmias however at the present time is in sinus rhythm. The institution of amiodarone post dates the development of her respiratory failure therefore I think amiodarone pulmonary toxicity is not likely on the differential diagnosis. She has had short episodes of self-limited recurrent atrial fibrillation since admission. 5. History of right-sided CVA. Likely cardioembolic in the setting of PAF and hypercoagulability. Currently on systemic anticoagulation. 6. Valvular heart disease. She has moderate mitral regurgitation as noted above. 7. Hypertension. Well controlled currently. 8. Acute on chronic renal insufficiency. This has shown improvement following institution of diuretic therapy. 9. Hyperlipidemia. 10. History of hypercoagulability with previous CVA. 11. Subtherapeutic INR. Plan: 1. I would like to start her on a heparin drip in light of her very high risk for recurrent stroke in the setting of her subtherapeutic INR. Additionally, I gave her 10 mg of warfarin today and have consulted with the pharmacist regarding more aggressive dosing of her warfarin to maintain an INR between 2 and 3. 2. I would like to continue her IV Lasix drip for another 24 hr and reassess her at that time. We may consider transition to p.o. Diuretics tomorrow. 3. I think she might benefit from the institution of Entresto. I will discuss this with Nephrology although I do not see any particular contraindications as long as her renal function is stable. 4. Her other medications will be continued. 5. I did talk to her about the need for significant weight loss in the management of her congestive heart failure. 05/24/18 10:00 Subjective: She has shown significant improvement over the last week since I saw her. She has responded nicely to initiation of a Lasix drip with excellent diuresis and an actual improvement in her renal function. I reviewed her transesophageal echocardiogram from yesterday indicating a moderate cardiomyopathy and moderate mitral regurgitation. She states that she is doing better overall. Her cough is improved as has her symptoms of exertional dyspnea. Lower extremity edema has almost completely resolved. Objective: Vital Signs Temp Pulse Resp BP Pulse Ox 36.4 C 74 18 128/75 H 100 05/24/18 07:32 05/24/18 07:32 05/24/18 07:32 05/24/18 07:32 05/24/18 07:32 Laboratory Results 05/22/18 05:50 05/24/18 03:42 05/23/18 05/24/18 05/25/18 05:59 05:59 05:59 Intake Total 425 1805 Output Total 4100 3600 Balance -3675 -1795 PT 17.5 SEC (12.0-15.0) H 05/24/18 03:42 INR 1.42 (0.83-1.16) H 05/24/18 03:42 ICD10 Worksheet Patient Problems: Problems Problem Status Onset Acute ischemic stroke Acute Atrial fibrillation with RVR Acute C. difficile diarrhea Acute ~01/02/17 Hypotension Acute Medication side effect Acute
[2018-05-24] MEDS ORDERED: MAGNESIUM SULF 1 GM/DEXTROSE 100 ML IV ONE (10:11)
[2018-05-24] MEDS: HEPARIN/DEXTROSE 500 ML IV SCH (10:45)
[2018-05-24] MEDS: ACETAMINOPHEN 325 MG TAB PO PRN (10:45)
[2018-05-24 11:35] LABS: INR 1.42 (0.83-1.16); PLATELET COUNT 164 10^3/uL (150-400); PROTIME(PATIENT) 17.5 SEC (12.0-15.0)
--- NOTE | 2018-05-24 13:42 | HOSPPROG ---
Hospitalist Progress Note Assessment/Plan: #Acute on chronic hypoxemic respiratory failure: multifactorial with acute systolic HF, OHS, RHF and diastolic dysfunction. -cont aggressive diuresis with Lasix gtt -cont QID duonebs, bipap, RT support #Acutely decompensated systolic heart failure: -cont Lasix gtt overnight, monitor lytes #Hypoglycemia: overnight due to NPO status #Mod-severe MR: confirmed on DAVID #ICM -due to STEMI 2014 ; s/p stent (patent on cath 08/2016) -cont medical management at this time #Paroxysmal A fib - cont amio. Add heparin bridge until INR therapeutic with high-risk for CVA #MICHELA on CKD: Cr remains stable at 1.7 with diuresis. #Non anion gap metabolic acidosis -2/2 renal disease and mild resp acidosis #H/o CVA - cont ASA, statin, AC #H/o positive lupus anticoagulant #DM type 2, on insulin - bg's markedly elevated on steroids (>600), now low bg's -decrease lantus to 50 u bid (from 70 u bid) -cont SSI at 15 u plus SSI #Right arm pain - she was in a sling for a month, has normal shoulder ROM, sounds possibly neuropathic. xray shows mild degenerative disease #DVT ppx: coumadin #Deconditioning: PT recs SNF; will discuss further with patient #Goals: significant co-morbidities. Palliative Care consulted for goals and emotional support Inpatient admission for monitored diuresis Subjective: slipped out of bed this morning, did not hit her head Objective: Vital Signs Temp Pulse Resp BP Pulse Ox 35.0 C L 73 12 104/74 95 05/24/18 12:00 05/24/18 12:00 05/24/18 12:00 05/24/18 12:00 05/24/18 12:00 Laboratory Results 05/24/18 11:00 05/24/18 03:42 05/23/18 05/24/18 05/25/18 05:59 05:59 05:59 Intake Total 425 1805 Output Total 4100 3600 1001 Balance -3675 -1795 -1001 PT 17.5 SEC (12.0-15.0) H 05/24/18 11:00 INR 1.42 (0.83-1.16) H 05/24/18 11:00 - Time Spent With Patient Time Spent with Patient: greater than 35 minutes Time Spent with Patient: Greater than 35 minutes spent on this patients care, greater than 50% of time spent counseling, educating, and coordinating care regarding the above mentioned plan. - Physical Exam Constitutional: obese Eyes: PERRL Ears, Nose, Mouth, Throat: moist mucous membranes Cardiovascular: irregularly irregular, edema (+2 edema up to shins, BL) Respiratory: no respiratory distress Gastrointestinal: normoactive bowel sounds Genitourinary: no bladder fullness Skin: warm Musculoskeletal: generalized weakness Neurologic: AAOx3, CN II-XII Intact Psychiatric: anxious ICD10 Worksheet Patient Problems: Problems Problem Status Onset Acute ischemic stroke Acute Atrial fibrillation with RVR Acute C. difficile diarrhea Acute ~01/02/17 Hypotension Acute Medication side effect Acute
[2018-05-24] MEDS ORDERED: WARFARIN SODIUM 5 MG TAB PO ONE (16:00)
[2018-05-24] MEDS: ROSUVASTATIN CALCIUM 20 MG TAB PO SCH (20:19)
[2018-05-25] MEDS: IPRATROPIUM/ALBUTEROL 3 ML DEYVIAL IH SCH ×4 (05:32→22:15)
[2018-05-25] MEDS: traZODone 50 MG TAB PO PRN (06:09)
[2018-05-25 06:57] LABS: INR 1.71 (0.83-1.16); PROTIME(PATIENT) 20.2 SEC (12.0-15.0)
[2018-05-25] MEDS: clonazePAM 0.5 MG TAB PO SCH ×2 (07:54→21:18)
[2018-05-25] MEDS: SPIRONOLACTONE 25 MG TAB PO SCH (07:54)
[2018-05-25] MEDS: ASPIRIN EC 81 MG TAB PO SCH (07:54)
[2018-05-25] MEDS: AMIODARONE HCL 200 MG TAB PO SCH (07:55)
[2018-05-25] MEDS: PREGABALIN 150 MG CAP PO SCH ×2 (07:55→21:18)
[2018-05-25] MEDS: VENLAFAXINE XR 150 MG CAP PO SCH (07:55)
[2018-05-25] MEDS: CARVEDILOL 25 MG TAB PO SCH ×2 (07:55→18:15)
[2018-05-25] MEDS ORDERED: POTASSIUM CL 20 MEQ TAB PO ONE ×2 (08:13→09:29)
[2018-05-25] MEDS: ACETAMINOPHEN 325 MG TAB PO PRN (08:39)
[2018-05-25] MEDS: INSULIN LISPRO 100 UNIT/ML SC SCH ×6 (08:40→21:18)
[2018-05-25] MEDS: INSULIN GLARGINE 100 UNITS/ML UNIT SC SCH (08:40)
[2018-05-25] MEDS ORDERED: PROTOCOL POTASSIUM 1 DOSE MISC PRN (09:27)
[2018-05-25] MEDS ORDERED: PROTOCOL MAGNESIUM 1 DOSE IV PRN (09:27)
--- NOTE | 2018-05-25 10:02 | SOAPPROG ---
SOAP Progress Note Assessment/Plan: Assessment: 1. Acute on chronic hypoxic respiratory failure. Multifactorial in the setting of acute on chronic systolic congestive heart failure and mitral regurgitation. Also, contributed to by obesity hypoventilation and probable viral pneumonia. She has shown significant improvement since her hospital admission. 2. Coronary artery disease. She is status post anterior wall infarct in February of 2015. At that time she was treated with PCI and stenting. She was left with a modest ischemic cardiomyopathy. Repeat cardiac catheterization 09/10 demonstrated patency of her previously placed stent with an ejection fraction of 30-35% and 3+ MR in the setting of elevated filling pressures. Since August of 2016 she has not had an ischemia assessment. She is not indicating any symptoms that suggest ischemia. 3. Congestive heart failure. She has had various estimations of her ejection fraction over the last year to year and a half. By cardiac catheterization her EF was 30-35% however her most recent echocardiogram from March indicated that her ejection fraction was 45%. Additionally, there has been variable estimations of the severity of her mitral regurgitation. I reviewed her transesophageal echocardiogram from yesterday. It appears that her ejection fraction is about 35-40% with moderate mitral regurgitation. She has disproportionate right greater than left-sided symptoms. As noted above there are multiple drivers of her congestive heart failure in addition to her cardiomyopathy and valvular heart disease. These include obesity hypoventilation and LONNY. 4. Paroxysmal atrial fibrillation. She is on systemic anticoagulation in the form of Coumadin with a therapeutic INR and is being treated with amiodarone and is in sinus rhythm today. She does give a history of palpitations indicating that she may very well have episodes of breakthrough atrial arrhythmias however at the present time is in sinus rhythm. The institution of amiodarone post dates the development of her respiratory failure therefore I think amiodarone pulmonary toxicity is not likely on the differential diagnosis. She has had short episodes of self-limited recurrent atrial fibrillation since admission. 5. History of right-sided CVA. Likely cardioembolic in the setting of PAF and hypercoagulability. Currently on systemic anticoagulation. 6. Valvular heart disease. She has moderate mitral regurgitation as noted above. 7. Hypertension. Well controlled currently. 8. Acute on chronic renal insufficiency. This has shown improvement following institution of diuretic therapy. 9. Hyperlipidemia. 10. History of hypercoagulability (lupus anticoagulant) with previous CVA. 11. Subtherapeutic INR. Currently on heparin drip with consistently elevated anti Xa levels. 12. Type 2 diabetes mellitus currently on insulin. 05/25/2018: She continues to have a nice diuresis with steady improvement in indices of her renal function. She did go into atrial fibrillation earlier today however her rates are controlled and she is asymptomatic. Her respiratory status has likewise shown steady improvement. On the current heparin protocol measurements of her anti Xa levels have consistently been elevated. Plan: 1. I would like to continue her Lasix drip as long as she has lower extremity edema and we continue to see a good diuresis and improvement in her renal function. We will plan for a daily chemistry panel. 2. I wrote for an electrolyte protocol and replacement of her potassium. 3. I asked that her heparin drip be reduced down to 1500 units/hour. We will plan for measurement of anti Xa levels later this afternoon and adjustments of her heparin drip accordingly. 4. She will be given 10 mg of warfarin today. Plan for an INR tomorrow. 5. I wrote increase her carvedilol up to 25 mg twice daily. 6. At some point in the near future once she is euvolemic and her renal function has stabilized, I think it would be worthwhile to try to institute Entresto. 7. We will follow along with you. 05/25/18 09:57 05/25/18 10:02 Subjective: She has no complaints today. She notes that her breathing has steadily improved. She has less cough than before. Additionally, lower extremity edema has been improving. Earlier today she did go into atrial fibrillation. Heart rates are currently well controlled. Objective: Vital Signs Temp Pulse Resp BP Pulse Ox 36.6 C 70 20 128/77 H 93 05/25/18 07:59 05/25/18 07:59 05/25/18 07:59 05/25/18 07:59 05/25/18 07:59 Laboratory Results 05/24/18 11:00 05/25/18 05:15 05/24/18 05/25/18 05/26/18 05:59 05:59 05:59 Intake Total 1805 2878 Output Total 3600 4701 700 Balance -1795 -1823 -700 PT 20.2 SEC (12.0-15.0) H 05/25/18 05:25 INR 1.71 (0.83-1.16) H 05/25/18 05:25 Laboratory Tests 04/15/18 04/15/18 05/24/18 05:00 06:12 16:10 INR 2.58 H Heparin Anti-Xa, Unfract > 1.10 H* BUN 45 H Creatinine 1.9 H Albumin 3.2 L 05/25/18 05/25/18 00:30 05:25 INR 1.71 H Heparin Anti-Xa, Unfract > 1.10 H* > 1.10 H* BUN Creatinine Albumin Physical Exam - Physical Exam General Appearance: alert, no apparent distress, other (Morbidly obese) EENT: PERRL/EOMI, normal ENT inspection, pharynx normal, TMs normal Neck: non-tender, full range of motion, supple, normal inspection Respiratory: chest non-tender, lungs clear, normal breath sounds Cardiac/Chest: normal peripheral pulses, edema (1/2 inch pitting edema noted bilaterally to the upper vo), irregularly irregular Peripheral Pulses: 2+: carotid (R), carotid (L), femoral (R), femoral (L), dorsalis-pedis (R), dorsalis-pedis (L) Abdomen: normal bowel sounds, non-tender, soft Pelvic Exam: deferred Rectal: deferred Back: Normal inspection Skin: normal color, warm/dry Lymphatic: no adenopathy Extremities: normal range of motion, non-tender, normal inspection, normal capillary refill Neuro/Psych: no motor/sensory deficits, alert, normal mood/affect, oriented x 3 ICD10 Worksheet Patient Problems: Problems Problem Status Onset C. difficile diarrhea Acute ~01/02/17 Acute ischemic stroke Acute Hypotension Acute Medication side effect Acute Atrial fibrillation with RVR Acute
--- NOTE | 2018-05-25 14:27 | HOSPPROG ---
Hospitalist Progress Note Assessment/Plan: #Acute on chronic hypoxemic respiratory failure: multifactorial- acute systolic HF, OHS, RHF and diastolic dysfunction. -cont aggressive diuresis with Lasix gtt -cont QID duonebs, bipap, RT support #Acutely decompensated systolic heart failure: -cont Lasix gtt overnight, monitor lytes -Increase Coreg to 25mg BID. #Hypoglycemia: resolved #Mod-severe MR: confirmed on DAVID #ICDM -due to STEMI 2014 ; s/p stent (patent on cath 08/2016) -cont medical management at this time #Paroxysmal A fib - cont amio. Heparin bridge until INR 2 with high CVA risk #MICHELA on CKD: Cr remains stable at 1.7 with diuresis. #Non anion gap metabolic acidosis -2/2 renal disease and mild resp acidosis #H/o CVA - cont ASA, statin, AC #H/o positive lupus anticoagulant #DM type 2, on insulin - bg's markedly elevated on steroids (>600), now low bg's -decrease Lantus qhs to 50U, 55u in morn. Lispro 10u with meals + SSI (home dose 70 u bid) #Right arm pain: normal shoulder ROM. xray shows mild degenerative disease #DVT ppx: coumadin/heparin #Deconditioning: PT recs SNF; will discuss further with patient #Goals: significant co-morbidities. Palliative Care consulted for goals and emotional support Inpatient admission for monitored diuresis, electrolyte repletion Subjective: SOB improved Objective: Vital Signs Temp Pulse Resp BP Pulse Ox 36.9 C 69 19 138/64 H 97 05/25/18 12:00 05/25/18 12:00 05/25/18 12:00 05/25/18 12:00 05/25/18 12:00 Laboratory Results 05/24/18 11:00 05/25/18 05:15 05/24/18 05/25/18 05/26/18 05:59 05:59 05:59 Intake Total 1805 2878 1000 Output Total 3600 4701 1350 Balance -1795 -1823 -350 PT 20.2 SEC (12.0-15.0) H 05/25/18 05:25 INR 1.71 (0.83-1.16) H 05/25/18 05:25 - Time Spent With Patient Time Spent with Patient: greater than 35 minutes Time Spent with Patient: Greater than 35 minutes spent on this patients care, greater than 50% of time spent counseling, educating, and coordinating care regarding the above mentioned plan. - Physical Exam Constitutional: obese Eyes: PERRL Ears, Nose, Mouth, Throat: moist mucous membranes, other (Bipap mask on) Cardiovascular: regular rate and rhythym, edema (+2 LE edema) Respiratory: no respiratory distress Gastrointestinal: normoactive bowel sounds Genitourinary: no bladder fullness Skin: warm Musculoskeletal: full muscle strength Neurologic: AAOx3, CN II-XII Intact Psychiatric: interacting appropriately ICD10 Worksheet Patient Problems: Problems Problem Status Onset Acute ischemic stroke Acute Atrial fibrillation with RVR Acute C. difficile diarrhea Acute ~01/02/17 Hypotension Acute Medication side effect Acute
--- NOTE | 2018-05-25 15:27 | ASMTCMCOM ---
CM Note CM Note Notes: Pt continues to have medical needs. Still on Lasik and Heprin drip. Was in and out of A-fib this am. Had visitors today, which seemed to help improve her mood. CM to follow. Plan: Palliative Care and [place] [facility] Date Signed: 05/25/2018 03:26 PM Electronically Signed By:JAEL Landaverde
[2018-05-25] MEDS ORDERED: WARFARIN SODIUM 7.5 MG TAB PO ONE (16:00)
[2018-05-25] MEDS: FUROSEMIDE 100 MG in NS 100 ML IV SCH (17:06)
[2018-05-25] MEDS: traMADol 50 MG TAB PO PRN (18:18)
[2018-05-25] MEDS ORDERED: POTASSIUM CL 10 MEQ TAB PO ONE (20:40)
[2018-05-25] MEDS ORDERED: INSULIN GLARGINE 100 UNITS/ML UNIT SC SCH (21:00)
[2018-05-25] MEDS: ROSUVASTATIN CALCIUM 20 MG TAB PO SCH (21:17)
[2018-05-26] MEDS: traMADol 50 MG TAB PO PRN ×2 (00:28→21:50)
[2018-05-26] MEDS: FUROSEMIDE 100 MG in NS 100 ML IV SCH ×2 (04:40→16:34)
[2018-05-26 05:03] LABS: INR 1.82 (0.83-1.16); PROTIME(PATIENT) 21.2 SEC (12.0-15.0)
[2018-05-26] MEDS: IPRATROPIUM/ALBUTEROL 3 ML DEYVIAL IH SCH ×4 (05:25→20:30)
[2018-05-26] MEDS ORDERED: POTASSIUM CL 10 MEQ TAB PO ONE (08:05)
[2018-05-26] MEDS: INSULIN LISPRO 100 UNIT/ML SC SCH ×6 (08:47→21:51)
[2018-05-26] MEDS: PREGABALIN 150 MG CAP PO SCH ×2 (08:48→21:50)
[2018-05-26] MEDS: VENLAFAXINE XR 150 MG CAP PO SCH (08:49)
[2018-05-26] MEDS: ASPIRIN EC 81 MG TAB PO SCH (08:49)
[2018-05-26] MEDS: CARVEDILOL 25 MG TAB PO SCH ×2 (08:49→18:31)
[2018-05-26] MEDS: AMIODARONE HCL 200 MG TAB PO SCH (08:49)
[2018-05-26] MEDS: SPIRONOLACTONE 25 MG TAB PO SCH (08:49)
[2018-05-26] MEDS: clonazePAM 0.5 MG TAB PO SCH ×2 (08:49→21:50)
[2018-05-26] MEDS ORDERED: INSULIN GLARGINE 100 UNITS/ML UNIT SC SCH (09:00)
[2018-05-26] MEDS: HEPARIN/DEXTROSE 500 ML IV SCH (10:18)
--- NOTE | 2018-05-26 11:24 | PDCARPN ---
Cardiology Progress Note Chief Complaint: No cardiovascular complaints today. Patient is feeling reasonably well Assessment/Plan: Assessment: Patient is a 58 y/o female with numerous medical issues including CAD s/p PCI ( in setting of AMI 2014), CHF (with estimated systolic function of 40% with apical hypokinesis), VHD (moderate mitral regurgitation), pAF (on coumadin with [id number] score of 7), CVA (right sided, and thought secondary to pAF history) , LONNY with CPAP use, DM, Lupus, chronic renal insufficiency (creatinine up to 2.2 with this admission, but currently 1.7), and obesity, who was admitted on with dyspnea. Associated symptoms of fatigue, lethargy, and wheezing were verbalized. No chest pains or pressure. No fevers of chills. Since she was admitted, weights are down (about 4 kg), and renal function has improved ( 1.7 has been stable for past several days). The patient reports that she has been feeling well - better than how she felt at the time of admission. Telemetry without any evidence of atrial fibrillation over the past several hours, but a bout of atrial fibrillation was noted (without symptoms) during this admission. INR has been increasing, slowly, with heparin coverage ongoing. Patient without cardiovascular complaints today. Plan: (1) Would continue IV lasix drip today - this has been working for the patient , and weights continue to slowly drop. Renal function has tolerated this therapy (2) Continue heparin for CVA coverage given the subtherapeutic INR (3) Would continue Coreg at current dose (4) CPAP for LONNY should continue at night (and during the day when possible) (5) Aggressive DM therapy should continue (6) Amiodarone for rate/rhythm control assistance should continue (7) ASA therapy for life with CAD history (8) Statins should continue for HLP history, and maintain annual assessment of cholesterol and LFTs (9) Would continue to closely follow renal function, electrolytes, urine output , and weights (10) Aldactone therapy should continue for assistance with heart failure history (11) Mention of Entresto therapy with last cardiology progress note, but would continue to diurese this patient while in house - she is still reportedly up about 10 kg (12) We will continue to follow this patient Subjective: No cardiovascular complaints Reviewed/Discussed With: hospitalist Objective: Vital Signs (8 Hrs) Temp Pulse Resp BP Pulse Ox 05/26/18 10:54 36.5 C 74 14 116/64 95 05/26/18 08:44 36.4 C 67 22 H 124/64 H 93 Intake/Output (24 Hrs) 05/25/18 05/26/18 05/27/18 05:59 05:59 05:59 Intake Total 2878 3071 Output Total 4701 4400 200 Balance -1823 -1329 -200 Intake: Oral (ml) 2175 2250 IV Intake (ml) 60 IV Infused (ml) 643 821 Furosemide 100 mg In Ns 132 425 100 ml @ 10 MG/HR 11 mls/ hr IV CONT DOROTHEA Rx#: [id number] Heparin/Dextrose 500 ml @ 511 396 Per Protocol IV CONT DOROTHEA Rx#:[id number] Output: Urine (ml) 4701 4400 200 Bedside Commode 3000 4100 Catheter 1700 Incontinence 1 Toilet 300 200 Other: Weight 152.3 kg 153.2 kg Output Comment Incontinence large urine output Number of Voids Bedside Commode 1 Catheter 2 Incontinence 1 1 Number of Stools Bedside Commode 1 1 Catheter 1 Toilet 1 Result Diagrams: 05/26/18 04:30 05/26/18 04:30 Telemetry: normal sinus rhythm Echocardiogram: DAVID: mild reduction in LVEF (40%) with left atrial enlargement, mod MR, and mild TR - Physical Exam Constitutional: WDWN, no apparent distress, obese Eyes: PERRL, EOMI Ears, Nose, Mouth, Throat: moist mucous membranes Cardiovascular: regular rate and rhythm, systolic murmur, jugular vein distention, pulses symmetric bilat, No carotid bruit Peripheral Pulses: 2+: dorsalis-pedis (R), dorsalis-pedis (L) Respiratory: reduced air movement, expiratory wheeze, inspiratory crackles Gastrointestinal: normoactive bowel sounds Skin: no rashes, other (mild bilateral lower extremity swelling noted) Musculoskeletal: no muscular tenderness Neurologic: AAOx3, CN II-XII grossly intact Psychiatric: cooperative, interactive, following commands ICD10 Worksheet Patient Problems: Problems Problem Status Onset Acute ischemic stroke Acute Atrial fibrillation with RVR Acute C. difficile diarrhea Acute ~01/02/17 Hypotension Acute Medication side effect Acute
--- NOTE | 2018-05-26 16:45 | HOSPPROG ---
Hospitalist Progress Note Assessment/Plan: #Acute on chronic hypoxemic respiratory failure: multifactorial with acute systolic HF, MR, and diastolic dysfunction. -cont aggressive diuresis with Lasix gtt, monitor lytes -cont QID duonebs, bipap, RT support #Acutely decompensated systolic heart failure/I-CDM (STEMI 2014) -cont Lasix gtt, Coreg, Aldactone #Mod-severe MR: confirmed on DAVID #Paroxysmal A fib - cont amio. Heparin bridge until INR 2 with high CVA risk #MICHELA on CKD: Cr remains stable at 1.7 with diuresis. #Non anion gap metabolic acidosis -2/2 renal disease and mild resp acidosis #H/o CVA - cont ASA, statin, AC #LONNY: Bipap #H/o positive lupus anticoagulant #DM 2 with hyperglycemia: Glargine 60u BID, 10u Lispro with meals #Right arm pain: normal shoulder ROM. xray shows mild degenerative disease #DVT ppx: coumadin/heparin #Deconditioning: PT recs SNF; will discuss further with patient #Goals: significant co-morbidities. Palliative Care consulted for goals and emotional support Inpatient admission for monitored diuresis, electrolyte repletion Subjective: sat up in chair and worked with PT this morning Objective: Vital Signs Temp Pulse Resp BP Pulse Ox 36.5 C 74 14 116/64 97 05/26/18 10:54 05/26/18 10:54 05/26/18 10:54 05/26/18 10:54 05/26/18 16:20 Laboratory Results 05/26/18 04:30 05/26/18 04:30 05/25/18 05/26/18 05/27/18 05:59 05:59 05:59 Intake Total 2878 3071 Output Total 4701 4400 200 Balance -1823 -1329 -200 PT 21.2 SEC (12.0-15.0) H 05/26/18 04:30 INR 1.82 (0.83-1.16) H 05/26/18 04:30 - Time Spent With Patient Time Spent with Patient: greater than 35 minutes Time Spent with Patient: Greater than 35 minutes spent on this patients care, greater than 50% of time spent counseling, educating, and coordinating care regarding the above mentioned plan. - Physical Exam Constitutional: no apparent distress, obese Eyes: PERRL Ears, Nose, Mouth, Throat: moist mucous membranes Cardiovascular: regular rate and rhythym, edema (+2 LE edema, BL) Respiratory: no respiratory distress Gastrointestinal: normoactive bowel sounds Genitourinary: no bladder fullness Skin: warm Musculoskeletal: full muscle strength Neurologic: AAOx3, CN II-XII Intact Psychiatric: interacting appropriately ICD10 Worksheet Patient Problems: Problems Problem Status Onset Acute ischemic stroke Acute Atrial fibrillation with RVR Acute C. difficile diarrhea Acute ~01/02/17 Hypotension Acute Medication side effect Acute
[2018-05-26] MEDS ORDERED: WARFARIN SODIUM 5 MG TAB PO ONE (18:15)
[2018-05-26] MEDS: ACETAMINOPHEN 325 MG TAB PO PRN (18:31)
[2018-05-26] MEDS: ROSUVASTATIN CALCIUM 20 MG TAB PO SCH (21:50)
[2018-05-26] MEDS: INSULIN GLARGINE 100 UNITS/ML UNIT SC SCH (21:51)
[2018-05-27] MEDS: IPRATROPIUM/ALBUTEROL 3 ML DEYVIAL IH SCH ×5 (05:19→20:37)
[2018-05-27] MEDS: HEPARIN/DEXTROSE 500 ML IV SCH (05:39)
[2018-05-27] MEDS: FUROSEMIDE 100 MG in NS 100 ML IV SCH ×3 (05:41→23:07)
[2018-05-27 05:51] LABS: INR 1.99 (0.83-1.16); PROTIME(PATIENT) 22.7 SEC (12.0-15.0)
[2018-05-27] MEDS: INSULIN LISPRO 100 UNIT/ML SC SCH ×6 (08:56→21:05)
[2018-05-27] MEDS: CARVEDILOL 25 MG TAB PO SCH ×2 (08:57→17:55)
[2018-05-27] MEDS: ASPIRIN EC 81 MG TAB PO SCH (08:57)
[2018-05-27] MEDS: clonazePAM 0.5 MG TAB PO SCH ×2 (08:58→19:50)
[2018-05-27] MEDS: SPIRONOLACTONE 25 MG TAB PO SCH (08:58)
[2018-05-27] MEDS: PREGABALIN 150 MG CAP PO SCH ×2 (08:58→19:50)
[2018-05-27] MEDS: VENLAFAXINE XR 150 MG CAP PO SCH (08:58)
[2018-05-27] MEDS: AMIODARONE HCL 200 MG TAB PO SCH (08:58)
--- NOTE | 2018-05-27 09:24 | PDCARPN ---
Cardiology Progress Note Chief Complaint: Patient doing fair this morning. Sitting up in chair without voiced cardiovascular complaints Assessment/Plan: Assessment: 05-27-18 No cardiovascular complaints this morning. Patient slept well overnight. No chest pains or pressure. Overall, the patient states that she is feeling much better than she did at the time of admission. INR was therapeutic today (1.99) . Ongoing lasix drip. Weights today are documented as elevated, even with a negative output noted (?). Minor lower extremity swelling is noted. Today, the patient was up in her chair versus bed bound (as was the case yesterday). We need to have labs (BMP/CMP) to monitor electrolytes as well as renal function. Given the patient's weight is still moderately elevated compared to reported "dry weight" would continue current therapy. We have been moving in the correct direction, and I don't have a good answer for negative output with weight increase noted. 05-26-18 Patient is a 58 y/o female with numerous medical issues including CAD s/p PCI ( in setting of AMI 2014), CHF (with estimated systolic function of 40% with apical hypokinesis), VHD (moderate mitral regurgitation), pAF (on coumadin with [id number] score of 7), CVA (right sided, and thought secondary to pAF history) , LONNY with CPAP use, DM, Lupus, chronic renal insufficiency (creatinine up to 2.2 with this admission, but currently 1.7), and obesity, who was admitted on with dyspnea. Associated symptoms of fatigue, lethargy, and wheezing were verbalized. No chest pains or pressure. No fevers of chills. Since she was admitted, weights are down (about 4 kg), and renal function has improved ( 1.7 has been stable for past several days). The patient reports that she has been feeling well - better than how she felt at the time of admission. Telemetry without any evidence of atrial fibrillation over the past several hours, but a bout of atrial fibrillation was noted (without symptoms) during this admission. INR has been increasing, slowly, with heparin coverage ongoing. Patient without cardiovascular complaints today. Plan: (1) Contingent on labs, would continue IV lasix today - close monitoring of Ins/Outs so as to better determine how outputs are negative, but weights are up (2) Coumadin therapy alone given INR of 1.99 - would drop the dose of therapy to 5 mg per day. Reassessment of INR in three days is needed (would have some concern that the 10 mg dose might yield a supratherapeutic INR within the next 48 hours) (3) Coreg for HTN history should continue (4) Aldactone for patient's history of CHF should continue (5) Amiodarone should continue for rate/rhythm control assistance (6) ASA for life with CAD (7) Statins for HLP should continue (8) Aggressive DM therapy to continue (9) Incentive spirometry to bedside given patient's history and degree of immobility (10) As stated above, would recommend daily BMP assessment to assist with decisions on therapy doses (specifically lasix therapy) Subjective: No cardiovascular complaints today. Objective: Vital Signs (8 Hrs) Temp Pulse Resp BP Pulse Ox 05/27/18 08:57 69 147/74 H 05/27/18 07:42 36.4 C 87 16 121/70 H 96 05/27/18 05:20 89 20 97 05/27/18 04:00 36.6 C 67 18 129/73 H 94 Intake/Output (24 Hrs) 05/26/18 05/27/18 05/28/18 05:59 05:59 05:59 Intake Total 3071 2584 Output Total 4400 3200 Balance -1329 -616 Intake: Oral (ml) 2250 2025 IV Infused (ml) 821 559 Furosemide 100 mg In Ns 425 264 100 ml @ 10 MG/HR 11 mls/ hr IV CONT DOROTHEA Rx#: [id number] Heparin/Dextrose 500 ml @ 396 295 Per Protocol IV CONT DOROTHEA Rx#:[id number] Output: Urine (ml) 4400 2300 Bedside Commode 4100 1600 Incontinence 500 Toilet 300 200 Urine/Stool Mix (ml) 900 Toilet 900 Other: Weight 153.2 kg 153.8 kg Number of Voids Incontinence 1 4 Number of Stools Bedside Commode 1 Toilet 1 Result Diagrams: 05/26/18 04:30 05/27/18 05:20 Telemetry: At present, 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 When last monitored, heart rates were controlled. - Physical Exam Constitutional: WDWN, healthy appearing, no apparent distress Eyes: PERRL, EOMI Ears, Nose, Mouth, Throat: moist mucous membranes Cardiovascular: regular rate and rhythm, systolic murmur, pulses symmetric bilat , No jugular vein distention Peripheral Pulses: 2+: dorsalis-pedis (R), dorsalis-pedis (L) Respiratory: clear to auscultate bilat, reduced air movement, expiratory wheeze , other (patient is dyspnic with limited activities) Gastrointestinal: normoactive bowel sounds Skin: other (mild lower extremity edema noted. Venous stasis changes noted.) Musculoskeletal: no muscular tenderness Neurologic: AAOx3, CN II-XII grossly intact Psychiatric: cooperative, interactive, following commands ICD10 Worksheet Patient Problems: Problems Problem Status Onset Acute ischemic stroke Acute Atrial fibrillation with RVR Acute C. difficile diarrhea Acute ~01/02/17 Hypotension Acute Medication side effect Acute
[2018-05-27] MEDS: INSULIN GLARGINE 100 UNITS/ML UNIT SC SCH ×2 (10:00→21:05)
--- NOTE | 2018-05-27 11:52 | HOSPPROG ---
Hospitalist Progress Note Assessment/Plan: #Acute on chronic hypoxemic respiratory failure: multifactorial with acute systolic HF, MR, and diastolic dysfunction. -cont aggressive diuresis with Lasix gtt, monitor lytes. QID nebs. Cr stable today #Acutely decompensated systolic heart failure/I-CDM (STEMI 2014): making progress; continue Lasix gtt -cont Lasix gtt, Coreg, Aldactone #Mod-severe MR: confirmed on DAVID #Paroxysmal A fib - Amio. Will cont Coumadin, stop heparin now INR 1.99 #MICHELA on CKD: Cr stable. #Non anion gap metabolic acidosis -2/2 renal disease and mild resp acidosis #H/o CVA - cont ASA, statin, AC #LONNY: Bipap #H/o positive lupus anticoagulant #DM 2 with hyperglycemia: Glargine 60u BID, 10u Lispro with meals #Right arm pain: normal shoulder ROM. xray shows mild degenerative disease #DVT ppx: coumadin/heparin #Deconditioning: PT recs SNF; will discuss further with patient #Goals: significant co-morbidities. Palliative Care consulted for goals and emotional support Inpatient admission for monitored diuresis, electrolyte repletion. Discussed with Dr. Price Subjective: walking the unit Objective: Vital Signs Temp Pulse Resp BP Pulse Ox 36.4 C 69 16 147/74 H 96 05/27/18 07:42 05/27/18 08:57 05/27/18 07:42 05/27/18 08:57 05/27/18 07:42 Laboratory Results 05/26/18 04:30 05/27/18 05:20 05/26/18 05/27/18 05/28/18 05:59 05:59 05:59 Intake Total 3071 2584 Output Total 4400 3200 1000 Balance -1329 -616 -1000 PT 22.7 SEC (12.0-15.0) H 05/27/18 05:20 INR 1.99 (0.83-1.16) H 05/27/18 05:20 - Time Spent With Patient Time Spent with Patient: greater than 35 minutes Time Spent with Patient: Greater than 35 minutes spent on this patients care, greater than 50% of time spent counseling, educating, and coordinating care regarding the above mentioned plan. - Physical Exam Constitutional: obese Eyes: PERRL Ears, Nose, Mouth, Throat: moist mucous membranes Cardiovascular: regular rate and rhythym, edema (+ 2 LE edema) Respiratory: no respiratory distress Gastrointestinal: normoactive bowel sounds Genitourinary: no bladder fullness Skin: warm Musculoskeletal: full muscle strength Neurologic: AAOx3 Psychiatric: interacting appropriately ICD10 Worksheet Patient Problems: Problems Problem Status Onset Acute ischemic stroke Acute Atrial fibrillation with RVR Acute C. difficile diarrhea Acute ~01/02/17 Hypotension Acute Medication side effect Acute
[2018-05-27] MEDS ORDERED: WARFARIN SODIUM 7.5 MG TAB PO ONE (16:00)
[2018-05-27] MEDS ORDERED: WARFARIN SODIUM 5 MG TAB PO ONE (16:00)
[2018-05-27] MEDS: ROSUVASTATIN CALCIUM 20 MG TAB PO SCH (19:50)
[2018-05-27] MEDS: ACETAMINOPHEN 325 MG TAB PO PRN (19:50)
[2018-05-27] MEDS: traZODone 50 MG TAB PO PRN (19:51)
[2018-05-27] MEDS: traMADol 50 MG TAB PO PRN (22:57)
[2018-05-28] MEDS: IPRATROPIUM/ALBUTEROL 3 ML DEYVIAL IH SCH ×4 (05:29→20:34)
[2018-05-28 06:56] LABS: INR 2.46 (0.83-1.16); PROTIME(PATIENT) 26.6 SEC (12.0-15.0)
[2018-05-28] MEDS: INSULIN LISPRO 100 UNIT/ML SC SCH ×5 (08:09→23:03)
[2018-05-28] MEDS: PREGABALIN 150 MG CAP PO SCH ×2 (08:22→20:20)
[2018-05-28] MEDS: clonazePAM 0.5 MG TAB PO SCH ×2 (08:23→20:20)
[2018-05-28] MEDS: AMIODARONE HCL 200 MG TAB PO SCH (08:23)
[2018-05-28] MEDS: SPIRONOLACTONE 25 MG TAB PO SCH (08:23)
[2018-05-28] MEDS: VENLAFAXINE XR 150 MG CAP PO SCH (08:23)
[2018-05-28] MEDS: ASPIRIN EC 81 MG TAB PO SCH (08:23)
[2018-05-28] MEDS: CARVEDILOL 25 MG TAB PO SCH ×2 (08:24→18:37)
[2018-05-28] MEDS: FUROSEMIDE 100 MG in NS 100 ML IV SCH ×2 (08:26→20:19)
[2018-05-28] MEDS: INSULIN GLARGINE 100 UNITS/ML UNIT SC SCH ×2 (08:40→23:09)
--- NOTE | 2018-05-28 10:58 | HOSPPROG ---
Hospitalist Progress Note Assessment/Plan: #Acutely decompensated systolic heart failure/I-CDM (STEMI 2014): -has good UOP, but she has been drinking 10 cups ice, salted nuts. Enforced Na/ fluid restriction -cont Lasix gtt, Coreg, Aldactone #Mod-severe MR: confirmed on DAVID #Acute on chronic hypoxemic respiratory failure: multifactorial with acute systolic HF, MR, and diastolic dysfunction. #Paroxysmal A fib - Amiodarone. INR at goal. Coumadin 5mg today #MICHELA on CKD: Cr stable at 1.7 #Non anion gap metabolic acidosis -2/2 renal disease and mild resp acidosis #H/o CVA - cont ASA, statin, AC #LONNY: Bipap #H/o positive lupus anticoagulant #DM 2 with hyperglycemia: decreased evening glargine dose. 12units with meals, SSI PRN #Right arm pain: normal shoulder ROM. xray shows mild degenerative disease #DVT ppx: coumadin/heparin #Deconditioning: PT recs SNF; will discuss further with patient #Goals: significant co-morbidities. Palliative Care consulted for goals and emotional support Inpatient admission for monitored diuresis, electrolyte repletion. Discussed with Dr. Price Subjective: no SOB or CP Objective: Vital Signs Temp Pulse Resp BP Pulse Ox 36.4 C 62 16 109/77 95 05/28/18 07:13 05/28/18 07:13 05/28/18 07:13 05/28/18 07:13 05/28/18 07:13 Laboratory Results 05/26/18 04:30 05/28/18 06:30 05/27/18 05/28/18 05/29/18 05:59 05:59 05:59 Intake Total 2584 1226 1197 Output Total 5200 1710 800 Balance -616 -2873 397 PT 26.6 SEC (12.0-15.0) H 05/28/18 06:30 INR 2.46 (0.83-1.16) H 05/28/18 06:30 - Time Spent With Patient Time Spent with Patient: greater than 35 minutes Time Spent with Patient: Greater than 35 minutes spent on this patients care, greater than 50% of time spent counseling, educating, and coordinating care regarding the above mentioned plan. ICD10 Worksheet Patient Problems: Problems Problem Status Onset Acute ischemic stroke Acute Atrial fibrillation with RVR Acute C. difficile diarrhea Acute ~01/02/17 Hypotension Acute Medication side effect Acute
--- NOTE | 2018-05-28 12:28 | ASMTCMCOM ---
CM Note CM Note Notes: CM spoke to Violeta RN regarding d/c POC. Pt is still diuresing. CLIFF spoke to Trisha Barrett and provided her w/ an update. Update sent to [facility]. CM to follow. Plan: [facility] Date Signed: 05/28/2018 12:27 PM Electronically Signed By:JAEL Wilkerson
--- NOTE | 2018-05-28 12:55 | PDCARPN ---
Cardiology Progress Note Chief Complaint: Patient doing "fair" today with complaints of feeling more fatigued Assessment/Plan: Assessment: 05-28-18 Patient feeling "fair" with more fatigue noted today. She feels this might be secondary to being up in her chair for 13 hours yesterday. Walk in the hallway yesterday and today. Sitting up in chair. Cough (semi productive) today. No clear weight loss, but a 3 liter negative output (so uncertain why this is not translating to weight loss). No chest pains or pressure. No PND or orthopnea. PO intake (unregulated) might be playing some part in a negative balance without a weight loss noted. There is a [address] Owens in the patient's room... 05-27-18 No cardiovascular complaints this morning. Patient slept well overnight. No chest pains or pressure. Overall, the patient states that she is feeling much better than she did at the time of admission. INR was therapeutic today (1.99) . Ongoing lasix drip. Weights today are documented as elevated, even with a negative output noted (?). Minor lower extremity swelling is noted. Today, the patient was up in her chair versus bed bound (as was the case yesterday). We need to have labs (BMP/CMP) to monitor electrolytes as well as renal function. Given the patient's weight is still moderately elevated compared to reported "dry weight" would continue current therapy. We have been moving in the correct direction, and I don't have a good answer for negative output with weight increase noted. 05-26-18 Patient is a 58 y/o female with numerous medical issues including CAD s/p PCI ( in setting of AMI 2014), CHF (with estimated systolic function of 40% with apical hypokinesis), VHD (moderate mitral regurgitation), pAF (on coumadin with [id number] score of 7), CVA (right sided, and thought secondary to pAF history) , LONNY with CPAP use, DM, Lupus, chronic renal insufficiency (creatinine up to 2.2 with this admission, but currently 1.7), and obesity, who was admitted on with dyspnea. Associated symptoms of fatigue, lethargy, and wheezing were verbalized. No chest pains or pressure. No fevers of chills. Since she was admitted, weights are down (about 4 kg), and renal function has improved ( 1.7 has been stable for past several days). The patient reports that she has been feeling well - better than how she felt at the time of admission. Telemetry without any evidence of atrial fibrillation over the past several hours, but a bout of atrial fibrillation was noted (without symptoms) during this admission. INR has been increasing, slowly, with heparin coverage ongoing. Patient without cardiovascular complaints today. Plan: (1) Aggressive fluid restrictions (2) Continue IV lasix (3) Coumadin for pAF history should continue (therapeutic today) (4) Coreg for HTN (5) Aldactone for CHF history should continue (6) ASA for life with CAD history (7) Amiodarone for assistance with suppression of pAF (8) Statins for HLP should continue (9) Ambulation (10) Would get IS (incentive spirometer) to bedside given the cough that has been noted Subjective: No cardiovascular complaints, but a cough is noted moreso today in comparison to yesterday Objective: Vital Signs (8 Hrs) Temp Pulse Resp BP Pulse Ox 05/28/18 11:25 36.3 C 64 12 114/60 97 05/28/18 07:13 36.4 C 62 16 109/77 95 05/28/18 05:30 63 16 97 Intake/Output (24 Hrs) 05/27/18 05/28/18 05/29/18 05:59 05:59 05:59 Intake Total 2584 1226 1447 Output Total 3200 4950 800 Balance -616 -3724 647 Intake: Oral (ml) 2025 950 1315 IV Infused (ml) 559 276 132 Furosemide 100 mg In Ns 264 132 132 100 ml @ 10 MG/HR 11 mls/ hr IV CONT DOROTHEA Rx#: [id number] Heparin/Dextrose 500 ml @ 295 144 Per Protocol IV CONT DOROTHEA Rx#:[id number] Output: Urine (ml) 2300 4950 800 Bedside Commode 1600 4150 800 Incontinence 500 Toilet 200 800 Urine/Stool Mix (ml) 900 Toilet 900 Other: Weight 153.8 kg 154.8 kg Number of Voids Bedside Commode 1 1 Incontinence 4 1 Number of Stools Incontinence 1 Result Diagrams: 05/26/18 04:30 05/28/18 06:30 Telemetry: sinus rhythm at rate of 70 - 75 bpm - Physical Exam Constitutional: WDWN, healthy appearing, no apparent distress, obese Eyes: PERRL, EOMI Ears, Nose, Mouth, Throat: moist mucous membranes Cardiovascular: regular rate and rhythm, systolic murmur, other (distant heart sounds) Peripheral Pulses: 2+: dorsalis-pedis (R), dorsalis-pedis (L) Respiratory: reduced air movement, expiratory wheeze Gastrointestinal: normoactive bowel sounds Skin: other (trace lower extremity edema ) Musculoskeletal: no muscular tenderness Neurologic: AAOx3, CN II-XII grossly intact Psychiatric: cooperative, interactive, following commands ICD10 Worksheet Patient Problems: Problems Problem Status Onset Acute ischemic stroke Acute Atrial fibrillation with RVR Acute C. difficile diarrhea Acute ~01/02/17 Hypotension Acute Medication side effect Acute
[2018-05-28] MEDS: GUAIFENESIN/DM 10 ML UDCUP PO PRN (13:01)
[2018-05-28] MEDS: ACETAMINOPHEN 325 MG TAB PO PRN ×2 (13:02→23:21)
[2018-05-28] MEDS ORDERED: WARFARIN SODIUM 5 MG TAB PO ONE (16:00)
[2018-05-28] MEDS: ROSUVASTATIN CALCIUM 20 MG TAB PO SCH (20:20)
[2018-05-28] MEDS: traMADol 50 MG TAB PO PRN (20:22)
[2018-05-29] MEDS: IPRATROPIUM/ALBUTEROL 3 ML DEYVIAL IH SCH ×4 (05:09→21:40)
[2018-05-29 06:08] LABS: INR 2.46 (0.83-1.16); PROTIME(PATIENT) 26.6 SEC (12.0-15.0)
[2018-05-29] MEDS: INSULIN LISPRO 100 UNIT/ML SC SCH ×6 (07:54→21:01)
[2018-05-29] MEDS: GUAIFENESIN/DM 10 ML UDCUP PO PRN (07:55)
[2018-05-29] MEDS: CARVEDILOL 25 MG TAB PO SCH ×2 (07:55→17:06)
[2018-05-29] MEDS: FUROSEMIDE 100 MG in NS 100 ML IV SCH ×2 (07:56→19:06)
[2018-05-29] MEDS: ASPIRIN EC 81 MG TAB PO SCH (08:04)
[2018-05-29] MEDS: INSULIN GLARGINE 100 UNITS/ML UNIT SC SCH ×2 (08:04→21:01)
[2018-05-29] MEDS: VENLAFAXINE XR 150 MG CAP PO SCH (08:04)
[2018-05-29] MEDS: SPIRONOLACTONE 25 MG TAB PO SCH (08:04)
[2018-05-29] MEDS: AMIODARONE HCL 200 MG TAB PO SCH (08:04)
[2018-05-29] MEDS: PREGABALIN 150 MG CAP PO SCH ×2 (08:04→20:22)
[2018-05-29] MEDS: clonazePAM 0.5 MG TAB PO SCH ×2 (08:04→20:22)
[2018-05-29] MEDS ORDERED: INSULIN GLARGINE 100 UNITS/ML UNIT SC SCH (08:28)
[2018-05-29] MEDS ORDERED: MAGNESIUM SULF 1 GM/DEXTROSE 100 ML IV ONE (09:01)
[2018-05-29] MEDS ORDERED: INSULIN GLARGINE 100 UNITS/ML UNIT SC ONE (09:45)
--- NOTE | 2018-05-29 13:11 | PDCARPN ---
Cardiology Progress Note Chief Complaint: Patient doing well today. Sitting up in chair. She continues to have a productive cough Assessment/Plan: Assessment: 05-29-18 Patient is feeling better today. Extraneous fluids (Diet Dr. Owens) is no longer present in the room. Weight and output are down and negative, respectively. Patient is sitting up in chair. Ambulation earlier today without limitations voiced. No chest pains or pressure. Right elbow pains are more noted today. No chest pains or pressure. No PND or orthopnea. Creatinine elevation (from 1.7 to 1.8) has been noted. 05-28-18 Patient feeling "fair" with more fatigue noted today. She feels this might be secondary to being up in her chair for 13 hours yesterday. Walk in the hallway yesterday and today. Sitting up in chair. Cough (semi productive) today. No clear weight loss, but a 3 liter negative output (so uncertain why this is not translating to weight loss). No chest pains or pressure. No PND or orthopnea. PO intake (unregulated) might be playing some part in a negative balance without a weight loss noted. There is a 2 liter bottle of Jp Owens in the patient's room... 05-27-18 No cardiovascular complaints this morning. Patient slept well overnight. No chest pains or pressure. Overall, the patient states that she is feeling much better than she did at the time of admission. INR was therapeutic today (1.99) . Ongoing lasix drip. Weights today are documented as elevated, even with a negative output noted (?). Minor lower extremity swelling is noted. Today, the patient was up in her chair versus bed bound (as was the case yesterday). We need to have labs (BMP/CMP) to monitor electrolytes as well as renal function. Given the patient's weight is still moderately elevated compared to reported "dry weight" would continue current therapy. We have been moving in the correct direction, and I don't have a good answer for negative output with weight increase noted. 05-26-18 Patient is a 58 y/o female with numerous medical issues including CAD s/p PCI ( in setting of AMI 2014), CHF (with estimated systolic function of 40% with apical hypokinesis), VHD (moderate mitral regurgitation), pAF (on coumadin with [id number] score of 7), CVA (right sided, and thought secondary to pAF history) , LONNY with CPAP use, DM, Lupus, chronic renal insufficiency (creatinine up to 2.2 with this admission, but currently 1.7), and obesity, who was admitted on with dyspnea. Associated symptoms of fatigue, lethargy, and wheezing were verbalized. No chest pains or pressure. No fevers of chills. Since she was admitted, weights are down (about 4 kg), and renal function has improved ( 1.7 has been stable for past several days). The patient reports that she has been feeling well - better than how she felt at the time of admission. Telemetry without any evidence of atrial fibrillation over the past several hours, but a bout of atrial fibrillation was noted (without symptoms) during this admission. INR has been increasing, slowly, with heparin coverage ongoing. Patient without cardiovascular complaints today. Plan: (1) maintain aggressive fluid restrictions (2) IV lasix to continue - would monitor electrolytes and renal function this evening (3) Coumadin to continue for pAF history (4) ASA should continue with CV risks (5) Amiodarone for rate/rhythm control assistance (6) Statins for HLP should continue (7) Aldactone and Coreg to continue for HTN management assistance (8) Ambulation three times per day (9) IS was given to patient with instructions on use Subjective: No cardiovascular complaints Reviewed/Discussed With: hospitalist Objective: Vital Signs (8 Hrs) Temp Pulse Resp BP Pulse Ox 05/29/18 11:49 36.6 C 66 19 106/67 97 05/29/18 07:30 36.5 C 63 18 111/70 99 05/29/18 05:12 88 16 97 Intake/Output (24 Hrs) 05/28/18 05/29/18 05/30/18 05:59 05:59 05:59 Intake Total 1226 2547 Output Total 4950 4100 Balance -2973 -5202 Intake: Oral (ml) 950 2415 IV Infused (ml) 276 132 Furosemide 100 mg In Ns 132 132 100 ml @ 10 MG/HR 11 mls/ hr IV CONT DOROTHEA Rx#: [id number] Heparin/Dextrose 500 ml @ 144 Per Protocol IV CONT DOROTHEA Rx#:[id number] Output: Urine (ml) 4950 4100 Bedside Commode 4150 2100 Incontinence 400 Toilet 800 1600 Other: Weight 154.8 kg 152.906 kg Intake Quantity Yes Sufficient Number of Voids Bedside Commode 1 1 Incontinence 1 1 Toilet 1 Number of Stools Incontinence 1 Toilet 1 Result Diagrams: 05/26/18 04:30 05/29/18 05:50 Telemetry: normal sinus rhythm - Physical Exam Constitutional: healthy appearing, no apparent distress, obese Eyes: PERRL, EOMI Ears, Nose, Mouth, Throat: moist mucous membranes Cardiovascular: regular rate and rhythm, pulses symmetric bilat, No jugular vein distention Peripheral Pulses: 2+: dorsalis-pedis (R), dorsalis-pedis (L) Respiratory: clear to auscultate bilat, reduced air movement, other (productive cough), No expiratory wheeze Gastrointestinal: normoactive bowel sounds Skin: other (bilateral lower extremity edema) Musculoskeletal: joint tenderness (right elbow) Neurologic: AAOx3, CN II-XII grossly intact Psychiatric: cooperative, interactive, following commands ICD10 Worksheet Patient Problems: Problems Problem Status Onset Acute ischemic stroke Acute Atrial fibrillation with RVR Acute C. difficile diarrhea Acute ~01/02/17 Hypotension Acute Medication side effect Acute
[2018-05-29] MEDS ORDERED: WARFARIN SODIUM 5 MG TAB PO ONE (16:00)
--- NOTE | 2018-05-29 17:19 | HOSPPROG ---
Hospitalist Progress Note Assessment/Plan: #Acutely decompensated systolic heart failure/I-CDM (STEMI 2014): -has good UOP, but she has been drinking 10 cups ice, salted nuts. Enforced Na/ fluid restriction -dietary consult -cont Lasix gtt, Coreg, Aldactone. Cr up a bit and Na down; may need to back off diuresis #Mod-severe MR: confirmed on DAVID #Acute on chronic hypoxemic respiratory failure: multifactorial with acute systolic HF, MR, and diastolic dysfunction. #Paroxysmal A fib - Amiodarone, Coumadin #MICHELA on CKD: Cr trending up a bit #Metabolic alkalosis: due to diuresis #H/o CVA - cont ASA, statin, AC #LONNY: Bipap #H/o positive lupus anticoagulant #DM 2 with hyperglycemia: labile sugars here (has been snacking) Glargine 55 BID , 15 with meals, SSI #Right arm pain: normal shoulder ROM. xray shows mild degenerative disease #DVT ppx: coumadin/heparin #Deconditioning: agreeable to SNF #Goals: significant co-morbidities. Palliative Care consulted for goals and emotional support Inpatient admission for monitored diuresis, electrolyte repletion. Discussed with Dr. Price Subjective: RN found nuts, jerky bedside Objective: Vital Signs Temp Pulse Resp BP Pulse Ox 36.5 C 74 18 138/87 H 96 05/29/18 16:36 05/29/18 16:36 05/29/18 16:36 05/29/18 16:36 05/29/18 16:36 Laboratory Results 05/26/18 04:30 05/29/18 05:50 05/28/18 05/29/18 05/30/18 05:59 05:59 05:59 Intake Total 1226 2547 1372 Output Total 4950 4100 1350 Balance -3724 -1553 22 PT 26.6 SEC (12.0-15.0) H 05/29/18 05:50 INR 2.46 (0.83-1.16) H 05/29/18 05:50 - Time Spent With Patient Time Spent with Patient: greater than 35 minutes Time Spent with Patient: Greater than 35 minutes spent on this patients care, greater than 50% of time spent counseling, educating, and coordinating care regarding the above mentioned plan. - Physical Exam Constitutional: obese Eyes: PERRL Ears, Nose, Mouth, Throat: moist mucous membranes Cardiovascular: regular rate and rhythym, edema (+1 LE edema) Respiratory: No expiratory wheeze, No inspiratory crackles Gastrointestinal: normoactive bowel sounds, soft, non-tender abdomen Genitourinary: No baldwin in urethra Skin: warm, other (venous stasis skin changes of legs) Neurologic: AAOx3, CN II-XII Intact Psychiatric: interacting appropriately, other (tearful) ICD10 Worksheet Patient Problems: Problems Problem Status Onset Acute ischemic stroke Acute Atrial fibrillation with RVR Acute C. difficile diarrhea Acute ~01/02/17 Hypotension Acute Medication side effect Acute
[2018-05-29] MEDS: ROSUVASTATIN CALCIUM 20 MG TAB PO SCH (20:22)
[2018-05-29] MEDS: traMADol 50 MG TAB PO PRN (20:22)
[2018-05-30 04:33] LABS: INR 2.41 (0.83-1.16); PROTIME(PATIENT) 26.2 SEC (12.0-15.0)
[2018-05-30] MEDS: IPRATROPIUM/ALBUTEROL 3 ML DEYVIAL IH SCH ×4 (05:37→21:38)
[2018-05-30] MEDS: FUROSEMIDE 100 MG in NS 100 ML IV SCH (05:58)
[2018-05-30] MEDS: INSULIN LISPRO 100 UNIT/ML SC SCH ×7 (07:34→21:42)
[2018-05-30] MEDS: SPIRONOLACTONE 25 MG TAB PO SCH (09:21)
[2018-05-30] MEDS: CARVEDILOL 25 MG TAB PO SCH ×2 (09:21→18:37)
[2018-05-30] MEDS: VENLAFAXINE XR 150 MG CAP PO SCH (09:21)
[2018-05-30] MEDS: clonazePAM 0.5 MG TAB PO SCH ×2 (09:21→21:41)
[2018-05-30] MEDS: PREGABALIN 150 MG CAP PO SCH ×2 (09:22→21:41)
[2018-05-30] MEDS: ASPIRIN EC 81 MG TAB PO SCH (09:22)
[2018-05-30] MEDS: INSULIN GLARGINE 100 UNITS/ML UNIT SC SCH ×2 (09:22→21:42)
[2018-05-30] MEDS: AMIODARONE HCL 200 MG TAB PO SCH (09:22)
[2018-05-30] MEDS: ACETAMINOPHEN 325 MG TAB PO PRN (13:25)
--- NOTE | 2018-05-30 15:24 | PDCARPN ---
Cardiology Progress Note Chief Complaint: Patient feeling fair today, but anxiety about being in the hospital has become more elevated Assessment/Plan: Assessment: 05-30-18 Patient is no better or worse today. Renal function continues to elevate. No cardiovascular complaints at present. Weight continues to drop, albeit slowly today. No chest pains or pressure. Patient's anxiety a bit more elevated today. Patient continues to have dietary issues that likely contribute to her inability to diurese. In the past, according to the patient, nephrology was involved with her care (after renal dysfunction was noted). Creatinine today was 1.9 today. 05-29-18 Patient is feeling better today. Extraneous fluids (Jp Owens) is no longer present in the room. Weight and output are down and negative, respectively. Patient is sitting up in chair. Ambulation earlier today without limitations voiced. No chest pains or pressure. Right elbow pains are more noted today. No chest pains or pressure. No PND or orthopnea. Creatinine elevation (from 1.7 to 1.8) has been noted. 05-28-18 Patient feeling "fair" with more fatigue noted today. She feels this might be secondary to being up in her chair for 13 hours yesterday. Walk in the hallway yesterday and today. Sitting up in chair. Cough (semi productive) today. No clear weight loss, but a 3 liter negative output (so uncertain why this is not translating to weight loss). No chest pains or pressure. No PND or orthopnea. PO intake (unregulated) might be playing some part in a negative balance without a weight loss noted. There is a 2 liter bottle of Jp Owens in the patient's room... 05-27-18 No cardiovascular complaints this morning. Patient slept well overnight. No chest pains or pressure. Overall, the patient states that she is feeling much better than she did at the time of admission. INR was therapeutic today (1.99) . Ongoing lasix drip. Weights today are documented as elevated, even with a negative output noted (?). Minor lower extremity swelling is noted. Today, the patient was up in her chair versus bed bound (as was the case yesterday). We need to have labs (BMP/CMP) to monitor electrolytes as well as renal function. Given the patient's weight is still moderately elevated compared to reported "dry weight" would continue current therapy. We have been moving in the correct direction, and I don't have a good answer for negative output with weight increase noted. 05-26-18 Patient is a 58 y/o female with numerous medical issues including CAD s/p PCI ( in setting of AMI 2014), CHF (with estimated systolic function of 40% with apical hypokinesis), VHD (moderate mitral regurgitation), pAF (on coumadin with [id number] score of 7), CVA (right sided, and thought secondary to pAF history) , LONNY with CPAP use, DM, Lupus, chronic renal insufficiency (creatinine up to 2.2 with this admission, but currently 1.7), and obesity, who was admitted on with dyspnea. Associated symptoms of fatigue, lethargy, and wheezing were verbalized. No chest pains or pressure. No fevers of chills. Since she was admitted, weights are down (about 4 kg), and renal function has improved ( 1.7 has been stable for past several days). The patient reports that she has been feeling well - better than how she felt at the time of admission. Telemetry without any evidence of atrial fibrillation over the past several hours, but a bout of atrial fibrillation was noted (without symptoms) during this admission. INR has been increasing, slowly, with heparin coverage ongoing. Patient without cardiovascular complaints today. Plan: (1) Given the ongoing elevation to creatinine, would hold lasix drip today (2) Coumadin should continue (3) ASA therapy to continue (4) Amiodarone should continue for rate control assistance (5) Statins for HLP (6) Aldactone and Coreg should continue for HTN management (7) Would continue with ambulation Subjective: No active cardiovascular complaints Objective: Vital Signs (8 Hrs) Temp Pulse Resp BP Pulse Ox 05/30/18 12:53 36.7 C 69 18 119/65 97 05/30/18 12:36 67 18 99 05/30/18 07:24 36.8 C 69 18 126/70 H 96 Intake/Output (24 Hrs) 05/29/18 05/30/18 05/31/18 05:59 05:59 05:59 Intake Total 2547 2765 250 Output Total 4100 3250 800 Balance -2153 -3065 -550 Intake: Oral (ml) 2415 2072 250 IV Infused (ml) 132 103 Furosemide 100 mg In Ns 132 103 100 ml @ 10 MG/HR 11 mls/ hr IV CONT DOROTHEA Rx#: [id number] Output: Urine (ml) 4100 3250 800 Bedside Commode 2100 1400 300 Incontinence 400 Toilet 1600 1850 500 Other: Weight 152.906 kg 152.2 kg Intake Quantity Yes Yes Sufficient Number of Voids Bedside Commode 1 2 Incontinence 1 1 2 Toilet 1 1 Number of Stools Bedside Commode 1 Incontinence 1 Toilet 1 1 Result Diagrams: 05/26/18 04:30 05/30/18 04:15 Telemetry: sinus rhythm - Physical Exam Constitutional: no apparent distress, obese Eyes: PERRL, EOMI Ears, Nose, Mouth, Throat: moist mucous membranes Cardiovascular: regular rate and rhythm, pulses symmetric bilat, No jugular vein distention Peripheral Pulses: 2+: dorsalis-pedis (R), dorsalis-pedis (L) Respiratory: reduced air movement, expiratory wheeze Gastrointestinal: normoactive bowel sounds Skin: other (bilateral lower extremity edema) Musculoskeletal: other (right elbow pains are noted) Neurologic: AAOx3, CN II-XII grossly intact Psychiatric: cooperative, interactive, following commands ICD10 Worksheet Patient Problems: Problems Problem Status Onset Acute ischemic stroke Acute Atrial fibrillation with RVR Acute C. difficile diarrhea Acute ~01/02/17 Hypotension Acute Medication side effect Acute
[2018-05-30] MEDS ORDERED: WARFARIN SODIUM 5 MG TAB PO ONE (16:00)
--- NOTE | 2018-05-30 16:19 | ASMTCMCOM ---
CM Note CM Note Notes: Pt is still diuresing. Pt is not medically stable to d/c yet. Updates given to Trisha Barrett (P#: [phone]). Pt will d/c to [facility] when medically stable. Updates sent to [facility]. CM to follow. Plan: [facility] Date Signed: 05/30/2018 04:16 PM Electronically Signed By:JAEL Wilkerson
--- NOTE | 2018-05-30 16:38 | HOSPPROG ---
Hospitalist Progress Note Assessment/Plan: #Acutely decompensated systolic heart failure/I-CDM (STEMI 2014): #Mod-severe MR: confirmed on DAVID #Acute on chronic hypoxemic respiratory failure: multifactorial with acute systolic HF, MR, and diastolic dysfunction. #Paroxysmal A fib - Amiodarone, Coumadin #MICHELA on CKD: Cr trending up a bit #Metabolic alkalosis: due to diuresis #H/o CVA - cont ASA, statin, AC #LONNY: Bipap #H/o positive lupus anticoagulant #DM 2 with hyperglycemia: labile sugars here (has been snacking) Glargine 55 BID , 15 with meals, SSI #Right arm pain: normal shoulder ROM. xray shows mild degenerative disease #DVT ppx: coumadin/heparin #Deconditioning: agreeable to SNF #Goals: significant co-morbidities. Palliative Care consulted for goals and emotional support Plan: -Stop Lasix Drip. Start Bumex -For now, will hold off on Renal consult. If the pt's Cr worsens tomorrow despite the decrease in diuretics, will obtain a consult -optimize glucose mgmt which has been difficult due to labile glucose -d/w Cardiology Subjective: no cp. some diuresis. Cr has increased again. BUN also Objective: Vital Signs Temp Pulse Resp BP Pulse Ox 36.9 C 66 18 119/65 91 L 05/30/18 16:00 05/30/18 16:00 05/30/18 16:00 05/30/18 16:00 05/30/18 16:00 Laboratory Results 05/26/18 04:30 05/30/18 04:15 05/29/18 05/30/18 05/31/18 05:59 05:59 05:59 Intake Total 2547 2175 250 Output Total 4100 3250 800 Balance -1553 -1075 -550 PT 26.2 SEC (12.0-15.0) H 05/30/18 04:15 INR 2.41 (0.83-1.16) H 05/30/18 04:15 - Physical Exam Constitutional: no apparent distress Eyes: PERRL Ears, Nose, Mouth, Throat: moist mucous membranes, hearing normal Cardiovascular: regular rate and rhythym, edema Respiratory: no respiratory distress, reduced air movement Gastrointestinal: normoactive bowel sounds Skin: warm Neurologic: AAOx3 Psychiatric: interacting appropriately, not anxious, not encephalopathic Lymph, Heme, Immunologic: No petechiae ICD10 Worksheet Patient Problems: Problems Problem Status Onset Acute ischemic stroke Acute Atrial fibrillation with RVR Acute C. difficile diarrhea Acute ~01/02/17 Hypotension Acute Medication side effect Acute
[2018-05-30] MEDS: ROSUVASTATIN CALCIUM 20 MG TAB PO SCH (21:41)
[2018-05-30] MEDS: traMADol 50 MG TAB PO PRN (21:41)
[2018-05-31] MEDS: IPRATROPIUM/ALBUTEROL 3 ML DEYVIAL IH SCH ×4 (05:35→20:23)
[2018-05-31 05:58] LABS: INR 2.25 (0.83-1.16); PROTIME(PATIENT) 24.9 SEC (12.0-15.0)
[2018-05-31] MEDS: SPIRONOLACTONE 25 MG TAB PO SCH (08:11)
[2018-05-31] MEDS: CARVEDILOL 25 MG TAB PO SCH ×2 (08:11→17:35)
[2018-05-31] MEDS: ASPIRIN EC 81 MG TAB PO SCH (08:12)
[2018-05-31] MEDS: AMIODARONE HCL 200 MG TAB PO SCH (08:12)
[2018-05-31] MEDS: clonazePAM 0.5 MG TAB PO SCH ×2 (08:13→21:33)
[2018-05-31] MEDS: BUMETANIDE 1 MG TAB PO SCH ×3 (08:13→10:02)
[2018-05-31] MEDS: INSULIN LISPRO 100 UNIT/ML SC SCH ×7 (08:14→21:34)
[2018-05-31] MEDS: PREGABALIN 150 MG CAP PO SCH ×2 (08:14→21:34)
[2018-05-31] MEDS: VENLAFAXINE XR 150 MG CAP PO SCH (08:14)
[2018-05-31] MEDS: INSULIN GLARGINE 100 UNITS/ML UNIT SC SCH ×2 (08:14→21:34)
--- NOTE | 2018-05-31 09:24 | PDCARPN ---
Cardiology Progress Note Chief Complaint: No cardiovascular complaints today. Assessment/Plan: Assessment: 05-31-18 Patient feeling better today. Renal function is stable (1.9). Weights are documented slightly up today. No cardiovascular complaints of chest pains or pressure. No PND or orthopnea. Patient took a shower this morning and is feeling better as a result of that. 05-30-18 Patient is no better or worse today. Renal function continues to elevate. No cardiovascular complaints at present. Weight continues to drop, albeit slowly today. No chest pains or pressure. Patient's anxiety a bit more elevated today. Patient continues to have dietary issues that likely contribute to her inability to diurese. In the past, according to the patient, nephrology was involved with her care (after renal dysfunction was noted). Creatinine today was 1.9 today. 05-29-18 Patient is feeling better today. Extraneous fluids (Jp Owens) is no longer present in the room. Weight and output are down and negative, respectively. Patient is sitting up in chair. Ambulation earlier today without limitations voiced. No chest pains or pressure. Right elbow pains are more noted today. No chest pains or pressure. No PND or orthopnea. Creatinine elevation (from 1.7 to 1.8) has been noted. 05-28-18 Patient feeling "fair" with more fatigue noted today. She feels this might be secondary to being up in her chair for 13 hours yesterday. Walk in the hallway yesterday and today. Sitting up in chair. Cough (semi productive) today. No clear weight loss, but a 3 liter negative output (so uncertain why this is not translating to weight loss). No chest pains or pressure. No PND or orthopnea. PO intake (unregulated) might be playing some part in a negative balance without a weight loss noted. There is a 2 liter bottle of Jp Owens in the patient's room... 05-27-18 No cardiovascular complaints this morning. Patient slept well overnight. No chest pains or pressure. Overall, the patient states that she is feeling much better than she did at the time of admission. INR was therapeutic today (1.99) . Ongoing lasix drip. Weights today are documented as elevated, even with a negative output noted (?). Minor lower extremity swelling is noted. Today, the patient was up in her chair versus bed bound (as was the case yesterday). We need to have labs (BMP/CMP) to monitor electrolytes as well as renal function. Given the patient's weight is still moderately elevated compared to reported "dry weight" would continue current therapy. We have been moving in the correct direction, and I don't have a good answer for negative output with weight increase noted. 05-26-18 Patient is a 58 y/o female with numerous medical issues including CAD s/p PCI ( in setting of AMI 2014), CHF (with estimated systolic function of 40% with apical hypokinesis), VHD (moderate mitral regurgitation), pAF (on coumadin with [id number] score of 7), CVA (right sided, and thought secondary to pAF history) , LONNY with CPAP use, DM, Lupus, chronic renal insufficiency (creatinine up to 2.2 with this admission, but currently 1.7), and obesity, who was admitted on with dyspnea. Associated symptoms of fatigue, lethargy, and wheezing were verbalized. No chest pains or pressure. No fevers of chills. Since she was admitted, weights are down (about 4 kg), and renal function has improved ( 1.7 has been stable for past several days). The patient reports that she has been feeling well - better than how she felt at the time of admission. Telemetry without any evidence of atrial fibrillation over the past several hours, but a bout of atrial fibrillation was noted (without symptoms) during this admission. INR has been increasing, slowly, with heparin coverage ongoing. Patient without cardiovascular complaints today. Plan: (1) Continue therapy on Bumex 2 mg per day (2) Coumadin for CVA prophylaxis (3) Amiodarone for assistance with rate control given pAF (4) Statins for HLP should continue (5) Aldactone and Coreg should continue (6) Ambulation should continue. Subjective: No cardiovascular complaints Reviewed/Discussed With: hospitalist Objective: Vital Signs (8 Hrs) Temp Pulse Resp BP Pulse Ox 05/31/18 08:11 72 121/67 H 05/31/18 05:36 71 14 95 05/31/18 04:00 36.9 C 76 20 121/67 H 98 Intake/Output (24 Hrs) 05/30/18 05/31/18 06/01/18 05:59 05:59 05:59 Intake Total 2175 1550 Output Total 3250 2100 Balance -1075 -550 Intake: Oral (ml) 2072 1550 IV Infused (ml) 103 Furosemide 100 mg In Ns 103 100 ml @ 10 MG/HR 11 mls/ hr IV CONT DOROTHEA Rx#: [id number] Output: Urine (ml) 3250 2100 Bedside Commode 1400 300 Incontinence 800 Toilet 1850 1000 Other: Weight 152.2 kg 153.1 kg Intake Quantity Yes Sufficient Number of Voids Bedside Commode 2 Incontinence 1 2 Toilet 1 Number of Stools Bedside Commode 1 Incontinence 2 Toilet 1 Result Diagrams: 05/26/18 04:30 05/31/18 05:38 Telemetry: sinus rhythm - Physical Exam Constitutional: WDWN, healthy appearing, no apparent distress, obese Eyes: PERRL, EOMI Ears, Nose, Mouth, Throat: moist mucous membranes Cardiovascular: regular rate and rhythm, systolic murmur, pulses symmetric bilat , No jugular vein distention Peripheral Pulses: 2+: dorsalis-pedis (R), dorsalis-pedis (L) Respiratory: clear to auscultate bilat, reduced air movement Gastrointestinal: normoactive bowel sounds Skin: no rashes, no edema Musculoskeletal: no muscular tenderness Neurologic: AAOx3, CN II-XII grossly intact Psychiatric: cooperative, interactive, following commands ICD10 Worksheet Patient Problems: Problems Problem Status Onset Acute ischemic stroke Acute Atrial fibrillation with RVR Acute C. difficile diarrhea Acute ~01/02/17 Hypotension Acute Medication side effect Acute
[2018-05-31] MEDS: BUMETANIDE 2 MG TAB PO SCH (10:01)
--- NOTE | 2018-05-31 14:30 | HOSPPROG ---
Hospitalist Progress Note Assessment/Plan: #Acutely decompensated systolic heart failure/I-CDM (STEMI 2014): #Mod-severe MR: confirmed on DAVID #Acute on chronic hypoxemic respiratory failure: multifactorial with acute systolic HF, MR, and diastolic dysfunction. #Paroxysmal A fib - Amiodarone, Coumadin #MICHELA on CKD: Cr trending up a bit #Metabolic alkalosis: due to diuresis #H/o CVA - cont ASA, statin, AC #LONNY: Bipap #H/o positive lupus anticoagulant #DM 2 with hyperglycemia: labile sugars here (has been snacking) #Right arm pain: normal shoulder ROM. xray shows mild degenerative disease #DVT ppx: coumadin/heparin #Deconditioning: agreeable to SNF #Goals: significant co-morbidities. Palliative Care consulted for goals and emotional support Plan: -Bumex increased -increase Lantus -cont all other -monitor cr closely. BUN elevation noted Subjective: no overnight events. still with leg swelling Objective: Vital Signs Temp Pulse Resp BP Pulse Ox 36.7 C 65 17 90/52 L 99 05/31/18 11:22 05/31/18 11:22 05/31/18 11:22 05/31/18 11:22 05/31/18 11:22 Laboratory Results 05/26/18 04:30 05/31/18 05:38 05/30/18 05/31/18 06/01/18 05:59 05:59 05:59 Intake Total 2175 1550 Output Total 3250 2100 Balance -1075 -550 PT 24.9 SEC (12.0-15.0) H 05/31/18 05:38 INR 2.25 (0.83-1.16) H 05/31/18 05:38 - Physical Exam Constitutional: no apparent distress, chronically ill appearing Eyes: PERRL, EOMI Ears, Nose, Mouth, Throat: moist mucous membranes, hearing normal Cardiovascular: regular rate and rhythym, edema Respiratory: no respiratory distress, no rales or rhonchi, clear to auscultation Gastrointestinal: normoactive bowel sounds Skin: warm Musculoskeletal: generalized weakness Neurologic: AAOx3 Psychiatric: interacting appropriately, not anxious, not encephalopathic Lymph, Heme, Immunologic: No petechiae ICD10 Worksheet Patient Problems: Problems Problem Status Onset Acute ischemic stroke Acute Atrial fibrillation with RVR Acute C. difficile diarrhea Acute ~01/02/17 Hypotension Acute Medication side effect Acute
[2018-05-31] MEDS: WARFARIN SODIUM 5 MG TAB PO SCH (15:38)
[2018-05-31] MEDS: traMADol 50 MG TAB PO PRN (21:33)
[2018-05-31] MEDS: ROSUVASTATIN CALCIUM 20 MG TAB PO SCH (21:34)
[2018-06-01 05:23] LABS: INR 2.34 (0.83-1.16); PROTIME(PATIENT) 25.6 SEC (12.0-15.0)
[2018-06-01] MEDS: IPRATROPIUM/ALBUTEROL 3 ML DEYVIAL IH SCH (06:12)
[2018-06-01] MEDS: CARVEDILOL 25 MG TAB PO SCH ×2 (08:52→18:17)
[2018-06-01] MEDS: clonazePAM 0.5 MG TAB PO SCH ×2 (08:52→20:29)
[2018-06-01] MEDS: BUMETANIDE 2 MG TAB PO SCH (08:52)
[2018-06-01] MEDS: VENLAFAXINE XR 150 MG CAP PO SCH (08:52)
[2018-06-01] MEDS: SPIRONOLACTONE 25 MG TAB PO SCH (08:52)
[2018-06-01] MEDS: PREGABALIN 150 MG CAP PO SCH ×2 (08:53→20:29)
[2018-06-01] MEDS: ASPIRIN EC 81 MG TAB PO SCH (08:53)
[2018-06-01] MEDS: INSULIN LISPRO 100 UNIT/ML SC SCH ×7 (08:53→20:55)
[2018-06-01] MEDS: AMIODARONE HCL 200 MG TAB PO SCH (08:53)
[2018-06-01] MEDS: diphenhydrAMINE 25 MG CAP PO PRN (08:53)
[2018-06-01] MEDS: INSULIN GLARGINE 100 UNITS/ML UNIT SC SCH ×3 (09:04→20:54)
--- NOTE | 2018-06-01 10:32 | PDCARPN ---
Cardiology Progress Note Chief Complaint: Patient is not feeling well today. More dyspnea is noted. Weights are noted to be more elevated. Renal function is currently stable Assessment/Plan: Assessment: 06-01-18 Working to get the patient off the lasix drip (for two reasons - she can not leave on this therapy, and kidney function was starting to elevated with the therapy) and on Bumex (2 mg per day, as was the therapy and dose in the outpatient setting) has led to increase in weights today. Renal function has remained stable at 1.9, but weights have crept back up after. Call to nephrology today to discuss patient's renal status and ability to diurese patient. Nephrology to add further recommendations within the next 24 hours. Renal was accepting of resumption of lasix therapy (80 mg IV) today given the weight increase noted, and the relatively stable creatinine. Bumex was given this morning, but outputs and weights suggesting that this therapy choice is not working for the patient. 05-31-18 Patient feeling better today. Renal function is stable (1.9). Weights are documented slightly up today. No cardiovascular complaints of chest pains or pressure. No PND or orthopnea. Patient took a shower this morning and is feeling better as a result of that. 05-30-18 Patient is no better or worse today. Renal function continues to elevate. No cardiovascular complaints at present. Weight continues to drop, albeit slowly today. No chest pains or pressure. Patient's anxiety a bit more elevated today. Patient continues to have dietary issues that likely contribute to her inability to diurese. In the past, according to the patient, nephrology was involved with her care (after renal dysfunction was noted). Creatinine today was 1.9 today. 05-29-18 Patient is feeling better today. Extraneous fluids (Diet DrReji Owens) is no longer present in the room. Weight and output are down and negative, respectively. Patient is sitting up in chair. Ambulation earlier today without limitations voiced. No chest pains or pressure. Right elbow pains are more noted today. No chest pains or pressure. No PND or orthopnea. Creatinine elevation (from 1.7 to 1.8) has been noted. 05-28-18 Patient feeling "fair" with more fatigue noted today. She feels this might be secondary to being up in her chair for 13 hours yesterday. Walk in the hallway yesterday and today. Sitting up in chair. Cough (semi productive) today. No clear weight loss, but a 3 liter negative output (so uncertain why this is not translating to weight loss). No chest pains or pressure. No PND or orthopnea. PO intake (unregulated) might be playing some part in a negative balance without a weight loss noted. There is a [address] Owens in the patient's room... 05-27-18 No cardiovascular complaints this morning. Patient slept well overnight. No chest pains or pressure. Overall, the patient states that she is feeling much better than she did at the time of admission. INR was therapeutic today (1.99) . Ongoing lasix drip. Weights today are documented as elevated, even with a negative output noted (?). Minor lower extremity swelling is noted. Today, the patient was up in her chair versus bed bound (as was the case yesterday). We need to have labs (BMP/CMP) to monitor electrolytes as well as renal function. Given the patient's weight is still moderately elevated compared to reported "dry weight" would continue current therapy. We have been moving in the correct direction, and I don't have a good answer for negative output with weight increase noted. 05-26-18 Patient is a 58 y/o female with numerous medical issues including CAD s/p PCI ( in setting of AMI 2014), CHF (with estimated systolic function of 40% with apical hypokinesis), VHD (moderate mitral regurgitation), pAF (on coumadin with [id number] score of 7), CVA (right sided, and thought secondary to pAF history) , LONNY with CPAP use, DM, Lupus, chronic renal insufficiency (creatinine up to 2.2 with this admission, but currently 1.7), and obesity, who was admitted on with dyspnea. Associated symptoms of fatigue, lethargy, and wheezing were verbalized. No chest pains or pressure. No fevers of chills. Since she was admitted, weights are down (about 4 kg), and renal function has improved ( 1.7 has been stable for past several days). The patient reports that she has been feeling well - better than how she felt at the time of admission. Telemetry without any evidence of atrial fibrillation over the past several hours, but a bout of atrial fibrillation was noted (without symptoms) during this admission. INR has been increasing, slowly, with heparin coverage ongoing. Patient without cardiovascular complaints today. Plan: (1) Bumex can continue, but given the weight increase noted, would resume IV lasix (80 mg) today and monitor weights, output, and renal function (2) Coumadin should continue for CVA prophylaxis given pAF history (3) Amiodarone should continue - we have noted suppression of pAF on this therapy (4) Statins to continue (5) Aldactone and Coreg for HTN and some degree of rate/rhythm control assistance with pAF and the latter of the two therapies (6) Patient needs to ambulate and use IS regularly while in house (7) Ongoing work toward a rehab facility given the length of her inpatient stay Subjective: Patient not feelin well today. Weights are elevated. Reviewed/Discussed With: family, hospitalist, multidisciplinary team Objective: Vital Signs (8 Hrs) Temp Pulse Resp BP Pulse Ox 06/01/18 08:52 72 110/88 H 06/01/18 08:00 36.7 C 72 15 110/88 H 90 L 06/01/18 04:00 36.8 C 68 20 126/67 H 96 Intake/Output (24 Hrs) 05/31/18 06/01/18 06/02/18 05:59 05:59 05:59 Intake Total 1550 1000 Output Total 2100 1300 Balance -550 -300 Intake: Oral (ml) 1550 1000 Output: Urine (ml) 2100 1300 Bedside Commode 300 Incontinence 800 900 Toilet 1000 400 Other: Weight 153.1 kg 155.5 kg Intake Quantity Yes Sufficient Number of Voids Incontinence 2 Number of Stools Bedside Commode 1 Incontinence 2 2 Result Diagrams: 05/26/18 04:30 06/01/18 04:46 Telemetry: normal sinus rhythm - Physical Exam Constitutional: WDWN, obese Eyes: PERRL, EOMI Ears, Nose, Mouth, Throat: moist mucous membranes Cardiovascular: regular rate and rhythm, systolic murmur, jugular vein distention, pulses symmetric bilat Peripheral Pulses: 2+: dorsalis-pedis (R), dorsalis-pedis (L) Respiratory: reduced air movement, expiratory wheeze, inspiratory crackles Gastrointestinal: normoactive bowel sounds Skin: rash, other (edema to BLE noted) Musculoskeletal: no muscular tenderness Neurologic: AAOx3, CN II-XII grossly intact Psychiatric: cooperative, interactive, following commands ICD10 Worksheet Patient Problems: Problems Problem Status Onset Acute ischemic stroke Acute Atrial fibrillation with RVR Acute C. difficile diarrhea Acute ~01/02/17 Hypotension Acute Medication side effect Acute
[2018-06-01] MEDS ORDERED: FUROSEMIDE 100 MG/10 ML VIAL IVP ONE (10:48)
[2018-06-01] MEDS ORDERED: FUROSEMIDE 80 MG in D5W 50 ML IV ONE (11:00)
[2018-06-01] MEDS ORDERED: IPRATROPIUM/ALBUTEROL 3 ML DEYVIAL IH PRN (11:30)
--- NOTE | 2018-06-01 14:11 | HOSPPROG ---
Hospitalist Progress Note Assessment/Plan: #Acutely decompensated systolic heart failure/I-CDM (STEMI 2014): #Mod-severe MR: confirmed on DAVID #Acute on chronic hypoxemic respiratory failure: multifactorial with acute systolic HF, MR, and diastolic dysfunction. #Paroxysmal A fib - Amiodarone, Coumadin #MICHELA on CKD: Cr trending up a bit #Metabolic alkalosis: due to diuresis #H/o CVA - cont ASA, statin, AC #LONNY: Bipap #H/o positive lupus anticoagulant #DM 2 with hyperglycemia: labile sugars here #Right arm pain: normal shoulder ROM. xray shows mild degenerative disease #DVT ppx: coumadin/heparin #Deconditioning: agreeable to SNF #Goals: significant co-morbidities. Palliative Care consulted for goals and emotional support Plan: -cont Bumex. Diureses has been difficult. Cards is consulting Nephrology -Lantus was increased on 05/31. Would not increase further for now. She has had previous hypoglycemic events. Glucose is labile -monitor cr closely. BUN elevation noted Subjective: no significant diuresis with increasing Bumex Objective: Vital Signs Temp Pulse Resp BP Pulse Ox 36.7 C 65 18 116/55 L 98 06/01/18 12:00 06/01/18 12:00 06/01/18 12:00 06/01/18 12:00 06/01/18 12:00 Laboratory Results 05/26/18 04:30 06/01/18 04:46 05/31/18 06/01/18 06/02/18 05:59 05:59 05:59 Intake Total 1550 1000 Output Total 2100 1300 Balance -550 -300 PT 25.6 SEC (12.0-15.0) H 06/01/18 04:46 INR 2.34 (0.83-1.16) H 06/01/18 04:46 - Physical Exam Constitutional: no apparent distress, chronically ill appearing Eyes: PERRL, EOMI Ears, Nose, Mouth, Throat: moist mucous membranes, hearing normal Cardiovascular: regular rate and rhythym, edema Respiratory: no respiratory distress, no rales or rhonchi, clear to auscultation Gastrointestinal: normoactive bowel sounds Skin: warm Musculoskeletal: full muscle strength Neurologic: AAOx3 Psychiatric: interacting appropriately, not anxious, not encephalopathic Lymph, Heme, Immunologic: No petechiae ICD10 Worksheet Patient Problems: Problems Problem Status Onset Acute ischemic stroke Acute Atrial fibrillation with RVR Acute C. difficile diarrhea Acute ~01/02/17 Hypotension Acute Medication side effect Acute
[2018-06-01] MEDS: WARFARIN SODIUM 5 MG TAB PO SCH (16:42)
[2018-06-01] MEDS: traMADol 50 MG TAB PO PRN (20:30)
[2018-06-01] MEDS: ROSUVASTATIN CALCIUM 20 MG TAB PO SCH (20:30)
[2018-06-02] MEDS: diphenhydrAMINE 25 MG CAP PO PRN (04:46)
[2018-06-02] MEDS: traMADol 50 MG TAB PO PRN ×2 (04:46→21:26)
[2018-06-02 05:14] LABS: INR 2.12 (0.83-1.16); PROTIME(PATIENT) 23.8 SEC (12.0-15.0)
[2018-06-02] MEDS: INSULIN LISPRO 100 UNIT/ML SC SCH ×7 (08:09→21:22)
[2018-06-02] MEDS: SPIRONOLACTONE 25 MG TAB PO SCH ×2 (08:16→16:14)
[2018-06-02] MEDS: clonazePAM 0.5 MG TAB PO SCH ×2 (08:16→21:26)
[2018-06-02] MEDS: VENLAFAXINE XR 150 MG CAP PO SCH (08:16)
[2018-06-02] MEDS: ASPIRIN EC 81 MG TAB PO SCH (08:16)
[2018-06-02] MEDS: PREGABALIN 150 MG CAP PO SCH ×2 (08:16→21:27)
[2018-06-02] MEDS: CARVEDILOL 25 MG TAB PO SCH ×2 (08:16→18:37)
[2018-06-02] MEDS: AMIODARONE HCL 200 MG TAB PO SCH (08:16)
[2018-06-02] MEDS: INSULIN GLARGINE 100 UNITS/ML UNIT SC SCH ×2 (08:17→21:25)
[2018-06-02] MEDS: BUMETANIDE 2 MG TAB PO SCH ×2 (09:15→16:13)
--- NOTE | 2018-06-02 10:31 | PDCONSULT ---
[employer] Note: Assessment/Plan: CKD 3: Cr has been relatively stable at 1.9 this hospitalization, currently 1.8. She is volume overloaded. - No need for HD. - Will continue diuresis as below. - Will check UA, CK. - Avoid hypotension and nephrotoxins. - Will continue to monitor. Volume overload: pt not making much headway during this prolonged hospitalization, concerned that she is having too much oral intake. - Will fluid restrict to 1500ml. - Will change Bumex and spironolactone to BID dosing. - Will give a dose of metolazone this afternoon. - Will continue to monitor. Metabolic alkalosis: due to diuretics, will continue to monitor for now. HTN: BP ok for now, will monitor on current meds, working on fluid management as above. Thank you for the interesting consult. Nephrology will continue to follow, please call if you have any additional questions or concerns. H & P Stated Complaint: CKD Time Seen by Provider: 05/16/18 07:30 HPI/ROS: HPI: Ms. Mahoney is a 58 yo F with h/o obesity, DM, CKD, CHF who presented to hospital with complaints of dyspnea. Pt had been hospitalized for same complaint in 2017, was seen by our service while inpatient at that time, had been seen by Dr. Gotti in 2011 for CKD. She was diuresed in 03/2018. She came in again with dyspnea and volume overload. She was placed on Lasix ggt and weights improved from 157kg to 152kg, but no improvement beyond that. She was found to be eating a lot of salt and drinking fluids, particularly Dr. Owens. She was taken off Lasix ggt and switched to Bumex and spironolactone daily, weight back up to 155kg. She was given Lasix IV yesterday afternoon. She still feels short of breath, slightly improved from admission but still not at baseline. She also reports feeling itchy. Cr has been relatively stable at 1.9, today is 1.8. ROS: positive per HPI, rest of 10-point ROS negative - Medical/Surgical History Hx Asthma: No Hx Chronic Respiratory Disease: No Hx Diabetes: Yes Hx Cardiac Disease: Yes Hx Renal Disease: No Hx Cirrhosis: No Hx Alcoholism: No Hx HIV/AIDS: No Hx Splenectomy or Spleen Trauma: No Other PMH: Previous stroke in November 23 1996, DM2, thyroid surgery at age 16, CVA 2013, CT 2014 with 1 stent, mod- severe mr, hyperlipid, icm, phuong - bipap, oa, pafib, pfo, phtn, ablation, chf. anemia, SLE - Family History Significant Family History: No pertinent family hx - Social History Smoking Status: Former smoker - Physical Exam Exam: General: alert and oriented, no acute distress, obese Eyes: EOMI, PERRL OP: Clear, MMM Neck: supple, no thyromegaly Resp: CTA bilat, slightly labored respirations Abd: Soft, NT/ND Ext: +1 edema all extremities Neuro: CN II-XII grossly intact, no asterixis Psych: cooperative, appropriate mood and affect Skin: C/D/I, dry skin with some excoriation Constitutional: Initial Vital Signs Temperature (C) 37.7 C 05/16/18 18:06 Heart Rate 66 05/16/18 18:06 Respiratory Rate 20 05/16/18 18:06 Blood Pressure 121/60 H 05/16/18 18:06 O2 Sat (%) 96 05/16/18 18:06 O2 Delivery Mode Nasal Cannula,Humidified O2 (L/minute) 2 Allergies/Adverse Reactions: codeine Allergy (Mild, Verified 04/20/18 13:31) GI metformin Allergy (Mild, Verified 04/20/18 13:31) GI Sulfa (Sulfonamide Antibiotics) Allergy (Mild, Verified 04/20/18 13:31) Vomiting Home Medications: Medication Instructions Recorded Rosuvastatin Calcium [Crestor 20mg 20 mg PO HS 11/02/16 (*)] clonazePAM [klonoPIN (*)] 0.5 mg PO BID PRN 11/02/16 Acetaminophen [Tylenol 325mg (*)] 650 mg PO Q4HRS PRN #0 tab 11/03/16 Warfarin Sodium [Coumadin] 10 mg PO MOWEFR@16 01/02/17 Aspirin EC [Aspirin EC 81 mg (*)] 81 mg PO DAILY 04/03/18 Herbals/Supplements -Info Only 1 ea PO DAILY 04/03/18 Amiodarone HCl [Pacerone (*)] 200 mg PO DAILY #30 tab 04/19/18 Spironolactone [Aldactone 25 MG 25 mg PO DAILY #30 tab 04/19/18 (*)] amLODIPine BESYLATE [Norvasc 5 mg 5 mg PO DAILY #30 tab 04/19/18 (*)] Bumetanide [Bumex (*)] 3 mg PO DAILY 05/16/18 Carvedilol [Coreg] 12.5 mg PO BID 05/16/18 Insulin Glargine [Lantus Syringe] 70 units SC BID 05/16/18 Insulin Lispro [HumaLOG LISPRO] 15 - 20 unit SC TIDMEAL 05/16/18 Pregabalin [Lyrica 150mg (*)] 150 mg PO BID 05/16/18 Venlafaxine Xr [Effexor Xr] 150 mg PO DAILY 05/16/18 Warfarin Sodium 5 mg PO SUTUTHSA@16 05/16/18 Lab and Imaging 05/26/18 04:30 06/02/18 04:35 WBC 7.73 10^3/uL (3.80-9.50) 05/24/18 11:00 RBC 3.43 10^6/uL (4.18-5.33) L 05/24/18 11:00 Hgb 9.7 g/dL (12.6-16.3) L 05/24/18 11:00 Hct 30.8 % (38.0-47.0) L 05/24/18 11:00 MCV 89.8 fL (81.5-99.8) 05/24/18 11:00 MCH 28.3 pg (27.9-34.1) 05/24/18 11:00 MCHC 31.5 g/dL (32.4-36.7) L 05/24/18 11:00 RDW 15.5 % (11.5-15.2) H 05/24/18 11:00 Plt Count 182 10^3/uL (150-400) 05/26/18 04:30 MPV 13.6 fL (8.7-11.7) H 05/24/18 11:00 Neut % (Auto) 73.2 % (39.3-74.2) 05/24/18 11:00 Lymph % (Auto) 14.4 % (15.0-45.0) L 05/24/18 11:00 [place] % (Auto) 6.7 % (4.5-13.0) 05/24/18 11:00 Eos % (Auto) 4.8 % (0.6-7.6) 05/24/18 11:00 Baso % (Auto) 0.3 % (0.3-1.7) 05/24/18 11:00 Nucleat RBC Rel Count 0.0 % (0.0-0.2) 05/24/18 11:00 Absolute Neuts (auto) 5.66 10^3/uL (1.70-6.50) 05/24/18 11:00 Absolute Lymphs (auto) 1.11 10^3/uL (1.00-3.00) 05/24/18 11:00 Absolute Monos (auto) 0.52 10^3/uL (0.30-0.80) 05/24/18 11:00 Absolute Eos (auto) 0.37 10^3/uL (0.03-0.40) 05/24/18 11:00 Absolute Basos (auto) 0.02 10^3/uL (0.02-0.10) 05/24/18 11:00 Absolute Nucleated RBC 0.00 10^3/uL (0-0.01) 05/24/18 11:00 Immature Gran % 0.6 % (0.0-1.1) 05/24/18 11:00 Immature Gran # 0.05 10^3/uL (0.00-0.10) 05/24/18 11:00 PT 23.8 SEC (12.0-15.0) H 06/02/18 04:35 INR 2.12 (0.83-1.16) H 06/02/18 04:35 APTT 30.5 SEC (23.0-38.0) 05/24/18 11:00 Heparin Anti-Xa, Unfract 0.43 IU/mL (0.32-0.67) 05/27/18 05:20 Puncture Site RIGHT RADIAL 05/22/18 05:35 Patient Temperature 37.0 DEGREES 05/22/18 05:35 pCO2 57 mmHg (34-38) H 05/22/18 05:35 pO2 70 mmHg (65-75) 05/22/18 05:35 Total CO2 32 mEq/L (23-27) H 05/22/18 05:35 ABG pH 7.34 (7.35-7.45) L 05/22/18 05:35 ABG PO2/FiO2 Ratio 1686 RATIO 05/21/18 12:40 ABG HCO3 30 mEq/L (22-26) H 05/22/18 05:35 ABG O2 Saturation 93 % (92-95) 05/22/18 05:35 ABG Base Excess 3.7 mEq/L (-2.5-2.5) H 05/22/18 05:35 Total O2 Concentration 3.0 LITERS 05/17/18 10:35 O2 Concentration % 5 % (0-100) 05/21/18 12:40 Inspiratory Pressure 16 05/21/18 12:40 Mode BiPAP YES 05/21/18 12:40 Sodium 136 mEq/L (135-145) 06/02/18 04:35 Potassium 4.1 mEq/L (3.5-5.2) 06/02/18 04:35 Chloride 95 mEq/L (97-110) L 06/02/18 04:35 Carbon Dioxide 34 mEq/l (22-31) H 06/02/18 04:35 Anion Gap 7 mEq/L (6-14) 06/02/18 04:35 BUN 59 mg/dL (7-23) H 06/02/18 04:35 Creatinine 1.8 mg/dL (0.6-1.0) H 06/02/18 04:35 Estimated GFR 29 06/02/18 04:35 Glucose 107 mg/dL (70-100) H 06/02/18 04:35 POC Glucose 80 mg/dL (70-100) 06/02/18 07:29 Calcium 8.7 mg/dL (8.5-10.4) 06/02/18 04:35 Phosphorus 4.7 mg/dL (2.5-4.5) H 05/18/18 04:40 Magnesium 2.2 mg/dL (1.6-2.3) 06/02/18 04:35 Troponin I < 0.012 ng/mL (0.000-0.034) 05/16/18 21:15 NT-Pro-B Natriuret Pep 776 pg/mL (0-125) H 05/22/18 05:50 Albumin 3.4 g/dL (3.5-5.0) L 05/18/18 04:40 Urine Color YELLOW 05/19/18 16:35 Urine Appearance MODERATELY TURBID 05/19/18 16:35 Urine pH 5.0 (5.0-7.5) 05/19/18 16:35 Ur Specific [place] 1.009 (1.002-1.030) 05/19/18 16:35 Urine Protein NEGATIVE (NEGATIVE) 05/19/18 16:35 Urine Ketones NEGATIVE (NEGATIVE) 05/19/18 16:35 Urine Blood 3+ (NEGATIVE) H 05/19/18 16:35 Urine Nitrate NEGATIVE (NEGATIVE) 05/19/18 16:35 Urine Bilirubin NEGATIVE (NEGATIVE) 05/19/18 16:35 Urine Urobilinogen NEGATIVE EU (0.2-1.0) 05/19/18 16:35 Ur Leukocyte Esterase TRACE (NEGATIVE) H 05/19/18 16:35 Urine RBC 15-25 /hpf (0-3) H 05/19/18 16:35 Urine WBC 10-15 /hpf (0-3) H 05/19/18 16:35 Ur Epithelial Cells NONE SEEN /lpf (NONE-1+) 05/19/18 16:35 Urine Bacteria 2+ /hpf (NONE SEEN) H 05/19/18 16:35 Ur Random Creatinine 34.6 mg/dL 05/19/18 16:35 Ur Random Microalbumin 7.5 mg/dL (0.0-1.6) H 05/19/18 16:35 Ur Albumin/Creat Ratio 216.8 mg/g cre 05/19/18 16:35 Urine Glucose 3+ (NEGATIVE) H 05/19/18 16:35
--- NOTE | 2018-06-02 12:54 | PDCARPN ---
Cardiology Progress Note Assessment/Plan: Assessment/plan: 58-year-old female with morbid obesity, acute on chronic systolic heart failure with ejection fraction of 40%, chronic renal insufficiency, moderate mitral regurgitation, paroxysmal atrial fibrillation. She has history of coronary disease status post anterior PR in 2015 which is etiology for cardiomyopathy. She was admitted [facility] on May 17 with profound dyspnea likely a combination of heart failure exacerbation and viral pneumonia. She has had a DAVID this admission showing an ejection fraction of 40% with moderate mitral regurgitation. Coronary angiogram in August 2016 with patent LAD stents and no other significant coronary disease. During the past several days she has been on Lasix drip which is now office her creatinine has increased. She has made little progress in terms of diuresis. Seen by Dr. Hawkins of the Renal Service today. 1. Acute on chronic systolic heart failure with elements of right heart failure as well. Still volume overloaded. Agree with Dr. Hawkins's recommendations of twice daily spironolactone in twice daily Bumex. Single dose of metolazone today. Follow renal function and electrolytes. She is making decent urine but seems to be taking in too much fluid. Continue fluid restriction. This was reviewed with the patient today. No indication for dopamine or dobutamine at this time. Consider heart failure consult with Dr. Mcgowan. Check BNP in the morning. 2. Chronic renal insufficiency: Fluctuating renal function this admission. Appreciate renal consultation. Diuretics as above. Etiology is likely hypertension and diabetes. 3. Morbid obesity: Contributing to chronic hypoxic respiratory failure and overall increasing cardiovascular risk. 4. Coronary disease with history of anterior PR in 2015. Catheterization in 2017 as above. No indication for repeat catheterization now. 5. Paroxysmal atrial fibrillation: On warfarin and amiodarone. Doubt amiodarone pulmonary toxicity. Currently in sinus rhythm. I think it is important for her to maintain sinus rhythm in the setting of heart failure with ongoing attempts at diuresis. 6. Hypertension: Currently well controlled. 7. Sleep apnea: Treated with oxygen and BiPAP. 8. Anxiety: The patient reports significant underlying anxiety now exacerbated by her dyspnea and other health issues. She is on Klonopin and venlafaxine. May need to be changed in the outpatient setting. 9. Diabetes: On insulin. 10. Valvular heart disease: Moderate mitral regurgitation based on DAVID this admission. Will need to be followed serially. No indication for surgery at this time. 06/02/18 12:55 Subjective: Reports feeling very anxious today. She feels like she is going stir crazy being in the hospital this long. She does note that her breathing is slightly improved compared with admission anterior edema is also improved, but she is still markedly dyspneic even with activities of daily living. Overall she is quite frustrated. She denies angina. Objective: Vital Signs (8 Hrs) Temp Pulse Resp BP Pulse Ox 06/02/18 11:20 36.6 C 67 24 H 110/62 92 06/02/18 07:30 36.7 C 66 21 H 114/70 91 L Intake/Output (24 Hrs) 06/01/18 06/02/18 06/03/18 05:59 05:59 05:59 Intake Total 1000 1750 Output Total 1300 1500 Balance -300 250 Intake: Oral (ml) 1000 1750 Output: Urine (ml) 1300 1500 Incontinence 900 700 Toilet 400 800 Other: Weight 155.5 kg 155.7 kg Intake Quantity Yes Sufficient Number of Voids Toilet 3 Number of Stools Incontinence 2 Toilet 1 Anxious. JVP 12-14 cm of water. Regular rate and rhythm without murmur or gallop Lungs clear bilaterally without wheezes rhonchi or rales Will +pitting edema to mid vo bilaterally. Stigmata of chronic venous insufficiency. Pedal edema. Result Diagrams: 05/26/18 04:30 06/02/18 04:35 Telemetry: Sinus rhythm ICD10 Worksheet Patient Problems: Problems Problem Status Onset C. difficile diarrhea Acute ~01/02/17 Acute ischemic stroke Acute Hypotension Acute Medication side effect Acute Atrial fibrillation with RVR Acute
[2018-06-02] MEDS ORDERED: METOLAZONE 5 MG TAB PO ONE (13:30)
--- NOTE | 2018-06-02 13:51 | ASMTCMCOM ---
CM Note CM Note Notes: CM spoke with cardiology and informed of plan to [facility]. CM to continue to follow. Plan: [facility] Date Signed: 06/02/2018 01:50 PM Electronically Signed By:JAEL Landaverde
[2018-06-02] MEDS ORDERED: WARFARIN SODIUM 7.5 MG TAB PO ONE (16:00)
[2018-06-02] MEDS: HYDROCORTISONE 1% CREAM TP PRN ×2 (16:13→21:16)
--- NOTE | 2018-06-02 16:38 | HOSPPROG ---
Hospitalist Progress Note Assessment/Plan: Acutely decompensated systolic heart failure/I-CDM (STEMI 2014): diuretics adjusted today Mod-severe MR: confirmed on DAVID this is likely playing a role in refractory nature of heart failure Acute on chronic hypoxemic respiratory failure: multifactorial with acute systolic HF, MR, and diastolic dysfunction. Paroxysmal A fib - Amiodarone, Coumadin MICHELA on CKD: Crstable in high 1's Metabolic alkalosis: due to diuresis H/o CVA - cont ASA, statin, AC LONNY: Bipap H/o positive lupus anticoagulant DM 2 with hyperglycemia: labile sugars here Right arm pain: normal shoulder ROM. xray shows mild degenerative disease DVT ppx: coumadin/heparin Deconditioning: agreeable to SNF Goals: significant co-morbidities. Palliative Care consulted for goals and emotional support P Subjective: case d/w dr herman Objective: Vital Signs Temp Pulse Resp BP Pulse Ox 36.7 C 65 20 122/72 H 97 06/02/18 15:39 06/02/18 15:39 06/02/18 15:39 06/02/18 15:39 06/02/18 15:39 Laboratory Results 05/26/18 04:30 06/02/18 04:35 06/01/18 06/02/18 06/03/18 05:59 05:59 05:59 Intake Total 1000 1750 Output Total 1300 1500 Balance -300 250 PT 23.8 SEC (12.0-15.0) H 06/02/18 04:35 INR 2.12 (0.83-1.16) H 06/02/18 04:35 - Physical Exam Constitutional: no apparent distress, appears nourished Eyes: PERRL, anicteric sclera Ears, Nose, Mouth, Throat: moist mucous membranes, hearing normal Cardiovascular: regular rate and rhythym, no murmur, rub, or gallop Respiratory: no respiratory distress, rhonchi, No no rales or rhonchi Gastrointestinal: normoactive bowel sounds, soft, non-tender abdomen Genitourinary: no bladder fullness, No baldwin in urethra Skin: warm, normal color Musculoskeletal: full muscle strength, no muscle tenderness Neurologic: AAOx3, sensation intact bilaterally Psychiatric: interacting appropriately ICD10 Worksheet Patient Problems: Problems Problem Status Onset Acute ischemic stroke Acute Atrial fibrillation with RVR Acute C. difficile diarrhea Acute ~01/02/17 Hypotension Acute Medication side effect Acute
[2018-06-02] MEDS: ROSUVASTATIN CALCIUM 20 MG TAB PO SCH (21:26)
[2018-06-02] MEDS: traZODone 50 MG TAB PO PRN (21:27)
[2018-06-02] MEDS: guaiFENesin 600 MG TAB.ER PO SCH (21:27)
[2018-06-03 06:44] LABS: INR 2.17 (0.83-1.16); PROTIME(PATIENT) 24.2 SEC (12.0-15.0)
[2018-06-03 06:55] LABS: CREATINE KINASE 73 IU/L (0-156)
[2018-06-03] MEDS ORDERED: INSULIN LISPRO 100 UNIT/ML SC ONE (09:15)
[2018-06-03] MEDS: CARVEDILOL 25 MG TAB PO SCH ×2 (09:19→18:08)
[2018-06-03] MEDS: VENLAFAXINE XR 150 MG CAP PO SCH (09:19)
[2018-06-03] MEDS: INSULIN LISPRO 100 UNIT/ML SC SCH ×6 (09:19→22:04)
[2018-06-03] MEDS: BUMETANIDE 2 MG TAB PO SCH ×2 (09:19→15:26)
[2018-06-03] MEDS: clonazePAM 0.5 MG TAB PO SCH ×2 (09:19→21:56)
[2018-06-03] MEDS: ASPIRIN EC 81 MG TAB PO SCH (09:19)
[2018-06-03] MEDS: AMIODARONE HCL 200 MG TAB PO SCH (09:19)
[2018-06-03] MEDS: guaiFENesin 600 MG TAB.ER PO SCH ×2 (09:19→21:54)
[2018-06-03] MEDS: PREGABALIN 150 MG CAP PO SCH ×2 (09:19→21:53)
[2018-06-03] MEDS: SPIRONOLACTONE 25 MG TAB PO SCH ×2 (09:19→15:26)
[2018-06-03] MEDS: INSULIN GLARGINE 100 UNITS/ML UNIT SC SCH ×2 (09:30→21:57)
[2018-06-03] MEDS: HYDROCORTISONE 1% CREAM TP PRN ×2 (09:32→20:04)
[2018-06-03] MEDS ORDERED: METOLAZONE 5 MG TAB PO ONE (13:28)
--- NOTE | 2018-06-03 13:34 | PDCARPN ---
Cardiology Progress Note Assessment/Plan: Assessment/plan: 58-year-old female with morbid obesity, acute on chronic systolic heart failure with ejection fraction of 40%, chronic renal insufficiency, moderate mitral regurgitation, paroxysmal atrial fibrillation. She has history of coronary disease status post anterior SD in 2014 which is etiology for cardiomyopathy. She was admitted from [facility]iology [facility] on May 17 with profound dyspnea likely a combination of heart failure exacerbation and viral pneumonia. She has had a DAVID this admission showing an ejection fraction of 40% with moderate mitral regurgitation. Coronary angiogram in August 2016 with patent LAD stents and no other significant coronary disease. During the past several days she had been on Lasix drip which is now off as her creatinine has increased. She has made little progress in terms of diuresis. Seen by Dr. Hawkins of the Renal Service 06/02. 1. Acute on chronic systolic heart failure with elements of right heart failure as well. Still volume overloaded but improved. Agree with Dr. Hawkins's recommendations of twice daily spironolactone in twice daily Bumex. Single dose of metolazone given 06/02; will repeat that today. Follow renal function and electrolytes. She is making decent urine but seems to be taking in too much fluid. Continue fluid restriction. This was reviewed with the patient today. No indication for dopamine or dobutamine at this time. Consider heart failure consult with Dr. Mcgowan. BNP has not been significantly high or changed this admission, but can be falsely low in the setting of obesity. 2. Chronic renal insufficiency: Fluctuating renal function this admission. Appreciate renal consultation. Diuretics as above. Etiology is likely hypertension and diabetes. 3. Morbid obesity: Contributing to chronic hypoxic respiratory failure and overall increasing cardiovascular risk. 4. Coronary disease with history of anterior SD in 2015. Catheterization in 2017 as above. No indication for repeat catheterization now. 5. Paroxysmal atrial fibrillation: On warfarin and amiodarone. Doubt amiodarone pulmonary toxicity. Currently in sinus rhythm. I think it is important for her to maintain sinus rhythm in the setting of heart failure with ongoing attempts at diuresis. 6. Hypertension: Currently well controlled. 7. Sleep apnea: Treated with oxygen and BiPAP. 8. Anxiety: The patient reports significant underlying anxiety now exacerbated by her dyspnea and other health issues. She is on Klonopin and venlafaxine. Will ask [facility] RN to see. 9. Diabetes: On insulin. Appreciate IM assistance. 10. Valvular heart disease: Moderate mitral regurgitation based on DAVID this admission. Will need to be followed serially. No indication for surgery at this time. 11. Anemia: chronic disease, renal disease. No active bleeding. Dispo: goal to dc to [facility] this with close clinical follow up 06/03/18 13:31 Subjective: She is very anxious about her dyspnea. She is not sure she is going to be able to leave the hospital. She does think her edema is slightly better. Reviewed/Discussed With: hospitalist, multidisciplinary team Objective: Vital Signs (8 Hrs) Temp Pulse Resp BP Pulse Ox 06/03/18 12:00 36.8 C 72 18 116/57 L 96 06/03/18 07:15 36.8 C 61 18 118/61 97 Intake/Output (24 Hrs) 06/02/18 06/03/18 06/04/18 05:59 05:59 05:59 Intake Total 1750 1290 420 Output Total 1500 1650 Balance 250 -360 420 Intake: Oral (ml) 1750 1290 420 Output: Urine (ml) 1500 1650 Incontinence 700 850 Toilet 800 800 Other: Weight 156.1 kg Number of Voids Incontinence 1 Toilet 3 Number of Stools Toilet 1 Tearful. Anxious. JVP 12 cm of water. Regular rate and rhythm without murmur or gallop Lungs clear to auscultation bilaterally without wheeze rhonchi rales Slightly improved bilateral lower extremity edema, 1+ to midshin. Stigmata of chronic venous insufficiency. Result Diagrams: 06/03/18 06:20 06/03/18 06:20 Telemetry: Sinus rhythm. Occasional PVCs. ICD10 Worksheet Patient Problems: Problems Problem Status Onset C. difficile diarrhea Acute ~01/02/17 Acute ischemic stroke Acute Hypotension Acute Medication side effect Acute Atrial fibrillation with RVR Acute
[2018-06-03] MEDS ORDERED: WARFARIN SODIUM 5 MG TAB PO ONE (16:00)
--- NOTE | 2018-06-03 16:27 | SOAPPROG ---
SOAP Progress Note Assessment/Plan: Assessment: 1. ckd: has overall been quite stable throughout prolonged admit, with creat mainly 1.5-2. Was planning to f/u in our office, I do not believe that has actually occurred yet. May need to tolerate higher creat to maintain euvolemia, though at her lowest wt this admit her creat was 1.6. Should avoid acei/arb, as these would tend to exacerbate any creat increase with diuresis. 2. Overload: presumably due to combo of chf and ckd. Modest diuresis this admit and is currently on po diuretics. Agree with adding metolazone. Could consider resuming iv loop but would almost certainly worsen met alk. 3. Dyspnea: seems out of proportion to volume status, possibly due to obesity or intrinsic pulm dz. Plan: 06/03/18 16:22 Subjective: Feels poorly but better than on admit. Rec'd metolazone earlier today but hasn' t noticed any increase in uo. Objective: Vital Signs Temp Pulse Resp BP Pulse Ox 36.8 C 72 18 116/57 L 96 06/03/18 12:00 06/03/18 12:00 06/03/18 12:00 06/03/18 12:00 06/03/18 12:00 Laboratory Results 06/03/18 06:20 06/03/18 06:20 06/02/18 06/03/18 06/04/18 05:59 05:59 05:59 Intake Total 1750 1290 420 Output Total 1500 1650 400 Balance 250 -360 20 PT 24.2 SEC (12.0-15.0) H 06/03/18 06:20 INR 2.17 (0.83-1.16) H 06/03/18 06:20 Physical Exam - Physical Exam General Appearance: anxiety Respiratory: rhonchi, wheezing Cardiac/Chest: regular rate, rhythm Abdomen: other (obese, nt) Extremities: swelling (+LE edema) ICD10 Worksheet Patient Problems: Problems Problem Status Onset Acute ischemic stroke Acute Atrial fibrillation with RVR Acute C. difficile diarrhea Acute ~01/02/17 Hypotension Acute Medication side effect Acute
--- NOTE | 2018-06-03 17:22 | HOSPPROG ---
Hospitalist Progress Note Assessment/Plan: Acutely decompensated systolic heart failure/I-CDM (STEMI 2014): diuretics adjusted today Mod-severe MR: confirmed on DAVID this is likely playing a role in refractory nature of heart failure Acute on chronic hypoxemic respiratory failure: multifactorial with acute systolic HF, MR, and diastolic dysfunction. she has bronchitis which is probably driving her dyspnea to some [place], along w anxiety pulm toilet bedside pft's tomorrow Paroxysmal A fib - Amiodarone, Coumadin MICHELA on CKD: Crstable in high 1's Metabolic alkalosis: due to diuresis H/o CVA - cont ASA, statin, AC LONNY: Bipap H/o positive lupus anticoagulant DM 2 with hyperglycemia: labile sugars here Right arm pain: normal shoulder ROM. xray shows mild degenerative disease DVT ppx: coumadin/heparin Deconditioning: agreeable to SNF Goals: significant co-morbidities. Palliative Care consulted for goals and emotional support P Subjective: case d/w dr hathaway. i walked in room for 90 seconds briskly. sta 91 % and above. dyspneic Objective: Vital Signs Temp Pulse Resp BP Pulse Ox 36.8 C 72 18 116/57 L 96 06/03/18 12:00 06/03/18 12:00 06/03/18 12:00 06/03/18 12:00 06/03/18 12:00 Laboratory Results 06/03/18 06:20 06/03/18 06:20 06/02/18 06/03/18 06/04/18 05:59 05:59 05:59 Intake Total 1750 1290 420 Output Total 1500 1650 400 Balance 250 -360 20 PT 24.2 SEC (12.0-15.0) H 06/03/18 06:20 INR 2.17 (0.83-1.16) H 06/03/18 06:20 - Physical Exam Constitutional: no apparent distress, appears nourished Eyes: PERRL, anicteric sclera Ears, Nose, Mouth, Throat: moist mucous membranes, hearing normal Cardiovascular: regular rate and rhythym, no murmur, rub, or gallop Respiratory: no respiratory distress, no rales or rhonchi, other (wet cough) Gastrointestinal: normoactive bowel sounds, soft, non-tender abdomen Genitourinary: no bladder fullness, No baldwin in urethra Skin: warm, normal color Musculoskeletal: full muscle strength Neurologic: AAOx3 ICD10 Worksheet Patient Problems: Problems Problem Status Onset Acute ischemic stroke Acute Atrial fibrillation with RVR Acute C. difficile diarrhea Acute ~01/02/17 Hypotension Acute Medication side effect Acute
[2018-06-03] MEDS: traMADol 50 MG TAB PO PRN (21:53)
[2018-06-03] MEDS: traZODone 50 MG TAB PO PRN (21:55)
[2018-06-03] MEDS: ROSUVASTATIN CALCIUM 20 MG TAB PO SCH (21:56)
[2018-06-04] MEDS: HYDROCORTISONE 1% CREAM TP PRN ×2 (04:09→08:47)
[2018-06-04 04:56] LABS: INR 2.39 (0.83-1.16); PROTIME(PATIENT) 26.1 SEC (12.0-15.0)
[2018-06-04] MEDS: CARVEDILOL 25 MG TAB PO SCH (08:28)
[2018-06-04] MEDS: ASPIRIN EC 81 MG TAB PO SCH (08:28)
[2018-06-04] MEDS: clonazePAM 0.5 MG TAB PO SCH ×2 (08:28→21:38)
[2018-06-04] MEDS: PREGABALIN 150 MG CAP PO SCH ×2 (08:28→21:40)
[2018-06-04] MEDS: VENLAFAXINE XR 150 MG CAP PO SCH (08:28)
[2018-06-04] MEDS: BUMETANIDE 2 MG TAB PO SCH ×2 (08:28→18:11)
[2018-06-04] MEDS: SPIRONOLACTONE 25 MG TAB PO SCH ×2 (08:30→18:08)
[2018-06-04] MEDS: AMIODARONE HCL 200 MG TAB PO SCH (08:30)
[2018-06-04] MEDS: INSULIN LISPRO 100 UNIT/ML SC SCH ×6 (08:31→18:09)
[2018-06-04] MEDS: guaiFENesin 600 MG TAB.ER PO SCH ×2 (08:32→21:40)
[2018-06-04] MEDS: INSULIN GLARGINE 100 UNITS/ML UNIT SC SCH ×2 (08:33→21:48)
[2018-06-04] MEDS ORDERED: NITROGLYCERIN 0.4 MG BTL SL PRN (11:19)
[2018-06-04] MEDS ORDERED: TEMAZEPAM 15 MG CAP PO PRN (11:19)
[2018-06-04] MEDS ORDERED: DIAZEPAM 5 MG TAB PO ONE (11:19)
[2018-06-04] MEDS ORDERED: diphenhydrAMINE 25 MG CAP PO ONE (11:19)
[2018-06-04] MEDS ORDERED: FAMOTIDINE 20 MG TAB PO ONE (11:19)
--- NOTE | 2018-06-04 11:19 | SOAPPROG ---
WEI Progress Note Assessment/Plan: Assessment: CHF MD CARVAJAL note: 58 y/o woman with multiple medical issues including: chronic morbid obesity, CHF with LVEF 40%, moderate MR, CAD s/p LAD PCI 03/10, CRI with serum creatinine ranging 1.4-1.9, previous CVA with positive SLE anticogulant, IDDM and PAF on PO Amiodarone for last six weeks. She feels worse than a month ago. Now LOPEZ at 50-60ft and requiring supplemental O2. DDX: continued decompensated CHF with large component of RV failure but DAVID 05/23/18 showed normal RVEF, severe pulmonary HTN, anxiety or combination of all. I think a right heart cath with [place] Skyler hemodynamics would help clarify volume status and main organ causing LOPEZ. REC: 1)decrease Coreg to 12.5mg PO BID as lots of wheezes on exam 2)stop Amiodarone as clinically worse since starting this med six weeks ago. 3)start Amlodipine 5mg PO qhs. 4)[place] cath via right brachial vein this afternoon or Tomorrow on coumadin 5)more recs after right heart cath hemodynamics done. If significant pulmonary HTN, would reconsult pulmonary service. Thanks. Will follow daily. 06/04/18 11:13 Subjective: She has LOPEZ at 50-60ft, anxious, tired, frustrated. Denies CP, palpitations, PND or syncope. Has wet cough. Objective: Vital Signs Temp Pulse Resp BP Pulse Ox 36.7 C 63 18 105/55 L 95 06/04/18 07:06 06/04/18 07:06 06/04/18 07:06 06/04/18 08:28 06/04/18 07:06 Laboratory Results 06/03/18 06:20 06/04/18 04:20 06/03/18 06/04/18 06/05/18 05:59 05:59 05:59 Intake Total 1290 1460 Output Total 1650 1900 Balance -360 -440 PT 26.1 SEC (12.0-15.0) H 06/04/18 04:20 INR 2.39 (0.83-1.16) H 06/04/18 04:20 Physical Exam - Physical Exam General Appearance: obese EENT: PERRL/EOMI Neck: non-tender Respiratory: wheezing Cardiac/Chest: regular rate, rhythm, JVD (jvp to 9cm.), systolic murmur, No gallop Peripheral Pulses: 2+: carotid (R), carotid (L), femoral (R), femoral (L), dorsalis-pedis (R), dorsalis-pedis (L) Abdomen: non-tender, No distended, No guarding Skin: warm/dry Extremities: pedal edema (1+ bilateral edema to mid calves.) Neuro/Psych: alert, oriented x 3 ICD10 Worksheet Patient Problems: Problems Problem Status Onset Acute ischemic stroke Acute Atrial fibrillation with RVR Acute C. difficile diarrhea Acute ~01/02/17 Hypotension Acute Medication side effect Acute
[2018-06-04] MEDS ORDERED: MIDAZOLAM 2 MG/2 ML VIAL ONE (13:15)
[2018-06-04] MEDS ORDERED: fentaNYL 100 MCG/2 ML INJ ONE (13:15)
[2018-06-04] MEDS ORDERED: LIDOCAINE 1% 300 MG/30 ML SDV ONE (13:15)
[2018-06-04] MEDS ORDERED: IOPAMIDOL (ISOVUE-370) 150 ML BTL IV ONE (13:16)
--- NOTE | 2018-06-04 15:07 | PDPROPOC ---
Sedation Plan of Care Sedation Plan of Care: vital signs stable, mental status noted ASA Classification: ASA 2 Planned drugs: fentanyl, midazolam Mallampati Score: Class 2 Mallampati Reference Image: Patient passed 3-3-2 rule?: Yes
--- NOTE | 2018-06-04 15:07 | PDHPUP ---
History & Physical Update H&P update statement: This history and physical update is based on an assessment of the patient which was completed after admission or registration (within 24 hours), but prior to the surgery/procedure. H&P update: H&P reviewed & patient examined, no change in patient's condition since H&P completed
--- NOTE | 2018-06-04 15:44 | ASMTCMCOM ---
CM Note CM Note Notes: 06/04/2018 Case Management Note Met w/pt today to discuss discharge plan. Provided written information on discharge plan to [facility]. Faxed updates to [facility]. Maria R Bay consulted on patient. Please see her note. Discussed with [facility] Palliative care team. Please see note. Discussed with Trisha FATIMA for [facility]. Trisha plans to visit patient tomorrow morning. Case Management d/c poc: [facility] rehab. Case Management to follow. Date Signed: 06/04/2018 03:44 PM Electronically Signed By:Linda Mclaughlin RN
[2018-06-04] MEDS ORDERED: WARFARIN SODIUM 5 MG TAB PO ONE (16:00)
--- NOTE | 2018-06-04 16:49 | HOSPPROG ---
Hospitalist Progress Note Assessment/Plan: Acutely decompensated systolic heart failure/I-CDM (STEMI 2014): diuretics adjusted today R heart cath today results pending Mod-severe MR: confirmed on DAVID this is likely playing a role in refractory nature of heart failure Acute on chronic hypoxemic respiratory failure: multifactorial with acute systolic HF, MR, and diastolic dysfunction. she has bronchitis which is probably driving her dyspnea to some debree, along w anxiety pulm toilet declined pft's Paroxysmal A fib - Amiodarone, Coumadin MICHELA on CKD: Crstable in high 1's Metabolic alkalosis: due to diuresis H/o CVA - cont ASA, statin, AC LONNY: Bipap H/o positive lupus anticoagulant DM 2 with hyperglycemia: labile sugars here Right arm pain: normal shoulder ROM. xray shows mild degenerative disease DVT ppx: coumadin/heparin Deconditioning: agreeable to SNF Goals: significant co-morbidities. Palliative Care consulted for goals and emotional support P Subjective: case d/w dr schaeffer. R heart cath today Objective: Vital Signs Temp Pulse Resp BP Pulse Ox 36.7 C 65 16 107/64 93 06/04/18 07:06 06/04/18 12:00 06/04/18 12:00 06/04/18 12:00 06/04/18 12:00 Laboratory Results 06/03/18 06:20 06/04/18 04:20 06/03/18 06/04/18 06/05/18 05:59 05:59 05:59 Intake Total 1290 1460 Output Total 1650 1900 300 Balance -360 -440 -300 PT 26.1 SEC (12.0-15.0) H 06/04/18 04:20 INR 2.39 (0.83-1.16) H 06/04/18 04:20 - Physical Exam Constitutional: no apparent distress, appears nourished Eyes: PERRL, anicteric sclera Ears, Nose, Mouth, Throat: moist mucous membranes, hearing normal Cardiovascular: regular rate and rhythym, no murmur, rub, or gallop, edema Respiratory: no respiratory distress, no rales or rhonchi Gastrointestinal: normoactive bowel sounds, soft, non-tender abdomen Genitourinary: no bladder fullness, No baldiwn in urethra Skin: warm, normal color Musculoskeletal: full muscle strength Neurologic: AAOx3 ICD10 Worksheet Patient Problems: Problems Problem Status Onset Acute ischemic stroke Acute Atrial fibrillation with RVR Acute C. difficile diarrhea Acute ~01/02/17 Hypotension Acute Medication side effect Acute
[2018-06-04] MEDS ORDERED: ATROPINE SULFATE 1 MG/10 ML SYR IVP PRN (17:07)
[2018-06-04] MEDS: CARVEDILOL 6.25 MG TAB PO SCH (18:08)
[2018-06-04] MEDS: FUROSEMIDE 100 MG/10 ML VIAL IVP SCH (21:32)
[2018-06-04] MEDS: ROSUVASTATIN CALCIUM 20 MG TAB PO SCH (21:38)
[2018-06-04] MEDS: traZODone 50 MG TAB PO PRN (21:38)
[2018-06-04] MEDS: amLODIPine BESYLATE 5 MG TAB PO SCH (21:39)
[2018-06-04] MEDS: traMADol 50 MG TAB PO PRN (21:39)
[2018-06-05] MEDS: HYDROCORTISONE 1% CREAM TP PRN ×2 (01:56→08:31)
[2018-06-05] MEDS: INSULIN LISPRO 100 UNIT/ML SC SCH ×8 (02:15→22:05)
--- NOTE | 2018-06-05 04:54 | CPIP ---
DATE OF PROCEDURE: 06/04/2018 PROCEDURE: Right heart catheterization. INDICATIONS: Heart failure, need to assess intracardiac filling pressures. COMPLICATIONS: None. DESCRIPTION OF PROCEDURE: N.p.o. status was confirmed and informed consent obtained. The patient wa s brought to the catheterization laboratory and prepped and draped in sterile fashion. She had a new IV in the right brachial vein. 1% lidocaine was used for local anesthesia over this area. The IV c atheter was exchanged out over a wire for a 5-Andorran sheath. A 5-[place] catheter was used for right heart pressure measurements. FINDINGS: 1. RA pressure mean of 15 with a V wave to 20. 2. RV pressure 61/10 with an end-diastolic pressure of 18. 3. PA pressure 60/24 with a mean of 41. 4. Pulmonary capillary wedge pressure with a mean of 25 and V wave to 38. Arterial saturation is presumed to be her peripheral saturation at 93% on 1 L nasal cannula. P satur ation 58%. RV saturation 55%. RA saturation 58%. Raisa cardiac output is 5.63 L/min. Raisa cardiac index is 2.23 L/min per sq meter. CONCLUSIONS: Moderate pulmonary hypertension and moderate to severely elevated pulmonary wedge press ure. Normal cardiac output. Continue aggressive diuresis. Patient currently in stable condition. /[id number]/MODL
[2018-06-05] MEDS: FUROSEMIDE 100 MG/10 ML VIAL IVP SCH ×3 (05:38→21:58)
[2018-06-05 06:21] LABS: INR 2.43 (0.83-1.16); PROTIME(PATIENT) 26.4 SEC (12.0-15.0)
[2018-06-05] MEDS: clonazePAM 0.5 MG TAB PO SCH ×2 (08:12→21:59)
[2018-06-05] MEDS: PREGABALIN 150 MG CAP PO SCH ×2 (08:12→21:57)
[2018-06-05] MEDS: CARVEDILOL 6.25 MG TAB PO SCH ×2 (08:12→17:52)
[2018-06-05] MEDS: VENLAFAXINE XR 150 MG CAP PO SCH (08:12)
[2018-06-05] MEDS: ASPIRIN EC 81 MG TAB PO SCH (08:12)
[2018-06-05] MEDS: SPIRONOLACTONE 25 MG TAB PO SCH ×2 (08:12→15:44)
[2018-06-05] MEDS: guaiFENesin 600 MG TAB.ER PO SCH ×2 (08:12→21:59)
[2018-06-05] MEDS: INSULIN GLARGINE 100 UNITS/ML UNIT SC SCH ×2 (08:16→22:00)
--- NOTE | 2018-06-05 10:15 | SOAPPROG ---
WEI Progress Note Assessment/Plan: Assessment: CHF MD CARVAJAL note: 58 y/o woman with multiple medical issues including: chronic morbid obesity, CHF with LVEF 40%, moderate MR, CAD s/p LAD PCI 03/10, CRI with serum creatinine ranging 1.4-1.9, previous CVA with positive SLE anticogulant, IDDM and PAF on PO Amiodarone for last six weeks. She feels worse than a month ago. Now LOPEZ at 50-60ft and requiring supplemental O2. DDX: continued decompensated CHF with large component of RV failure but DAVID 05/23/18 showed normal RVEF, severe pulmonary HTN, anxiety or combination of all. Right heart cath shows still hypervolemic with moderate multifactorial pulmonary HTN. PLAN: 1)start Diamox 500mg PO BID 2)rest of meds without changes. 3)probably aggressive diuresis thru weekend with plan transfer to [facility] facility Saturday 4)daily BMP 5)daily PT 06/05/18 10:12 Subjective: maybe a little less short of breath. Very anxious and nervous about her prognosis. Denies CP, palpitations, or syncope. Objective: Vital Signs Temp Pulse Resp BP Pulse Ox 36.5 C 65 18 128/82 H 96 06/05/18 07:34 06/05/18 07:34 06/05/18 07:34 06/05/18 07:34 06/05/18 07:34 Laboratory Results 06/03/18 06:20 06/05/18 05:45 06/04/18 06/05/18 06/06/18 05:59 05:59 05:59 Intake Total 1460 1200 500 Output Total 1900 1600 800 Balance -440 -400 -300 PT 26.4 SEC (12.0-15.0) H 06/05/18 05:45 INR 2.43 (0.83-1.16) H 06/05/18 05:45 Physical Exam - Physical Exam General Appearance: alert, obese EENT: PERRL/EOMI Neck: non-tender Respiratory: wheezing (though less then yesterday.), No lungs clear Cardiac/Chest: regular rate, rhythm, JVD, systolic murmur, No gallop Peripheral Pulses: 2+: carotid (R), carotid (L), femoral (R), femoral (L), dorsalis-pedis (R), dorsalis-pedis (L) Abdomen: non-tender, No distended, No guarding Skin: warm/dry Extremities: pedal edema (1+ bilateral edema.) Neuro/Psych: oriented x 3 ICD10 Worksheet Patient Problems: Problems Problem Status Onset Acute ischemic stroke Acute Atrial fibrillation with RVR Acute C. difficile diarrhea Acute ~01/02/17 Hypotension Acute Medication side effect Acute
[2018-06-05] MEDS ORDERED: POTASSIUM CL 20 MEQ TAB PO ONE (10:42)
[2018-06-05] MEDS: acetaZOLAMIDE 250 MG TAB PO SCH ×2 (10:46→21:59)
--- NOTE | 2018-06-05 10:47 | SOAPPROG ---
SOAP Progress Note Assessment/Plan: Assessment/Plan: CKD 3: Cr has been relatively stable this hospitalization at around 1.9, now up to 2.0 with attempted diuresis. Likely will need to tolerate higher Cr for better volume status. - No need for HD at this time. - Will continue diuresis as below. - Avoid hypotension and nephrotoxins. - Will continue to monitor. Volume overload: pt not making much headway during this prolonged hospitalization. - Will continue fluid restriction of 1500ml. - Pt on IV Lasix and oral spironolactone. - Agree with adding Diamox today. Metabolic alkalosis: due to diuretics, starting on Diamox today. Hypokalemia: in setting of diuretics, will give a dose of KCl today and monitor. Subjective: No acute events overnight. Pt states that she feels itchy. She is trying to drink less but difficult as she feels dry with diuretics. Objective: Vital Signs Temp Pulse Resp BP Pulse Ox 36.5 C 65 18 128/82 H 96 06/05/18 07:34 06/05/18 07:34 06/05/18 07:34 06/05/18 07:34 06/05/18 07:34 Laboratory Results 06/03/18 06:20 06/05/18 05:45 06/04/18 06/05/18 06/06/18 05:59 05:59 05:59 Intake Total 1460 1200 500 Output Total 1900 1600 800 Balance -440 -400 -300 PT 26.4 SEC (12.0-15.0) H 06/05/18 05:45 INR 2.43 (0.83-1.16) H 06/05/18 05:45 General: alert and oriented, no acute distress, obese Eyes: EOMI, PERRL OP: Clear CV: RRR Resp: nonlabored respirations on NC Abd: Soft, NT Ext: +2 edema all extremities Psych: cooperative Neuro: CN II-XII grossly intact, no asterixis ICD10 Worksheet Patient Problems: Problems Problem Status Onset Acute ischemic stroke Acute Atrial fibrillation with RVR Acute C. difficile diarrhea Acute ~01/02/17 Hypotension Acute Medication side effect Acute
--- NOTE | 2018-06-05 12:01 | ASMTCMCOM ---
CM Note CM Note Notes: 03/05/2019 Case Management Note Trisha Perez, social director from [facility], met w/pt. Trisha teleconferenced Dr. Solano ([facility] ), Dr. Medina and pt friend for discharge discussion. Per Trisha pt is agreeable to discharging to [facility] hospice center at [facility] [place] after diuresising is completed. Trisha anticipating d/c Saturday or Saturday. After pt is stabilzed at [facility], pt will transfer to SNF rehab. Pt will d/c as a full code and will not need to come under hospice. Per Trisha the [facility] center is a benefit of the [facility] program. Trisha to notify Dr. Palacios, [facility] , and request rounding by Dr. Palacios while pt is at [facility]. Case Management d/c poc: to [facility] hospice center at [facility] [place]. Case Management will follow. Date Signed: 06/05/2018 12:00 PM Electronically Signed By:Linda Mclaughlin RN
--- NOTE | 2018-06-05 14:20 | HOSPPROG ---
Hospitalist Progress Note Assessment/Plan: Acutely decompensated systolic heart failure/I-CDM (STEMI 2014): diuretics adjusted today R heart cath shows pulm htn but elevated PCWP c/w ongoing volume overload continue diuresis diamox added for met acidosis Mod-severe MR: confirmed on DAVID this is likely playing a role in refractory nature of heart failure Acute on chronic hypoxemic respiratory failure: multifactorial with acute systolic HF, MR, and diastolic dysfunction. she has bronchitis which is probably driving her dyspnea to some debree, along w anxiety pulm toilet declined pft's Paroxysmal A fib - Amiodarone, Coumadin rash: has been on lasix, so less likely sulfa hydrocortisone cream not effective trial of sarna MICHELA on CKD: follow during diuresis OK to tolerate higher cr w diuresis Metabolic alkalosis: due to diuresis H/o CVA - cont ASA, statin, AC LONNY: Bipap H/o positive lupus anticoagulant DM 2 with hyperglycemia: labile sugars here Right arm pain: normal shoulder ROM. xray shows mild degenerative disease DVT ppx: coumadin/heparin Deconditioning: agreeable to SNF Goals: significant co-morbidities. Palliative Care consulted for goals and emotional support P Subjective: case d/w dr schaeffer. itchy Objective: Vital Signs Temp Pulse Resp BP Pulse Ox 37.1 C 68 16 128/54 H 98 06/05/18 12:00 06/05/18 12:00 06/05/18 12:00 06/05/18 12:00 06/05/18 12:00 Laboratory Results 06/03/18 06:20 06/05/18 05:45 06/04/18 06/05/18 06/06/18 05:59 05:59 05:59 Intake Total 1460 1200 500 Output Total 1900 1600 800 Balance -440 -400 -300 PT 26.4 SEC (12.0-15.0) H 06/05/18 05:45 INR 2.43 (0.83-1.16) H 06/05/18 05:45 - Physical Exam Constitutional: no apparent distress, appears nourished Eyes: PERRL, anicteric sclera Ears, Nose, Mouth, Throat: moist mucous membranes, hearing normal Cardiovascular: regular rate and rhythym, no murmur, rub, or gallop Respiratory: no respiratory distress, no rales or rhonchi Gastrointestinal: normoactive bowel sounds, soft, non-tender abdomen Genitourinary: No baldwin in urethra Skin: warm, other (scattered erythema that looks more like excoriation than drug rash) Musculoskeletal: full muscle strength, no muscle tenderness ICD10 Worksheet Patient Problems: Problems Problem Status Onset Acute ischemic stroke Acute Atrial fibrillation with RVR Acute C. difficile diarrhea Acute ~01/02/17 Hypotension Acute Medication side effect Acute
--- NOTE | 2018-06-05 14:36 | CPEKG ---
Test Reason : OPEN Blood Pressure : / mmHG Vent. Rate : 066 BPM Atrial Rate : 066 BPM P-R Int : 162 ms QRS Dur : 117 ms QT Int : 428 ms P-R-T Axes : 069 059 087 degrees QTc Int : 449 ms Sinus rhythm Nonspecific intraventricular conduction delay Low voltage, precordial leads Confirmed by Didier Mcgowan ([id number]) on 06/05/2018 2:35:44 PM Referred By: Confirmed By:Didier Mcgowan
[2018-06-05] MEDS: MENTHOL/CAMPHOR 222 ML BOTTLE TP SCH (15:54)
[2018-06-05] MEDS ORDERED: WARFARIN SODIUM 5 MG TAB PO ONE (16:00)
[2018-06-05] MEDS: traZODone 50 MG TAB PO PRN (21:57)
[2018-06-05] MEDS: traMADol 50 MG TAB PO PRN (21:59)
[2018-06-05] MEDS: ROSUVASTATIN CALCIUM 20 MG TAB PO SCH (21:59)
[2018-06-05] MEDS: amLODIPine BESYLATE 5 MG TAB PO SCH (21:59)
[2018-06-06] MEDS: FUROSEMIDE 100 MG/10 ML VIAL IVP SCH ×3 (05:53→14:58)
[2018-06-06] MEDS: clonazePAM 0.5 MG TAB PO SCH ×2 (09:13→22:19)
[2018-06-06] MEDS: SPIRONOLACTONE 25 MG TAB PO SCH ×2 (09:13→14:58)
[2018-06-06] MEDS: guaiFENesin 600 MG TAB.ER PO SCH ×2 (09:14→22:20)
[2018-06-06] MEDS: acetaZOLAMIDE 250 MG TAB PO SCH ×2 (09:14→22:20)
[2018-06-06] MEDS: INSULIN GLARGINE 100 UNITS/ML UNIT SC SCH ×2 (09:14→22:14)
[2018-06-06] MEDS: PREGABALIN 150 MG CAP PO SCH ×2 (09:14→22:18)
[2018-06-06] MEDS: VENLAFAXINE XR 150 MG CAP PO SCH (09:14)
[2018-06-06] MEDS: CARVEDILOL 6.25 MG TAB PO SCH ×2 (09:14→18:30)
[2018-06-06] MEDS: ASPIRIN EC 81 MG TAB PO SCH (09:14)
[2018-06-06] MEDS: INSULIN LISPRO 100 UNIT/ML SC SCH ×7 (09:15→22:15)
[2018-06-06] MEDS: MENTHOL/CAMPHOR 222 ML BOTTLE TP SCH (09:16)
--- NOTE | 2018-06-06 09:17 | SOAPPROG ---
SOAP Progress Note Assessment/Plan: Assessment/Plan: CKD 3: Cr has been relatively stable this hospitalization at around 1.9, now up to 2.4 with attempted diuresis. Likely will need to tolerate higher Cr for better volume status. - No need for HD at this time. - Will continue diuresis as below. - Avoid hypotension and nephrotoxins. - Will continue to monitor. Volume overload: pt not making much headway during this prolonged hospitalization but now having better UOP. - Will continue fluid restriction of 1500ml. - Will change Lasix to BID dosing. - Will increase spironolactone. - Will continue Diamox. Metabolic alkalosis: due to diuretics, now on Diamox, will monitor. Hypokalemia: in setting of diuretics, K stable at 3.6 and increasing spironolactone along with decreasing Lasix, will continue to monitor. Subjective: No acute events overnight. Pt states that she is having a lot of itching. Otherwise, she notes that her breathing is getting a little better, had 2600ml UOP yesterday. Objective: Vital Signs Temp Pulse Resp BP Pulse Ox 36.5 C 66 21 H 132/61 H 98 06/06/18 08:00 06/06/18 08:00 06/06/18 08:00 06/06/18 08:00 06/06/18 08:00 Laboratory Results 06/03/18 06:20 06/06/18 06:00 06/05/18 06/06/18 06/07/18 05:59 05:59 05:59 Intake Total 1200 1500 500 Output Total 1600 2600 400 Balance -400 -1100 100 PT 26.4 SEC (12.0-15.0) H 06/05/18 05:45 INR 2.43 (0.83-1.16) H 06/05/18 05:45 General: alert and oriented, no acute distress Eyes: EOMI, PERRL OP: Clear CV: RRR Resp: nonlabored respirations on NC, decreased air movement throughout Abd: Soft, NT Ext: +2 edema BLE Neuro: CN II-XII grossly intact Psych: cooperative ICD10 Worksheet Patient Problems: Problems Problem Status Onset Acute ischemic stroke Acute Atrial fibrillation with RVR Acute C. difficile diarrhea Acute ~01/02/17 Hypotension Acute Medication side effect Acute
--- NOTE | 2018-06-06 09:56 | SOAPPROG ---
WEI Progress Note Assessment/Plan: Assessment: CHF MD CARVAJAL note: 58 y/o woman with multiple medical issues including: chronic morbid obesity, CHF with LVEF 40%, moderate MR, CAD s/p LAD PCI 03/10, CRI with serum creatinine ranging 1.4-1.9, previous CVA with positive SLE anticogulant, IDDM and PAF on PO Amiodarone for last six weeks. She feels worse than a month ago. Now LOPEZ at 50-60ft and requiring supplemental O2. DDX: continued decompensated CHF with large component of RV failure but DAVID 05/23/18 showed normal RVEF, severe pulmonary HTN, anxiety or combination of all. Right heart cath shows still hypervolemic with moderate multifactorial pulmonary HTN. She is slowly diuresing. I agree with Nephrology may need to run serum creatinine a little higher to get euvolemic. PLAN: 1)agree with decreasing IV lasix to BID. 2)rest of meds without changes. 3)probably change IV lasix to PO Demadex saturday afternoon or Saturday with plan to transfer to [facility] saturday. 06/06/18 09:53 Subjective: feels better. Walking furthur with PT. Denies CP, palpitations or syncope or PND. Objective: Vital Signs Temp Pulse Resp BP Pulse Ox 36.5 C 66 21 H 132/61 H 98 06/06/18 08:00 06/06/18 08:00 06/06/18 08:00 06/06/18 08:00 06/06/18 08:00 Laboratory Results 06/03/18 06:20 06/06/18 06:00 06/05/18 06/06/18 06/07/18 05:59 05:59 05:59 Intake Total 1200 1500 500 Output Total 1600 2600 400 Balance -400 -1100 100 PT 26.4 SEC (12.0-15.0) H 06/05/18 05:45 INR 2.43 (0.83-1.16) H 06/05/18 05:45 Physical Exam - Physical Exam General Appearance: obese EENT: PERRL/EOMI Neck: non-tender Respiratory: rales (rare crackles bilateral. Overall improved from two days ago. ) Cardiac/Chest: regular rate, rhythm, JVD (JVP to 8cm.), systolic murmur, No gallop Peripheral Pulses: 2+: carotid (R), carotid (L), femoral (R), femoral (L), dorsalis-pedis (R), dorsalis-pedis (L) Abdomen: No guarding, No rebound Skin: warm/dry Extremities: pedal edema (1+ bilateral edema to mid calves.) Neuro/Psych: alert ICD10 Worksheet Patient Problems: Problems Problem Status Onset Acute ischemic stroke Acute Atrial fibrillation with RVR Acute C. difficile diarrhea Acute ~01/02/17 Hypotension Acute Medication side effect Acute
[2018-06-06 09:57] LABS: INR 2.19 (0.83-1.16); PROTIME(PATIENT) 24.4 SEC (12.0-15.0)
--- NOTE | 2018-06-06 14:15 | HOSPPROG ---
Hospitalist Progress Note Assessment/Plan: DIAGNOSES: * Acute right-sided and left-sided/valvular heart failure (moderate to severe MR ) * Acute on chronic kidney injury * Acute hypoxemic respiratory failure due to above and possibly some bronchitis as well * Severe deconditioning * Acute metabolic acidosis * Normocytic anemia, likely chronic related to her renal dysfunction but is worse compared to when she was here in April * Sleep apnea with pulmonary hypertension * Type 2 diabetes mellitus, labile sugars likely related largely to diet here * Paroxysmal AFib * History of lupus anticoagulant blood test abnormalities Overall she has improved somewhat here today, it was able to do some ambulating in the hallway. Remains extremely weak and dyspneic overall. BUN and creatinine have increased somewhat with diuresis today but still not far from her baseline PLANS: * Continue diuresis * Follow electrolytes and renal function closely * Continue increase activity and ambulation as able * Recheck hemoglobin to ensure stability, but if worse will need diagnostic assessment (I have ordered iron studies) * Continue CPAP * Continue pulmonary treatments * Continue current treatments for AFib * Continue current insulin doses for diabetes, ongoing dietary counseling, increase activity as able, follow sugars closely and adjust therapy as indicated * PT and OT * Still planning on SNF in probably 3 days or so Seen by me today on multidisciplinary rounds and hospitalist rounds, I reviewed in detail with Dr. Hawkins today SUBJECTIVE: Slightly stronger today was able to walk in the hallway though very slowly with frequent rests. 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: Sinus Exam: alert oriented skin warm dry color ok JVD is present resps not labored lungs severely diminished but clear BSs heart regular abd soft nondistended nontender, bowel sounds present limbs warm, still with market edema iv site ok Lab data: Creatinine him up a bit today at 2.4, electrolytes okay overall Sugars again are significantly higher this morning so far Objective: Vital Signs Temp Pulse Resp BP Pulse Ox 36.3 C 63 22 H 118/72 99 06/06/18 11:53 06/06/18 11:53 06/06/18 11:53 06/06/18 11:53 06/06/18 11:53 Laboratory Results 06/03/18 06:20 06/06/18 06:00 06/05/18 06/06/18 06/07/18 06:59 06:59 06:59 Intake Total 1200 1500 850 Output Total 1600 2600 850 Balance -400 -1100 0 PT 24.4 SEC (12.0-15.0) H 06/06/18 09:30 INR 2.19 (0.83-1.16) H 06/06/18 09:30 - Time Spent With Patient Time Spent with Patient: greater than 35 minutes Time Spent with Patient: Greater than 35 minutes spent on this patients care, greater than 50% of time spent counseling, educating, and coordinating care regarding the above mentioned plan. ICD10 Worksheet Patient Problems: Problems Problem Status Onset Acute ischemic stroke Acute Atrial fibrillation with RVR Acute C. difficile diarrhea Acute ~01/02/17 Hypotension Acute Medication side effect Acute
--- NOTE | 2018-06-06 14:55 | ASMTCMCOM ---
CM Note CM Note Notes: 06/06/2018 Case Management Note Phone call from Trisha FATIMA with [facility]. 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 Please call number with updates over the weekend. When pt is discharged transport will be set up through [facility] or [facility] transport if friends are unable to transport pt safely. Call the 24 hour number to have [facility] assist with transportation arrangements. See previous case management note for details of discharge plan. Case Management d/c poc: to inpatient [facility]. Case Management to follow. Date Signed: 06/06/2018 02:54 PM Electronically Signed By:Linda Mclaughlin RN
[2018-06-06] MEDS: traMADol 50 MG TAB PO PRN ×2 (14:58→22:25)
[2018-06-06] MEDS ORDERED: WARFARIN SODIUM 7.5 MG TAB PO ONE (16:00)
[2018-06-06] MEDS: ROSUVASTATIN CALCIUM 20 MG TAB PO SCH (22:18)
[2018-06-06] MEDS: amLODIPine BESYLATE 5 MG TAB PO SCH (22:18)
[2018-06-06] MEDS: traZODone 50 MG TAB PO PRN (22:26)
[2018-06-07 04:29] LABS: PLATELET COUNT 147 10^3/uL (150-400)
[2018-06-07 04:36] LABS: INR 2.31 (0.83-1.16); PROTIME(PATIENT) 25.4 SEC (12.0-15.0)
[2018-06-07] MEDS: INSULIN LISPRO 100 UNIT/ML SC SCH ×7 (08:08→21:34)
[2018-06-07] MEDS: traMADol 50 MG TAB PO PRN ×2 (08:10→21:43)
[2018-06-07] MEDS: guaiFENesin 600 MG TAB.ER PO SCH ×2 (08:48→21:37)
[2018-06-07] MEDS: SPIRONOLACTONE 25 MG TAB PO SCH ×2 (08:49→17:16)
[2018-06-07] MEDS: PREGABALIN 150 MG CAP PO SCH ×2 (08:49→21:39)
[2018-06-07] MEDS: CARVEDILOL 6.25 MG TAB PO SCH ×3 (08:49→18:20)
[2018-06-07] MEDS: clonazePAM 0.5 MG TAB PO SCH ×2 (08:50→21:39)
[2018-06-07] MEDS: VENLAFAXINE XR 150 MG CAP PO SCH (08:51)
[2018-06-07] MEDS: acetaZOLAMIDE 250 MG TAB PO SCH ×2 (08:51→21:38)
[2018-06-07] MEDS: ASPIRIN EC 81 MG TAB PO SCH (08:52)
--- NOTE | 2018-06-07 08:52 | SOAPPROG ---
WEI Progress Note Assessment/Plan: Assessment: CHF MD CARVAJAL note: 58 y/o woman with multiple medical issues including: chronic morbid obesity, CHF with LVEF 40%, moderate MR, CAD s/p LAD PCI 03/10, CRI with serum creatinine ranging 1.4-1.9, previous CVA with positive SLE anticogulant, IDDM and PAF on PO Amiodarone for last six weeks. She feels worse than a month ago. Now LOPEZ at 50-60ft and requiring supplemental O2. DDX: continued decompensated CHF with large component of RV failure but DAVID 05/23/18 showed normal RVEF, severe pulmonary HTN, anxiety or combination of all. Right heart cath shows still hypervolemic with moderate multifactorial pulmonary HTN. She is slowly diuresing. I agree with Nephrology may need to run serum creatinine a little higher to get euvolemic. PLAN: 1)stop IV lasix and start Demadex 80mg PO BID 2)decrease Coreg to 6.25mg PO BID 3)increase Amlodipine to 5mg PO BID 4)plan for transfer to SNF or [facility] facility Saturday. 06/07/18 08:49 Subjective: She is itching as main complaint. Feels less anxious and less short of breath. Denies CP, palpitations, or syncope. She wants to get home to her dog. Objective: Vital Signs Temp Pulse Resp BP Pulse Ox 36.8 C 72 18 114/63 96 06/07/18 07:49 06/07/18 07:49 06/07/18 07:49 06/07/18 07:49 06/07/18 07:49 Laboratory Results 06/07/18 04:15 06/07/18 04:15 06/06/18 06/07/18 06/08/18 05:59 05:59 05:59 Intake Total 1500 1900 Output Total 2600 1940 Balance -1100 -40 PT 25.4 SEC (12.0-15.0) H 06/07/18 04:15 INR 2.31 (0.83-1.16) H 06/07/18 04:15 Physical Exam - Physical Exam General Appearance: alert, obese EENT: normal ENT inspection Neck: non-tender Respiratory: wheezing Cardiac/Chest: regular rate, rhythm, gallop, systolic murmur, No JVD Peripheral Pulses: 2+: carotid (R), carotid (L), femoral (R), femoral (L), dorsalis-pedis (R), dorsalis-pedis (L) Abdomen: non-tender, No guarding, No ascites Skin: warm/dry Extremities: pedal edema (trace bilateral edema.) Neuro/Psych: oriented x 3 ICD10 Worksheet Patient Problems: Problems Problem Status Onset Acute ischemic stroke Acute Atrial fibrillation with RVR Acute C. difficile diarrhea Acute ~01/02/17 Hypotension Acute Medication side effect Acute
[2018-06-07] MEDS: INSULIN GLARGINE 100 UNITS/ML UNIT SC SCH ×2 (08:54→21:33)
[2018-06-07] MEDS: FUROSEMIDE 100 MG/10 ML VIAL IVP SCH (08:54)
[2018-06-07] MEDS ORDERED: POTASSIUM CL 20 MEQ TAB PO ONE (11:47)
[2018-06-07] MEDS: MENTHOL/CAMPHOR 222 ML BOTTLE TP SCH (12:49)
[2018-06-07] MEDS: TORSEMIDE 20 MG TAB PO SCH ×2 (17:15→21:43)
[2018-06-07] MEDS: WARFARIN SODIUM 5 MG TAB PO SCH (17:16)
--- NOTE | 2018-06-07 18:13 | HOSPPROG ---
Hospitalist Progress Note Assessment/Plan: DIAGNOSES: * Acute right-sided and left-sided/valvular heart failure (moderate to severe MR ) * Acute on chronic kidney injury * Acute hypoxemic respiratory failure due to above and possibly some bronchitis as well * Severe deconditioning * Acute metabolic acidosis * Normocytic anemia, likely chronic related to her renal dysfunction but is worse compared to when she was here in April * Sleep apnea with pulmonary hypertension * Type 2 diabetes mellitus, labile sugars likely related largely to diet here * Paroxysmal AFib * History of lupus anticoagulant blood test abnormalities Overall she has improved somewhat here today, it was able to do some ambulating in the hallway. Remains extremely weak and dyspneic overall. BUN and creatinine have increased somewhat with diuresis today but still not far from her baseline PLANS: * Continue diuresis * Follow electrolytes and renal function closely * Continue increase activity and ambulation as able * Continue CPAP * Continue pulmonary treatments * Continue current treatments for AFib * Continue current insulin doses for diabetes, ongoing dietary counseling, increase activity as able, follow sugars closely and adjust therapy as indicated * PT and OT * Still planning on SNF in probably 2 days or so Seen by me today on multidisciplinary rounds and hospitalist rounds, I reviewed in detail with Dr. 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, my review: Sinus I&O number show continued gradual diuresis Exam: alert oriented skin warm dry color ok JVD is present resps not labored lungs severely diminished but clear BSs heart regular abd soft nondistended nontender, bowel sounds present limbs warm, still with market edema iv site ok Lab data: Sugars again fairly labile and again seems to be related in part diet Currently with minimal change at 2.5 Potassium a bit low 3.4 Objective: Vital Signs Temp Pulse Resp BP Pulse Ox 36.8 C 74 18 121/65 H 99 06/07/18 16:00 06/07/18 16:00 06/07/18 16:00 06/07/18 16:00 06/07/18 16:00 Laboratory Results 06/07/18 04:15 06/07/18 04:15 06/06/18 06/07/18 06/08/18 06:59 06:59 06:59 Intake Total 1500 1900 740 Output Total 2600 1940 900 Balance -1100 -40 -160 PT 25.4 SEC (12.0-15.0) H 06/07/18 04:15 INR 2.31 (0.83-1.16) H 06/07/18 04:15 - Time Spent With Patient Time Spent with Patient: greater than 35 minutes Time Spent with Patient: Greater than 35 minutes spent on this patients care, greater than 50% of time spent counseling, educating, and coordinating care regarding the above mentioned plan. ICD10 Worksheet Patient Problems: Problems Problem Status Onset Acute ischemic stroke Acute Atrial fibrillation with RVR Acute C. difficile diarrhea Acute ~01/02/17 Hypotension Acute Medication side effect Acute
--- NOTE | 2018-06-07 18:57 | SOAPPROG ---
SOAP Progress Note Assessment/Plan: Assessment: 1. ckd: creat up a bit with more aggressive diuresis, though actual diuresis has been modest. Will likely need to tolerate higher creat to maintain euvolemia , though I do think there is a possibility that she has been decompensated by a viral resp process, and that things may settle down a bit as this resolves. She believes her resp symptoms occurred despite stable volume status, as she has had sig edema for months. Had an appt scheduled with us as outpt, this will need to be rescheduled. She is aware that her combination of cardiac and renal issues could result in esrd at some point. It will be important that she avoids acei/arb, as these would tend to exacerbate any creat increase with diuresis. 2. Overload: now back on po diuretics per cards. Suspect uo will drop significantly with this and allow creat and co2 to drift back down. Plan: 06/03/18 16:22 06/07/18 18:54 06/07/18 18:58 Subjective: Up in chair, no sig change. Long talk about possible dialysis in the future, etc. Objective: Vital Signs Temp Pulse Resp BP Pulse Ox 36.8 C 74 18 121/65 H 99 06/07/18 16:00 06/07/18 16:00 06/07/18 16:00 06/07/18 16:00 06/07/18 16:00 Laboratory Results 06/07/18 04:15 06/07/18 04:15 06/06/18 06/07/18 06/08/18 05:59 05:59 05:59 Intake Total 1500 1900 990 Output Total 2600 1940 900 Balance -1100 -40 90 PT 25.4 SEC (12.0-15.0) H 06/07/18 04:15 INR 2.31 (0.83-1.16) H 06/07/18 04:15 Physical Exam - Physical Exam General Appearance: no apparent distress, other (chronically-ill appearing) Respiratory: decreased breath sounds (fewer wheeze/rhonchi than in past) Cardiac/Chest: regular rate, rhythm Extremities: swelling (+LE/dependent edema) ICD10 Worksheet Patient Problems: Problems Problem Status Onset Acute ischemic stroke Acute Atrial fibrillation with RVR Acute C. difficile diarrhea Acute ~01/02/17 Hypotension Acute Medication side effect Acute
[2018-06-07] MEDS: ROSUVASTATIN CALCIUM 20 MG TAB PO SCH (21:39)
[2018-06-07] MEDS: traZODone 50 MG TAB PO PRN (21:42)
[2018-06-07] MEDS: DIPHENHYDRAMINE CREAM TP PRN (22:18)
[2018-06-08] MEDS: DIPHENHYDRAMINE CREAM TP PRN ×2 (05:15→16:04)
[2018-06-08 06:09] LABS: INR 2.42 (0.83-1.16); PROTIME(PATIENT) 26.3 SEC (12.0-15.0)
[2018-06-08] MEDS: TORSEMIDE 20 MG TAB PO SCH ×2 (08:32→20:27)
[2018-06-08] MEDS: VENLAFAXINE XR 150 MG CAP PO SCH (08:34)
[2018-06-08] MEDS: CARVEDILOL 6.25 MG TAB PO SCH ×2 (08:34→18:30)
[2018-06-08] MEDS: guaiFENesin 600 MG TAB.ER PO SCH ×2 (08:34→20:27)
[2018-06-08] MEDS: ASPIRIN EC 81 MG TAB PO SCH (08:35)
[2018-06-08] MEDS: SPIRONOLACTONE 25 MG TAB PO SCH ×2 (08:35→16:06)
[2018-06-08] MEDS: clonazePAM 0.5 MG TAB PO SCH ×2 (08:35→20:28)
[2018-06-08] MEDS: acetaZOLAMIDE 250 MG TAB PO SCH (08:35)
[2018-06-08] MEDS: PREGABALIN 150 MG CAP PO SCH ×2 (08:36→20:27)
[2018-06-08] MEDS: INSULIN LISPRO 100 UNIT/ML SC SCH ×7 (08:41→22:01)
[2018-06-08] MEDS: INSULIN GLARGINE 100 UNITS/ML UNIT SC SCH ×2 (08:41→20:28)
--- NOTE | 2018-06-08 09:22 | SOAPPROG ---
WEI Progress Note Assessment/Plan: Assessment: CHF MD CARVAJAL note: 58 y/o woman with multiple medical issues including: chronic morbid obesity, CHF with LVEF 40%, moderate MR, CAD s/p LAD PCI 03/10, CRI with serum creatinine ranging 1.4-1.9, previous CVA with positive SLE anticogulant, IDDM and PAF on PO Amiodarone for last six weeks. She feels worse than a month ago. Now LOPEZ at 50-60ft and requiring supplemental O2. DDX: continued decompensated CHF with large component of RV failure but DAVID 05/23/18 showed normal RVEF, severe pulmonary HTN, anxiety or combination of all. Right heart cath shows still hypervolemic with moderate multifactorial pulmonary HTN. She is slowly diuresing. I agree with Nephrology may need to run serum creatinine a little higher to get euvolemic. Interestingly despite uptitrating her diuretics she has had no significant weight gain and her serum creatinine has risen from 1.4 to 2.9. She has less LOPEZ now able to walk 150ft and her ankles hurt less and less edema. She still has wet cough with clear lungs and is tired. REC: 1)stop Diamox 2)repeat right heart cath with [facility] hemodynamics thru right brachial vein tomorrow AM (clear liquid breakfast) 3)plan for transfer to [facility] facility Saturday afternoon or Saturday morning with close out-pt follow up in [facility] CHF clinic and Nephrology. 06/08/18 09:18 Subjective: feels about the same. LOPEZ at 150ft. Wet cough. Tired. Denies CP, near syncope, PND or abdominal pain. Feels her leg edema is less and ankles bilaterally don't hurt as much. Objective: Vital Signs Temp Pulse Resp BP Pulse Ox 36.9 C 66 18 131/68 H 96 06/08/18 08:00 06/08/18 08:00 06/08/18 08:00 06/08/18 08:00 06/08/18 08:00 Laboratory Results 06/07/18 04:15 06/08/18 05:20 06/07/18 06/08/18 06/09/18 05:59 05:59 05:59 Intake Total 1900 1740 Output Total 1940 1600 700 Balance -40 140 -700 PT 26.3 SEC (12.0-15.0) H 06/08/18 05:20 INR 2.42 (0.83-1.16) H 06/08/18 05:20 Physical Exam - Physical Exam General Appearance: alert, obese EENT: PERRL/EOMI Neck: non-tender Respiratory: lungs clear Cardiac/Chest: regular rate, rhythm, edema, gallop, JVD (jvp to 8cm.), systolic murmur Peripheral Pulses: 2+: carotid (R), carotid (L), femoral (R), femoral (L), dorsalis-pedis (R), dorsalis-pedis (L) Abdomen: non-tender, No guarding, No ascites Skin: warm/dry Extremities: pedal edema (trace to 1+ bilateral edema to mid calves.) Neuro/Psych: oriented x 3 ICD10 Worksheet Patient Problems: Problems Problem Status Onset Acute ischemic stroke Acute Atrial fibrillation with RVR Acute C. difficile diarrhea Acute ~01/02/17 Hypotension Acute Medication side effect Acute
[2018-06-08] MEDS ORDERED: DIAZEPAM 5 MG TAB PO ONE (09:24)
[2018-06-08] MEDS ORDERED: ACETAMINOPHEN 325 MG TAB PO PRN (09:24)
[2018-06-08] MEDS ORDERED: NITROGLYCERIN 0.4 MG BTL SL PRN (09:24)
[2018-06-08] MEDS ORDERED: TEMAZEPAM 15 MG CAP PO PRN (09:24)
[2018-06-08] MEDS ORDERED: NS 1,000 ML IV SCH (09:30)
[2018-06-08] MEDS: MENTHOL/CAMPHOR 222 ML BOTTLE TP SCH (10:08)
[2018-06-08] MEDS: ACETAMINOPHEN 325 MG TAB PO PRN (16:05)
[2018-06-08] MEDS: WARFARIN SODIUM 5 MG TAB PO SCH (16:06)
--- NOTE | 2018-06-08 16:20 | ASMTCMCOM ---
CM Note CM Note Notes: Patient for repeat heart cath tomorrow. CM to follow for needs. Plan As outlined below. Phone call from Trisha FATIMA with [facility]. 24 hour production metal sprayer number for [facility] [phone]. Please call number with updates over the weekend. When pt is discharged transport will be set up through [facility] or [facility] transport if friends are unable to transport pt safely. Call the 24 hour number to have [facility] assist with transportation arrangements. See previous case management note for details of discharge plan. Case Management d/c poc: to [facility]. Date Signed: 06/08/2018 04:19 PM Electronically Signed By:Belia Barr RN
--- NOTE | 2018-06-08 18:21 | SOAPPROG ---
SOAP Progress Note Assessment/Plan: Assessment: 1. ckd: creat trending up faster past 2-3 days despite decrease in diuretics and minimal actual diuresis. No sustained hypotension but may have suffered element of ischemic atn as result of more aggressive diuresis attempts. Agree with repeat RHC as planned by cards. Will not be able to d/c pt until creat stabilized. 2. Overload: on po diuretics with stable wt but creat trending up instead of down as expected. Agree with d/c diamox, which usually is not very effective at ameliorating met alk anyway. Plan: 06/03/18 16:22 06/07/18 18:54 06/07/18 18:58 06/08/18 18:18 06/08/18 18:22 Subjective: Feels about the same. Eating dinner. No change in cough. For repeat RHC tomorrow. Objective: Vital Signs Temp Pulse Resp BP Pulse Ox 36.8 C 60 18 124/70 H 99 06/08/18 15:49 06/08/18 15:49 06/08/18 15:49 06/08/18 15:49 06/08/18 15:49 Laboratory Results 06/07/18 04:15 06/08/18 05:20 06/07/18 06/08/18 06/09/18 05:59 05:59 05:59 Intake Total 1900 1740 490 Output Total 1940 1600 700 Balance -40 140 -210 PT 26.3 SEC (12.0-15.0) H 06/08/18 05:20 INR 2.42 (0.83-1.16) H 06/08/18 05:20 Physical Exam - Physical Exam General Appearance: no apparent distress Respiratory: decreased breath sounds (less wheeze/rhonchi than previously) Cardiac/Chest: regular rate, rhythm Abdomen: non-tender, other (obese) Extremities: swelling (LE/dependent edema) ICD10 Worksheet Patient Problems: Problems Problem Status Onset Acute ischemic stroke Acute Atrial fibrillation with RVR Acute C. difficile diarrhea Acute ~01/02/17 Hypotension Acute Medication side effect Acute
[2018-06-08] MEDS: ROSUVASTATIN CALCIUM 20 MG TAB PO SCH (20:28)
[2018-06-08] MEDS: traMADol 50 MG TAB PO PRN (20:42)
[2018-06-08] MEDS: LORazepam 0.5 MG TAB PO PRN (20:42)
[2018-06-08] MEDS: traZODone 50 MG TAB PO PRN (20:42)
[2018-06-09 04:15] LABS: PLATELET COUNT 164 10^3/uL (150-400)
[2018-06-09 04:22] LABS: INR 2.19 (0.83-1.16); PROTIME(PATIENT) 24.4 SEC (12.0-15.0)
[2018-06-09] MEDS ORDERED: DIAZEPAM 5 MG TAB PO ONE (06:00)
[2018-06-09] MEDS ORDERED: NS 1,000 ML IV SCH (06:00)
[2018-06-09] MEDS: INSULIN LISPRO 100 UNIT/ML SC SCH ×9 (08:00→21:17)
--- NOTE | 2018-06-09 10:01 | PDCARPN ---
Cardiology Progress Note Chief Complaint: Patient with some anxiety this morning. Feeling well. Semi productive coughing noted today Assessment/Plan: Assessment: 06-09-18 Patient feeling fair today. No voiced cardiovascular complaints. Over the past week, ongoing work with diuresis. Right heart cath about five days prior with unremarkable filling pressures noted. Decompensated CHF (right > left) with concomitant pHTN and anxiety. Weights have not been helpful for following diuresis. Renal has been following patient with creatinine to 2.8 today ( gradual increase has been noted over the past week). At present, the patient is on Spironolactone and Demadex. Heart failure wanting to have a repeat right heart cath to determine the patient's right heart pressures prior to discharge to [facility]. Phosphorus levels are elevated today. Patient's weight has been relatively unchanged over the past several days. 05-26-18 Patient is a 58 y/o female with numerous medical issues including CAD s/p PCI ( in setting of AMI 2014), CHF (with estimated systolic function of 40% with apical hypokinesis), VHD (moderate mitral regurgitation), pAF (on coumadin with [id number] score of 7), CVA (right sided, and thought secondary to pAF history) , LONNY with CPAP use, DM, Lupus, chronic renal insufficiency (creatinine up to 2.2 with this admission, but currently 1.7), and obesity, who was admitted on with dyspnea. Associated symptoms of fatigue, lethargy, and wheezing were verbalized. No chest pains or pressure. No fevers of chills. Since she was admitted, weights are down (about 4 kg), and renal function has improved ( 1.7 has been stable for past several days). The patient reports that she has been feeling well - better than how she felt at the time of admission. Telemetry without any evidence of atrial fibrillation over the past several hours, but a bout of atrial fibrillation was noted (without symptoms) during this admission. INR has been increasing, slowly, with heparin coverage ongoing. Patient without cardiovascular complaints today. Plan: (1) Would continue therapy on coumadin with history of CVA and pAF (2) Continued CPAP use with history of LONNY, morbid obesity, and atrial fibrillation (3) Ongoing use of diuretics (spironolactone and demadex) with nephrology following - would agree with nephrology that the patient is unable to leave with the noted elevation to creatinine now noted (4) Would continue Coreg and norvasc for HTN control assistance (5) ASA therapy for life with CAD/PCI history (6) Aggressive DM control is needed (7) Statins for HLP should continue (8) Plans for right heart cath today to reassess the right heart pressures more conclusively (9) Discharge planning, however, with current renal status, this is on hold Subjective: No cardiovascular complaints, but the patient states that she is not feeling too well. Reviewed/Discussed With: multidisciplinary team Objective: Vital Signs (8 Hrs) Temp Pulse Resp BP Pulse Ox 06/09/18 08:00 36.6 C 64 20 106/56 L 94 06/09/18 06:23 77 16 94 06/09/18 04:00 36.5 C 76 20 121/56 H 95 Intake/Output (24 Hrs) 06/08/18 06/09/18 06/10/18 05:59 05:59 05:59 Intake Total 1740 1690 Output Total 1600 1200 400 Balance 140 490 -400 Intake: Oral (ml) 1740 1690 Output: Urine (ml) 1600 1200 400 Incontinence 300 Toilet 1300 1200 400 Other: Weight 154.4 kg 154.6 kg Number of Voids Incontinence 1 Toilet 1 Result Diagrams: 06/09/18 04:00 06/09/18 04:00 Telemetry: Sinus rhythm - Physical Exam Constitutional: WDWN, obese Eyes: PERRL, EOMI Ears, Nose, Mouth, Throat: moist mucous membranes Cardiovascular: regular rate and rhythm, systolic murmur, jugular vein distention, pulses symmetric bilat Peripheral Pulses: 2+: dorsalis-pedis (R), dorsalis-pedis (L) Respiratory: no crackles, reduced air movement, other (Lung sounds with deminished intensity to the bases bilaterally. Semi productive cough) Gastrointestinal: normoactive bowel sounds Skin: warm, abrasion, erythema, rash Musculoskeletal: no muscular tenderness Neurologic: AAOx3, CN II-XII grossly intact Psychiatric: cooperative, interactive, following commands ICD10 Worksheet Patient Problems: Problems Problem Status Onset Acute ischemic stroke Acute Atrial fibrillation with RVR Acute C. difficile diarrhea Acute ~01/02/17 Hypotension Acute Medication side effect Acute
--- NOTE | 2018-06-09 10:53 | SOAPPROG ---
SOAP Progress Note Assessment/Plan: Assessment/Plan: CKD 3: Cr has been relatively stable this hospitalization at around 1.9, got up to 2.9 and today is 2.8. Likely will need to tolerate higher Cr for better volume status. - No need for HD at this time. - Will continue diuresis as below. - Avoid hypotension and nephrotoxins. - Will continue to monitor. Volume overload: pt not making much headway during this prolonged hospitalization. - Will continue fluid restriction of 1500ml. - Will continue oral torsemide and spironolactone per cardiology. Metabolic alkalosis: due to diuretics, will continue to monitor. Hypokalemia: in setting of diuretics, K stable at 3.6, will continue to monitor. 06/09/18 10:50 Subjective: No acute events overnight. Pt states she feels very thirsty. She also notes feeling a bit weak and wobbly. Objective: Vital Signs Temp Pulse Resp BP Pulse Ox 36.6 C 64 20 106/56 L 94 06/09/18 08:00 06/09/18 08:00 06/09/18 08:00 06/09/18 08:00 06/09/18 08:00 Laboratory Results 06/09/18 04:00 06/09/18 04:00 06/08/18 06/09/18 06/10/18 05:59 05:59 05:59 Intake Total 1740 1690 Output Total 1600 1200 400 Balance 140 490 -400 PT 24.4 SEC (12.0-15.0) H 06/09/18 04:00 INR 2.19 (0.83-1.16) H 06/09/18 04:00 General: alert and oriented, no acute distress Eyes: EOMI, PERRL OP: Clear CV: RRR Resp: nonlabored respirations on NC Abd: Soft, NT/ND Ext: +2 edema all extremities Neuro: CN II-XII grossly intact, no asterixis Psych: cooperative ICD10 Worksheet Patient Problems: Problems Problem Status Onset Acute ischemic stroke Acute Atrial fibrillation with RVR Acute C. difficile diarrhea Acute ~01/02/17 Hypotension Acute Medication side effect Acute
[2018-06-09] MEDS: PREGABALIN 150 MG CAP PO SCH ×2 (11:09→21:00)
[2018-06-09] MEDS: CARVEDILOL 6.25 MG TAB PO SCH ×2 (11:09→18:27)
[2018-06-09] MEDS: ASPIRIN EC 81 MG TAB PO SCH (11:09)
[2018-06-09] MEDS: VENLAFAXINE XR 150 MG CAP PO SCH (11:10)
[2018-06-09] MEDS: SPIRONOLACTONE 25 MG TAB PO SCH ×2 (11:10→15:20)
[2018-06-09] MEDS: clonazePAM 0.5 MG TAB PO SCH ×2 (11:10→21:00)
[2018-06-09] MEDS: TORSEMIDE 20 MG TAB PO SCH ×2 (11:10→21:00)
[2018-06-09] MEDS: INSULIN GLARGINE 100 UNITS/ML UNIT SC SCH ×2 (11:11→21:15)
[2018-06-09] MEDS: guaiFENesin 600 MG TAB.ER PO SCH ×2 (11:22→21:01)
[2018-06-09] MEDS: MENTHOL/CAMPHOR 222 ML BOTTLE TP SCH ×2 (14:08→20:52)
--- NOTE | 2018-06-09 14:09 | ASMTCMCOM ---
CM Note CM Note Notes: 06/09/2018 Case Management Note Multiple meetings with Palliative team members today. Please see notes. Per [facility] Palliative Band Straightener, pt has chosen hospice. 10 am appointment set with [facility] hospice tomorrow. Pt will have friends transport to [facility] center at [facility]. Case Management d/c poc: [facility] at [facility]. Case Management to follow. Date Signed: 06/09/2018 02:08 PM Electronically Signed By:Linda Mclaughlin RN
[2018-06-09] MEDS: WARFARIN SODIUM 5 MG TAB PO SCH (15:20)
--- NOTE | 2018-06-09 20:37 | HOSPPROG ---
Hospitalist Progress Note Assessment/Plan: DIAGNOSES: * Acute right-sided and left-sided/valvular heart failure (moderate to severe MR ) * Acute on chronic kidney injury * Acute hypoxemic respiratory failure due to above and possibly some bronchitis as well * Severe deconditioning * Acute metabolic acidosis * Normocytic anemia, likely chronic related to her renal dysfunction but is worse compared to when she was here in April * Sleep apnea with pulmonary hypertension * Type 2 diabetes mellitus, labile sugars likely related largely to diet here * Paroxysmal AFib * History of lupus anticoagulant blood test abnormalities Overall she has improved somewhat here today, it was able to do some ambulating in the hallway. Remains extremely weak and dyspneic overall. BUN and creatinine have increased somewhat with diuresis today but still not far from her baseline PLANS: * Continue diuresis * Follow electrolytes and renal function closely * Continue increase activity and ambulation as able * Continue CPAP * Continue pulmonary treatments * Continue current treatments for AFib * Continue current insulin doses for diabetes, ongoing dietary counseling, increase activity as able, follow sugars closely and adjust therapy as indicated * PT and OT * patient wants to go to hospice. Plan to transfer tomorrow. Subjective: still some shortness of breath. No pain. no other complaints. Objective: Vital Signs Temp Pulse Resp BP Pulse Ox 36.8 C 76 17 103/49 L 95 06/09/18 20:00 06/09/18 20:00 06/09/18 20:00 06/09/18 20:00 06/09/18 20:00 Laboratory Results 06/09/18 04:00 06/09/18 04:00 06/08/18 06/09/18 06/10/18 05:59 05:59 05:59 Intake Total 1740 1690 500 Output Total 1600 1200 400 Balance 140 490 100 PT 24.4 SEC (12.0-15.0) H 06/09/18 04:00 INR 2.19 (0.83-1.16) H 06/09/18 04:00 - Physical Exam Constitutional: no apparent distress, appears nourished, not in pain Eyes: PERRL, anicteric sclera, EOMI Ears, Nose, Mouth, Throat: moist mucous membranes, hearing normal, ears appear normal, no oral mucosal ulcers Cardiovascular: regular rate and rhythym, no murmur, rub, or gallop Respiratory: no respiratory distress, no rales or rhonchi, clear to auscultation Gastrointestinal: normoactive bowel sounds, soft, non-tender abdomen, no palpable masses Genitourinary: no bladder fullness, no bladder tenderness, no renal bruits Skin: no rashes or abrasions, no fluctuance, no induration Musculoskeletal: full muscle strength, no muscle tenderness, normal joint ROM Neurologic: AAOx3, sensation intact bilaterally Psychiatric: interacting appropriately, not anxious, not encephalopathic, thought process linear Lymph, Heme, Immunologic: no cervical LAD, no supraclavicular LAD ICD10 Worksheet Patient Problems: Problems Problem Status Onset Acute ischemic stroke Acute Atrial fibrillation with RVR Acute C. difficile diarrhea Acute ~01/02/17 Hypotension Acute Medication side effect Acute
[2018-06-09] MEDS: DIPHENHYDRAMINE CREAM TP PRN (20:47)
[2018-06-09] MEDS: traMADol 50 MG TAB PO PRN (21:00)
[2018-06-09] MEDS: ROSUVASTATIN CALCIUM 20 MG TAB PO SCH (21:00)
[2018-06-09] MEDS: traZODone 50 MG TAB PO PRN (21:01)
[2018-06-10 04:28] VITALS: BP 94/49
[2018-06-10 05:24] LABS: INR 1.84 (0.83-1.16); PROTIME(PATIENT) 21.3 SEC (12.0-15.0)
[2018-06-10] MEDS: INSULIN LISPRO 100 UNIT/ML SC SCH ×2 (10:43→10:48)
[2018-06-10] MEDS: CARVEDILOL 6.25 MG TAB PO SCH (10:47)
[2018-06-10] MEDS: SPIRONOLACTONE 25 MG TAB PO SCH (10:47)
[2018-06-10] MEDS: TORSEMIDE 20 MG TAB PO SCH (10:47)
[2018-06-10] MEDS: PREGABALIN 150 MG CAP PO SCH (10:47)
[2018-06-10] MEDS: guaiFENesin 600 MG TAB.ER PO SCH (10:48)
[2018-06-10] MEDS: VENLAFAXINE XR 150 MG CAP PO SCH (10:48)
[2018-06-10] MEDS: clonazePAM 0.5 MG TAB PO SCH (10:48)
[2018-06-10] MEDS: MENTHOL/CAMPHOR 222 ML BOTTLE TP SCH (10:49)
[2018-06-10] MEDS: ASPIRIN EC 81 MG TAB PO SCH (10:49)
[2018-06-10] MEDS: INSULIN GLARGINE 100 UNITS/ML UNIT SC SCH (10:49)
--- NOTE | 2018-06-10 10:58 | CPEKG ---
Test Reason : OPEN Blood Pressure : / mmHG Vent. Rate : 060 BPM Atrial Rate : 060 BPM P-R Int : 156 ms QRS Dur : 136 ms QT Int : 478 ms P-R-T Axes : 042 063 000 degrees QTc Int : 478 ms Sinus rhythm Left bundle branch block Confirmed by Josh Pop ([id number]) on 06/10/2018 10:58:33 AM Referred By: Confirmed By:Josh Pop
--- NOTE | 2018-06-10 11:55 | SOAPPROG ---
WEI Progress Note Assessment/Plan: Assessment/Plan: 58 y/o obese female with a known h/o CHF with severe MR and volume overload. CKD 3: - No need for HD - Will continue diuresis at home per patient wishes - Will notify her primary fingernail technician Dr. Thomas who will be in touch with Dr. Douglas her PCP. Volume overload: - Will continue fluid restriction of 1500ml. - Will continue oral torsemide and spironolactone per cardiology. Metabolic alkalosis: due to diuretics, may add acetazolamide pending goals of care in the future. Hypokalemia: May resume non-renal diet. Will sign off, please contact if further ?'s. 06/10/18 13:54 Subjective: The patient has decided to go home with hospice. She wants to continue her medications and just "see where things go" at home. Objective: Vital Signs Temp Pulse Resp BP Pulse Ox 36.6 C 74 16 94/49 L 91 L 06/10/18 04:00 06/10/18 04:00 06/10/18 04:00 06/10/18 04:00 06/10/18 04:00 Laboratory Results 06/09/18 04:00 06/10/18 05:00 06/09/18 06/10/18 06/11/18 05:59 05:59 05:59 Intake Total 1690 650 Output Total 1200 1400 Balance 490 -750 PT 21.3 SEC (12.0-15.0) H 06/10/18 05:00 INR 1.84 (0.83-1.16) H 06/10/18 05:00 Physical Exam - Physical Exam General Appearance: WD/WN, alert EENT: PERRL/EOMI Neck: non-tender, full range of motion, supple Respiratory: chest non-tender, lungs clear Cardiac/Chest: regular rate, rhythm, edema, diastolic murmur, systolic murmur Abdomen: normal bowel sounds, non-tender, soft Skin: normal color Extremities: normal range of motion, non-tender, pedal edema Neuro/Psych: no motor/sensory deficits, alert, normal mood/affect, oriented x 3 ICD10 Worksheet Patient Problems: Problems Problem Status Onset Acute ischemic stroke Acute Atrial fibrillation with RVR Acute C. difficile diarrhea Acute ~01/02/17 Hypotension Acute Medication side effect Acute
--- NOTE | 2018-06-10 12:53 | PDIAF ---
- Diagnosis Code Status: Do Not Resuscitate - Medication Management Discharge Medications: electronically signed and located in the Home Medication List. - Orders Services needed: Registered Nurse Isolation Type: None Diet Recommendation: no restrictions on diet Diet Texture: Regular Texture Diet Additional Instructions: discharge to hospice facility. make patient comfortable. - Follow Up Care Current Providers and Referrals: Abbie Solano MD [Primary Care Provider] -
[2018-06-10] MEDS: LORazepam 0.5 MG TAB PO PRN (13:24)
--- NOTE | 2018-06-10 13:48 | ASMTDCNOTE ---
Case Management Discharge Discharge Order Complete? Answers: Yes Patient to Obtain Answers: Other Notes: [facility] Medications Transportation Arranged Answers: Family/Friends Faxed Final Orders Answers: Yes Agency/Facility Transfer Answers: Yes Report Printed & Faxed to Receiving Agency Discharge Comments Notes: 06/10/2018 Case Management Note Pt met w/Jesus from Palliative and [facility]. Please see note. Pt to discharge to [facility]. Pt family to transport. Faxed final orders to [facility]. Date Signed: 06/10/2018 01:47 PM Electronically Signed By:Linda Mclaughlin RN
--- NOTE | 2018-06-10 13:49 | ASDISCHSUM ---
Discharge Information Plan Status:Hospice-Inpatient Medically Cleared to Leave:06/09/2018 Discharge Date:06/10/2018 01:37 PM D/C Disposition:Hospice Facility ADT D/C Disposition:Hospice Facility Projected Discharge Date:05/21/2018 11:00 AM Transportation at D/C:Friend Discharge Delay Reason: Follow-Up Date:05/21/2018 11:00 AM Discharge Slot: Final Diagnosis: Placement Information Referral Type:*Jail/SNF Referral ID:[id number] Provider Name: Address 1: Phone Number: Address 2: Fax Number: City: Selection Factors: State: Referral Type:Palliative Care Referral ID:[id number] Provider Name: Address 1: Phone Number: Address 2: Fax Number: City: Selection Factors: State: Referral Type:*Hospice Referral ID:[id number] Provider Name:[facility] Address 1:[address] Address 2: City:[place] Selection Factors: State:[place] Patient Contact Information Contact Name:ALLA Relationship: Address: Work Phone: City:[place] Alternate Phone: [facility]/Zip Code:[place] Email: Financial Information Financial Class:HMO and PPO Plans Primary Plan Desc:[facility] Primary Plan Number:[id number] Secondary Plan Desc: Secondary Plan Number: Assessment Information LACE LACE Length of stay for Answers: 14 days or more current admission Acuity / Level of Answers: Yes Care: Did the patient have an inpatient admission? Comorbidities - select Answers: Cerebrovascular disease all that apply (CVA, TIA, aneurysms, vasc ular dementia) Congestive heart failure Coronary Artery Disease Moderate or severe liver or renal disease # of Emergency department Answers: 3-4 visits in the last 6 months Social determinants Answers: Mental health diagnosis (anxiety, depression, pers onality disorders, etc.) Score: 25 Date Signed: 06/10/2018 01:47 PM Electronically Signed By:Linda Mclaughlin RN [facility] CM Progress Note CM Note CM Note Notes: 05/17/2018 Case Management Note Pt is known to case management with admissions on 04/03 and an ED visiti on 04/10. Pt is part of the [facility] program. Pt admitted this time for CHF. Discharge needs are determined by [facility]. Alerted [facility] of admission. Awaiting PT eval recommendation. [facility] has contracted with limited SNFs: [facility] and [facility]. Case Management d/c poc: determined by [facility] Case Management will follow. Date Signed: 05/17/2018 02:49 PM Electronically Signed By:Linda Mclaughlin RN [facility] CM Progress Note CM Note CM Note Notes: 05/17/2018 Case Management Note Per food preparation supervisor MD at [facility]: upon d/c med scripts to be called by discharging [facility] MD to [facility] . [facility]s [facility]. Please direct questions to [facility] at [phone] Date Signed: 05/17/2018 03:04 PM Electronically Signed By:Linda Mclaughlin RN [facility] CM Progress Note CM Note CM Note Notes: 05/18/2018 Case Management Note Discussed with this morning. Pt transferring to [facility]. Faxed referrals to [facility] approved SNF rehabs: [place]. Discharge date unclear. Case Management d/c poc: anticipating SNF rehab Case Management to follow. Date Signed: 05/18/2018 11:14 AM Electronically Signed By:Linda Mclaughlin RN [facility] CM Progress Note CM Note CM Note Notes: Pt had a palliative last week via PCP with [facility]. Pt will d/c to SNF with [facility] palliative continuing to follow. Date Signed: 05/19/2018 03:54 PM Electronically Signed By:GAURI Alfaro [facility] CM Progress Note CM Note CM Note Notes: 05/21/2018 Case Management Note Phone call from Trisha FATIMA for [facility]. Faxed updates to [facility]. Discharge date is unclear at this time. Case Management d/c poc: [facility] SN[facility] rehab Case Management to follow. Date Signed: 05/21/2018 04:00 PM Electronically Signed By:Linda Mclauglhin RN [facility] CM Progress Note CM Note CM Note Notes: Pt continues to have medical needs. Still on Lasik and Heprin drip. Was in and out of A-fib this am. Had visitors today, which seemed to help improve her mood. CM to follow. Plan: [facility] and [facility] Date Signed: 05/25/2018 03:26 PM Electronically Signed By:JAEL Landaverde [facility] CM Progress Note CM Note CM Note Notes: CM spoke to [facility] Mcdaniel regarding d/c POC. Pt is still diuresing. CM spoke to Trisha Barrett and provided her w/ an update. Update sent to [facility]. CM to follow. Plan: [facility] SNF Date Signed: 05/28/2018 12:27 PM Electronically Signed By:JAEL Wilkerson [facility] CM Progress Note CM Note CM Note Notes: Pt is still diuresing. Pt is not medically stable to d/c yet. Updates given to Trisha Barrett (P#: [phone]). Pt will d/c to [facility] when medically stable. Updates sent to [facility]. CM to follow. Plan: [facility] Date Signed: 05/30/2018 04:16 PM Electronically Signed By:JAEL Wilkerson [facility] CM Progress Note CM Note CM Note Notes: CM spoke with cardiology and informed of plan to [facility]. CM to continue to follow. Plan: [facility] Date Signed: 06/02/2018 01:50 PM Electronically Signed By:JAEL Landaverde [facility] CM Progress Note CM Note CM Note Notes: 06/04/2018 Case Management Note Met w/pt today to discuss discharge plan. Provided written information on discharge plan to [facility]. Faxed updates to [facility]. Maria R Tidwell consulted on patient. Please see her note. Discussed with [facility] Palliative care team. Please see note. Discussed with Trisha FATIMA for [facility]. Trisha plans to visit patient tomorrow morning. Case Management d/c poc: [facility] SNF rehab. Case Management to follow. Date Signed: 06/04/2018 03:44 PM Electronically Signed By:Linda Mclaughlin RN [facility] CM Progress Note CM Note CM Note Notes: 03/05/2019 Case Management Note Trisha Perez, older adult social work specialist from [facility], met w/pt. Trisha teleconferenced Dr. Solano ([facility] ), Dr. Medina and pt friend for discharge discussion. Per Trisha pt is agreeable to discharging to [facility] hospice center at [facility] after diuresising is completed. Trisha anticipating d/c Saturday or Saturday. After pt is stabilzed at [facility], pt will transfer to SNF rehab. Pt will d/c as a full code and will not need to come under hospice. Per Trisha the [facility] is a benefit of the [facility] program. Trisha to notify Dr. Palacios, [facility] Hospice MD, and request rounding by Dr. Palacios while pt is at [facility]. Case Management d/c poc: to [facility] hospice center at [facility]. Case Management will follow. Date Signed: 06/05/2018 12:00 PM Electronically Signed By:Linda Mclaughlin RN [facility] CM Progress Note CM Note CM Note Notes: 06/06/2018 Case Management Note Phone call from Trisha FATIMA with [facility]. 24 hour food preparation supervisor number for [facility] [phone]. Please call number with updates over the weekend. When pt is discharged transport will be set up through [facility] or [facility] transport if friends are unable to transport pt safely. Call the 24 hour number to have [facility] assist with transportation arrangements. See previous case management note for details of discharge plan. Case Management d/c poc: to inpatient [facility] hospice center at [facility]. Case Management to follow. Date Signed: 06/06/2018 02:54 PM Electronically Signed By:Linda Mclaughlin RN [facility] CM Progress Note CM Note CM Note Notes: Patient for repeat heart cath tomorrow. CM to follow for needs. Plan As outlined below. Phone call from Trisha FATIMA with [facility]. 24 hour food preparation supervisor number for [facility] [phone]. Please call number with updates over the weekend. When pt is discharged transport will be set up through [facility] or [facility] transport if friends are unable to transport pt safely. Call the 24 hour number to have [facility] assist with transportation arrangements. See previous case management note for details of discharge plan. Case Management d/c poc: to inpatient [facility] hosp[facility] center at [facility]. Date Signed: 06/08/2018 04:19 PM Electronically Signed By:Belia Barr RN [facility] CM Progress Note CM Note CM Note Notes: 06/09/2018 Case Management Note Multiple meetings with Palliative team members today. Please see notes. Per [facility] , pt has chosen hospice. 10 am appointment set with [facility] tomorrow. Pt will have friends transport to [facility] center at [facility]. Case Management d/c poc: [facility] at [facility]. Case Management to follow. Date Signed: 06/09/2018 02:08 PM Electronically Signed By:Linda Mclaughlin RN Case Management Discharge Plan Note Case Management Discharge Discharge Order Complete? Answers: Yes Patient to Obtain Answers: Other Notes: [facility] Medications Transportation Arranged Answers: Family/Friends Faxed Final Orders Answers: Yes Agency/Facility Transfer Answers: Yes Report Printed & Faxed to Receiving Agency Discharge Comments Notes: 06/10/2018 Case Management Note Pt met w/Jseus from Palliative and [facility]. Please see note. Pt to discharge to [facility] inpatient care center at [facility]. Pt family to transport. Faxed final orders to [facility]. Date Signed: 06/10/2018 01:47 PM Electronically Signed By:Linda Mclaughlin RN Intervention Information
--- NOTE | 2018-06-10 17:30 | HOSPPROG ---
Hospitalist Progress Note Assessment/Plan: DIAGNOSES: * Acute right-sided and left-sided/valvular heart failure (moderate to severe MR ) * Acute on chronic kidney injury * Acute hypoxemic respiratory failure due to above and possibly some bronchitis as well * Severe deconditioning * Acute metabolic acidosis * Normocytic anemia, likely chronic related to her renal dysfunction but is worse compared to when she was here in April * Sleep apnea with pulmonary hypertension * Type 2 diabetes mellitus, labile sugars likely related largely to diet here * Paroxysmal AFib * History of lupus anticoagulant blood test abnormalities Overall she has improved somewhat here today, it was able to do some ambulating in the hallway. Remains extremely weak and dyspneic overall. BUN and creatinine have increased somewhat with diuresis today but still not far from her baseline PLANS: cofort care. To hospice today Subjective: patient slept well, after made comfort care. no complaints. Objective: Vital Signs Temp Pulse Resp BP Pulse Ox 36.6 C 74 16 94/49 L 91 L 06/10/18 04:00 06/10/18 04:00 06/10/18 04:00 06/10/18 04:00 06/10/18 04:00 Laboratory Results 06/09/18 04:00 06/10/18 05:00 06/09/18 06/10/18 06/11/18 05:59 05:59 05:59 Intake Total 1690 650 Output Total 1200 1400 Balance 490 -750 PT 21.3 SEC (12.0-15.0) H 06/10/18 05:00 INR 1.84 (0.83-1.16) H 06/10/18 05:00 - Physical Exam Constitutional: chronically ill appearing, obese, uncomfortable, unkempt Eyes: PERRL, anicteric sclera, EOMI Ears, Nose, Mouth, Throat: moist mucous membranes, hearing normal, ears appear normal, no oral mucosal ulcers Cardiovascular: regular rate and rhythym, no murmur, rub, or gallop, edema Respiratory: reduced air movement, respiratory distress, dullness to percussion Gastrointestinal: normoactive bowel sounds, soft, non-tender abdomen, no palpable masses Genitourinary: no bladder fullness, no bladder tenderness, no renal bruits Skin: no rashes or abrasions, no fluctuance, no induration Musculoskeletal: full muscle strength, no muscle tenderness, normal joint ROM Neurologic: AAOx3, sensation intact bilaterally Psychiatric: interacting appropriately, not anxious, not encephalopathic, thought process linear Lymph, Heme, Immunologic: no cervical LAD, no supraclavicular LAD ICD10 Worksheet Patient Problems: Problems Problem Status Onset Acute ischemic stroke Acute Atrial fibrillation with RVR Acute C. difficile diarrhea Acute ~01/02/17 Hypotension Acute Medication side effect Acute
--- NOTE | 2018-06-10 17:39 | PDDCSUM ---
Discharge Summary Discharge Summary: The patient is a 58-year-old female with past medical history of congestive heart failure, CAD, PAF, CVA, and valvular heart disease who was originally admitted by her sample cutter for worsening dyspnea with acute congestive heart failure exacerbation. She was diuresed with minimal improvement, but developed an acute kidney injury. As she was diuresed her renal function worsened. Has diuretics were held her renal function mildly improved but her respiratory status worsened. Her hospitalization continued with minimal improvement in her respiratory status and continued decline in her renal function. At some point the topic of palliative Care was broached and patient was receptive to moving towards comfort care. After discussion with her primary caregiver and discussions with caregivers from [facility] the patient was amenable to discharge to hospice. She was discharged to [facility] hospice in stable condition to be made comfortable Discharge diagnosis Acute hypoxemic respiratory failure CAD CHF Valvular heart disease Paroxysmal AFib CVA LONNY on CPAP Insulin-dependent diabetes mellitus Lupus Acute on chronic renal insufficiency Obesity Discharge medications I discussed the case with the hospice physician who recommended stopping all inpatient medications and stated that they would start medications for comfort oriented care on arrival to hospice. I spent over 45 min on discharge planning, discussions with patient, family and accepting facility, and arranging transition to hospice
== END 2018-06-10 13:37 | disposition hospice, home (50) | DRG 286 ==
LOC: F2W 17:24 → F2N 05-18 11:34 → F2W 05-19 15:38
PROVIDERS: ADMIT Internal Medicine Cardiovascular Disease; ATTEND Internal Medicine Cardiovascular Disease
PROC: 02HV33Z Insertion of Infusion Device into Superior Vena Cava, Percutaneous Approach (ICD-10-PCS; 2018-05-16)
PROC: B246ZZ4 Ultrasonography of Right and Left Heart, Transesophageal (ICD-10-PCS; 2018-05-23)
PROC: 4A023N6 Measurement of Cardiac Sampling and Pressure, Right Heart, Percutaneous Approach (ICD-10-PCS; principal; 2018-06-04)
DX: I13.0 Hypertensive heart and chronic kidney disease with heart failure and stage 1 through stage 4 chronic kidney disease, or unspecified chronic kidney disease (principal); I50.23 Acute on chronic systolic (congestive) heart failure; J96.21 Acute and chronic respiratory failure with hypoxia; N17.9 Acute kidney failure, unspecified; N18.3 Chronic kidney disease, stage 3 (moderate); I25.10 Atherosclerotic heart disease of native coronary artery without angina pectoris; I48.0 Paroxysmal atrial fibrillation; I25.5 Ischemic cardiomyopathy; I34.0 Nonrheumatic mitral (valve) insufficiency; G47.33 Obstructive sleep apnea (adult) (pediatric); I27.29 Other secondary pulmonary hypertension; E11.9 Type 2 diabetes mellitus without complications; M32.9 Systemic lupus erythematosus, unspecified; E66.01 Morbid (severe) obesity due to excess calories; E78.5 Hyperlipidemia, unspecified; I25.2 Old myocardial infarction; Z86.73 Personal history of transient ischemic attack (TIA), and cerebral infarction without residual deficits; Z79.4 Long term (current) use of insulin
CPT/HCPCS: 82947-QW; 85520-90; 92523-GN; 97110-GO; 97110-GP; 97116-GP; 97161-GP; 97165-GO; 97530-GO; 97530-GP; 97535-GO; C1751; J0330; J1205; J1644; J1815; J1940; J2250; J2704; J2920; J2930; J2997; J3010; J3475; Q9967